=== PATIENT | female | born 1930 | race Caucasian/White ===

== ENCOUNTER 2016-06-19 18:17 | Emergency (ER) | payer OTHER ==
[~2016-06-19] VITALS: Ht 152.4 cm; Wt 57.7 kg
[~2016-06-19 18:17] MED LIST: ALBU1AER9 INH; CHOL100010 PO; CRG125 PO; DIPH-416 PO; FENT25DI2 TD; GABA-113 PO; HYDR-4079 PO; PRT40 PO; RSTOPS OPB
[2016-06-19 18:23] VITALS: TEMP 36.7; Ht 152.4 cm; Wt 57.7 kg
--- NOTE | 2016-06-19 18:29 | EMERGENCY ROOM VISIT NOTE ---
History Report prepared by Evelio: Jodi Herrera Under the Supervision of: Dr. Say Barger D.O. 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 The patient states that she has been experiencing a problem with losing her balance recently. She states she lost her balance and injured her left leg. She states that she did not hit her head and denies any head or neck pain. She states she is currently experiencing some back pain. She states that she does not have any knee pain, but that the laceration on her leg is painful. The patient states her tetanus shot is up to date and that she has history of Rheumatoid arthritis. 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 Patient denies any head pain. Review of Systems See HPI for pertinent positives & negatives. A total of 10 systems reviewed and were otherwise negative. Past Medical & Surgical Medical Problems: (1) Asthma, Unspecified (2) Chronic kidney disease (CKD) stage G3a/A1, moderately decreased glomerular filtration rate (GFR) between 45-59 mL/min/1.73 square meter and albuminuria creatinine ratio less than 30 mg/g (3) Diab Mickie Wo Comp Type Ii Or Nos/Not Uncontrolled (4) Diastolic congestive heart failure (5) Hyperlipemia (6) Hypertension (7) Kidney cyst, acquired (8) Left shoulder pain (9) Nephrolithiasis (10) New onset left bundle branch block (LBBB) (11) Osteoarthritis (12) Peripheral artery disease (13) Pneumonia (14) Temporal arteritis Family History Cancer Diabetes mellitus FH: heart disease Social History Smoking Status: Never Smoker Alcohol Use: none Drug Use: none Marital Status: Housing Status: lives alone Occupation Status: retired Current/Historical Medications Scheduled Amlodipine (Norvasc), 10 MG PO DAILY Aspirin (Aspirin Ec), 81 MG PO DAILY Atorvastatin (Lipitor), 20 MG PO DAILY Carvedilol (Carvedilol), 12.5 MG PO BID Cholecalciferol (Vitamin D), 5,000 INTER.UNIT PO DAILY Cyclosporine (Restasis Eye Drops), 1 DROP OPB BID Fentanyl (Duragesic), 25 MCG TD [id number] Gabapentin (Neurontin), 600 MG PO TID Lidocaine (Lidoderm Patch 5%), 1 PATCH TD UD Multivitamin (Multivitamin), 1 TAB PO DAILY Ocuvite Preservision (Ocuvite Preservision), 2 TAB PO BID Pantoprazole (Pantoprazole Sodium), 40 MG PO BID Penicillin V Potassium (Veetids), 1 TAB PO TID Prednisone (Prednisone), 3 MG PO DAILY Ranibizumab (Lucentis), Unknown Dose IO Q4WK Scheduled PRN Albuterol (Proair Hfa), 1-2 PUFFS INH Q4-6H PRN for Shortness of Breath Diphenoxylate/Atropine (Lomotil), 1 TAB PO QID PRN for Diarrhea Hydralazine HCl (Hydralazine HCl), 25 MG PO DAILY PRN for SYSTOLIC BP GREATER THAN 180 Hydrocodone/Acetaminophen 10MG/325MG (Eaton 10MG/325MG), 1 TAB PO Q4H PRN for Pain Allergies Coded Allergies: Cephalexin (Verified Allergy, Unknown, ., 06/19/16) Clindamycin (Verified Allergy, Unknown, COLITIS, 06/19/16) Hydrochlorothiazide (Unverified Allergy, Unknown, UNKNOWN, 06/19/16) Ibuprofen (Verified Allergy, Unknown, 06/19/16) Lisinopril (Verified Allergy, Unknown, GI SYMPTOMS, 06/19/16) causes renal dysfunction Omeprazole (Verified Allergy, Unknown, ., 06/19/16) Quinolones (Verified Allergy, Unknown, 06/19/16) Adhesives (Verified Adverse Reaction, Intermediate, RASH, 06/19/16) Oxaprozin (Verified Adverse Reaction, Intermediate, HEADACHE, 06/19/16) Physical Exam Vital Signs Date Time Temp Pulse Resp B/P Pulse Ox O2 Delivery O2 Flow Rate FiO2 06/19/16 23:10 78 20 174/78 94 06/19/16 21:48 76 22 161/81 95 Room Air 06/19/16 20:18 83 18 159/74 95 Room Air 06/19/16 18:23 36.7 75 18 156/72 98 Room Air Physical Exam GENERAL: Patient is awake, alert, and in no acute distress. Patient is resting comfortably and showing no signs of anxiety EYES: The conjunctivae are clear. The pupils are round and reactive. EARS, NOSE, MOUTH AND THROAT: The nose is without any evidence of any deformity. Mucous membranes are moist tongue is midline NECK: The neck is nontender and supple. RESPIRATORY: Normal respiratory effort is noted there is no evidence of wheezing rhonchi or rales CARDIOVASCULAR: Regular rate and rhythm noted there no murmurs rubs or gallops normal S1 normal S2 GASTROINTESTINAL: The abdomen is soft. Bowel sounds are present in all quadrants. Abdomen is nontender BACK: Tenderness of over the mid thoracic spine. ROM appeared to be intact. MUSCULOSKELETAL/EXTREMITIES: There is no evidence of gross deformity full range of motion is noted in the hips and shoulders. Tenderness over the left knee cap. ROM of hips and knee appears intact and non painful. SKIN: Chronic venostasis changes noted in both lower extremities. A skin tear just below the left knee with no active bleeding was noted. Large laceration over the proximal tibfib. This was full thickness, no active bleeding was noted. NEUROLOGIC: Patient is awake alert and oriented x3. Medical Decision & Procedures ER Provider Diagnostic Interpretation: X-ray results as stated below per interpretation by me and the radiologist. LUMBAR SPINE 5 VIEWS CLINICAL HISTORY: Fall. Chronic back pain. FINDINGS: 5 views of lumbar spine are compared to study dated 11/10/2014. The skeletal structures are osteopenic. There is no radiographic evidence of acute fracture or malalignment. Vertebral body height and alignment appear maintained. There is straightening of the lumbar lordosis with reversal in the lower lumbar region. Advanced lumbosacral spondylosis is identified. There is severe lumbar levoscoliosis centered at L2-L3. The transverse and spinous processes are grossly intact. There is near complete fusion of L3 and L4. Significant facet arthropathy is present in the lower lumbar spine. Anterior and lateral marginal osteophytes are present at most levels. There is advanced multilevel degenerative disc space narrowing in the mid to lower lumbar spine. The bony pelvis is grossly intact. A left hip arthroplasty is in place. There is advanced atherosclerotic calcification of the abdominal aorta. There is a nonobstructed abdominal bowel gas pattern. IMPRESSION: 1. Generalized osteopenia with no radiographic evidence of fracture or malalignment in the lumbosacral spine. 2. Advanced lumbosacral spondylosis and scoliosis as above. This is similar in appearance to prior studies. Electronically signed by: Davion Reid M.D. 06/19/2016 7:56 PM Dictated Date/Time: 06/19/2016 7:53 PM LEFT KNEE 2 VIEWS CLINICAL HISTORY: Fall with left knee pain. FINDINGS: AP and crosstable lateral views of the left knee are obtained. No prior studies are available for comparison at the time of dictation. The skeletal structures are osteopenic. A left knee arthroplasty is in near-anatomic alignment. No acute fracture is seen. No periprosthetic lucency is identified. There is been undersurface remodeling of the patella. Soft tissue edema is present around the knee. There is no large joint effusion. Advanced atherosclerotic calcification is noted in the popliteal artery. A vascular stent is present posterior to the femur. IMPRESSION: 1. Soft tissue edema with no fracture identified. 2. Osteopenia and left knee arthroplasty is above. Electronically signed by: Davion Reid M.D. 06/19/2016 7:58 PM Dictated Date/Time: 06/19/2016 7:57 PM THORACIC SPINE 3 VIEWS CLINICAL HISTORY: Fall with thoracic back pain. FINDINGS: AP, lateral, and swimmer's views of the thoracic spine are obtained. Correlation is made with lateral chest x-ray dated 08/12/[address] scan of the chest dated 02/02/2016. The Examination is significantly degraded by scoliosis. The skeletal structures are osteopenic. There is no radiographic evidence of acute fracture or malalignment. There is moderate S-shaped thoracic scoliosis centered in the upper thoracic spine around T4-T5. Vertebral body height is maintained as visualized. Alignment appears preserved. The transverse and spinous processes are grossly intact on the frontal view. Advanced multilevel degenerative disc space narrowing is noted. There are anterior osteophytes at several levels. The imaged lung parenchyma appears clear noting chronic elevation of left hemidiaphragm with associated atelectasis. There is advanced atherosclerotic calcification of the thoracic area. Cervical spondylosis is partially imaged. IMPRESSION: 1. There is no radiographic evidence of acute fracture or malalignment involving the thoracic spine. 2. Osteopenia with advanced spondylosis and scoliosis as above. Electronically signed by: Davion Reid M.D. 06/19/2016 7:52 PM Dictated Date/Time: 06/19/2016 7:49 PM LEFT TIBIA AND FIBULA 2 VIEWS CLINICAL HISTORY: Fall with left leg pain. FINDINGS: AP and lateral views of the left tibia and fibula are obtained. No prior studies are available for comparison at the time of dictation. The skeletal structures are osteopenic. No fracture is identified. A left knee arthroplasty is in place. The ankle joint is grossly maintained. Mild soft tissue edema is noted throughout the left lower extremity. Numerous phleboliths are observed. There is advanced atherosclerotic calcification of the regional arteries. IMPRESSION: Soft tissue swelling with no radiographic evidence of fracture in the left tibia or fibula. Electronically signed by: Davion Reid M.D. 06/19/2016 7:59 PM Dictated Date/Time: 06/19/2016 7:58 PM Medications Administered Medications (Trade) Dose Ordered Sig/Fly Route Start Time Stop Time Status Last Admin Dose Admin Ibuprofen (Motrin Tab) 600 mg NOW STAT PO 06/19/16 18:30 06/19/16 18:32 DC 06/19/16 20:14 600 MG Acetaminophen/ Hydrocodone Bitart (Eaton 5/325 Tab) 2 tab ONE STAT PO 06/19/16 19:23 06/19/16 19:25 DC 06/19/16 20:15 2 TAB Penicillin V Potassium (Veetids Tab) 500 mg ONE ONCE PO 06/19/16 22:15 06/19/16 22:16 DC 06/19/16 23:01 500 MG Penicillin V Potassium (Pen-Vk 250MG Home Pack) 1 homepack UD ONCE PO 06/19/16 22:15 06/19/16 22:16 DC 06/19/16 23:01 1 HOMEPACK ED Course 1825: The patient was evaluated in room C12B. A complete history and physical examination were performed. 0: Ordered Motrin Tab 600 mg PO. 1922: Ordered Eaton 5/325 Tab 2 tab PO. 2014: Ordered Lidocaine/ Epinephrine 20 ml INFIL 7: I revaluated the patient and she was resting comfortable. I discussed her surtures with Deon Adhikari PA-C. 2215: Penicillin V Potassium 1 homepack PO, Veetids Tab 500 mg PO, Keflex Cap 500 mg PO, Cephalexin Monohydrate 1 homepack PO. 2230: Upon reevaluation, the patient is resting comfortably. I discussed the results and treatment plan with her. She verbalized agreement of the treatment plan. The patient was discharged home. Medical Decision Prior records/ancillary studies reviewed. Triage Nursing notes reviewed. Additional history obtained from the patient's daughter. The patient's history was concerning for traumatic injury Differential diagnosis: Etiologies such as fracture, dislocation, intra-abdominal, pneumothorax, intrathoracic , intracranial, neurologic, as well as other traumatic pathologies were entertained. The patient is an 85-year-old female who presented to the emergency department for an evaluation of left leg injury. The patient had a fall where she suffered a significant complex injury to her left leg which included a skin tear as well as a full-thickness laceration. The patient was treated with pain medication and antibiotics in the emergency department. The patient had wound care and laceration repair done by ADELITA Long. Please see his note for complete repair details. There was a wound dressing applied. I discussed the case with the emergency Department case packer and sealer. They will attempt to get the patient a follow-up appointment at the wound care center and arrange wound care daily by home health. The patient was encouraged to continue all medications as prescribed and follow-up with wound care center as soon as possible. There were also encouraged to watch for signs of infection and return to the emergency department immediately if symptoms change worsen or if the need arises. Impression Primary Impression: Fall Additional Impressions: Hematoma of left lower extremity Laceration of lower extremity Scribe Attestation The scribe's documentation has been prepared under my direction and personally reviewed by me in its entirety. I confirm that the note above accurately reflects all work, treatment, procedures, and medical decision making performed by me. Departure Information Dispostion Home / Self-Care Prescriptions Penicillin V Potassium (VEETIDS) 500 Mg Tab 1 TAB PO TID for 10 Days, #30 TAB Prov: Say Barger, DO 06/19/16 Referrals Ian Covarrubias M.D. (PCP) Forms HOME CARE DOCUMENTATION FORM, IMPORTANT VISIT INFORMATION Patient Instructions My [facility] Additional Instructions Continue all medications as prescribed. Continue doing dressing changes as discussed. Follow-up wound care center as soon as possible for reevaluation. Problem Qualifiers
[2016-06-19] MEDS ORDERED: IBUPROFEN 600 MG TAB PO STA (18:30)
[2016-06-19] MEDS ORDERED: HYDROCODONE/ACETAMOPHEN 5/325MG TAB PO STA (19:23)
[2016-06-19] MEDS ORDERED: APR/25 PO (19:36)
[2016-06-19] MEDS ORDERED: NF656 TD (19:36)
--- NOTE | 2016-06-19 19:54 | DIAGNOSTIC IMAGING REPORT ---
THORACIC SPINE 3 VIEWS CLINICAL HISTORY: Fall with thoracic back pain. FINDINGS: AP, lateral, and swimmer's views of the thoracic spine are obtained. Correlation is made with lateral chest x-ray dated 08/12/[address] scan of the chest dated 02/02/2016. The Examination is significantly degraded by scoliosis. The skeletal structures are osteopenic. There is no radiographic evidence of acute fracture or malalignment. There is moderate S-shaped thoracic scoliosis centered in the upper thoracic spine around T4-T5. Vertebral body height is maintained as visualized. Alignment appears preserved. The transverse and spinous processes are grossly intact on the frontal view. Advanced multilevel degenerative disc space narrowing is noted. There are anterior osteophytes at several levels. The imaged lung parenchyma appears clear noting chronic elevation of left hemidiaphragm with associated atelectasis. There is advanced atherosclerotic calcification of the thoracic area. Cervical spondylosis is partially imaged. IMPRESSION: 1. There is no radiographic evidence of acute fracture or malalignment involving the thoracic spine. 2. Osteopenia with advanced spondylosis and scoliosis as above. Electronically signed by: Davion Reid M.D. 06/19/2016 7:52 PM Dictated Date/Time: 06/19/2016 7:49 PM
--- NOTE | 2016-06-19 19:58 | DIAGNOSTIC IMAGING REPORT ---
LUMBAR SPINE 5 VIEWS CLINICAL HISTORY: Fall. Chronic back pain. FINDINGS: 5 views of lumbar spine are compared to study dated 11/10/2014. The skeletal structures are osteopenic. There is no radiographic evidence of acute fracture or malalignment. Vertebral body height and alignment appear maintained. There is straightening of the lumbar lordosis with reversal in the lower lumbar region. Advanced lumbosacral spondylosis is identified. There is severe lumbar levoscoliosis centered at L2-L3. The transverse and spinous processes are grossly intact. There is near complete fusion of L3 and L4. Significant facet arthropathy is present in the lower lumbar spine. Anterior and lateral marginal osteophytes are present at most levels. There is advanced multilevel degenerative disc space narrowing in the mid to lower lumbar spine. The bony pelvis is grossly intact. A left hip arthroplasty is in place. There is advanced atherosclerotic calcification of the abdominal aorta. There is a nonobstructed abdominal bowel gas pattern. IMPRESSION: 1. Generalized osteopenia with no radiographic evidence of fracture or malalignment in the lumbosacral spine. 2. Advanced lumbosacral spondylosis and scoliosis as above. This is similar in appearance to prior studies. Electronically signed by: Davion Reid M.D. 06/19/2016 7:56 PM Dictated Date/Time: 06/19/2016 7:53 PM
--- NOTE | 2016-06-19 20:00 | DIAGNOSTIC IMAGING REPORT ---
LEFT KNEE 2 VIEWS CLINICAL HISTORY: Fall with left knee pain. FINDINGS: AP and crosstable lateral views of the left knee are obtained. No prior studies are available for comparison at the time of dictation. The skeletal structures are osteopenic. A left knee arthroplasty is in near-anatomic alignment. No acute fracture is seen. No periprosthetic lucency is identified. There is been undersurface remodeling of the patella. Soft tissue edema is present around the knee. There is no large joint effusion. Advanced atherosclerotic calcification is noted in the popliteal artery. A vascular stent is present posterior to the femur. IMPRESSION: 1. Soft tissue edema with no fracture identified. 2. Osteopenia and left knee arthroplasty is above. Electronically signed by: Davion Reid M.D. 06/19/2016 7:58 PM Dictated Date/Time: 06/19/2016 7:57 PM
--- NOTE | 2016-06-19 20:01 | DIAGNOSTIC IMAGING REPORT ---
LEFT TIBIA AND FIBULA 2 VIEWS CLINICAL HISTORY: Fall with left leg pain. FINDINGS: AP and lateral views of the left tibia and fibula are obtained. No prior studies are available for comparison at the time of dictation. The skeletal structures are osteopenic. No fracture is identified. A left knee arthroplasty is in place. The ankle joint is grossly maintained. Mild soft tissue edema is noted throughout the left lower extremity. Numerous phleboliths are observed. There is advanced atherosclerotic calcification of the regional arteries. IMPRESSION: Soft tissue swelling with no radiographic evidence of fracture in the left tibia or fibula. Electronically signed by: Davion Reid M.D. 06/19/2016 7:59 PM Dictated Date/Time: 06/19/2016 7:58 PM
[2016-06-19] MEDS ORDERED: LIDOCAINE/EPINEPHRINE 1% 20 ML VIAL INFIL ONE (20:15)
[2016-06-19] MEDS ORDERED: PENI500T2 PO (22:13)
[2016-06-19] MEDS ORDERED: CEPHALEXIN MONOHYDRATE 250 MG CAP PO ONE (22:15)
[2016-06-19] MEDS ORDERED: PENICILLIN HOME PACK 250MG (4)BTL PO ONE (22:15)
[2016-06-19] MEDS ORDERED: CEPHALEXIN 500MG HOME PACK 1 EA BTL PO ONE (22:15)
[2016-06-19] MEDS ORDERED: PENICILLIN V POTASSIUM 250 MG TAB PO ONE (22:15)
[2016-06-19 23:10] VITALS: BP 174/78; PULSE 78; O2SAT 94
--- NOTE | 2016-06-20 01:16 | EMERGENCY ROOM VISIT NOTE ---
ED Visit Note This patient was seen and evaluated at the request of my attending physician, Dr. Barger. Please see Dr. Barger dictation for full history of present illness and emergency Department course outside of this repair. In short, the patient has suffered a fall this evening and now has a quite complicated left lower leg laceration. The patient has a skin tear laceration measuring approximately 7 cm in diameter over the left lateral distal femur. There is not a distinct laceration in this area, and the bleeding here is well-controlled. This area was dressed with Xeroform and wrapped. The much more complicated laceration is just distal to that initial injury. She has an L-shaped laceration over the tibia measuring approximately 14 cm in total length. This laceration does cause a flap revealing the proximal tibia. The medial aspect of this laceration is quite edematous and medially displaced. The lateral aspect of the laceration is adjacent to the bone, and is very thin. The patient's skin is exceptionally thin as she has been on chronic prednisone for a history of rheumatoid arthritis. I discussed options of care with the patient and family. Laceration repair. Patient elects to have their laceration repaired. Verbal consent was obtained to perform the procedure. There is an abundance of materials available for the procedure. Patient is not allergic to latex. Using sterile technique the wound was cleaned with Betadine. The area was sterilely draped. 14 ml of 1% buffered lidocaine with epinephrine was used to anesthetize the left lower leg laceration. Once the patient was anesthetized, the wound was copiously irrigated under pressure with sterile saline. The wound was explored and the proximal tibia was exposed. There is no obvious injury to blood vessels. The laceration repair was quite complex. The proximal medial wound was repaired with 6 4-0 Ethilon stitches. The most distal aspect was repaired with a single 4-0 Ethilon stitch. The central aspect of the wound was reapproximated using a single 4-0 horizontal mattress suture. This suture was quite long as its primary function was to help reapproximate the tissue. A second similar stitch was attempted more distally, however this stitch was removed as the patient's skin is very thin and unable to withstand the tensile force. A total of 7 stitches were placed in final. The remaining laceration did approximate fairly well after initial stitching. I do have concern about this laceration, and I did place Steri-Strips essentially around the entire length of the laceration with benzoin adhesive. Overall the patient tolerated this well. There were no obvious complications. I instructed nursing to place a pressure dressing that would help provide some medial to lateral approximation. Hopefully this will take some of the stress off the patient's skin while keeping her wound/skin in an anatomically appropriate position. Blood loss was negligible. I discussed at length my concerns about the wound with the family. Dr. Barger shares these concerns, and he did engage case management. The patient really needs to follow with the wound care clinic for this, as the risk of complication is felt to be quite high. The patient voiced understanding. Please see Dr. Barger dictation for further patient course, plan, and disposition. Problem List Medical Problems: (1) Asthma, Unspecified Status: Chronic (2) Chronic kidney disease (CKD) stage G3a/A1, moderately decreased glomerular filtration rate (GFR) between 45-59 mL/min/1.73 square meter and albuminuria creatinine ratio less than 30 mg/g Status: Chronic (3) Diab Mickie Wo Comp Type Ii Or Nos/Not Uncontrolled Status: Chronic (4) Diastolic congestive heart failure Status: Chronic (5) Hyperlipemia Status: Chronic (6) Hypertension Status: Chronic (7) Kidney cyst, acquired Status: Chronic (8) Left shoulder pain Status: Resolved (9) Nephrolithiasis Status: Chronic (10) Osteoarthritis Status: Chronic (11) Peripheral artery disease Status: Chronic (12) Temporal arteritis Status: Chronic Current/Historical Medications Scheduled Amlodipine (Norvasc), 10 MG PO DAILY Aspirin (Aspirin Ec), 81 MG PO DAILY Atorvastatin (Lipitor), 20 MG PO DAILY Carvedilol (Carvedilol), 12.5 MG PO BID Cholecalciferol (Vitamin D), 5,000 INTER.UNIT PO DAILY Cyclosporine (Restasis Eye Drops), 1 DROP OPB BID Fentanyl (Duragesic), 25 MCG TD CQ72HR Gabapentin (Neurontin), 600 MG PO TID Lidocaine (Lidoderm Patch 5%), 1 PATCH TD UD Multivitamin (Multivitamin), 1 TAB PO DAILY Ocuvite Preservision (Ocuvite Preservision), 2 TAB PO BID Pantoprazole (Pantoprazole Sodium), 40 MG PO BID Penicillin V Potassium (Veetids), 1 TAB PO TID Prednisone (Prednisone), 3 MG PO DAILY Ranibizumab (Lucentis), Unknown Dose IO Q4WK Scheduled PRN Albuterol (Proair Hfa), 1-2 PUFFS INH Q4-6H PRN for Shortness of Breath Diphenoxylate/Atropine (Lomotil), 1 TAB PO QID PRN for Diarrhea Hydralazine HCl (Hydralazine HCl), 25 MG PO DAILY PRN for SYSTOLIC BP GREATER THAN 180 Hydrocodone/Acetaminophen 10MG/325MG ([place]reana 10MG/325MG), 1 TAB PO Q4H PRN for Pain Allergies Coded Allergies: Cephalexin (Verified Allergy, Unknown, ., 06/19/16) Clindamycin (Verified Allergy, Unknown, COLITIS, 06/19/16) Hydrochlorothiazide (Unverified Allergy, Unknown, UNKNOWN, 06/19/16) Ibuprofen (Verified Allergy, Unknown, 06/19/16) Lisinopril (Verified Allergy, Unknown, GI SYMPTOMS, 06/19/16) causes renal dysfunction Omeprazole (Verified Allergy, Unknown, ., 06/19/16) Quinolones (Verified Allergy, Unknown, 06/19/16) Adhesives (Verified Adverse Reaction, Intermediate, RASH, 06/19/16) Oxaprozin (Verified Adverse Reaction, Intermediate, HEADACHE, 06/19/16) Vital Signs Date Time Temp Pulse Resp B/P Pulse Ox O2 Delivery O2 Flow Rate FiO2 06/19/16 23:10 78 20 174/78 94 06/19/16 21:48 76 22 161/81 95 Room Air 06/19/16 20:18 83 18 159/74 95 Room Air 06/19/16 18:23 36.7 75 18 156/72 98 Room Air Medications Administered Medications (Trade) Dose Ordered Sig/Fly Route Start Time Stop Time Status Last Admin Dose Admin Ibuprofen (Motrin Tab) 600 mg NOW STAT PO 06/19/16 18:30 06/19/16 18:32 DC 06/19/16 20:14 600 MG Acetaminophen/ Hydrocodone Bitart ([place] 5/325 Tab) 2 tab ONE STAT PO 06/19/16 19:23 06/19/16 19:25 DC 06/19/16 20:15 2 TAB Penicillin V Potassium (Veetids Tab) 500 mg ONE ONCE PO 06/19/16 22:15 06/19/16 22:16 DC 06/19/16 23:01 500 MG Penicillin V Potassium (Pen-Vk 250MG Home Pack) 1 homepack UD ONCE PO 06/19/16 22:15 06/19/16 22:16 DC 06/19/16 23:01 1 HOMEPACK Departure Information Impression Primary Impression: Fall Additional Impressions: Laceration of lower extremity Hematoma of left lower extremity Dispostion Home / Self-Care Condition GOOD Prescriptions Penicillin V Potassium (VEETIDS) 500 Mg Tab 1 TAB PO TID for 10 Days, #30 TAB Prov: Say Barger, DO 06/19/16 Referrals Ian Covarrubias M.D. (PCP) Forms HOME CARE DOCUMENTATION FORM, IMPORTANT VISIT INFORMATION Patient Instructions My [facility], ED Laceration All Additional Instructions Continue all medications as prescribed. Continue doing dressing changes as discussed. Follow-up wound care center as soon as possible for reevaluation.
[2017-03-01] MEDS ORDERED: [UNRECOGNIZED DRUG - CODE] IO (08:37)
[2017-03-01] MEDS ORDERED: PRD/1 PO (10:44)
[2017-03-01] MEDS ORDERED: ATOR-22 PO (10:47)
[2017-03-01] MEDS ORDERED: MULT-506 PO (10:50)
[2017-03-01] MEDS ORDERED: MULT-190 PO (10:50)
[2017-03-01] MEDS ORDERED: AMLO-114 PO (16:40)
[2017-03-01] MEDS ORDERED: ASPI81TA28 PO (16:44)
== END 2016-06-19 23:10 | disposition home or self-care (01) ==
LOC: EDBD 18:17 → C.EDC 18:19
DX: S81.812A Laceration without foreign body, left lower leg, initial encounter (principal); S80.12XA Contusion of left lower leg, initial encounter; W19.XXXA Unspecified fall, initial encounter; M06.9 Rheumatoid arthritis, unspecified; J45.909 Unspecified asthma, uncomplicated; I12.9 Hypertensive chronic kidney disease with stage 1 through stage 4 chronic kidney disease, or unspecified chronic kidney disease; N18.9 Chronic kidney disease, unspecified; E11.22 Type 2 diabetes mellitus with diabetic chronic kidney disease; E78.5 Hyperlipidemia, unspecified; M19.90 Unspecified osteoarthritis, unspecified site; I73.9 Peripheral vascular disease, unspecified; Z87.01 Personal history of pneumonia (recurrent); Z83.3 Family history of diabetes mellitus; Z79.52 Long term (current) use of systemic steroids; Z79.82 Long term (current) use of aspirin; Z79.899 Other long term (current) drug therapy

== ENCOUNTER → 2016-07-11 | Outpatient (CLI) | payer OTHER ==
[~2016-07-11] MED LIST changes: +AMLO-114 PO; +APR/25 PO; +ASPI81TA28 PO; +ATOR-22 PO; +CARB25TA12 PO; +CARV12.52 PO; +CHOL1TAB42 PO; +CYCL0.052 OP; +FNTTP25 TOP; +HYDR-4383 PO; +MOME100A INH; +MULT-190 PO; +MULT-506 PO; +NF656 TD; +NRN600 PO; +PRD/1 PO; +PROAIR INH; +TRMCR515 TOP; +[UNRECOGNIZED DRUG - CODE] IO
[2016-07-11 13:10] LABS: BASO % 0.5 %; BASO ABS # 0.04 K/uL (0-0.2); COMPLETE YES; EOS % 6.3 %; HEMATOCRIT 36.9 % (37-47); IG% 0.4 %; LYMPH % 16.4 %; LYMPH ABS # 1.25 K/uL (1.2-3.4); MEAN CELL VOLUME 97.6 fL (80-100); MEAN CORPUSCULAR HEMOGLOBIN 31.7 pg (25-34); MEAN CORPUSCULAR HGB CONC 32.5 g/dl (32-36); MEAN PLATELET VOLUME 9.4 fL (7.4-10.4); NEUT % 65.4 %; PLATELET COUNT 246 K/uL (130-400); RED BLOOD COUNT 3.78 M/uL (4.2-5.4); WHITE BLOOD COUNT 7.62 K/uL (4.8-10.8)
[2016-07-11 13:29] LABS: BLOOD UREA NITROGEN 20 mg/dl (7-18); GLUCOSE 94 mg/dl (70-99)
[2016-07-11 13:30] LABS: BUN/CREATININE RATIO 26.4 (10-20); CALCIUM 8.4 mg/dl (8.5-10.1); CARBON DIOXIDE 29 mmol/L (21-32); CHLORIDE 105 mmol/L (98-107); CREATININE 0.75 mg/dl (0.60-1.20); SODIUM 142 mmol/L (136-145)
== END | disposition home or self-care (01) ==
LOC: C.LABBC 10:14
PROVIDERS: ATTEND Internal Medicine Geriatric Medicine
DX: M31.6 Other giant cell arteritis (principal); I10 Essential (primary) hypertension; R73.9 Hyperglycemia, unspecified; I73.9 Peripheral vascular disease, unspecified

== ENCOUNTER → 2016-07-14 | Outpatient (CLI) | payer OTHER ==
--- NOTE | 2016-07-14 12:49 | DIAGNOSTIC IMAGING REPORT ---
LEFT LOWER EXTREMITY ULTRASOUND CLINICAL HISTORY: Left leg nonhealing wound. Palpable abnormality. COMPARISON STUDY: No previous studies for comparison. FINDINGS: Note is made of a complex subcutaneous fluid collection of the medial left calf that measures approximately 5.7 x 5.2 x 1.6 cm. No color flow is shown within this finding. There is no hyperemia within the adjacent soft tissues by sonography. This represents the palpable abnormality. IMPRESSION: 5.7 x 5.2 x 1.6 cm complex subcutaneous fluid collection of the medial left calf at the site of palpable abnormality. The sonographic appearance is nonspecific and this could reflect a hematoma or abscess. Electronically signed by: Benigno Elias M.D. 07/14/2016 12:48 PM Dictated Date/Time: 07/14/2016 12:45 PM
== END | disposition home or self-care (01) ==
LOC: C.ULTR 11:59
PROVIDERS: ATTEND Physician Assistant
DX: S81.802A Unspecified open wound, left lower leg, initial encounter (principal); X58.XXXA Exposure to other specified factors, initial encounter

== ENCOUNTER → 2016-08-13 | Outpatient (CLI) | payer OTHER ==
[~2016-08-13] MED LIST changes: -PRT40 PO
--- NOTE | 2016-08-13 11:30 | DIAGNOSTIC IMAGING REPORT ---
CHEST 2 VIEWS ROUTINE CLINICAL HISTORY: COUGH dyspnea COMPARISON STUDY: 02/02/2016 FINDINGS: Hiatal hernia best seen left base. Lungs are considered clear. Minimal left basilar atelectasis. Mild stable cardiomegaly. IMPRESSION: Mild stable cardiomegaly. Fixed lateral hernia best seen left base. Focal atelectatic change left base Electronically signed by: Frank Colin M.D. 08/13/2016 11:29 AM Dictated Date/Time: 08/13/2016 11:28 AM
== END | disposition home or self-care (01) ==
LOC: C.RADBC 10:58
PROVIDERS: ATTEND Internal Medicine Geriatric Medicine
DX: R05 Cough (principal); I51.7 Cardiomegaly

== ENCOUNTER → 2016-09-02 | Outpatient (CLI) | payer OTHER ==
--- NOTE | 2016-09-02 14:13 | DIAGNOSTIC IMAGING REPORT ---
CT OF THE CHEST WITHOUT IV CONTRAST CLINICAL HISTORY: R05 Cough persistent cough COMPARISON STUDY: 02/02/2016 CT DOSE: 318.01 mGy.cm TECHNIQUE: CT of the thorax was performed from the thoracic inlet to the lung bases. Images are reviewed in the axial, sagittal, and coronal planes. IV contrast was not administered for this examination. FINDINGS: Thyroid: Imaged portions of the thyroid gland are normal in appearance. Thoracic aorta: The thoracic aorta is normal in course and caliber, noting standard 3 vessel arch anatomy. Heart: There is borderline cardiac enlargement. There is no pericardial effusion. Lungs and pleural spaces: There are clustered tangential right lower lobe pulmonary nodules measuring 21 mm in aggregate. These were not present on the prior January 2016 study. This therefore favors an inflammatory etiology. A 2 month follow-up study subsequent antibiotic therapy is recommended. There is a left diaphragmatic hernia. This contains portions of the stomach and transverse colon. There are compressive left lower lobe atelectatic changes. There are minor left pleural calcifications. Mediastinum: There is no mediastinal lymphadenopathy. Antonella: There is no evidence of pathologic hilar adenopathy given the limitations of a noncontrast study Axilla: Clear. Upper abdomen: There is a stable hepatic cyst. There is a stable hepatic calcification likely postinflammatory. Skeletal structures: There are no lytic or blastic osseous lesions. IMPRESSION: 1. Interval development of clustered tangential right lower lobe pulmonary nodules measuring 21 mm in aggregate. An inflammatory etiology is favored. A 2 month follow-up study subsequent to antibiotic therapy is recommended 2. Left diaphragmatic hernia containing portions of the stomach and transverse colon Electronically signed by: Mulugeta Morales M.D. 09/02/2016 2:11 PM Dictated Date/Time: 09/02/2016 2:04 PM
== END | disposition home or self-care (01) ==
LOC: C.CTS 13:50
PROVIDERS: ATTEND Internal Medicine Geriatric Medicine
DX: R05 Cough (principal); R91.8 Other nonspecific abnormal finding of lung field; K44.9 Diaphragmatic hernia without obstruction or gangrene

== ENCOUNTER → 2016-11-11 | Outpatient (CLI) | payer OTHER ==
[~2016-11-11] MED LIST changes: +ALBU18002 INH; -APR/25 PO; +CIPR-255 PO; +HYDR-4716 PO
[2016-11-11 17:19] LABS: BASO % 0.1 %; BASO ABS # 0.01 K/uL (0-0.2); COMPLETE YES; IG% 0.4 %; LYMPH % 9.8 %; LYMPH ABS # 1.01 K/uL (1.2-3.4); MEAN CELL VOLUME 97.9 fL (80-100); MEAN CORPUSCULAR HEMOGLOBIN 31.7 pg (25-34); MEAN CORPUSCULAR HGB CONC 32.4 g/dl (32-36); MEAN PLATELET VOLUME 9.2 fL (7.4-10.4); MONO % 8.7 %; PLATELET COUNT 233 K/uL (130-400); RED BLOOD COUNT 4.19 M/uL (4.2-5.4); WHITE BLOOD COUNT 10.34 K/uL (4.8-10.8)
[2016-11-11 18:06] LABS: BLOOD UREA NITROGEN 34 mg/dl (7-18); BUN/CREATININE RATIO 49.4 (10-20); CARBON DIOXIDE 28 mmol/L (21-32); CHLORIDE 103 mmol/L (98-107); CREATININE 0.69 mg/dl (0.60-1.20); GLUCOSE 134 mg/dl (70-99); POTASSIUM 4.4 mmol/L (3.5-5.1); SODIUM 142 mmol/L (136-145)
[2016-11-12 06:03] LABS: ESTIMATED AVERAGE GLUCOSE 134 mg/dl; HA1C FLAG Normal (Normal)
== END | disposition home or self-care (01) ==
LOC: C.LABBC 14:34
PROVIDERS: ATTEND Internal Medicine Geriatric Medicine
DX: M31.6 Other giant cell arteritis (principal); I10 Essential (primary) hypertension; R73.9 Hyperglycemia, unspecified

== ENCOUNTER → 2017-02-06 | Outpatient (CLI) | payer OTHER ==
[~2017-02-06] MED LIST changes: -ALBU18002 INH; +APR/25 PO; -CIPR-255 PO; -HYDR-4716 PO
[2017-02-06 13:01] LABS: BASO % 0.7 %; BASO ABS # 0.05 K/uL (0-0.2); COMPLETE YES; EOS % 4.9 %; HEMATOCRIT 41.5 % (37-47); IG% 0.3 %; LYMPH % 17.8 %; LYMPH ABS # 1.32 K/uL (1.2-3.4); MEAN CELL VOLUME 97.6 fL (80-100); MEAN CORPUSCULAR HEMOGLOBIN 31.5 pg (25-34); MEAN CORPUSCULAR HGB CONC 32.3 g/dl (32-36); MEAN PLATELET VOLUME 9.4 fL (7.4-10.4); MONO % 10.9 %; NEUT % 65.4 %; PLATELET COUNT 215 K/uL (130-400); RED BLOOD COUNT 4.25 M/uL (4.2-5.4); WHITE BLOOD COUNT 7.41 K/uL (4.8-10.8)
[2017-02-06 13:58] LABS: ALT/SGPT 8 U/L (12-78); AST/SGOT 14 U/L (15-37); BLOOD UREA NITROGEN 20 mg/dl (7-18); BUN/CREATININE RATIO 27.7 (10-20); CALCIUM 9.3 mg/dl (8.5-10.1); CARBON DIOXIDE 31 mmol/L (21-32); CHLORIDE 107 mmol/L (98-107); CREATININE 0.72 mg/dl (0.60-1.20); GLUCOSE 91 mg/dl (70-99); POTASSIUM 3.6 mmol/L (3.5-5.1); SODIUM 141 mmol/L (136-145)
[2017-02-06 14:01] LABS: ALKALINE PHOSPHATASE 117 U/L (45-117); CHOLESTEROL 104 mg/dl (0-200); HDL CHOLESTEROL 51 mg/dl; LDL CHOLESTEROL CALCULATED 25 mg/dl; TRIGLYCERIDES 140 mg/dl (0-150); VERY LOW DENSITY LIPOPROT CALC 28 mg/dl
== END | disposition home or self-care (01) ==
LOC: C.LABBC 11:16
PROVIDERS: ATTEND Internal Medicine Geriatric Medicine
DX: E55.9 Vitamin D deficiency, unspecified (principal); I10 Essential (primary) hypertension; R73.9 Hyperglycemia, unspecified; I73.9 Peripheral vascular disease, unspecified; M19.90 Unspecified osteoarthritis, unspecified site; M31.6 Other giant cell arteritis

== ENCOUNTER 2017-03-01 19:59 | Emergency (ER) | payer OTHER ==
[~2017-03-01] VITALS: Ht 154.9 cm; Wt 56.4 kg
[~2017-03-01 19:59] MED LIST changes: -CARB25TA12 PO; -CARV12.52 PO; -CHOL1TAB42 PO; -CYCL0.052 OP; -FNTTP25 TOP; -HYDR-4383 PO; -MOME100A INH; -NRN600 PO; -PROAIR INH; -TRMCR515 TOP
[2017-03-01] MEDS ORDERED: XYLOCAINE 1%/SOD BICARB 20 ML VIAL INFIL STA (20:16)
[2017-03-01] MEDS ORDERED: HYDROCODONE/ACETAMOPHEN 5/325MG TAB PO STA (20:16)
--- NOTE | 2017-03-01 20:16 | EMERGENCY ROOM VISIT NOTE ---
History Report prepared by Evelio: Kamryn Russell Under the Supervision of: Dr. Ton Hensley M.D. First contact with patient: 20:11 Stated Complaint: fall History of Present Illness The patient is an 86 year old female who presents to the Emergency Room with complaints of a fall that occurred prior to arrival. She was brought to the ED via EMS and is accompanied by her daughter. She reports she slipped in the bathroom this evening on a wet surface and fell, hitting the back of her head. She rates her discomfort as a 7/10 in severity. She did not lose consciousness. She takes a daily baby Aspirin but no other blood thinners. The patient denies any abdominal pain or pain with inspiration. She also denies any neck pain or back pain. Source of History: patient Onset: PROCESSING MGR Position: other (global) Quality: other (fall) Timing: resolved Associated Symptoms: No LOC, No neck pain, No abdominal pain, No back pain Review of Systems See HPI for pertinent positives & negatives. A total of 10 systems reviewed and were otherwise negative. Past Medical & Surgical Medical Problems: (1) Asthma, Unspecified (2) Chronic kidney disease (CKD) stage G3a/A1, moderately decreased glomerular filtration rate (GFR) between 45-59 mL/min/1.73 square meter and albuminuria creatinine ratio less than 30 mg/g (3) Diab Mickie Wo Comp Type Ii Or Nos/Not Uncontrolled (4) Diastolic congestive heart failure (5) Hematoma (6) Hyperlipemia (7) Hypertension (8) Kidney cyst, acquired (9) Left shoulder pain (10) MRSA (methicillin resistant Staphylococcus aureus) infection (11) Nephrolithiasis (12) New onset left bundle branch block (LBBB) (13) Osteoarthritis (14) Peripheral artery disease (15) Pneumonia (16) Temporal arteritis (17) Wound of left leg Family History Cancer Diabetes mellitus FH: heart disease Social History Smoking Status: Never Smoker Alcohol Use: none Drug Use: none Marital Status: Housing Status: lives alone Occupation Status: retired Current/Historical Medications Scheduled Amlodipine (Norvasc), 10 MG PO DAILY Aspirin (Aspirin Ec), 81 MG PO DAILY Atorvastatin (Lipitor), 20 MG PO DAILY Carbidopa/Levodopa (Sinemet 25MG/100MG), 1 TAB PO TID Carvedilol (Coreg), 12.5 MG PO BID Cholecalciferol (Vitamin D), 5,000 UNITS PO DAILY Cyclosporine (Ophth) (Restasis), 1 DROP OP BID Fentanyl (Fentanyl), 1 PATCH TOP CQ72HR Gabapentin (Gabapentin), 600 MG PO TID Mometasone Furoate-Formoterol (Dulera 100/5 Mcg), 1 AER INH QAM Multivitamin (Multivitamin), 1 TAB PO DAILY Ocuvite Preservision (Ocuvite Preservision), 1 TAB PO BID Prednisone (Prednisone), 1 MG PO TID Ranibizumab (Lucentis), Unknown Dose IO Q6WK Triamcinolone Acet (Triamcinolone Acetonide), 1 APPLN TOP BID Scheduled PRN Hydrocodone/Acetaminophen ([place] 10/325 Tab), 1 TAB PO Q6 PRN for Pain [Proair], 1-2 PUFF INH Q4-6HRS PRN for SOB/Wheezing Allergies Coded Allergies: Cephalexin (Verified Allergy, Unknown, ., 08/05/16) Clindamycin (Verified Allergy, Unknown, COLITIS, 08/05/16) Hydrochlorothiazide (Verified Allergy, Unknown, UNKNOWN, 08/05/16) Ibuprofen (Verified Allergy, Unknown, 08/05/16) Omeprazole (Verified Allergy, Unknown, ., 08/05/16) Quinolones (Verified Allergy, Unknown, 08/05/16) Adhesives (Verified Adverse Reaction, Intermediate, RASH, 08/05/16) Oxaprozin (Verified Adverse Reaction, Intermediate, HEADACHE, 08/05/16) Lisinopril (Verified Adverse Reaction, Unknown, GI SYMPTOMS,RENAL DYSFUNCTION, 08/05/16) causes renal dysfunction Physical Exam Vital Signs Date Time Temp Pulse Resp B/P (MAP) Pulse Ox O2 Delivery O2 Flow Rate FiO2 03/01/17 22:08 36.7 92 18 162/64 96 03/01/17 21:51 36.7 92 18 162/64 96 Room Air 03/01/17 20:35 36.8 88 19 163/75 94 Room Air 03/01/17 20:19 85 Physical Exam GENERAL: Patient is a healthy-appearing well-nourished 86 year old female HEAD: 2.6 cm laceration to the back of head, normocephalic EYES: Ocular movements intact pupils equal and react to light OROPHARYNX mucous membranes are moist no exudates present no erythema or edema present NECK: Supple no nuchal rigidity. No midline tenderness to the neck or spine. CHEST: Good equal expansion LUNGS: Clear and equal to auscultation CARDIAC: Normal S1 and S2 ABDOMEN: Soft nontender no guarding BACK: No CVA tenderness EXTREMITIES: No pain upon palpation normal muscle strength in all groups no clubbing cyanosis or edema NEURO: Patient is following commands is answering questions appropriately. Alert and oriented x3 Cranial Nerves 2-12 grossly intact Medical Decision & Procedures ER Provider Diagnostic Interpretation: Radiology results as stated below per my review and radiologist interpretation: CT HEAD WITHOUT CONTRAST (CT) CLINICAL HISTORY: Head pain status post trauma COMPARISON STUDY: 11/20/2014 TECHNIQUE: Axial CT of the brain is performed from the vertex to the skull base. IV contrast was not administered for this examination. A dose lowering technique was utilized adhering to the principles of ALARA. CT DOSE: 601.98 mGy.cm FINDINGS: No intra or extra-axial mass lesions are visualized. There is no CT evidence of acute cortical infarction. There is no evidence of midline shift. There is no acute hemorrhage. No calvarial fractures are visualized. There are patchy white matter hypodensities likely on a small vessel basis. There is mild particular dilatation, only minimally more pronounced than on the preceding study. This is likely secondary to volume loss. There are vertebral and carotid artery calcifications. There is no evidence of acute sinusitis IMPRESSION: No acute intracranial findings Electronically signed by: Mulugeta Morales M.D. 03/01/2017 8:55 PM Dictated Date/Time: 03/01/2017 8:51 PM Medications Administered Medications (Trade) Dose Ordered Sig/Fly Route Start Time Stop Time Status Last Admin Dose Admin Acetaminophen/ Hydrocodone Bitart ([place] 5/325 Tab) 1 tab NOW STAT PO 03/01/17 20:16 03/01/17 20:18 DC 03/01/17 20:26 1 TAB Procedure Location: Scalp Total length: 2.6 cm Complexity: Simple Verbal consent was obtained after the risks and benefits were explained, including but not limited to bleeding, scarring, infection, pain, and bone/ nerve damage. At this time, the risks of the procedure are less than the risks of NOT performing the procedure. A time out was taken and the correct patient and site identified. The scalp was prepped with betadine. Copious irrigation was performed using saline. The skin was re-prepped with betadine, the hair cleared from the wound, and a sterile field set. The wound was explored for foreign bodies and none found. Debridement was not performed. The wound edges were approximated using 4 surgical ivan in the standard fashion. Hemostasis and excellent approximation was achieved. Antibacterial ointment and a sterile dressing applied. Detailed wound care instructions and signs and symptoms of infection reviewed with the patient. No complications and the patient tolerated the procedure well. ECG Indication: weakness Rate (beats per minute): 80 Rhythm: normal sinus Findings: LBBB, no acute ischemic change, no ectopy ED Course 2012: Past medical records reviewed. The patient was evaluated in room B8. A complete history and physical examination was performed. 2016: Osage 5/325 mg 1 tab PO, Lidocaine HCl 20 ml INFIL. Medical Decision Prior records/ancillary studies reviewed. Triage Nursing notes reviewed. The patient's history was concerning for traumatic injury Differential diagnosis: Etiologies such as fracture, dislocation, intra-abdominal, pneumothorax, intrathoracic , intracranial, neurologic, as well as other traumatic pathologies were entertained. This is an 86-year-old female that presents emergency department after a slip and fall at home. The patient has a laceration to the back of her head and this was repaired as above. The patient was sent for CAT scan of the head was found to be normal. I do believe that the patient is well enough to be discharged home for follow-up with her primary care physician. Patient was in agreement with the treatment plan. Medication Reconcilliation Current Medication List: was personally reviewed by me Blood Pressure Screening Patient's blood pressure: Elevated blood pressure Blood pressure disposition: Referred to PCP Impression Primary Impression: Fall Scribe Attestation The scribe's documentation has been prepared under my direction and personally reviewed by me in its entirety. I confirm that the note above accurately reflects all work, treatment, procedures, and medical decision making performed by me. Departure Information Dispostion Home / Self-Care Referrals Ian Covarrubias M.D. (PCP) Patient Instructions ED Head Injury Closed, ED Laceration Scalp Stitch Or Stap, ED Prevention Fall, Hypertension Dc, My [facility] Additional Instructions [place] out in 7-10 days You were found to have an elevated blood pressure today (>120 sytolic or >90 diastolic). Per medicare guidelines, you need to follow up with this blood pressure screening with your Primary Care Physician (PCP). For a new PCP call [phone]. You have been examined and treated today on an emergency basis only. This is not a substitute for, or an effort to provide, complete comprehensive medical care. It is impossible to recognize and treat all injuries or illnesses in a single emergency department visit. It is therefore important that you follow up closely with Dr Covarrubias. Call as soon as possible for an appointment. Thank you for your time and consideration. I look forward to speaking with you again soon. Please don't hesitate to call us if you have any questions. Problem Qualifiers Primary Impression: Fall Encounter type: initial encounter Qualified Codes: W19.XXXA - Unspecified fall, initial encounter
[2017-03-01 20:35] VITALS: Ht 154.9 cm; Wt 56.4 kg
--- NOTE | 2017-03-01 20:56 | DIAGNOSTIC IMAGING REPORT ---
CT HEAD WITHOUT CONTRAST (CT) CLINICAL HISTORY: Head pain status post trauma COMPARISON STUDY: 11/20/2014 TECHNIQUE: Axial CT of the brain is performed from the vertex to the skull base. IV contrast was not administered for this examination. A dose lowering technique was utilized adhering to the principles of ALARA. CT DOSE: 601.98 mGy.cm FINDINGS: No intra or extra-axial mass lesions are visualized. There is no CT evidence of acute cortical infarction. There is no evidence of midline shift. There is no acute hemorrhage. No calvarial fractures are visualized. There are patchy white matter hypodensities likely on a small vessel basis. There is mild particular dilatation, only minimally more pronounced than on the preceding study. This is likely secondary to volume loss. There are vertebral and carotid artery calcifications. There is no evidence of acute sinusitis IMPRESSION: No acute intracranial findings Electronically signed by: Mulugeta Morales M.D. 03/01/2017 8:55 PM Dictated Date/Time: 03/01/2017 8:51 PM
[2017-03-01] MEDS ORDERED: CARB25TA12 PO (21:23)
[2017-03-01] MEDS ORDERED: MOME100A INH (21:23)
[2017-03-01] MEDS ORDERED: NRN600 PO (21:23)
[2017-03-01] MEDS ORDERED: CARV12.52 PO (21:23)
[2017-03-01] MEDS ORDERED: FNTTP25 TOP (21:23)
[2017-03-01] MEDS ORDERED: CHOL1TAB42 PO (21:23)
[2017-03-01] MEDS ORDERED: HYDR-4383 PO (21:23)
[2017-03-01] MEDS ORDERED: PROAIR INH (21:23)
[2017-03-01] MEDS ORDERED: CYCL0.052 OP (21:24)
[2017-03-01] MEDS ORDERED: TRMCR515 TOP (21:24)
[2017-03-01 22:08] VITALS: BP 162/64; PULSE 92; TEMP 36.7; O2SAT 96
== END 2017-03-01 22:10 | disposition home or self-care (01) ==
LOC: EDBD 19:59 → C.EDB 20:01
DX: S01.01XA Laceration without foreign body of scalp, initial encounter (principal); W01.0XXA Fall on same level from slipping, tripping and stumbling without subsequent striking against object, initial encounter; Y92.012 Bathroom of single-family (private) house as the place of occurrence of the external cause; J45.909 Unspecified asthma, uncomplicated; N18.3 Chronic kidney disease, stage 3 (moderate); E11.9 Type 2 diabetes mellitus without complications; E78.5 Hyperlipidemia, unspecified; I12.9 Hypertensive chronic kidney disease with stage 1 through stage 4 chronic kidney disease, or unspecified chronic kidney disease; N28.9 Disorder of kidney and ureter, unspecified; M19.90 Unspecified osteoarthritis, unspecified site; I73.9 Peripheral vascular disease, unspecified; Z83.3 Family history of diabetes mellitus; Z82.49 Family history of ischemic heart disease and other diseases of the circulatory system; Z80.9 Family history of malignant neoplasm, unspecified; Z79.82 Long term (current) use of aspirin; Z79.899 Other long term (current) drug therapy

== ENCOUNTER 2017-03-09 14:17 | Emergency (ER) | payer OTHER ==
[~2017-03-09] VITALS: Ht 154.9 cm; Wt 54.0 kg
[~2017-03-09 14:17] MED LIST changes: -ALBU1AER9 INH; -APR/25 PO; +CARB25TA12 PO; +CARV12.52 PO; -CHOL100010 PO; +CHOL1TAB42 PO; -CRG125 PO; +CYCL0.052 OP; -DIPH-416 PO; -FENT25DI2 TD; +FNTTP25 TOP; -GABA-113 PO; -HYDR-4079 PO; +HYDR-4383 PO; +MOME100A INH; -NF656 TD; +NRN600 PO; +PROAIR INH; -RSTOPS OPB; +TRMCR515 TOP
[2017-03-09 14:21] VITALS: TEMP 36.6; Ht 154.9 cm; Wt 54.0 kg
[2017-03-09] MEDS ORDERED: LIDOCAINE/EPINEPHRINE 1% 20 ML VIAL ONE (14:39)
[2017-03-09] MEDS ORDERED: LIDOCAINE/EPINEPHRINE 1% 20 ML VIAL INFIL ONE (14:45)
--- NOTE | 2017-03-09 15:49 | DIAGNOSTIC IMAGING REPORT ---
LEFT FIFTH FINGER 3 VIEWS CLINICAL HISTORY: Fifth finger injury. Bruising. FINDINGS: 3 views of the left fifth finger are obtained. No prior studies are available for comparison at the time of dictation. The skeletal structures are osteopenic. No fracture is seen. Erosive osteoarthritic change is present involving the proximal and distal interphalangeal joints. Soft tissue swelling is noted in the fifth finger. No radiodense foreign body is seen. IMPRESSION: 1. Soft tissue edema without radiographic evidence of left fifth digit fracture. 2. Osteopenia and erosive osteoarthritis as above. Electronically signed by: Davion Reid M.D. 03/09/2017 3:48 PM Dictated Date/Time: 03/09/2017 3:46 PM
--- NOTE | 2017-03-09 16:01 | EMERGENCY ROOM VISIT NOTE ---
ED Visit Note First contact with patient: 14:24 CHIEF COMPLAINT: Scalp laceration--encounter for staple removal HISTORY OF PRESENT ILLNESS: This 86-year-old female patient presents emergency department by personal vehicle with her daughter requesting to have ivan from her scalp removed. She states that the ivan were placed on 03/01 for a scalp laceration sustained from a head injury. She states that the area has been healing well. She denies any headaches, blurry vision, nausea, vomiting, or unusual behavior, and denies any signs of infection of the staple site. Patient also states that she has been having swelling, bruising, and pain of her left fifth finger since her fall, and would like to have x-rays of this finger done to rule out a fracture. She denies any numbness or tingling in the hand. REVIEW OF SYSTEMS: A 6 system review of systems was completed with positives and pertinent negatives listed in the HPI. ALLERGIES: Reviewed in chart MEDICATIONS: Reviewed in chart PMH: Reviewed in chart SOCIAL HISTORY: Lives at home. Denies tobacco use, alcohol use, recreational drug use. PHYSICAL EXAM: Vital Signs: Reviewed Nurse's notes, vital signs stable. GENERAL : Pleasant cooperative, in no acute distress, well-developed, well-nourished. NEURO: Patient was alert and oriented to person place and time. Sensory and motor functions grossly intact. No focal neurologic deficits. Normal sensation to light and sharp touch. SKIN: There are 4 ivan noted to the posterior aspect of the scalp whose edges are well approximated and the area is healing well. MUSCULOSKELETAL: The left fifth finger is moderately swollen, ecchymotic, and tender on the distal tip. No breaks in the skin. The hand is otherwise nontender and no swelling noted. EMERGENCY DEPARTMENT COURSE: I examined the patient. Three of the scalp ivan were removed with staple remover without difficulty, however the fourth staple was difficult to remove and causing the patient significant discomfort. Patient is requesting the site be numbed. Verbal consent was obtained to perform the procedure. Using sterile technique the wound was cleaned with chlorhexidine. 2 ml of 1% buffered lidocaine with epinephrine was used to anesthetize the patient's scalp. Once the patient was numb, the final staple was easily removed with forceps. There was a small amount of bleeding that was easily controlled with pressure. The wound edges remained intact. The patient tolerated the procedure well. The area was cleaned with sterile saline and dressed with bacitracin ointment. An x-ray of the left fifth finger was reviewed by myself and radiology, it shows soft tissue swelling without evidence of fracture. The patient was discussed with Dr. Liu, who also saw the patient and agrees with assessment and plan. The patient was discharged home in good condition. Problem List Medical Problems: (1) Asthma, Unspecified Status: Chronic (2) Chronic kidney disease (CKD) stage G3a/A1, moderately decreased glomerular filtration rate (GFR) between 45-59 mL/min/1.73 square meter and albuminuria creatinine ratio less than 30 mg/g Status: Chronic (3) Diab Mickie Wo Comp Type Ii Or Nos/Not Uncontrolled Status: Chronic (4) Diastolic congestive heart failure Status: Chronic (5) Hyperlipemia Status: Chronic (6) Hypertension Status: Chronic (7) Kidney cyst, acquired Status: Chronic (8) Left shoulder pain Status: Resolved (9) Nephrolithiasis Status: Chronic (10) Osteoarthritis Status: Chronic (11) Peripheral artery disease Status: Chronic (12) Temporal arteritis Status: Chronic Current/Historical Medications Scheduled Amlodipine (Norvasc), 10 MG PO DAILY Aspirin (Aspirin Ec), 81 MG PO DAILY Atorvastatin (Lipitor), 20 MG PO DAILY Carbidopa/Levodopa (Sinemet 25MG/100MG), 1 TAB PO TID Carvedilol (Coreg), 12.5 MG PO BID Cholecalciferol (Vitamin D), 5,000 UNITS PO DAILY Cyclosporine (Ophth) (Restasis), 1 DROP OP BID Fentanyl (Fentanyl), 1 PATCH TOP CQ72HR Gabapentin (Gabapentin), 600 MG PO TID Mometasone Furoate-Formoterol (Dulera 100/5 Mcg), 1 AER INH QAM Multivitamin (Multivitamin), 1 TAB PO DAILY Ocuvite Preservision (Ocuvite Preservision), 1 TAB PO BID Prednisone (Prednisone), 1 MG PO TID Ranibizumab (Lucentis), Unknown Dose IO Q6WK Triamcinolone Acet (Triamcinolone Acetonide), 1 APPLN TOP BID Scheduled PRN Hydrocodone/Acetaminophen (Premium 10/325 Tab), 1 TAB PO Q6 PRN for Pain [Proair], 1-2 PUFF INH Q4-6HRS PRN for SOB/Wheezing Allergies Coded Allergies: Cephalexin (Verified Allergy, Unknown, ., 08/05/16) Clindamycin (Verified Allergy, Unknown, COLITIS, 08/05/16) Hydrochlorothiazide (Verified Allergy, Unknown, UNKNOWN, 08/05/16) Ibuprofen (Verified Allergy, Unknown, 08/05/16) Omeprazole (Verified Allergy, Unknown, ., 08/05/16) Quinolones (Verified Allergy, Unknown, 08/05/16) Adhesives (Verified Adverse Reaction, Intermediate, RASH, 08/05/16) Oxaprozin (Verified Adverse Reaction, Intermediate, HEADACHE, 08/05/16) Lisinopril (Verified Adverse Reaction, Unknown, GI SYMPTOMS,RENAL DYSFUNCTION, 08/05/16) causes renal dysfunction Vital Signs Date Time Temp Pulse Resp B/P (MAP) Pulse Ox O2 Delivery O2 Flow Rate FiO2 03/09/17 16:20 62 95 03/09/17 14:43 132/75 03/09/17 14:21 36.6 74 18 92 Room Air Departure Information Impression Primary Impression: Encounter for removal of ivan Additional Impression: Contusion of left little finger Dispostion Home / Self-Care Condition GOOD Referrals No Doctor, Assigned (PCP) Patient Instructions ED Contusion Finger, ED Stap Removal No Complication, [facility] Additional Instructions Follow up with your PCP as needed. Keep the wound on your scalp clean. You may apply thin film of antibiotic ointment to the area for the next 3-4 days, after that, leave the wound dry. Follow up with orthopedics if your finger pain does not improve in the next week. Return for any worsening symptoms. Problem Qualifiers Additional Impression: Contusion of left little finger Encounter type: initial encounter Damage to nail status: without damage Qualified Codes: S60.052A - Contusion of left little finger without damage to nail, initial encounter
--- NOTE | 2017-03-09 16:18 | EMERGENCY ROOM VISIT NOTE ---
ED Visit Note First contact with patient: 14:24 The patient was seen and examined with OSBALDO Schultz. I agree with the history, physical and findings. Please see the note for disposition and details.
[2017-03-09 16:20] VITALS: BP 118/52; PULSE 62; O2SAT 95
== END 2017-03-09 16:20 | disposition home or self-care (01) ==
LOC: C.EDB 14:19 → C.EDD 16:20
DX: Z48.02 Encounter for removal of sutures (principal); S60.052A Contusion of left little finger without damage to nail, initial encounter; W19.XXXA Unspecified fall, initial encounter; E11.9 Type 2 diabetes mellitus without complications; I12.9 Hypertensive chronic kidney disease with stage 1 through stage 4 chronic kidney disease, or unspecified chronic kidney disease; N18.9 Chronic kidney disease, unspecified; E78.5 Hyperlipidemia, unspecified; I73.9 Peripheral vascular disease, unspecified; I50.32 Chronic diastolic (congestive) heart failure; J45.909 Unspecified asthma, uncomplicated; M19.90 Unspecified osteoarthritis, unspecified site; Z79.82 Long term (current) use of aspirin; Z79.899 Other long term (current) drug therapy; Z88.8 Allergy status to other drugs, medicaments and biological substances; Z91.09 Other allergy status, other than to drugs and biological substances

== ENCOUNTER 2017-04-22 23:21 | Emergency (ER) | payer OTHER ==
[~2017-04-22] VITALS: Ht 152.4 cm; Wt 47.2 kg
[2017-04-22 23:26] VITALS: Ht 152.4 cm; Wt 47.2 kg
[2017-04-22] MEDS ORDERED: HYDROCODONE/ACETAMI 10/325 TAB PO STA (23:37)
--- NOTE | 2017-04-22 23:44 | EMERGENCY ROOM VISIT NOTE ---
History Report prepared by Evelio: Georgia Castaneda Under the Supervision of: Dr. Rachel Navarro D.O. First contact with patient: 23:23 Chief Complaint: FOOT PAIN Stated Complaint: RT. FOOT PAIN/EDEMA History of Present Illness The patient is a 86 year old female who presents to the Emergency Room with complaints of intermittent right foot pain that started 2 hours ago. The patient rates her pain a 12/10 in severity. She notes the pain extends from her toe down to her heel on the lateral side of the right foot. She states "the pain is so bad it takes her breath away". She describes her pain as a "shooting pain that lasts a few seconds". The patient states she has never had any injury or trauma to her foot before. The patient denies having gout before. She has not taken any medications for her pain since 5pm. The patient denies any leg pain, groin pain, or abdominal pain. She has not started any new medications recently. She notes she is on blood pressure medications. The patient lives with her daughter. Source of History: patient Onset: 2 hours ago Position: foot (right) Symptom Intensity: 12/10 Quality: other (shooting) Timing: intermittent Associated Symptoms: No abdominal pain Note: The patient denies any leg or groin pain. Review of Systems See HPI for pertinent positives & negatives. A total of 10 systems reviewed and were otherwise negative. Past Medical & Surgical Medical Problems: (1) Asthma, Unspecified (2) Chronic kidney disease (CKD) stage G3a/A1, moderately decreased glomerular filtration rate (GFR) between 45-59 mL/min/1.73 square meter and albuminuria creatinine ratio less than 30 mg/g (3) Diab Mickie Wo Comp Type Ii Or Nos/Not Uncontrolled (4) Diastolic congestive heart failure (5) Hematoma (6) Hyperlipemia (7) Hypertension (8) Kidney cyst, acquired (9) Left shoulder pain (10) MRSA (methicillin resistant Staphylococcus aureus) infection (11) Nephrolithiasis (12) New onset left bundle branch block (LBBB) (13) Osteoarthritis (14) Peripheral artery disease (15) Pneumonia (16) Temporal arteritis (17) Wound of left leg Family History Cancer Diabetes mellitus FH: heart disease Social History Smoking Status: Never Smoker Alcohol Use: none Drug Use: none Marital Status: Housing Status: lives alone Occupation Status: retired Current/Historical Medications Scheduled Amlodipine (Norvasc), 10 MG PO DAILY Aspirin (Aspirin Ec), 81 MG PO DAILY Atorvastatin (Lipitor), 20 MG PO DAILY Carbidopa/Levodopa (Sinemet 25MG/100MG), 1 TAB PO TID Carvedilol (Coreg), 12.5 MG PO BID Cholecalciferol (Vitamin D), 5,000 UNITS PO DAILY Cyclosporine (Ophth) (Restasis), 1 DROP OP BID Fentanyl (Fentanyl), 1 PATCH TOP CQ72HR Gabapentin (Gabapentin), 600 MG PO TID Mometasone Furoate-Formoterol (Dulera 100/5 Mcg), 1 PUFF INH QAM Multivitamin (Multivitamin), 1 TAB PO DAILY Ocuvite Preservision (Ocuvite Preservision), 1 TAB PO BID Prednisone (Prednisone), 1 MG PO TID Ranibizumab (Lucentis), Unknown Dose IO Q6WK Triamcinolone Acet (Triamcinolone Acetonide), 1 APPLN TOP BID Scheduled PRN Albuterol Sulfate (Proair Respiclick), 2 PUFFS INH Q6H PRN for SOB/Wheezing Hydrocodone/Acetaminophen (Bellflower 10/325 Tab), 1 TAB PO Q6 PRN for Pain Allergies Coded Allergies: Cephalexin (Verified Allergy, Unknown, ., 08/05/16) Clindamycin (Verified Allergy, Unknown, COLITIS, 08/05/16) Hydrochlorothiazide (Verified Allergy, Unknown, UNKNOWN, 08/05/16) Ibuprofen (Verified Allergy, Unknown, 08/05/16) Omeprazole (Verified Allergy, Unknown, ., 08/05/16) Quinolones (Verified Allergy, Unknown, 08/05/16) Adhesives (Verified Adverse Reaction, Intermediate, RASH, 08/05/16) Oxaprozin (Verified Adverse Reaction, Intermediate, HEADACHE, 08/05/16) Lisinopril (Verified Adverse Reaction, Unknown, GI SYMPTOMS,RENAL DYSFUNCTION, 08/05/16) causes renal dysfunction Physical Exam Vital Signs Date Time Temp Pulse Resp B/P (MAP) Pulse Ox O2 Delivery O2 Flow Rate FiO2 04/23/17 01:48 36.8 75 20 135/65 97 Room Air 04/22/17 23:26 36.6 76 20 176/77 96 Room Air Physical Exam HEENT: Head - normocephalic and atraumatic Pupils are equal, round, and reactive to light. Extraocular eye muscles are intact, and sclera are anicteric. Nose - moist nasal mucosa without discharge. Mouth - moist buccal mucosa. Oropharynx is nonerythematous and there is no tonsillar exudate or edema noted. Neck: Supple; no JVD, nuchal rigidity, cervical lymphadenopathy. Heart: Regular rate and rhythm. There is a normal S1 and S2 with no murmurs, clicks, or gallops appreciated. Lungs: Clear to auscultation bilaterally with no wheezes, rales, or rhonchi. Abdomen: Soft, completely nontender, nondistended, with good bowel sounds. There are no palpable pulsatile masses or hepatosplenomegaly. There is no guarding, rigidity, or rebound noted. Extremities: Right foot pain over the entire 5th metatarsal. No erythema or warmth in that area. There are easily palpable peripheral pulses. Skin: Multiple areas of excoriation in bilateral lower extremities, no obvious signs of infection. Medical Decision & Procedures ER Provider Diagnostic Interpretation: Radiology results as stated below per my review and the radiologist's interpretation: RIGHT FOOT XRAY: Severe arthritic degeneration of metatarsals. No obvious fracture. Laboratory Results 04/22/17 23:45 Red Blood Count 4.33, Mean Corpuscular Volume 97.2, Mean Corpuscular Hemoglobin 33.3, Mean Corpuscular Hemoglobin Concent 34.2, Mean Platelet Volume 8.8, Neutrophils (%) (Auto) 69.2, Lymphocytes (%) (Auto) 15.9, Monocytes (%) (Auto) 11.2, Eosinophils (%) (Auto) 3.2, Basophils (%) (Auto) 0.4, Neutrophils # (Auto ) 5.37, Lymphocytes # (Auto) 1.23, Monocytes # (Auto) 0.87, Eosinophils # (Auto ) 0.25, Basophils # (Auto) 0.03 Test 04/22/17 23:45 White Blood Count 7.76 K/uL (4.8-10.8) Red Blood Count 4.33 M/uL (4.2-5.4) Hemoglobin 14.4 g/dL (12.0-16.0) Hematocrit 42.1 % (37-47) Mean Corpuscular Volume 97.2 fL (80-100) Mean Corpuscular Hemoglobin 33.3 pg (25-34) Mean Corpuscular Hemoglobin Concent 34.2 g/dl (32-36) Platelet Count 190 K/uL (130-400) Mean Platelet Volume 8.8 fL (7.4-10.4) Neutrophils (%) (Auto) 69.2 % Lymphocytes (%) (Auto) 15.9 % Monocytes (%) (Auto) 11.2 % Eosinophils (%) (Auto) 3.2 % Basophils (%) (Auto) 0.4 % Neutrophils # (Auto) 5.37 K/uL (1.4-6.5) Lymphocytes # (Auto) 1.23 K/uL (1.2-3.4) Monocytes # (Auto) 0.87 K/uL (0.11-0.59) Eosinophils # (Auto) 0.25 K/uL (0-0.5) Basophils # (Auto) 0.03 K/uL (0-0.2) RDW Standard Deviation 52.3 fL (36.4-46.3) RDW Coefficient of Variation 14.6 % (11.5-14.5) Immature Granulocyte % (Auto) 0.1 % Immature Granulocyte # (Auto) 0.01 K/uL (0.00-0.02) Erythrocyte Sedimentation Rate 11 mm/hr (0-21) Uric Acid 5.1 mg/dl (2.6-7.2) C-Reactive Protein < 0.29 mg/dl (0-0.29) Laboratory results per my review. Medications Administered Medications (Trade) Dose Ordered Sig/Fly Route Start Time Stop Time Status Last Admin Dose Admin Acetaminophen/ Hydrocodone Bitart (Bellflower 10/325 Tab) 1 tab NOW STAT PO 04/22/17 23:37 04/22/17 23:39 DC 04/22/17 23:45 1 TAB Ketorolac Tromethamine (Toradol Inj) 30 mg NOW STAT IM 04/23/17 01:38 04/23/17 01:39 DC 04/23/17 01:44 30 MG Procedure Medications administered: 2337: Bellflower 10/325 Tab 1 tab PO. 0138: Toradol Inj 30 mg IM. ED Course 2323: Past medical records reviewed. The patient was evaluated in room C6. A complete history and physical exam was performed. Laboratory studies were drawn as above. Last took Vicodin for pain at 5pm. 2337: Bellflower 10/325 Tab 1 tab PO. She went for plain films of the right foot. 0130: Upon reevaluation, I discussed findings and results with her. She states the frequency of the episodes has decreased. I will administer a shot of Toradol IM. She verbalized agreement of the treatment plan. 0138: Toradol Inj 30 mg IM. 0150: Upon reevaluation, the patient is resting comfortably. I discussed findings and results with her. She verbalized agreement of the treatment plan. She will be discharged home. Medical Decision The patient is a 86 year old female who presents to the ED with right foot pain. Differential diagnosis includes gout, osteoarthritis, acute fracture, septic joint. Lab results show: Sed rate of 11, C reactive protein less than 0.29, uric acid of 5.1, normal WBC. This is an 86 year old female patient with a sudden onset of intermittent episodes of right foot pain. She denies any trauma. X-ray reveals significant degenerative changes consistent with arthritis of the foot. There are no obvious signs of gout or septic joint. The pain is slightly reproducible over the DIP of the fifth metatarsal. Labs reveal no leukocytosis , elevated inflammatory markers, or elevated uric acid. The patient was instructed to use NSAIDs at home with food along with her prescribed pain medications. She is follow-up with her PCP on Wednesday if the pain persists. Medication Reconcilliation Current Medication List: was personally reviewed by me Blood Pressure Screening Patient's blood pressure: Elevated blood pressure (will monitor while she is here) Impression Primary Impression: Pain in metatarsus of right foot Scribe Attestation The scribe's documentation has been prepared under my direction and personally reviewed by me in its entirety. I confirm that the note above accurately reflects all work, treatment, procedures, and medical decision making performed by me. Departure Information Dispostion Home / Self-Care Referrals No Doctor, Assigned (PCP) Patient Instructions My [facility] Additional Instructions Rest with the right foot elevated. You may take your hydrocodone every 6 hours. Advil - 2 tabs. every 6 hours with food for pain Follow up with PCP by Wednesday if foot pain persists
[2017-04-22 23:59] LABS: BASO % 0.4 %; BASO ABS # 0.03 K/uL (0-0.2); COMPLETE YES; EOS % 3.2 %; HEMATOCRIT 42.1 % (37-47); IG% 0.1 %; LYMPH % 15.9 %; LYMPH ABS # 1.23 K/uL (1.2-3.4); MEAN CELL VOLUME 97.2 fL (80-100); MEAN CORPUSCULAR HEMOGLOBIN 33.3 pg (25-34); MEAN CORPUSCULAR HGB CONC 34.2 g/dl (32-36); MEAN PLATELET VOLUME 8.8 fL (7.4-10.4); MONO % 11.2 %; NEUT % 69.2 %; PLATELET COUNT 190 K/uL (130-400); RED BLOOD COUNT 4.33 M/uL (4.2-5.4); WHITE BLOOD COUNT 7.76 K/uL (4.8-10.8)
[2017-04-23 00:15] LABS: C-REACTIVE PROTEIN < 0.29 mg/dl (0-0.29); URIC ACID 5.1 mg/dl (2.6-7.2)
[2017-04-23] MEDS ORDERED: ALBU18002 INH (00:31)
[2017-04-23] MEDS ORDERED: KETOROLAC TROMETHAMINE 60 MG/2 ML VIAL IM STA (01:38)
[2017-04-23 01:48] VITALS: BP 135/65; PULSE 75; TEMP 36.8; O2SAT 97
--- NOTE | 2017-04-23 06:55 | DIAGNOSTIC IMAGING REPORT ---
R FOOT MIN 3 VIEWS ROUTINE CLINICAL HISTORY: eval for fx. Pain COMPARISON: None. DISCUSSION: Severe degenerative change throughout. Moderate osteopenia. Findings consistent with an old healed fracture of the third fourth and fifth metatarsal complex. Bunion deformity distal first metatarsal with associated hallux valgus configuration. 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 Severe degenerative change of the intertarsal as well as tarsometatarsal joints. Soft tissue vascular calcification. IMPRESSION: Severe degenerative change. Old posttraumatic change. No acute bony abnormality. The above report was generated using voice recognition software. It may contain grammatical, syntax or spelling errors. Electronically signed by: Frank Colin M.D. 04/23/2017 6:53 AM Dictated Date/Time: 04/23/2017 6:52 AM
== END 2017-04-23 01:58 | disposition home or self-care (01) ==
LOC: C.EDC 23:21 → EDBD 23:21 → C.EDC 04-23 01:58
DX: M79.671 Pain in right foot (principal); J45.909 Unspecified asthma, uncomplicated; N18.3 Chronic kidney disease, stage 3 (moderate); I12.9 Hypertensive chronic kidney disease with stage 1 through stage 4 chronic kidney disease, or unspecified chronic kidney disease; E78.5 Hyperlipidemia, unspecified; I50.32 Chronic diastolic (congestive) heart failure; I73.9 Peripheral vascular disease, unspecified; M19.90 Unspecified osteoarthritis, unspecified site; I44.7 Left bundle-branch block, unspecified; Z87.01 Personal history of pneumonia (recurrent); Z87.442 Personal history of urinary calculi; Z80.9 Family history of malignant neoplasm, unspecified; Z83.3 Family history of diabetes mellitus; Z79.82 Long term (current) use of aspirin; Z79.899 Other long term (current) drug therapy

== ENCOUNTER → 2017-05-10 | Outpatient (CLI) | payer OTHER ==
[~2017-05-10] MED LIST changes: +ALBU18002 INH; -PROAIR INH
[2017-05-10 13:55] LABS: BASO % 0.5 %; BASO ABS # 0.04 K/uL (0-0.2); COMPLETE YES; EOS % 3.2 %; HEMATOCRIT 39.8 % (37-47); IG% 0.3 %; LYMPH % 16.6 %; LYMPH ABS # 1.23 K/uL (1.2-3.4); MEAN CORPUSCULAR HEMOGLOBIN 32.5 pg (25-34); MEAN CORPUSCULAR HGB CONC 33.2 g/dl (32-36); MEAN PLATELET VOLUME 9.1 fL (7.4-10.4); NEUT % 69.4 %; PLATELET COUNT 188 K/uL (130-400); RED BLOOD COUNT 4.06 M/uL (4.2-5.4); WHITE BLOOD COUNT 7.42 K/uL (4.8-10.8)
[2017-05-10 14:37] LABS: BLOOD UREA NITROGEN 20 mg/dl (7-18); BUN/CREATININE RATIO 31.3 (10-20); CALCIUM 8.8 mg/dl (8.5-10.1); CARBON DIOXIDE 30 mmol/L (21-32); CHLORIDE 103 mmol/L (98-107); CREATININE 0.63 mg/dl (0.60-1.20); GLUCOSE 102 mg/dl (70-99); POTASSIUM 3.5 mmol/L (3.5-5.1); SODIUM 140 mmol/L (136-145)
[2017-05-11 07:10] LABS: ESTIMATED AVERAGE GLUCOSE 126 mg/dl; HA1C FLAG Normal (Normal)
== END | disposition home or self-care (01) ==
LOC: C.LABBC 11:08
PROVIDERS: ATTEND Internal Medicine Geriatric Medicine
DX: M31.6 Other giant cell arteritis (principal); I10 Essential (primary) hypertension; R73.9 Hyperglycemia, unspecified

== ENCOUNTER 2017-05-12 07:05 | Inpatient (IN) | payer OTHER ==
[~2017-05-12] VITALS: Ht 157.5 cm; Wt 55.5 kg
[2017-05-12] MEDS ORDERED: SODIUM CHLORIDE 0.9% 250ML 250 ML IV STA (07:24)
--- NOTE | 2017-05-12 07:46 | EMERGENCY ROOM VISIT NOTE ---
History First contact with patient: 07:11 Chief Complaint: CONFUSION Stated Complaint: CONFUSION Nursing Triage Summary: pt arrived bls from home reported increased confusion over in the last 24 hours. reported hx of uti's History of Present Illness The patient is a 86 year old female who presents to the Emergency Room via EMS from home with complaints of confusion since last night. History limited due to patient's confusion. Patient states she has been forgetting things. She denies any chest pain, shortness of breath, headache, falls, vomiting or diarrhea. She reportedly has a history of UTIs. I did speak with the patient's daughter after she arrived, she reports the patient was having a lot of urinary frequency this morning, and complaining of dysuria. 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 She denies any known fevers at home. She denies any falls or known injuries. The patient lives with her daughter. Review of Systems Limited review of systems due to patient's confusion. Past Medical/Surgical History Medical Problems: (1) Altered mental status (2) Asthma, Unspecified (3) Chronic kidney disease (CKD) stage G3a/A1, moderately decreased glomerular filtration rate (GFR) between 45-59 mL/min/1.73 square meter and albuminuria creatinine ratio less than 30 mg/g (4) Diab Mickie Wo Comp Type Ii Or Nos/Not Uncontrolled (5) Diastolic congestive heart failure (6) Hematoma (7) Hyperlipemia (8) Hypertension (9) Kidney cyst, acquired (10) Left shoulder pain (11) Metabolic encephalopathy (12) MRSA (methicillin resistant Staphylococcus aureus) infection (13) Nephrolithiasis (14) New onset left bundle branch block (LBBB) (15) Osteoarthritis (16) Peripheral artery disease (17) Pneumonia (18) Temporal arteritis (19) UTI (urinary tract infection) (20) Wound of left leg Family History Cancer Diabetes mellitus FH: heart disease Social History Smoking Status: Never Smoker Alcohol Use: none Drug Use: none Marital Status: Housing Status: lives alone Occupation Status: retired Current/Historical Medications Scheduled Amlodipine (Norvasc), 10 MG PO DAILY Aspirin (Aspirin Ec), 81 MG PO DAILY Atorvastatin (Lipitor), 20 MG PO DAILY Carbidopa/Levodopa (Sinemet 25MG/100MG), 1 TAB PO TID Carvedilol (Coreg), 12.5 MG PO BID Cholecalciferol (Vitamin D), 5,000 UNITS PO DAILY Cyclosporine (Ophth) (Restasis), 1 DROP OP BID Fentanyl (Fentanyl), 1 PATCH TOP CQ72HR Gabapentin (Gabapentin), 600 MG PO TID Mometasone Furoate-Formoterol (Dulera 100/5 Mcg), 1 PUFF INH QAM Multivitamin (Multivitamin), 1 TAB PO DAILY Ocuvite Preservision (Ocuvite Preservision), 1 TAB PO BID Prednisone (Prednisone), 3 MG PO TID Ranibizumab (Lucentis), Unknown Dose IO Q6WK Triamcinolone Acet (Triamcinolone Acetonide), 1 APPLN TOP BID Scheduled PRN Albuterol Sulfate (Proair Respiclick), 2 PUFFS INH q4-6h PRN for SOB/Wheezing Hydrocodone/Acetaminophen ([place] 10/325 Tab), 1 TAB PO Q6 PRN for Pain Allergies Reviewed in chart Physical Exam Vital Signs Date Time Temp Pulse Resp B/P (MAP) Pulse Ox O2 Delivery O2 Flow Rate FiO2 05/12/17 09:51 96 Ambu-Bag 2.0 05/12/17 09:40 96 Nasal Cannula 2.0 05/12/17 09:15 88 18 157/64 88 Room Air 05/12/17 08:08 38.4 05/12/17 07:45 101 05/12/17 07:18 37.3 105 18 165/82 94 Room Air Physical Exam CONSTITUTIONAL: No acute distress, nontoxic-appearing. Dehydrated. Alert, oriented to person. HEENT: Normocephalic, atraumatic. Pupils equal, round and reactive to light, EOMI. TMs normal. Pharynx normal. Dry mucous membranes. NECK: Supple, full active range of motion without discomfort. RESPIRATORY: Crackles and rhonchi bilaterally from bases to long term up the lungs. No wheezing or stridor. No accessory muscle use. Equal expansion bilaterally. CARDIOVASCULAR: Tachycardic. Regular rhythm, 3/6 systolic murmur. No rubs or gallops. Normal peripheral perfusion. Peripheral vascular disease bilateral lower extremities with 1+ pitting edema. GASTROINTESTINAL: Mild suprapubic tenderness to palpation. Abdomen is otherwise soft, nontender, nondistended. No rebound or guarding Bowel sounds present in all quadrants. MUSCULOSKELETAL: Full range of motion of all joints without discomfort. INTEGUMENTARY: No rash or other significant dermatologic conditions noted. NEUROLOGIC: Cranial nerves II-XII grossly intact. No focal neurologic deficits noted. Medical Decision & Procedures ER Provider Diagnostic Interpretation: CHEST ONE VIEW PORTABLE CLINICAL HISTORY: Fever. Sepsis. COMPARISON STUDY: Chest CT September 02, 2016. FINDINGS: Cardiomediastinal silhouette is stable. Left lower hemithorax opacity is unchanged and likely related to a node large hiatal hernia. There is no evidence of pulmonary edema. IMPRESSION: 1. No acute cardiopulmonary findings. 2. Left lower hemithorax opacity which is similar to prior exams and likely related to a known large hiatal hernia. ----- HEAD WITHOUT CONTRAST (CT) CLINICAL HISTORY: 86 years-old Female with Altered mental status. Acute altered mental status with confusion TECHNIQUE: Multiple axial CT images of the head were obtained without contrast. A dose lowering technique was utilized adhering to the principles of ALARA. CT DOSE: 537.48 mGy.cm COMPARISON: CT head 03/01/2017. FINDINGS: No acute intracranial hemorrhage, midline shift, intracranial mass, hydrocephalus, territorial ischemia or abnormal extra-axial collection. Moderate atrophy with ex vacuo ventriculomegaly redemonstrated. Ill-defined areas of low-attenuation within the subcortical and periventricular white matter suggests chronic microvascular ischemic changes. Senescent calcifications of the left lentiform nucleus noted. There are vascular calcifications at the level of the skull base. The calvarium is intact. The paranasal sinuses, mastoid air cells, and middle ear cavities are clear. Prior bilateral cataract repair. IMPRESSION: No acute intracranial abnormality. Laboratory Results Test 05/12/17 07:30 05/12/17 07:50 05/12/17 07:53 Urine Color YELLOW Urine Appearance CLEAR (CLEAR) Urine pH 6.5 (4.5-7.5) Urine Specific [place] 1.016 (1.000-1.030) Urine Protein 1+ (NEG) Urine Glucose (UA) NEG (NEG) Urine Ketones NEG (NEG) Urine Occult Blood NEG (NEG) Urine Nitrite NEG (NEG) Urine Bilirubin NEG (NEG) Urine Urobilinogen NEG (NEG) Urine Leukocyte Esterase MODERATE (NEG) Urine WBC (Auto) >30 /hpf (0-5) Urine RBC (Auto) 0-4 /hpf (0-4) Urine Hyaline Casts (Auto) 1-5 /lpf (0-5) Urine Epithelial Cells (Auto) 0-5 /lpf (0-5) Urine Bacteria (Auto) NEG (NEG) Lactic Acid Level 1.8 mmol/L (0.4-2.0) Total Bilirubin 0.6 mg/dl (0.2-1) Direct Bilirubin 0.2 mg/dl (0-0.2) Aspartate Amino Transf (AST/SGOT) 19 U/L (15-37) Alanine Aminotransferase (ALT/SGPT) 7 U/L (12-78) Alkaline Phosphatase 107 U/L (45-117) Troponin I 0.028 ng/ml (0-0.045) Total Protein 6.2 gm/dl (6.4-8.2) Albumin 3.2 gm/dl (3.4-5.0) Influenza Type A Antigen Neg for Influ A (NEG) Influenza Type B Antigen Neg for Influ B (NEG) Date/Time Source Procedure Growth Status 05/12/17 07:30 Urine,Catheterized Urine Culture - Final Gram Negative Bacilli Complete Medications Administered Medications (Trade) Dose Ordered Sig/Fly Route Start Time Stop Time Status Last Admin Dose Admin Sodium Chloride 250 ml @ 999 mls/hr Q16M STAT IV 05/12/17 07:24 05/12/17 07:39 DC 05/12/17 07:24 999 MLS/HR Acetaminophen (Tylenol Tab) 650 mg NOW STAT PO 05/12/17 08:25 05/12/17 08:29 DC 05/12/17 08:36 650 MG Imipenem/ Cilastatin Sodium 500 mg/Dextrose 110 ml @ 100 mls/hr NOW STAT IV 05/12/17 08:35 05/12/17 09:40 DC 05/12/17 09:42 100 MLS/HR Sodium Chloride 1,000 ml @ 999 mls/hr Q1H1M STAT IV 05/12/17 08:38 05/12/17 09:38 DC 05/12/17 08:38 999 MLS/HR Daptomycin 330 mg/ Syringe 6.6 ml @ 3.3 mls/min ONE ONCE IV 05/12/17 09:15 05/12/17 09:17 DC 05/12/17 09:42 3.3 MLS/MIN Acetaminophen/ Hydrocodone Bitart ([place] 10/325 Tab) 1 tab Q6 PRN PO 05/12/17 10:30 05/26/17 10:29 05/13/17 16:02 1 TAB Albuterol (Proair Hfa) 2 puffs Q4H PRN INH 05/12/17 10:30 06/11/17 10:29 05/13/17 19:05 2 PUFFS Medical Decision CC: Patient presenting with complaint of confusion Interpretation of Labs: No leukocytosis, no anemia, no significant loculated abnormalities, normal renal function, normal liver enzymes and lipase. Normal lactic acid. Negative influenza. UA with moderate leukocyte esterase and large WBCs, consistent with a probable UTI given a cath specimen. Differential Diagnosis: Includes, but not limited to altered mental status, UTI , bacteremia/sepsis, dehydration, likely related abnormality, anemia, CVA, pneumonia, among others. Medication Reconciliation: I attest that I have personally reviewed the patient' s current medication list. Vital signs review: I reviewed the patient's vital signs and interpret them as follows: T: Afebrile; BP: Hypertensive; HR: Tachycardic; RR: Within normal limits; Pulse Ox: Within normal limits on room air. Blood pressure screening: The patient was found to have an elevated blood pressure and was referred to the hospitalist for further evaluation and treatment during admission. Summary: Patient was evaluated at bedside, history and physical exam performed. Limited due to patient's confusion. She is alert, oriented to self, in no acute distress and nontoxic appearing, resting in the stretcher. Patient does appear moderately dehydrated with dry skin and dry mucous membranes. She is noted to be mildly tachycardic. Rectal temp shows fever of 38.4. Patient's daughter does give a history for urinary frequency and urgency, as well as a history of UTIs. Orders were placed at bedside for labs, cath UA and culture, blood cultures 2, lactic acid, IV fluids for hydration, chest x-ray to evaluate for cardiopulmonary disease. Nursing staff reports that the patient had dried fecal material in her vaginal area when she was evaluated for cath. Patient discussed with Dr. Hensley, who agrees with my assessment and plan. Labs reviewed as above, no significant abnormalities. Probable UTI, culture pending. Patient has allergies to cephalosporins and quinolones, will cover with daptomycin and imipenem for broad coverage given concern for possible sepsis. Chest x-ray is negative for pneumonia or pulmonary edema. Will continue to hydrate with IV fluids due to concern for sepsis. CT of the head is negative for any acute abnormality. Patient reassessed multiple times throughout ED stay, she remains well appearing , states she is feeling somewhat better, and seems to be clearing up a little per patient's daughter. I did discuss with the patient and her daughter all results and the plans for admission for further management of possible UTI and sepsis, they verbalized understanding and agreement. I spoke with Dr. Aiken, hospitalist, who agrees to admit the patient for further management. Patient stable at time of admission. Head Trauma GCS Score: 14 Medication Reconcilliation Current Medication List: was personally reviewed by me Blood Pressure Screening Patient's blood pressure: Elevated blood pressure Impression Primary Impression: Confusion Additional Impressions: UTI (urinary tract infection) Sepsis Departure Information Dispostion Admitted as an inpatient Condition FAIR Referrals Renato Covarrubias M.D. (PCP) Patient Instructions My [facility] Problem Qualifiers
[2017-05-12 07:49] LABS: URINE APPEARANCE CLEAR (CLEAR); URINE BILIRUBIN NEG (NEG); URINE COLOR YELLOW; URINE EPITHELIAL CELL AUTO 0-5 /lpf (0-5); URINE NITRITE NEG (NEG); URINE PH 6.5 (4.5-7.5); URINE SPECIFIC GRAVITY 1.016 (1.000-1.030); UROBILINOGEN NEG (NEG)
[2017-05-12 07:50] LABS: MANUAL MICROSCOPIC REQUIRED? NO; REVIEW REQ? NO
--- NOTE | 2017-05-12 07:51 | DIAGNOSTIC IMAGING REPORT ---
CHEST ONE VIEW PORTABLE CLINICAL HISTORY: Fever. Sepsis. COMPARISON STUDY: Chest CT September 02, 2016. FINDINGS: Cardiomediastinal silhouette is stable. Left lower hemithorax opacity is unchanged and likely related to a node large hiatal hernia. There is no evidence of pulmonary edema. IMPRESSION: 1. No acute cardiopulmonary findings. 2. Left lower hemithorax opacity which is similar to prior exams and likely related to a known large hiatal hernia. Electronically signed by: Benigno Elias M.D. 05/12/2017 7:50 AM Dictated Date/Time: 05/12/2017 7:43 AM
--- NOTE | 2017-05-12 07:57 | EMERGENCY ROOM VISIT NOTE ---
ED Visit Note First contact with patient: 07:11 I have seen and examined this patient with Peggy Harley and generally agree with the treatment plan as discussed. Problem List Medical Problems: (1) Asthma, Unspecified Status: Chronic (2) Chronic kidney disease (CKD) stage G3a/A1, moderately decreased glomerular filtration rate (GFR) between 45-59 mL/min/1.73 square meter and albuminuria creatinine ratio less than 30 mg/g Status: Chronic (3) Diab Mickie Wo Comp Type Ii Or Nos/Not Uncontrolled Status: Chronic (4) Diastolic congestive heart failure Status: Chronic (5) Hyperlipemia Status: Chronic (6) Hypertension Status: Chronic (7) Kidney cyst, acquired Status: Chronic (8) Left shoulder pain Status: Resolved (9) Nephrolithiasis Status: Chronic (10) Osteoarthritis Status: Chronic (11) Peripheral artery disease Status: Chronic (12) Temporal arteritis Status: Chronic Current/Historical Medications Scheduled Amlodipine (Norvasc), 10 MG PO DAILY Aspirin (Aspirin Ec), 81 MG PO DAILY Atorvastatin (Lipitor), 20 MG PO DAILY Carbidopa/Levodopa (Sinemet 25MG/100MG), 1 TAB PO TID Carvedilol (Coreg), 12.5 MG PO BID Cholecalciferol (Vitamin D), 5,000 UNITS PO DAILY Cyclosporine (Ophth) (Restasis), 1 DROP OP BID Fentanyl (Fentanyl), 1 PATCH TOP CQ72HR Gabapentin (Gabapentin), 600 MG PO TID Mometasone Furoate-Formoterol (Dulera 100/5 Mcg), 1 PUFF INH QAM Multivitamin (Multivitamin), 1 TAB PO DAILY Ocuvite Preservision (Ocuvite Preservision), 1 TAB PO BID Prednisone (Prednisone), 3 MG PO TID Ranibizumab (Lucentis), Unknown Dose IO Q6WK Triamcinolone Acet (Triamcinolone Acetonide), 1 APPLN TOP BID Scheduled PRN Albuterol Sulfate (Proair Respiclick), 2 PUFFS INH q4-6h PRN for SOB/Wheezing Hydrocodone/Acetaminophen ([place] 10/325 Tab), 1 TAB PO Q6 PRN for Pain Allergies Coded Allergies: Cephalexin (Verified Allergy, Unknown, ., 05/12/17) Clindamycin (Verified Allergy, Unknown, COLITIS, 05/12/17) Hydrochlorothiazide (Verified Allergy, Unknown, UNKNOWN, 05/12/17) Ibuprofen (Verified Allergy, Unknown, 05/12/17) Omeprazole (Verified Allergy, Unknown, ., 05/12/17) Quinolones (Verified Allergy, Unknown, 05/12/17) Adhesives (Verified Adverse Reaction, Intermediate, RASH, 05/12/17) Oxaprozin (Verified Adverse Reaction, Intermediate, HEADACHE, 05/12/17) Lisinopril (Verified Adverse Reaction, Unknown, GI SYMPTOMS,RENAL DYSFUNCTION, 05/12/17) causes renal dysfunction Vital Signs Date Time Temp Pulse Resp B/P (MAP) Pulse Ox O2 Delivery O2 Flow Rate FiO2 05/12/17 07:45 101 05/12/17 07:18 37.3 105 18 165/82 94 Room Air Laboratory Results Test 05/12/17 07:24 05/12/17 07:30 Urine Color YELLOW Urine Appearance CLEAR (CLEAR) Urine pH 6.5 (4.5-7.5) Urine Specific [place] 1.016 (1.000-1.030) Urine Protein 1+ (NEG) Urine Glucose (UA) NEG (NEG) Urine Ketones NEG (NEG) Urine Occult Blood NEG (NEG) Urine Nitrite NEG (NEG) Urine Bilirubin NEG (NEG) Urine Urobilinogen NEG (NEG) Urine Leukocyte Esterase MODERATE (NEG) Urine WBC (Auto) >30 /hpf (0-5) Urine RBC (Auto) 0-4 /hpf (0-4) Urine Hyaline Casts (Auto) 1-5 /lpf (0-5) Urine Epithelial Cells (Auto) 0-5 /lpf (0-5) Urine Bacteria (Auto) NEG (NEG) Departure Information Referrals Ian Covarrubias M.D. (PCP) Patient Instructions My [facility]
[2017-05-12 08:13] LABS: BASO % 0.2 %; BASO ABS # 0.02 K/uL (0-0.2); COMPLETE YES; EOS % 0.8 %; HEMATOCRIT 41.5 % (37-47); IG% 0.3 %; LYMPH % 6.4 %; LYMPH ABS # 0.57 K/uL (1.2-3.4); MEAN CELL VOLUME 96.3 fL (80-100); MEAN CORPUSCULAR HGB CONC 33.3 g/dl (32-36); MEAN PLATELET VOLUME 9.2 fL (7.4-10.4); MONO % 7.4 %; NEUT % 84.9 %; PLATELET COUNT 174 K/uL (130-400); RED BLOOD COUNT 4.31 M/uL (4.2-5.4); WHITE BLOOD COUNT 8.89 K/uL (4.8-10.8)
--- NOTE | 2017-05-12 08:21 | DIAGNOSTIC IMAGING REPORT ---
HEAD WITHOUT CONTRAST (CT) CLINICAL HISTORY: 86 years-old Female with Altered mental status. Acute altered mental status with confusion TECHNIQUE: Multiple axial CT images of the head were obtained without contrast. A dose lowering technique was utilized adhering to the principles of ALARA. CT DOSE: 537.48 mGy.cm COMPARISON: CT head 03/01/2017. FINDINGS: No acute intracranial hemorrhage, midline shift, intracranial mass, hydrocephalus, territorial ischemia or abnormal extra-axial collection. Moderate atrophy with ex vacuo ventriculomegaly redemonstrated. Ill-defined areas of low-attenuation within the subcortical and periventricular white matter suggests chronic microvascular ischemic changes. Senescent calcifications of the left lentiform nucleus noted. There are vascular calcifications at the level of the skull base. The calvarium is intact. The paranasal sinuses, mastoid air cells, and middle ear cavities are clear. Prior bilateral cataract repair. IMPRESSION: No acute intracranial abnormality. The above report was generated using voice recognition software. It may contain grammatical, syntax or spelling errors. Electronically signed by: Lazaro Jewell M.D. 05/12/2017 8:19 AM Dictated Date/Time: 05/12/2017 8:17 AM
[2017-05-12] MEDS ORDERED: ACETAMINOPHEN 325 MG TAB PO STA ×2 (08:25→17:49)
[2017-05-12] MEDS ORDERED: IMIPENEM/CILASTATIN IV 500 MG in DEXTROSE 5% 100ML 100 ML IV STA (08:35)
[2017-05-12] MEDS ORDERED: DAPTOmycin IV 330 MG in SODIUM CHLORIDE 0.9% 50ML 50 ML IV STA (08:35)
[2017-05-12 08:37] LABS: BUN/CREATININE RATIO 28.8 (10-20); CALCIUM 8.6 mg/dl (8.5-10.1); CREATININE 0.73 mg/dl (0.60-1.20); POTASSIUM 3.5 mmol/L (3.5-5.1)
[2017-05-12] MEDS ORDERED: SODIUM CHLORIDE 0.9% 1000ML 1,000 ML IV STA (08:38)
[2017-05-12] MEDS ORDERED: DAPTOMYCIN IV ONE (09:15)
[2017-05-12 09:40] VITALS: O2SAT 96; Ht 157.5 cm; Wt 55.5 kg
[2017-05-12] MEDS ORDERED: ALBUTEROL HFA INHALER 8.5 GM INH PRN (10:30)
[2017-05-12] MEDS ORDERED: POLYETHYLENE (MIRALAX) 17 GM PACK PO PRN (10:30)
[2017-05-12] MEDS ORDERED: MAGNESIUM HYDROXIDE SUSP 30 ML UDC PO PRN (10:30)
[2017-05-12] MEDS ORDERED: ONDANSETRON INJ 2 MG/ML 2 ML VIAL IV PRN (10:30)
--- NOTE | 2017-05-12 10:48 | History and Physical ---
History & Physical Date & Time of Service: May 12, 2017 at 10:34 Chief Complaint: Confusion Primary Care Physician: Ian Covarrubias M.D. History of Present Illness Source: patient, family This is an 86 yo F with PMH of HTN, HLD, diastolic CHF with associated dyspnea on exertion, CKD stage III, mild restrictive lung disease, temporal arteritis, osteoarthritis, chronic pain on narcotic regimen and low-dose prednisone, artherosclerotic peripheral vascular disease, dyslipidemia, hyperglycemia, osteoporosis, and urinary incontinence. Pt presents this morning after her daughter noticed she had worsening ability to walk with ambulation assistance at baseline, and seemed to be more confused last night. Upon waking this morning she was more confused. The patient admits to increased urinary frequency in the past day, but denies pain or burning with urination. She denies fever, chills or sweats. Pt typically only bathes once per week. She wears a feminine pad due to urinary incontinence but reports changing it frequently. ER nursing noted fecal matter in the vagina upon hewitt catheterization for urine sample. WBC is 8.89, lactic acid negative. BP is slightly elevated, although she has not received her morning medications today HR is elevated in the 90s- low 100s. EKG reviewed showing old LBBB CT head reviewed and is negative Past Medical/Surgical History Medical Problems: (1) Asthma, Unspecified Status: Chronic (2) Chronic kidney disease (CKD) stage G3a/A1, moderately decreased glomerular filtration rate (GFR) between 45-59 mL/min/1.73 square meter and albuminuria creatinine ratio less than 30 mg/g Status: Chronic (3) Diab Mickie Wo Comp Type Ii Or Nos/Not Uncontrolled Status: Chronic (4) Diastolic congestive heart failure Status: Chronic (5) Hyperlipemia Status: Chronic (6) Hypertension Status: Chronic (7) Kidney cyst, acquired Status: Chronic (8) Left shoulder pain Status: Resolved (9) Nephrolithiasis Status: Chronic (10) Osteoarthritis Status: Chronic (11) Peripheral artery disease Status: Chronic (12) Temporal arteritis Status: Chronic Diastolic CHF Mild restrictive lung disease chronic pain on narcotic regimen and low-dose prednisone Rheumatoid arthritis artherosclerotic peripheral vascular disease hyperglycemia osteoporosis urinary incontinence. Surgical Hx: Back surgery Bypass graft Left Knee preplacement Cervical Laminectomy Family History Cancer Diabetes mellitus FH: heart disease Breast Cancer, Leukemia Social History Smoking Status: Never Smoker Smokeless Tobacco Use: No Alcohol Use: socially (occasional at this point) Drug Use: none Marital Status: Housing status: lives with family Occupational Status: retired Immunizations History of Influenza Vaccine: Yes Influenza Vaccine Date: Jan 28, 2013 History of Tetanus Vaccine?: Yes Tetanus Immunization Date: November 03, 2003 History of Pneumococcal: Yes Pneumococcal Date: November 02, 2006 History of Hepatitis B Vaccine: Unknown Multi-Drug Resistant Organisms History of MDRO: Yes Type of MDRO: MRSA Allergies Coded Allergies: Cephalexin (Verified Allergy, Unknown, ., 05/12/17) Clindamycin (Verified Allergy, Unknown, COLITIS, 05/12/17) Hydrochlorothiazide (Verified Allergy, Unknown, UNKNOWN, 05/12/17) Ibuprofen (Verified Allergy, Unknown, 05/12/17) Omeprazole (Verified Allergy, Unknown, ., 05/12/17) Adhesives (Verified Adverse Reaction, Intermediate, RASH, 05/12/17) Oxaprozin (Verified Adverse Reaction, Intermediate, HEADACHE, 05/12/17) Quinolones (Verified Adverse Reaction, Mild, diarrhea, 05/12/17) 05/12/17: spoke with rn who clarified patient gets diarrhea from quinolones Lisinopril (Verified Adverse Reaction, Unknown, GI SYMPTOMS,RENAL DYSFUNCTION, 05/12/17) causes renal dysfunction Home Medications Scheduled Amlodipine (Norvasc), 10 MG PO DAILY Aspirin (Aspirin Ec), 81 MG PO DAILY Atorvastatin (Lipitor), 20 MG PO DAILY Carbidopa/Levodopa (Sinemet 25MG/100MG), 1 TAB PO TID Carvedilol (Coreg), 12.5 MG PO BID Cholecalciferol (Vitamin D), 5,000 UNITS PO DAILY Cyclosporine (Ophth) (Restasis), 1 DROP OP BID Fentanyl (Fentanyl), 1 PATCH TOP [id number] Gabapentin (Gabapentin), 600 MG PO TID Mometasone Furoate-Formoterol (Dulera 100/5 Mcg), 1 PUFF INH QAM Multivitamin (Multivitamin), 1 TAB PO DAILY Ocuvite Preservision (Ocuvite Preservision), 1 TAB PO BID Prednisone (Prednisone), 3 MG PO TID Ranibizumab (Lucentis), Unknown Dose IO Q6WK Triamcinolone Acet (Triamcinolone Acetonide), 1 APPLN TOP BID Scheduled PRN Albuterol Sulfate (Proair Respiclick), 2 PUFFS INH q4-6h PRN for SOB/Wheezing Hydrocodone/Acetaminophen ([place] 10/325 Tab), 1 TAB PO Q6 PRN for Pain Review of Systems Constitutional: No fever, No chills, No sweats Eyes: No worsening of vision, No redness ENT: No hearing loss, No sore throat Respiratory: No cough, No shortness of breath Cardiovascular: No chest pain, No edema, No claudication Abdomen: No pain, No nausea, No vomiting, No diarrhea, No constipation Genitourinary - Female: + urinary frequency, + urinary incontinence, No dysuria , No hematuria, No vaginal bleeding, No vaginal discharge, No vaginal itching Neurologic: + balance problems (uses a walker at baseline), No memory loss, No weakness, No numbness/tingling Psychiatric: No depression symptoms, No anxiety Endocrine: No fatigue Integumentary: No rash, No itch Physical Exam Vital Signs Date Time Temp Pulse Resp B/P (MAP) Pulse Ox O2 Delivery O2 Flow Rate FiO2 05/12/17 09:51 96 Ambu-Bag 2.0 05/12/17 09:40 96 Nasal Cannula 2.0 05/12/17 09:15 88 18 157/64 88 Room Air 05/12/17 08:08 38.4 05/12/17 07:45 101 05/12/17 07:18 37.3 105 18 165/82 94 Room Air General Appearance: WD/WN, no apparent distress, + thin, + pertinent finding ( multiple areas of ecchymosis over extremities/ R upper extensor surface. + ecchymosis on R cheek appears to be resolving) Head: normocephalic, atraumatic Eyes: PERRL, EOMI ENT: hearing grossly normal, pharynx normal, + pertinent finding (MM dry) Neck: supple, no JVD Respiratory/Chest: chest non-tender, lungs clear, no respiratory distress, no accessory muscle use, + pertinent finding (on 1 L via NC) Cardiovascular: normal peripheral pulses, + tachycardia (HR in 90s-low 100s), + systolic murmur (mild II/) Abdomen/GI: normal bowel sounds, non tender, soft Back: normal inspection, no CVA tenderness Extremities/Musculoskelatal: no calf tenderness, no pedal edema, + pertinent finding (multiple areas of scarring, open lesions on the legs, LLE s/p vein grafting) Neurologic/Psych: alert, normal mood/affect, oriented x 3 Skin: normal color, warm/dry Diagnostics Laboratory Results Results Past 24 Hours Test 05/12/17 07:30 05/12/17 07:50 05/12/17 07:53 Range/Units Urine Color YELLOW Urine Appearance CLEAR CLEAR Urine pH 6.5 4.5-7.5 Urine Specific [place] 1.016 1.000-1.030 Urine Protein 1+ NEG Urine Glucose (UA) NEG NEG Urine Ketones NEG NEG Urine Occult Blood NEG NEG Urine Nitrite NEG NEG Urine Bilirubin NEG NEG Urine Urobilinogen NEG NEG Urine Leukocyte Esterase MODERATE NEG Urine WBC (Auto) >30 0-5 /hpf Urine RBC (Auto) 0-4 0-4 /hpf Urine Hyaline Casts (Auto) 1-5 0-5 /lpf Urine Epithelial Cells (Auto) 0-5 0-5 /lpf Urine Bacteria (Auto) NEG NEG White Blood Count 8.89 4.8-10.8 K/uL Red Blood Count 4.31 4.2-5.4 M/uL Hemoglobin 13.8 12.0-16.0 g/dL Hematocrit 41.5 37-47 % Mean Corpuscular Volume 96.3 80-100 fL Mean Corpuscular Hemoglobin 32.0 25-34 pg Mean Corpuscular Hemoglobin Concent 33.3 32-36 g/dl Platelet Count 174 130-400 K/uL Mean Platelet Volume 9.2 7.4-10.4 fL Neutrophils (%) (Auto) 84.9 % Lymphocytes (%) (Auto) 6.4 % Monocytes (%) (Auto) 7.4 % Eosinophils (%) (Auto) 0.8 % Basophils (%) (Auto) 0.2 % Neutrophils # (Auto) 7.54 1.4-6.5 K/uL Lymphocytes # (Auto) 0.57 1.2-3.4 K/uL Monocytes # (Auto) 0.66 0.11-0.59 K/uL Eosinophils # (Auto) 0.07 0-0.5 K/uL Basophils # (Auto) 0.02 0-0.2 K/uL RDW Standard Deviation 51.1 36.4-46.3 fL RDW Coefficient of Variation 14.5 11.5-14.5 % Immature Granulocyte % (Auto) 0.3 % Immature Granulocyte # (Auto) 0.03 0.00-0.02 K/uL Sodium Level 139 136-145 mmol/L Potassium Level 3.5 3.5-5.1 mmol/L Chloride Level 103 98-107 mmol/L Carbon Dioxide Level 26 21-32 mmol/L Anion Gap 9.0 3-11 mmol/L Blood Urea Nitrogen 21 7-18 mg/dl Creatinine 0.73 0.60-1.20 mg/dl Est Creatinine Clear Calc Drug Dose 43.8 ml/min Estimated GFR () 86.4 Estimated GFR (Non- 74.6 BUN/Creatinine Ratio 28.8 10-20 Random Glucose 118 70-99 mg/dl Lactic Acid Level 1.8 0.4-2.0 mmol/L Calcium Level 8.6 8.5-10.1 mg/dl Total Bilirubin 0.6 0.2-1 mg/dl Direct Bilirubin 0.2 0-0.2 mg/dl Aspartate Amino Transf (AST/SGOT) 19 15-37 U/L Alanine Aminotransferase (ALT/SGPT) 7 12-78 U/L Alkaline Phosphatase 107 45-117 U/L Troponin I 0.028 0-0.045 ng/ml Total Protein 6.2 6.4-8.2 gm/dl Albumin 3.2 3.4-5.0 gm/dl Influenza Type A Antigen Neg for Influ A NEG Influenza Type B Antigen Neg for Influ B NEG Microbiology Results 05/12/17 Blood Culture, Received Pending 05/12/17 Blood Culture, Received Pending 05/12/17 Urine Culture, Received Pending Diagnostic Radiology HEAD WITHOUT CONTRAST (CT) CLINICAL HISTORY: 86 years-old Female with Altered mental status. Acute altered mental status with confusion TECHNIQUE: Multiple axial CT images of the head were obtained without contrast. A dose lowering technique was utilized adhering to the principles of ALARA. CT DOSE: 537.48 mGy.cm COMPARISON: CT head 03/01/2017. FINDINGS: No acute intracranial hemorrhage, midline shift, intracranial mass, hydrocephalus, territorial ischemia or abnormal extra-axial collection. Moderate atrophy with ex vacuo ventriculomegaly redemonstrated. Ill-defined areas of low-attenuation within the subcortical and periventricular white matter suggests chronic microvascular ischemic changes. Senescent calcifications of the left lentiform nucleus noted. There are vascular calcifications at the level of the skull base. The calvarium is intact. The paranasal sinuses, mastoid air cells, and middle ear cavities are clear. Prior bilateral cataract repair. IMPRESSION: No acute intracranial abnormality. The above report was generated using voice recognition software. It may contain grammatical, syntax or spelling errors. Electronically signed by: Lazaro Jewell M.D. 05/12/2017 8:19 AM Dictated Date/Time: 05/12/2017 8:17 AM The status of this report is Signed. CHEST ONE VIEW PORTABLE CLINICAL HISTORY: Fever. Sepsis. COMPARISON STUDY: Chest CT September 02, 2016. FINDINGS: Cardiomediastinal silhouette is stable. Left lower hemithorax opacity is unchanged and likely related to a node large hiatal hernia. There is no evidence of pulmonary edema. IMPRESSION: 1. No acute cardiopulmonary findings. 2. Left lower hemithorax opacity which is similar to prior exams and likely related to a known large hiatal hernia. Electronically signed by: Benigno Elias M.D. 05/12/2017 7:50 AM Dictated Date/Time: 05/12/2017 7:43 AM The status of this report is Signed. EKG Sinus tachycardia Left axis deviation Left ventricular hypertrophy with QRS widening and repolarization abnormality Inferior infarct , age undetermined Possible Anterolateral infarct , age undetermined Abnormal ECG Vent. rate 105 BPM IL interval 208 ms QRS duration 128 ms QT/QTc 356/470 ms P-R-T axes * -50 111 Impression Assessment and Plan This is an 86 yo F with PMH of HTN, HLD, diastolic CHF with associated dyspnea on exertion, CKD stage III, mild restrictive lung disease, temporal arteritis, osteoarthritis, chronic pain on narcotic regimen and low-dose prednisone, artherosclerotic peripheral vascular disease, dyslipidemia, hyperglycemia, osteoporosis, and urinary incontinence. UTI meeting Sepsis criteria AMS secondary to Metabolic encephalopathy - Admit to tele - UA appears dirty, await UCx - BCx in process - Received daptomycin and imipenum in the ER - will continue on Levaquin at this time, pt had allergy listed but was noted to be adverse reaction with diarrhea. Will also start probiotic. - Rectal Tmax was 38.4 upon admission, tylenol prn - Last Urine culture reviewed and shows that pt grew out proteus mirabilis which was sensitive to all except cipro, bactrim and ampicillin. - Continue on gentle maintenance fluids at this time x 12 hours. - Hygiene will need to be addressed prior to dc : ie wipe from front to back, more frequent showering/bathing, changing feminine pads frequently. Hydration also likely a major component as the pt does not drink water at all - see HPI. PVD - Continue asa 81 mg Diastolic CHF HTN - Pt took amlodipine 10 and norvasc prior to coming to the ER, missed morning dose of coreg - Continue coreg 12.5 BID - Pt appears clinically dry on exam, will continue on NSS at 100 mL/hr for now - encouraged PO intake. PT reports drinking no water at baseline and only has decaf coffee and tea throughout a normal day HLD - Continue statin therapy Mild restrictive lung disease - Continue prior HFA, Dulera, prednisone likely helps slightly with this as well - Lungs are clear on exam today Chronic Pain - Continue fentanyl patch, hydrocodone, and prednisone 3 mg PO daily Parkinsonism - Continue Sinemet 25-100 mg TID DVT ppx: Lovenox 30 mg Subq CODE STATUS: FULL CODE Disposition: From home, daughter lives with her, to assist with dc planning, PT/OT consulted Level of Care Telemetry Advanced Directives Existing Living Will: Yes Existing Power of Road Production General Manager: Yes Resuscitation Status FULL RESUSCITATION VTE Prophylaxis VTE Risk Assessment Done? Y/N: Yes Risk Level: Low Given or contraindicated: Enoxaparin (Lovenox)SQ Reviewed: Pt Seen/Exam by Me History Physician Credit Support Specialist Supervision Note: I interviewed and examined the patient. Discussed with ZAYDA Hernandez and agree with findings and plan as documented in the note. Any exceptions or clarifications are listed here: Patient presents with increased confusion at home as per the daughter who lives with her. She's also had increased urinary frequency and history of urinary tract infections. She was found to have a fever to 38.4 in the ER and was mildly tachycardic. She did not have an elevated white blood cell count, but her urinalysis was obviously positive for infection. She was given IV fluids as well as daptomycin and imipenem. Her chest x-ray was within normal limits, as was her lactate, her troponin, and her chemistry panel. Flu swab was negative. Blood and urine cultures were drawn. Her ECG shows a left bundle branch block which is chronic with mild tachycardia. The first time I saw her today, she was alert and oriented 3 after she had received resuscitative treatment in the ER. I was called back later in the day by the RN for increased confusion and tachycardia. On telemetry and EKG, was difficult to see her P waves as she was tachycardic in the 120s to 130s. When the rate did slow down to the low 100s on its own, I could then see P waves with her left bundle branch block. Her temperature was 37.1, but I suspect she was spiking another fever. The daughter reports that the patient did not take her morning dose of carvedilol and this was given, along with some Tylenol. Vitals reviewed, she is hypertensive, tachycardic No acute distress, initially alert awake oriented 3, later alert awake and oriented 1 Regular rhythm, mild tachycardia, no murmurs gallops rubs Lungs with mild crackles at the bases, otherwise clear to auscultation bilaterally Abdomen positive bowel sounds soft nontender nondistended Extremities with multiple areas of scabbed over wounds and extremely thin skin with chronic venous stasis changes of the lower extremities, no erythema, trace pitting edema bilaterally in the legs. a Hewitt was in place and was draining clear yellow urine 86-year-old female with a past medical history of hypertension, hyperlipidemia, chronic diastolic CHF, CKD stage III, restrictive lung disease, history of temporal arteritis, rheumatoid arthritis and chronic pain syndrome, opioid and steroid dependence, PAD, here with UTI, sepsis, and acute metabolic encephalopathy. Sepsis due to tachycardia and fever. No white blood cell count elevated, no elevation of lactate, blood pressure is high-there is no severe sepsis here. -Treating with Levaquin -Follow blood and urine cultures -Acetaminophen for fevers-this will help with her delirium -Left bundle branch block is chronic, will give her dose of Coreg for the evening early and she did not get her morning dose at home -Continue normal saline at 70 ML's per hour and watch for volume overload given history of chronic diastolic CHF Documented By: Catia Aiken
[2017-05-12] MEDS ORDERED: IV FLUIDS COMPLETED PRN (11:00)
[2017-05-12 12:00] VITALS: BP 173/76; PULSE 92; TEMP 36.8; O2SAT 96; O2SAT 97
[2017-05-12] MEDS ORDERED: SODIUM CHLORIDE 0.9% 1000ML 1,000 ML IV SCH (14:00)
[2017-05-12] MEDS ORDERED: LEVOFLOXACIN CONSULT ACTIVE PRN (14:00)
[2017-05-12] MEDS ORDERED: LEVOFLOXACIN / D5W 750 MG in PREMIXED IN D5W 150 ML IV SCH ×2 (14:00→16:00)
[2017-05-12 14:15] LABS: INR 1.2 (0.9-1.1); PROTHROMBIN TIME (PATIENT) 12.2 SECONDS (9.0-12.0)
[2017-05-12] MEDS: GABAPENTIN 600 MG TAB PO SCH ×2 (15:00→20:45)
[2017-05-12] MEDS: CARBIDOPA/LEVODOPA 25/100MG TAB PO SCH ×2 (15:00→20:45)
[2017-05-12] MEDS: CHECK FENTANYL PATCH PLACEMENT SCH (15:48)
[2017-05-12] MEDS: DULERA: ORDER AWAITING ACTION SCH (15:48)
[2017-05-12] MEDS: RESTASIS: ORDER AWAITING ACTION SCH (15:48)
[2017-05-12] MEDS: LACTOBACILLUS ACIDOPHILUS (FLORANEX) TAB PO SCH (15:49)
[2017-05-12 15:54] VITALS: BP 182/105; PULSE 100; TEMP 37.2; O2SAT 96
[2017-05-12 16:00] VITALS: O2SAT 96
[2017-05-12] MEDS: HYDROCODONE/ACETAMI 10/325 TAB PO PRN ×2 (16:56→23:32)
[2017-05-12 17:53] VITALS: BP 134/85; PULSE 134; TEMP 37.1; O2SAT 97
[2017-05-12] MEDS: CARVEDILOL 12.5 MG TAB PO SCH (17:59)
[2017-05-12] MEDS ORDERED: ACETAMINOPHEN 325 MG TAB PO PRN (18:00)
[2017-05-12] MEDS: TRIAMCINOLONE ACET 0.5% CR 15 GM TUBE EXT SCH (20:45)
[2017-05-12] MEDS: ENOXAPARIN 30 MG/0.3 ML SYR SC SCH (20:46)
[2017-05-12] MEDS ORDERED: CEROVITE ADV FORMULA TAB PO SCH (21:00)
[2017-05-12 23:32] VITALS: BP 137/69; PULSE 75; TEMP 36.2; O2SAT 94
[2017-05-13] VITALS (11 sets, daily range): BP systolic 135–178; BP diastolic 70–82; PULSE 62–77; TEMP 36.4–36.6; O2SAT 92–99
[2017-05-13] MEDS: CHOLECALCIFEROL 1000 INTER.UNIT TAB PO SCH (07:44)
[2017-05-13] MEDS: ATORVASTATIN 20 MG TAB PO SCH (07:44)
[2017-05-13] MEDS: CARBIDOPA/LEVODOPA 25/100MG TAB PO SCH ×3 (07:44→20:40)
[2017-05-13] MEDS: MULTIVITAMIN TAB PO SCH (07:45)
[2017-05-13] MEDS: GABAPENTIN 600 MG TAB PO SCH ×3 (07:45→20:41)
[2017-05-13] MEDS: ASPIRIN 81 MG ECTAB PO SCH (07:45)
[2017-05-13] MEDS: CARVEDILOL 12.5 MG TAB PO SCH ×2 (07:45→20:41)
[2017-05-13] MEDS: AMLODIPINE BESYLATE 5 MG TAB PO SCH (07:45)
[2017-05-13] MEDS: CHECK FENTANYL PATCH PLACEMENT SCH ×4 (07:46→22:59)
[2017-05-13] MEDS: RESTASIS: ORDER AWAITING ACTION SCH ×4 (07:46→23:00)
[2017-05-13] MEDS: DULERA: ORDER AWAITING ACTION SCH ×4 (07:46→23:00)
[2017-05-13] MEDS: TRIAMCINOLONE ACET 0.5% CR 15 GM TUBE EXT SCH ×2 (07:49→20:39)
[2017-05-13] MEDS: LACTOBACILLUS ACIDOPHILUS (FLORANEX) TAB PO SCH ×3 (07:55→17:48)
[2017-05-13] MEDS: HYDROCODONE/ACETAMI 10/325 TAB PO PRN ×2 (07:55→16:02)
[2017-05-13] MEDS ORDERED: FENTANYL PATCH REMOVE & WASTE SCH (08:59)
[2017-05-13] MEDS ORDERED: FENTANYL 25 MCG/HR TDSY TD SCH (09:00)
[2017-05-13 09:52] LABS: BASO % 0.2 %; BASO ABS # 0.01 K/uL (0-0.2); COMPLETE YES; HEMATOCRIT 41.2 % (37-47); IG% 0.3 %; LYMPH % 7.3 %; LYMPH ABS # 0.48 K/uL (1.2-3.4); MEAN CORPUSCULAR HEMOGLOBIN 31.7 pg (25-34); MEAN PLATELET VOLUME 9.3 fL (7.4-10.4); MONO % 7.2 %; PLATELET COUNT 149 K/uL (130-400); RED BLOOD COUNT 4.29 M/uL (4.2-5.4); WHITE BLOOD COUNT 6.55 K/uL (4.8-10.8)
[2017-05-13 09:59] LABS: BUN/CREATININE RATIO 27.1 (10-20); CALCIUM 8.3 mg/dl (8.5-10.1); CREATININE 0.53 mg/dl (0.60-1.20); POTASSIUM 3.4 mmol/L (3.5-5.1)
--- NOTE | 2017-05-13 12:23 | Progress Note ---
Subjective Date of Service: May 13, 2017. Subjective Pt evaluation today including: conversation w/ patient, physical exam, chart review, lab review, review of studies, review of inpatient medication list Pt resting comfortably in bed Still having dysuria No fevers or chills Alert and oriented x 3 Problem List Medical Problems: (1) Chest pain Status: Acute (2) Contusion of left little finger Status: Acute (3) Encounter for removal of ivan Status: Acute (4) Fall Status: Acute (5) Fall Status: Acute (6) Hematoma of left lower extremity Status: Acute (7) Laceration of lower extremity Status: Acute (8) Pain in metatarsus of right foot Status: Acute (9) Tear of skin of multiple sites of left lower extremity Status: Acute Review of Systems Constitutional: No fever, No chills, No sweats, No weakness Eyes: No worsening of vision, No eye pain, No redness, No discharge ENT: No hearing loss, No unusual epistaxis, No nasal symptoms Respiratory: No cough, No sputum, No wheezing, No shortness of breath, No dyspnea on exertion Cardiac: No chest pain, No orthopnea, No PND, No edema, No claudication Abdomen: No pain, No nausea, No vomiting, No diarrhea, No constipation Musculoskeletal: No joint pain, No muscle pain, No swelling, No calf pain Female : + dysuria, No urinary frequency, No hematuria, No incontinence, No abnormal vaginal bleeding Neurologic: No memory loss, No paralysis, No weakness, No numbness/tingling Psychiatric: No depression symptoms, No anhedonism, No anxiety, No insomnia Heme: No abnormal bleeding/bruising, No clotting problems, No swollen lymph nodes, No night sweats Skin: No rash, No itch, No new/changing skin lesions Objective Vital Signs Date Time Temp Pulse Resp B/P (MAP) Pulse Ox O2 Delivery O2 Flow Rate FiO2 05/13/17 12:00 96 Nasal Cannula 2.0 05/13/17 11:53 36.6 66 18 135/70 (91) 98 Nasal Cannula 2.0 05/13/17 08:00 96 Nasal Cannula 2.0 05/13/17 07:26 36.5 77 18 178/82 (114) 98 Room Air 05/13/17 04:00 Nasal Cannula 2.0 05/13/17 03:35 36.4 73 20 96 Nasal Cannula 2.0 05/13/17 00:00 Nasal Cannula 2.0 05/12/17 23:32 36.2 75 18 137/69 (91) 94 Nasal Cannula 2.0 05/12/17 20:00 Nasal Cannula 2.0 05/12/17 17:53 37.1 134 18 134/85 (101) 97 Nasal Cannula 2.0 05/12/17 16:00 96 Nasal Cannula 2.0 05/12/17 15:54 37.2 100 16 182/105 (130) 96 Nasal Cannula 2.0 Physical Exam General Appearance: WD/WN, no apparent distress ENT: normal ENT inspection, hearing grossly normal, TMs normal, pharynx normal Neck: supple, no adenopathy, thyroid normal, no JVD Respiratory/Chest: chest non-tender, lungs clear, normal breath sounds, no respiratory distress Cardiovascular: regular rate, rhythm, no edema, no gallop, no JVD Abdomen: normal bowel sounds, non tender, soft, no organomegaly Extremities: normal range of motion, non-tender, normal inspection, no pedal edema Neurologic/Psychiatric: no motor/sensory deficits, alert, normal mood/affect, oriented x 3 Skin: normal color, warm/dry, no rash Lymphatic: no adenopathy Laboratory Results Last 24 Hours Test 05/12/17 13:59 05/13/17 06:46 05/13/17 11:10 Prothrombin Time 12.2 SECONDS Prothromb Time International Ratio 1.2 White Blood Count 6.55 K/uL Red Blood Count 4.29 M/uL Hemoglobin 13.6 g/dL Hematocrit 41.2 % Mean Corpuscular Volume 96.0 fL Mean Corpuscular Hemoglobin 31.7 pg Mean Corpuscular Hemoglobin Concent 33.0 g/dl Platelet Count 149 K/uL Mean Platelet Volume 9.3 fL Neutrophils (%) (Auto) 85.0 % Lymphocytes (%) (Auto) 7.3 % Monocytes (%) (Auto) 7.2 % Eosinophils (%) (Auto) 0.0 % Basophils (%) (Auto) 0.2 % Neutrophils # (Auto) 5.57 K/uL Lymphocytes # (Auto) 0.48 K/uL Monocytes # (Auto) 0.47 K/uL Eosinophils # (Auto) 0.00 K/uL Basophils # (Auto) 0.01 K/uL RDW Standard Deviation 51.8 fL RDW Coefficient of Variation 14.8 % Immature Granulocyte % (Auto) 0.3 % Immature Granulocyte # (Auto) 0.02 K/uL Sodium Level 139 mmol/L Potassium Level 3.4 mmol/L Chloride Level 106 mmol/L Carbon Dioxide Level 24 mmol/L Anion Gap 10.0 mmol/L Blood Urea Nitrogen 14 mg/dl Creatinine 0.53 mg/dl Est Creatinine Clear Calc Drug Dose 60.3 ml/min Estimated GFR () 99.6 Estimated GFR (Non- 86.0 BUN/Creatinine Ratio 27.1 Random Glucose 99 mg/dl Calcium Level 8.3 mg/dl Bedside Glucose 155 mg/dl Assessment and Plan This is an 86 yo F with PMH of HTN, HLD, diastolic CHF with associated dyspnea on exertion, CKD stage III, mild restrictive lung disease, temporal arteritis, osteoarthritis, chronic pain on narcotic regimen and low-dose prednisone, artherosclerotic peripheral vascular disease, dyslipidemia, hyperglycemia, osteoporosis, and urinary incontinence. Sepsis with UTI as likely source with underlying metabolic encephalopathy Metabolic encephalopathy resolved - Admit to tele, will transfer to [facility] - UA appears dirty, await UCx, prev cx pos for proteus - BCx in process - Received daptomycin and imipenum in the ER - will continue on Levaquin at this time - Rectal Tmax was 38.4 upon admission, tylenol prn, fevers resolved - Hygiene will need to be addressed prior to dc : ie wipe from front to back, more frequent showering/bathing, changing feminine pads frequently. Hydration also likely a major component as the pt does not drink water at all - see HPI. PVD - Continue asa 81 mg Diastolic CHF HTN - Pt took amlodipine 10 and norvasc prior to coming to the ER, missed morning dose of coreg - Continue coreg 12.5 BID - Pt appears clinically dry on exam, will continue on NSS at 100 mL/hr for now - encouraged PO intake. PT reports drinking no water at baseline and only has decaf coffee and tea throughout a normal day HLD - Continue statin therapy Mild restrictive lung disease - Continue prior HFA, Dulera, prednisone likely helps slightly with this as well - Lungs are clear on exam today Chronic Pain - Continue fentanyl patch, hydrocodone, and prednisone 3 mg PO daily Parkinsonism - Continue Sinemet 25-100 mg TID DVT ppx: Lovenox 30 mg Subq CODE STATUS: FULL CODE
--- NOTE | 2017-05-13 13:03 | Pharmacy Progress Note ---
Pharmacy Abx Dose Short Note Date of Service May 13, 2017. Assessment & Plan Assessment 86 year old female receiving Levaquin for treatment of urosepsis Day # 2 of antimicrobial therapy. Plan Given the patients age and prolonged Qtc of 518, will continue renally adjusted dose of 750 q48 fo now. Pharmacy will continue to follow and will adjust dose/frequency as necessary. Thank you.
[2017-05-13] MEDS ORDERED: POTASSIUM CHLORIDE 10 MEQ TABCR PO STA (17:17)
[2017-05-13] MEDS: LIDODERM (LIDOCAINE) PATCH 5% TD SCH (17:51)
[2017-05-13] MEDS: ENOXAPARIN 30 MG/0.3 ML SYR SC SCH (20:40)
[2017-05-14 06:53] LABS: BASO % 0.5 %; BASO ABS # 0.03 K/uL (0-0.2); COMPLETE YES; EOS % 1.4 %; HEMATOCRIT 36.3 % (37-47); IG% 0.2 %; LYMPH % 13.2 %; LYMPH ABS # 0.83 K/uL (1.2-3.4); MEAN CELL VOLUME 96.5 fL (80-100); MEAN CORPUSCULAR HEMOGLOBIN 31.6 pg (25-34); MEAN CORPUSCULAR HGB CONC 32.8 g/dl (32-36); MONO % 11.8 %; NEUT % 72.9 %; PLATELET COUNT 129 K/uL (130-400); RED BLOOD COUNT 3.76 M/uL (4.2-5.4); WHITE BLOOD COUNT 6.29 K/uL (4.8-10.8)
[2017-05-14 07:20] VITALS: BP 149/81; PULSE 68; TEMP 36.9; O2SAT 97
[2017-05-14 07:21] LABS: BUN/CREATININE RATIO 31.2 (10-20); CALCIUM 8.1 mg/dl (8.5-10.1); CREATININE 0.5 mg/dl (0.60-1.20); POTASSIUM 3.9 mmol/L (3.5-5.1)
[2017-05-14] MEDS: DULERA: ORDER AWAITING ACTION SCH (07:32)
[2017-05-14] MEDS: RESTASIS: ORDER AWAITING ACTION SCH (07:33)
[2017-05-14] MEDS: ASPIRIN 81 MG ECTAB PO SCH (07:34)
[2017-05-14] MEDS: AMLODIPINE BESYLATE 5 MG TAB PO SCH (07:34)
[2017-05-14] MEDS: GABAPENTIN 600 MG TAB PO SCH ×2 (07:34→14:45)
[2017-05-14] MEDS: MULTIVITAMIN TAB PO SCH (07:34)
[2017-05-14] MEDS: ATORVASTATIN 20 MG TAB PO SCH (07:34)
[2017-05-14] MEDS: CHOLECALCIFEROL 1000 INTER.UNIT TAB PO SCH (07:35)
[2017-05-14] MEDS: LACTOBACILLUS ACIDOPHILUS (FLORANEX) TAB PO SCH ×2 (07:35→11:09)
[2017-05-14] MEDS: CARBIDOPA/LEVODOPA 25/100MG TAB PO SCH ×2 (07:35→14:45)
[2017-05-14] MEDS: TRIAMCINOLONE ACET 0.5% CR 15 GM TUBE EXT SCH (07:35)
[2017-05-14] MEDS: CARVEDILOL 12.5 MG TAB PO SCH (07:35)
[2017-05-14] MEDS: LIDODERM (LIDOCAINE) PATCH 5% TD SCH (07:36)
[2017-05-14] MEDS: CHECK FENTANYL PATCH PLACEMENT SCH (07:37)
[2017-05-14] MEDS ORDERED: LEVOFLOXACIN 750 MG TAB PO SCH (11:00)
[2017-05-14] MEDS ORDERED: CIPR-255 PO (15:21)
--- NOTE | 2017-05-14 15:23 | Discharge Instructions ---
Discharge Instructions Date of Service May 14, 2017. Admission Reason for Admission: Altered Mental Status, Uti Discharge Discharge Diagnosis / Problem: Sepsis, UTI Discharge Goals Goal(s): Decrease discomfort, Improve function, Increase independence, Improve disease control, Learn about illness, Diagnostic testing, Prevent Disease Progression Activity Recommendations Activity Limitations: resume your previous activity Exercise/Sports Limitations: as tolerated . Instructions / Follow-Up Instructions / Follow-Up Patient to be discharged home with home health services Please note to take antibiotic cipro 500 mg tablet twice a day for 5 more days, prescription sent to pharmacy Please continue all other home medications If worsening fevers, abdominal pain, pain on urination, please report to ER Current Hospital Diet Patient's current hospital diet: Regular Diet, AHA Diet (Heart Healthy), Low Sodium Diet (2gm Na) Discharge Diet Recommended Diet: Regular Diet, Low Sodium Diet (2gm Na) Pending Studies Studies pending at discharge: no Laboratory Results Hemoglobin A1c Test 05/10/17 11:12 Range/Units Estimated Average Glucose 126 mg/dl Hemoglobin A1c 6.0 H 4.5-5.6 % Medical Emergencies . Who to Call and When: Medical Emergencies: If at any time you feel your situation is an emergency, please call 911 immediately. . Non-Emergent Contact Non-Emergency issues call your: Primary Care Provider Call Non-Emergent contact if: you have a fever, your pain is worsening . . "Provider Documentation" section prepared by Ba Hernandez. . VTE Core Measure Inpt VTE Proph given/why not?: Enoxaparin (Lovenox)SQ
[2017-05-14 15:54] VITALS: BP 149/81; PULSE 68; TEMP 36.9; O2SAT 97
--- NOTE | 2017-05-14 17:10 | Discharge Summary ---
Discharge Summary Date of Service May 14, 2017. Discharge Summary Admission Date: May 12, 2017 at 17:43 Discharge Date: May 14, 2017 Discharge Disposition: Home with services Principal Diagnosis: sepsism, UTI Immunizations: Have You Had Influenza Vaccine: Yes Influenza Vaccine Date: Jan 28, 2013 History of Tetanus Vaccine?: Yes Tetanus Immunization Date: November 03, 2003 History of Pneumococcal: Yes Pneumococcal Date: November 02, 2006 History of Hepatitis B Vaccine: Unknown Medication Reconciliation New Medications: Ciprofloxacin Hcl (Cipro) 500 Mg Tab 500 MG PO BID for 5 Days, #10 TAB Continued Medications: Albuterol Sulfate (Proair Respiclick) 108 Mcg/Act Aer 2 PUFFS INH q4-6h PRN for SOB/Wheezing Amlodipine (Norvasc) 10 Mg Tab 10 MG PO DAILY, TAB Aspirin (Aspirin Ec) 81 Mg Tab 81 MG PO DAILY Atorvastatin (Lipitor) 20 Mg Tab 20 MG PO DAILY, TAB Carbidopa/Levodopa (Sinemet 25MG/100MG) Tab 1 TAB PO TID, TAB Carvedilol (Coreg) 12.5 Mg Tab 12.5 MG PO BID, TAB Cholecalciferol (Vitamin D) 5,000 Unit Tab 5000 UNITS PO DAILY Cyclosporine (Ophth) (Restasis) 0.05 % Emu 1 DROP OP BID, BTL Fentanyl (Fentanyl) 25 Mcg Tdsy 1 PATCH TOP CQ72HR Gabapentin (Gabapentin) 600 Mg Tab 600 MG PO TID Hydrocodone/Acetaminophen ([place] 10/325 Tab) 1 Tab Tab 1 TAB PO Q6 PRN for Pain Mometasone Furoate-Formoterol (Dulera 100/5 Mcg) 1 Aer Aer 1 PUFF INH QAM, INHALER Multivitamin (Multivitamin) Tab 1 TAB PO DAILY, TAB Ocuvite Preservision (Ocuvite Preservision) 1 Tab Tab 1 TAB PO BID, TAB Prednisone (Prednisone) 1 Mg Tab 3 MG PO TID, TAB Ranibizumab (Lucentis) 0.3 Mg/0.05 Ml Nancie Unknown Dose IO Q6WK LEFT EYE Triamcinolone Acet (Triamcinolone Acetonide) 45 Appln/15 Gm Cr 1 APPLN TOP BID Discharge Exam Review of Systems: Constitutional: No fever, No chills, No sweats, No weakness ENT: No hearing loss, No unusual epistaxis, No nasal symptoms, No sore throat Respiratory: No cough, No sputum, No wheezing, No shortness of breath Cardiovascular: No chest pain, No orthopnea, No PND, No edema Abdomen: No pain, No nausea, No vomiting, No diarrhea Musculoskeletal: No joint pain, No muscle pain, No swelling, No calf pain Genitourinary - Female: No dysuria, No urinary frequency, No urinary urgency , No urinary incontinence Neurologic: No memory loss, No paralysis, No weakness, No numbness/tingling Psychiatric: No depression symptoms, No anhedonism, No anxiety, No insomnia Endocrine: No fatigue, No excessive thirst Integumentary: No rash, No itch Physical Exam: General Appearance: WD/WN, no apparent distress Eyes: normal inspection, PERRL, EOMI, sclerae normal Neck: supple, no adenopathy, thyroid normal, no JVD Respiratory/Chest: chest non-tender, lungs clear, normal breath sounds, no respiratory distress Cardiovascular: regular rate, rhythm, no edema, no gallop, no JVD Abdomen / GI: normal bowel sounds, non tender, soft, no organomegaly Extremities: normal inspection, no calf tenderness, normal capillary refill , no pedal edema 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 Sepsis with UTI as likely source with underlying metabolic encephalopathy Metabolic encephalopathy resolved - Admit to tele - UA appears dirty, await UCx, prev cx pos for proteus, urine cx prelim for gram neg bacilli, however colony count low so no sens pending - Rectal Tmax was 38.4 upon admission, tylenol prn, fevers resolved - Hygiene addressed prior to dc : ie wipe from front to back, more frequent showering/bathing, changing feminine pads frequently. Hydration also likely a major component as the pt does not drink water at all - see HPI. - Received daptomycin and imipenum in the ER - will continue on cipro on DC for 5 more days PVD - Continue asa 81 mg Diastolic CHF HTN - Pt took amlodipine 10 and norvasc prior to coming to the ER, missed morning dose of coreg - Continue coreg 12.5 BID - Pt appears clinically dry on exam, will continue on NSS at 100 mL/hr for now - encouraged PO intake. PT reports drinking no water at baseline and only has decaf coffee and tea throughout a normal day HLD - Continue statin therapy Mild restrictive lung disease - Continue prior HFA, Dulera, prednisone likely helps slightly with this as well - Lungs are clear on exam today Chronic Pain - Continue fentanyl patch, hydrocodone, and prednisone 3 mg PO daily Parkinsonism - Continue Sinemet 25-100 mg TID DVT ppx: Lovenox 30 mg Subq CODE STATUS: FULL CODE Total Time Spent: Greater than 30 minutes This includes examination of the patient, discharge planning, medication reconciliation, and communication with other providers. Discharge Instructions Please refer to the electronic Patient Visit Report (Discharge Instructions) for additional information. Additional Copies To Ian Covarrubias M.D.
== END 2017-05-14 17:00 | disposition home health service (06) | DRG 871 ==
LOC: EDBD 07:05 → C.EDB 07:06 → C.2T 10:34 → ENRESERV 11:30 → OBSVTOIN 17:43 → C.MS2W 05-13 11:40 → ENRESERV 05-13 11:58
PROVIDERS: ADMIT Family Medicine; ATTEND Hospitalist
DX: A41.9 Sepsis, unspecified organism (principal); N39.0 Urinary tract infection, site not specified; G93.41 Metabolic encephalopathy; I50.32 Chronic diastolic (congestive) heart failure; I13.0 Hypertensive heart and chronic kidney disease with heart failure and stage 1 through stage 4 chronic kidney disease, or unspecified chronic kidney disease; F11.20 Opioid dependence, uncomplicated; B96.89 Other specified bacterial agents as the cause of diseases classified elsewhere; R46.0 Very low level of personal hygiene; N18.3 Chronic kidney disease, stage 3 (moderate); G89.4 Chronic pain syndrome; I73.9 Peripheral vascular disease, unspecified; E78.5 Hyperlipidemia, unspecified; J45.909 Unspecified asthma, uncomplicated; G20 Parkinson's disease; E11.22 Type 2 diabetes mellitus with diabetic chronic kidney disease; M81.0 Age-related osteoporosis without current pathological fracture; Z51.81 Encounter for therapeutic drug level monitoring; Z79.899 Other long term (current) drug therapy; Z79.82 Long term (current) use of aspirin; Z79.52 Long term (current) use of systemic steroids; Z87.440 Personal history of urinary (tract) infections; Z86.14 Personal history of Methicillin resistant Staphylococcus aureus infection; Z83.3 Family history of diabetes mellitus

== ENCOUNTER 2017-07-22 19:38 | Emergency (ER) | payer OTHER ==
[~2017-07-22] VITALS: Ht 152.4 cm; Wt 53.5 kg
[~2017-07-22 19:38] MED LIST changes: +CIPR-255 PO
[2017-07-22 19:49] VITALS: TEMP 36.5; Ht 152.4 cm; Wt 53.5 kg
[2017-07-22] MEDS ORDERED: SULF800T23 PO (21:56)
--- NOTE | 2017-07-22 21:57 | EMERGENCY ROOM VISIT NOTE ---
History Report prepared by Evelio: Ted Whiting Under the Supervision of: Dr. Ton Bo D.O. First contact with patient: 21:23 Chief Complaint: URINARY SYMPTOMS Stated Complaint: POSSIBLE UTI, DEHYDRATION Nursing Triage Summary: Patient presents to triage via wheelchair, states "I think I might have a urinary infection. I am having some trouble walking and I just don't feel well. " Patient denies any nausea, vomiting, abodminal pain. Patient admits to urinary frequency. History of Present Illness The patient is an 86 year old female who presents to the Emergency Room with complaints of constant weakness beginning a few days ago. The patient states that she thinks that she has another UTI. Per daughter, the patient also seems to be confused. She notes that the patient's current symptoms are similar to when she previously had a UTI. Source of History: patient, family (daughter) Onset: a few days ago Position: other (global) Quality: other (weakness) Timing: constant Note: The patient also seems to be confused. Review of Systems See HPI for pertinent positives & negatives. A total of 10 systems reviewed and were otherwise negative. Past Medical & Surgical Medical Problems: (1) Altered mental status (2) Asthma, Unspecified (3) Chronic kidney disease (CKD) stage G3a/A1, moderately decreased glomerular filtration rate (GFR) between 45-59 mL/min/1.73 square meter and albuminuria creatinine ratio less than 30 mg/g (4) Diab Mickie Wo Comp Type Ii Or Nos/Not Uncontrolled (5) Diastolic congestive heart failure (6) Hematoma (7) Hyperlipemia (8) Hypertension (9) Kidney cyst, acquired (10) Left shoulder pain (11) Metabolic encephalopathy (12) MRSA (methicillin resistant Staphylococcus aureus) infection (13) Nephrolithiasis (14) New onset left bundle branch block (LBBB) (15) Osteoarthritis (16) Peripheral artery disease (17) Pneumonia (18) Temporal arteritis (19) UTI (urinary tract infection) (20) Wound of left leg Family History Cancer Diabetes mellitus FH: heart disease Social History Smoking Status: Never Smoker Alcohol Use: none Drug Use: none Marital Status: Housing Status: lives alone Occupation Status: retired Current/Historical Medications Scheduled Amlodipine (Norvasc), 10 MG PO DAILY Aspirin (Aspirin Ec), 81 MG PO DAILY Atorvastatin (Lipitor), 20 MG PO DAILY Carbidopa/Levodopa (Sinemet 25MG/100MG), 1 TAB PO TID Carvedilol (Coreg), 12.5 MG PO BID Cholecalciferol (Vitamin D), 5,000 UNITS PO DAILY Ciprofloxacin Hcl (Cipro), 500 MG PO BID Cyclosporine (Ophth) (Restasis), 1 DROP OP BID Fentanyl (Fentanyl), 1 PATCH TOP CQ72HR Gabapentin (Gabapentin), 600 MG PO TID Mometasone Furoate-Formoterol (Dulera 100/5 Mcg), 1 PUFF INH QAM Multivitamin (Multivitamin), 1 TAB PO DAILY Ocuvite Preservision (Ocuvite Preservision), 1 TAB PO BID Prednisone (Prednisone), 3 MG PO TID Ranibizumab (Lucentis), Unknown Dose IO Q6WK Sulfamethoxazole-Trimethoprim (Bactrim Ds 800MG/160MG), 1 TAB PO BID Triamcinolone Acet (Triamcinolone Acetonide), 1 APPLN TOP BID Scheduled PRN Albuterol Sulfate (Proair Respiclick), 2 PUFFS INH q4-6h PRN for SOB/Wheezing Hydrocodone/Acetaminophen ([place] 10/325 Tab), 1 TAB PO Q6 PRN for Pain Allergies Coded Allergies: Cephalexin (Verified Allergy, Unknown, ., 07/22/17) Clindamycin (Verified Allergy, Unknown, COLITIS, 07/22/17) Hydrochlorothiazide (Verified Allergy, Unknown, UNKNOWN, 07/22/17) Ibuprofen (Verified Allergy, Unknown, 07/22/17) Omeprazole (Verified Allergy, Unknown, ., 07/22/17) Adhesives (Verified Adverse Reaction, Intermediate, RASH, 07/22/17) Oxaprozin (Verified Adverse Reaction, Intermediate, HEADACHE, 07/22/17) Quinolones (Verified Adverse Reaction, Mild, diarrhea, 07/22/17) 05/12/17: spoke with rn who clarified patient gets diarrhea from quinolones Lisinopril (Verified Adverse Reaction, Unknown, GI SYMPTOMS,RENAL DYSFUNCTION, 07/22/17) causes renal dysfunction Physical Exam Vital Signs Date Time Temp Pulse Resp B/P (MAP) Pulse Ox O2 Delivery O2 Flow Rate FiO2 07/22/17 19:49 36.5 89 20 146/80 97 Room Air Physical Exam CONSTITUTIONAL/VITAL SIGNS: Reviewed / noted above. GENERAL: Non-toxic in appearance. INTEGUMENTARY: Warm, dry, and [place]. HEAD: Normocephalic. EYES: without scleral icterus or trauma. ENT/OROPHARYNX: clear and moist. LYMPHADENOPATHY/NECK: Is supple without lymphadenopathy or meningismus. RESPIRATORY: Lungs clear and equal. CARDIOVASCULAR: Regular rate and rhythm. GI/ABDOMEN: Soft and nontender. No organomegaly or pulsatile mass. No rebound or guarding. Normal bowel sounds. EXTREMITIES: Warm and well perfused. BACK: No CVA tenderness. NEUROLOGICAL: Intact without focal deficits. PSYCHIATRIC: normal affect. MUSCULOSKELETAL: Normally developed with good muscle tone. Medical Decision & Procedures ED Course 2124: Previous medical records were reviewed. The patient was evaluated in room A4. A complete history and physical examination was performed. 2158: On reevaluation, the patient is stable. I discussed the results and findings with the patient. She verbalized agreement of the treatment plan. The patient was discharged home. Medical Decision Differential includes acute coronary syndrome, myocardial infarction, CVA, TIA, anemia, infection, pneumonia, UTI, pyelonephritis, poor nutrition, dehydration, electrolyte disturbance,hypoglycemia. This is a 86-year-old female who presents to the ED with a chief complaint of concerns for UTI. The patient states that she has been feeling weak and not feeling well for the past couple of days. The patient's symptoms are consistent with previous UTIs. The patient has a unremarkable physical exam. Her vital signs are normal. She is afebrile. She has not had vomiting. A urine dip is suggestive of UTI. The patient's urine was sent for culture. She was started on Bactrim. She is felt to be stable for discharge. Homepack Bactrim was also sent with the patient. Blood Pressure Screening Patient's blood pressure: Elevated blood pressure Blood pressure disposition: Elevated BP felt to be situational Impression Primary Impression: Urinary tract infection Scribe Attestation The scribe's documentation has been prepared under my direction and personally reviewed by me in its entirety. I confirm that the note above accurately reflects all work, treatment, procedures, and medical decision making performed by me. Departure Information Dispostion Home / Self-Care Prescriptions Sulfamethoxazole-Trimethoprim (Bactrim Ds 800MG/160MG) 1 Tab Tab 1 TAB PO BID for 7 Days, #14 TAB Prov: Ton Bo D.O. 07/22/17 Referrals Ian Covarrubias M.D. (PCP) Forms HOME CARE DOCUMENTATION FORM, IMPORTANT VISIT INFORMATION Patient Instructions My [facility] Additional Instructions Bactrim as prescribed. Follow-up with your doctor for further care and evaluation in 1-2 days. Return to the emergency department for worsening or new symptoms or any concerns. You have been examined and treated today on an emergency basis only. This is not a substitute for, or an effort to provide, complete comprehensive medical care. It is impossible to recognize and treat all injuries or illnesses in a single emergency department visit. It is therefore important that you follow up closely with your doctor. Call as soon as possible for an appointment.
[2017-07-22] MEDS ORDERED: SULFAMETHOXAZOLE/TRIMETHOPRIM DS 800/160MG TAB PO ONE (22:00)
[2017-07-22 22:14] VITALS: BP 136/80; PULSE 84; O2SAT 95
[2017-07-22] MEDS ORDERED: SEPTRA DS HOME PACK 1 EA VIAL PO ONE (22:15)
== END 2017-07-22 22:17 | disposition home or self-care (01) ==
LOC: C.EDB 19:40 → C.EDA 22:17
DX: N39.0 Urinary tract infection, site not specified (principal); J45.909 Unspecified asthma, uncomplicated; N18.9 Chronic kidney disease, unspecified; E11.9 Type 2 diabetes mellitus without complications; I50.9 Heart failure, unspecified; E78.5 Hyperlipidemia, unspecified; I12.9 Hypertensive chronic kidney disease with stage 1 through stage 4 chronic kidney disease, or unspecified chronic kidney disease; Z87.442 Personal history of urinary calculi; M19.90 Unspecified osteoarthritis, unspecified site; I73.9 Peripheral vascular disease, unspecified; Z87.01 Personal history of pneumonia (recurrent); M31.6 Other giant cell arteritis; Z87.440 Personal history of urinary (tract) infections; Z86.14 Personal history of Methicillin resistant Staphylococcus aureus infection; Z80.9 Family history of malignant neoplasm, unspecified; Z83.3 Family history of diabetes mellitus; Z82.49 Family history of ischemic heart disease and other diseases of the circulatory system; Z79.82 Long term (current) use of aspirin; Z79.52 Long term (current) use of systemic steroids; Z79.899 Other long term (current) drug therapy; Z88.1 Allergy status to other antibiotic agents; Z88.8 Allergy status to other drugs, medicaments and biological substances

== ENCOUNTER 2017-08-07 09:40 | Emergency (ER) | payer OTHER ==
[~2017-08-07] VITALS: Ht 152.4 cm; Wt 53.0 kg
[~2017-08-07 09:40] MED LIST changes: -CIPR-255 PO
[2017-08-07 09:43] VITALS: PULSE 65; TEMP 36.5; O2SAT 95; Ht 152.4 cm; Wt 53.0 kg
[2017-08-07 09:53] VITALS: BP 160/72
--- NOTE | 2017-08-07 10:22 | EMERGENCY ROOM VISIT NOTE ---
History Report prepared by Evelio: Lynne Eng Under the Supervision of: Dr. Say Barger D.O. First contact with patient: 09:53 Chief Complaint: URINARY SYMPTOMS Stated Complaint: POSSIBLE UTI Nursing Triage Summary: pt reports she thinks she has uti . has urinary frequency. denies any burning History of Present Illness The patient is a 86 year old female who presents to the Emergency Room with complaints of increased urinary frequency beginning last night. The patient reports she felt "bloated" last night. Presently, she denies any abdominal bloating. Per daughter, the patient started to act confused and not "like herself" last night. The patient denies any urinary burning, fever, back pain, shortness of breath, chest pain, nausea or vomiting. The patient had a UTI two weeks ago which she was treated with Bactrim. The patient believe she has another UTI. The patient has a history of UTIs. She states she has had "several " UTIs in the past year. Source of History: patient Onset: last night Position: other (generalized) Quality: other (urinary burning) Timing: other (increased) Associated Symptoms: + urinary symptoms, No fevers, No chest pain, No SOB, No back pain Review of Systems See HPI for pertinent positives & negatives. A total of 10 systems reviewed and were otherwise negative. Past Medical & Surgical Medical Problems: (1) Altered mental status (2) Asthma, Unspecified (3) Chronic kidney disease (CKD) stage G3a/A1, moderately decreased glomerular filtration rate (GFR) between 45-59 mL/min/1.73 square meter and albuminuria creatinine ratio less than 30 mg/g (4) Diab Mickie Wo Comp Type Ii Or Nos/Not Uncontrolled (5) Diastolic congestive heart failure (6) Hematoma (7) Hyperlipemia (8) Hypertension (9) Kidney cyst, acquired (10) Left shoulder pain (11) Metabolic encephalopathy (12) MRSA (methicillin resistant Staphylococcus aureus) infection (13) Nephrolithiasis (14) New onset left bundle branch block (LBBB) (15) Osteoarthritis (16) Peripheral artery disease (17) Pneumonia (18) Temporal arteritis (19) UTI (urinary tract infection) (20) Wound of left leg Family History Cancer Diabetes mellitus FH: heart disease Social History Smoking Status: Never Smoker Alcohol Use: none Drug Use: none Marital Status: Housing Status: lives alone Occupation Status: retired Current/Historical Medications Scheduled Amlodipine (Norvasc), 10 MG PO DAILY Aspirin (Aspirin Ec), 81 MG PO DAILY Atorvastatin (Lipitor), 20 MG PO DAILY Carbidopa/Levodopa (Sinemet 25MG/100MG), 1 TAB PO TID Carvedilol (Coreg), 12.5 MG PO BID Cefdinir (Omnicef), 300 MG PO Q12H Cholecalciferol (Vitamin D), 5,000 UNITS PO DAILY Cyclosporine (Ophth) (Restasis), 1 DROP OP BID Fentanyl (Fentanyl), 1 PATCH TOP CQ72HR Gabapentin (Gabapentin), 600 MG PO TID Mometasone Furoate-Formoterol (Dulera 100/5 Mcg), 1 PUFF INH QAM Multivitamin (Multivitamin), 1 TAB PO DAILY Ocuvite Preservision (Ocuvite Preservision), 1 TAB PO BID Prednisone (Prednisone), 3 MG PO TID Ranibizumab (Lucentis), Unknown Dose IO Q6WK Triamcinolone Acet (Triamcinolone Acetonide), 1 APPLN TOP BID Scheduled PRN Albuterol Sulfate (Proair Respiclick), 2 PUFFS INH q4-6h PRN for SOB/Wheezing Hydrocodone/Acetaminophen ([place] 10/325 Tab), 1 TAB PO Q6 PRN for Pain Allergies Coded Allergies: Cephalexin (Verified Allergy, Unknown, ., 08/07/17) Clindamycin (Verified Allergy, Unknown, COLITIS, 08/07/17) Hydrochlorothiazide (Verified Allergy, Unknown, UNKNOWN, 08/07/17) Ibuprofen (Verified Allergy, Unknown, 08/07/17) Omeprazole (Verified Allergy, Unknown, ., 08/07/17) Adhesives (Verified Adverse Reaction, Intermediate, RASH, 08/07/17) Oxaprozin (Verified Adverse Reaction, Intermediate, HEADACHE, 08/07/17) Quinolones (Verified Adverse Reaction, Mild, diarrhea, 08/07/17) 05/12/17: spoke with rn who clarified patient gets diarrhea from quinolones Lisinopril (Verified Adverse Reaction, Unknown, GI SYMPTOMS,RENAL DYSFUNCTION, 08/07/17) causes renal dysfunction Physical Exam Vital Signs Date Time Temp Pulse Resp B/P (MAP) Pulse Ox O2 Delivery O2 Flow Rate FiO2 3/3/18 09:53 160/72 08/07/17 09:43 36.5 65 18 95 Room Air Physical Exam GENERAL: Patient is awake, alert, and in no acute distress. Patient is resting comfortably and showing no signs of anxiety EYES: The conjunctivae are clear. The pupils are round and reactive. EARS, NOSE, MOUTH AND THROAT: The nose is without any evidence of any deformity. Mucous membranes are moist tongue is midline NECK: The neck is nontender and supple. RESPIRATORY: Normal respiratory effort is noted there is no evidence of wheezing rhonchi or rales CARDIOVASCULAR: Regular rate and rhythm noted there no murmurs rubs or gallops normal S1 normal S2 GASTROINTESTINAL: The abdomen is soft. Bowel sounds are present in all quadrants. Abdomen is nontender BACK: No CVA tenderness to percussion No midline tenderness or or step-off noted range of motion in flexion extension as well as rotation no signs of muscle spasm noted MUSCULOSKELETAL/EXTREMITIES: There is no evidence of gross deformity full range of motion is noted in the hips and shoulders SKIN: There is no obvious evidence of any rash. There are no petechiae, pallor or cyanosis noted. NEUROLOGIC: Patient is awake alert and oriented x3 strength is diminished but symmetric Medical Decision & Procedures Laboratory Results Test 08/07/17 10:32 Urine Color YELLOW Urine Appearance CLOUDY (CLEAR) Urine pH 5.5 (4.5-7.5) Urine Specific [place] 1.020 (1.000-1.030) Urine Protein 1+ (NEG) Urine Glucose (UA) NEG (NEG) Urine Ketones TRACE (NEG) Urine Occult Blood NEG (NEG) Urine Nitrite NEG (NEG) Urine Bilirubin NEG (NEG) Urine Urobilinogen NEG (NEG) Urine Leukocyte Esterase LARGE (NEG) Urine WBC (Auto) >30 /hpf (0-5) Urine RBC (Auto) 0-4 /hpf (0-4) Urine Hyaline Casts (Auto) 1-5 /lpf (0-5) Urine Epithelial Cells (Auto) 5-10 /lpf (0-5) Urine Bacteria (Auto) NEG (NEG) Laboratory results per my review. Medications Administered Medications (Trade) Dose Ordered Sig/Fly Route Start Time Stop Time Status Last Admin Dose Admin Cefdinir (Omnicef Cap) 300 mg ONE STAT PO 08/07/17 11:17 08/07/17 11:18 DC 08/07/17 11:42 300 MG ED Course 0955: The patient was evaluated in room B3B. A complete history and physical examination were performed. 1048: The patient was able to give a urine sample. 1113: I updated the patient and her daughter on her test results. 1117: Ordered Cefdinir 300 mg PO. 1142: Upon reevaluation, the patient is resting comfortably. I discussed the results and treatment plan with her. She verbalized agreement of the treatment plan. The patient was discharged home. Medical Decision Differential diagnosis: Etiologies such as renal colic, appendicitis, diverticulitis, mesenteric ischemia, aortic pathology, infections, inflammatory bowel disease, PUD, biliary pathology, UTI, as well as others were entertained. Nursing notes reviewed. Additional history is obtained from the patient's daughter. The patient is an 86-year-old female who presented to the emergency department for an evaluation of dysuria and frequency. The patient has had similar symptoms in the past and was recently treated for urinary tract infection. She was treated with Bactrim at that time. The patient had a urine culture that was pansensitive to the usual antibiotics I would use in her age group. I reviewed the patient's urine culture from before with her and her daughter. She was started on antibiotic. She was encouraged to drink plenty clear liquids and follow-up with her primary care physician this week. Otherwise she was encouraged to return the emergency department immediately if symptoms change worsen or the need arises. Medication Reconcilliation Current Medication List: was personally reviewed by me Blood Pressure Screening Patient's blood pressure: Elevated blood pressure Blood pressure disposition: Elevated BP felt to be situational Impression Primary Impression: Urinary tract infection Scribe Attestation The scribe's documentation has been prepared under my direction and personally reviewed by me in its entirety. I confirm that the note above accurately reflects all work, treatment, procedures, and medical decision making performed by me. Departure Information Dispostion Home / Self-Care Prescriptions Cefdinir (OMNICEF) 300 Mg Cap 300 MG PO Q12H, #14 CAP Prov: Say Barger, DO 08/07/17 Referrals Ian Covarrubias M.D. (PCP) Forms HOME CARE DOCUMENTATION FORM, IMPORTANT VISIT INFORMATION Patient Instructions ED UTI Cystitis Female, My [facility] Additional Instructions Continue all medications as prescribed. Drink plenty clear liquids. Call your family doctor to schedule a follow-up appointment for this week. Return to the emergency department immediately if symptoms change worsen or the need arises. Problem Qualifiers Primary Impression: Urinary tract infection Urinary tract infection type: acute cystitis Hematuria presence: without hematuria Qualified Codes: N30.00 - Acute cystitis without hematuria
[2017-08-07] MEDS ORDERED: CEFDINIR 300 MG CAP PO STA (11:17)
[2017-08-07] MEDS ORDERED: CEFD300C2 PO (11:28)
--- NOTE | 2017-08-09 11:16 | Pharmacy Progress Note ---
ED Pharmacist Culture FollowUp Date of Service: Aug 09, 2017. Patient was sent home with a prescription for cefdinir 300mg BID X 7 days, which should cover the Proteus mirabilis growing from the patient's urine culture.
== END 2017-08-07 12:06 | disposition home or self-care (01) ==
LOC: C.EDB 09:43
DX: N30.00 Acute cystitis without hematuria (principal); J45.909 Unspecified asthma, uncomplicated; E11.22 Type 2 diabetes mellitus with diabetic chronic kidney disease; I13.0 Hypertensive heart and chronic kidney disease with heart failure and stage 1 through stage 4 chronic kidney disease, or unspecified chronic kidney disease; N18.9 Chronic kidney disease, unspecified; I50.30 Unspecified diastolic (congestive) heart failure; E78.5 Hyperlipidemia, unspecified; M19.90 Unspecified osteoarthritis, unspecified site; E11.51 Type 2 diabetes mellitus with diabetic peripheral angiopathy without gangrene; Z79.82 Long term (current) use of aspirin; Z79.891 Long term (current) use of opiate analgesic; Z79.52 Long term (current) use of systemic steroids; Z88.1 Allergy status to other antibiotic agents; Z88.8 Allergy status to other drugs, medicaments and biological substances; Z88.6 Allergy status to analgesic agent; Z91.048 Other nonmedicinal substance allergy status; Z80.9 Family history of malignant neoplasm, unspecified; Z83.3 Family history of diabetes mellitus; Z82.49 Family history of ischemic heart disease and other diseases of the circulatory system

== ENCOUNTER 2017-08-15 14:03 | Emergency (ER) | payer OTHER ==
[~2017-08-15] VITALS: Ht 152.4 cm; Wt 53.0 kg
[~2017-08-15 14:03] MED LIST changes: -ASPI81TA28 PO; -CARB25TA12 PO; +CEFD300C2 PO; -CHOL1TAB42 PO; -CYCL0.052 OP; -FNTTP25 TOP; -HYDR-4383 PO; -MOME100A INH; -NRN600 PO; -TRMCR515 TOP
[2017-08-15 14:07] VITALS: TEMP 36.4; Ht 152.4 cm; Wt 53.0 kg
[2017-08-15] MEDS ORDERED: SODIUM CHLORIDE 0.9% 500ML 500 ML IV STA (14:21)
[2017-08-15 15:04] LABS: BASO % 0.4 %; BASO ABS # 0.03 K/uL (0-0.2); EOS % 1.4 %; HEMATOCRIT 39.2 % (37-47); HEMOGLOBIN 12.9 g/dL (12.0-16.0); IG# 0.01 K/uL (0.00-0.02); LYMPH % 14.3 %; LYMPH ABS # 1.06 K/uL (1.2-3.4); MEAN CELL VOLUME 94.7 fL (80-100); MEAN CORPUSCULAR HEMOGLOBIN 31.2 pg (25-34); MEAN CORPUSCULAR HGB CONC 32.9 g/dl (32-36); MEAN PLATELET VOLUME 8.9 fL (7.4-10.4); MONO % 8.5 %; MONO ABS # 0.63 K/uL (0.11-0.59); NEUT % 75.3 %; NEUT ABS # 5.56 K/uL (1.4-6.5); PLATELET COUNT 192 K/uL (130-400); RED CELL DISTRIBUTION WIDTH CV 15.2 % (11.5-14.5); RED CELL DISTRIBUTION WIDTH SD 52.6 fL (36.4-46.3); WHITE BLOOD COUNT 7.39 K/uL (4.8-10.8)
[2017-08-15 15:30] LABS: ALBUMIN 3.1 gm/dl (3.4-5.0); ALT/SGPT 15 U/L (12-78); AST/SGOT 20 U/L (15-37); BLOOD UREA NITROGEN 18 mg/dl (7-18); CALCIUM 8.3 mg/dl (8.5-10.1); CARBON DIOXIDE 27 mmol/L (21-32); CREATININE 0.67 mg/dl (0.60-1.20); GLUCOSE 146 mg/dl (70-99); POTASSIUM 3.1 mmol/L (3.5-5.1); SODIUM 141 mmol/L (136-145)
[2017-08-15] MEDS ORDERED: CRG125 PO (15:30)
[2017-08-15] MEDS ORDERED: NRV/10 PO (15:30)
[2017-08-15] MEDS ORDERED: CFT250 PO (15:30)
[2017-08-15] MEDS ORDERED: MULT60CA PO (15:30)
--- NOTE | 2017-08-15 15:31 | DIAGNOSTIC IMAGING REPORT ---
CHEST ONE VIEW PORTABLE CLINICAL HISTORY: Weakness COMPARISON STUDY: July 2017 FINDINGS: The heart is enlarged. There is a left basilar opacity. Given the prior findings, this is likely secondary to the patient's known diaphragmatic hernia. The right lung is clear. The left upper lung zone is clear. Atheromatous calcifications are present within the aorta.[ IMPRESSION: 1. Persistent cardiomegaly 2. Left basilar opacity, likely secondary to the patient's known diaphragmatic hernia.. Electronically signed by: Mulugeta Morales M.D. 08/15/2017 3:30 PM Dictated Date/Time: 08/15/2017 3:28 PM
[2017-08-15 15:34] LABS: ALKALINE PHOSPHATASE 103 U/L (45-117); LIPASE 192 U/L (73-393); TOTAL PROTEIN 6.2 gm/dl (6.4-8.2)
[2017-08-15] MEDS ORDERED: VNTHFA/IN INH (15:34)
[2017-08-15] MEDS ORDERED: POTASSIUM CHLORIDE 20 MEQ TABCR PO STA (16:37)
[2017-08-15] MEDS ORDERED: ASPI81TA28 PO (16:44)
[2017-08-15] MEDS ORDERED: POTASSIUM CHLORIDE 10 MEQ TABCR ONE (16:54)
[2017-08-15 17:05] VITALS: BP 143/71; PULSE 68; O2SAT 96
--- NOTE | 2017-08-15 18:29 | EMERGENCY ROOM VISIT NOTE ---
History Report prepared by Evelio: Jo Clark Under the Supervision of: Dr. Ganga Cason D.O. First contact with patient: 14:12 Chief Complaint: DEHYDRATION Stated Complaint: DIFFICULT TIME WALKING, POSSIBLE DEHYDRATED Nursing Triage Summary: pt to the ED with c/o weakness in leg making if difficult to walk, was here a wk ago with uti and then got diarrhea and daughter is concerned for dehydration pmd changed med after cx results History of Present Illness The patient is an 86 year old female who presents to the Emergency Room with complaints of persistent leg weakness since August 13, 2017. She notes that she is having a difficult time standing and walking. She reports having diarrhea while on antibiotics, though it resolved with a change of antibiotics on August. She has been on antibiotics for a total of nine days. She notes that she had a normal bowel movement one hour ago. Per family, the patient slipped on the floor yesterday, though the patient was laid down gently to the floor, so she did not actually fall. She had waffles for breakfast and Mac n' Cheese for lunch. She denies any headache, changes in vision, chest pain, abdominal pain, back pain, shortness of breath, loss of appetite, or pain with urination. Source of History: patient Onset: August 13, 2017 Position: leg (bilateral) Quality: other (weakness) Timing: other (persistent) Associated Symptoms: No headache, No chest pain, No SOB, No abdominal pain, No back pain, No urinary symptoms (no pain with urination) Note: She denies any changes in vision or loss of appetite. Review of Systems See HPI for pertinent positives & negatives. A total of 10 systems reviewed and were otherwise negative. Past Medical & Surgical Medical Problems: (1) Altered mental status (2) Asthma, Unspecified (3) Chronic kidney disease (CKD) stage G3a/A1, moderately decreased glomerular filtration rate (GFR) between 45-59 mL/min/1.73 square meter and albuminuria creatinine ratio less than 30 mg/g (4) Diab Mickie Wo Comp Type Ii Or Nos/Not Uncontrolled (5) Diastolic congestive heart failure (6) Hematoma (7) Hyperlipemia (8) Hypertension (9) Kidney cyst, acquired (10) Left shoulder pain (11) Metabolic encephalopathy (12) MRSA (methicillin resistant Staphylococcus aureus) infection (13) Nephrolithiasis (14) New onset left bundle branch block (LBBB) (15) Osteoarthritis (16) Peripheral artery disease (17) Pneumonia (18) Temporal arteritis (19) UTI (urinary tract infection) (20) Wound of left leg Family History Cancer Diabetes mellitus FH: heart disease Social History Smoking Status: Never Smoker Alcohol Use: none Drug Use: none Marital Status: Housing Status: lives alone Occupation Status: retired Current/Historical Medications Scheduled Amlodipine Besylate (Amlodipine Besylate), 10 MG PO DAILY Aspirin (Aspirin Ec), 81 MG PO DAILY Atorvastatin (Lipitor), 20 MG PO DAILY Carbidopa/Levodopa (Sinemet 25MG/100MG), 1 TAB PO TID Carvedilol (Carvedilol), 12.5 MG PO BID Cefuroxime Axetil (Cefuroxime Axetil), 250 MG PO Q12 Cholecalciferol (Vitamin D), 5,000 INTER.UNIT PO DAILY Cyclosporine (Ophth) (Restasis), 1 DROP OPB BID Fentanyl (Fentanyl), 25 MCG TOP CQ72HR Gabapentin (Gabapentin), 600 MG PO TID Mometasone Furoate-Formoterol (Dulera 100/5 Mcg), 1 PUFF INH QAM Multiple Vitamins W/ Minerals (Preservision Areds 2), 1 CAP PO BID Multivitamin (Multivitamin), 1 TAB PO DAILY Prednisone (Prednisone), 3 MG PO TID Ranibizumab (Lucentis), 1 DOSE IO Q6WK Triamcinolone Acet (Triamcinolone Acetonide), 1 APPLN TOP BID Scheduled PRN Albuterol Hfa (Ventolin Hfa), 2 PUFFS INH Q4-6HRS PRN for SOB/Wheezing Hydrocodone/Acetaminophen ([place]acon 10/325 Tab), 1 TAB PO Q6H PRN for Pain Allergies Coded Allergies: Cephalexin (Verified Allergy, Unknown, ., 08/07/17) Clindamycin (Verified Allergy, Unknown, COLITIS, 08/07/17) Hydrochlorothiazide (Verified Allergy, Unknown, UNKNOWN, 08/07/17) Ibuprofen (Verified Allergy, Unknown, 08/07/17) Omeprazole (Verified Allergy, Unknown, ., 08/07/17) Adhesives (Verified Adverse Reaction, Intermediate, RASH, 08/07/17) Oxaprozin (Verified Adverse Reaction, Intermediate, HEADACHE, 08/07/17) Quinolones (Verified Adverse Reaction, Mild, diarrhea, 08/07/17) 05/12/17: spoke with rn who clarified patient gets diarrhea from quinolones Lisinopril (Verified Adverse Reaction, Unknown, GI SYMPTOMS,RENAL DYSFUNCTION, 08/07/17) causes renal dysfunction Physical Exam Vital Signs Date Time Temp Pulse Resp B/P (MAP) Pulse Ox O2 Delivery O2 Flow Rate FiO2 08/15/17 17:05 68 20 143/71 96 08/15/17 15:56 66 20 148/66 94 Room Air 08/15/17 14:07 36.4 66 18 118/71 94 Room Air Physical Exam GENERAL: Sitting up in bed, alert, well appearing, well nourished, no distress, non-toxic EYE EXAM: normal conjunctiva. PERRLA. Extraocular muscles intact. OROPHARYNX: no exudate, no erythema, lips, buccal mucosa, and tongue normal and mucous membranes are dry NECK: supple, no nuchal rigidity, no adenopathy, non-tender LUNGS: Clear to auscultation. Normal chest wall mechanics HEART: no murmurs, S1 normal and S2 normal ABDOMEN: abdomen soft, non-tender, normo-active bowel sounds, no masses, no rebound or guarding. BACK: Back is symmetrical on inspection and there is no deformity, no midline tenderness, no CVA tenderness. SKIN: no rashes and no bruising UPPER EXTREMITIES: upper extremities are grossly normal. LOWER EXTREMITIES: No pitting edema. NEURO EXAM: Normal sensorium, cranial nerves II-XII intact, normal speech, no weakness of arms, no weakness of legs. No drift. Finger to nose intact. Medical Decision & Procedures ER Provider Diagnostic Interpretation: Radiology results as stated below per my review and the radiologist's interpretation: CHEST ONE VIEW PORTABLE CLINICAL HISTORY: Weakness COMPARISON STUDY: July 2017 FINDINGS: The heart is enlarged. There is a left basilar opacity. Given the prior findings, this is likely secondary to the patient's known diaphragmatic hernia. The right lung is clear. The left upper lung zone is clear. Atheromatous calcifications are present within the aorta.[ IMPRESSION: 1. Persistent cardiomegaly 2. Left basilar opacity, likely secondary to the patient's known diaphragmatic hernia.. Electronically signed by: Mulugeta Morales M.D. 08/15/2017 3:30 PM Dictated Date/Time: 08/15/2017 3:28 PM Laboratory Results 08/15/17 14:45 Red Blood Count 4.14, Mean Corpuscular Volume 94.7, Mean Corpuscular Hemoglobin 31.2, Mean Corpuscular Hemoglobin Concent 32.9, Mean Platelet Volume 8.9, Neutrophils (%) (Auto) 75.3, Lymphocytes (%) (Auto) 14.3, Monocytes (%) (Auto) 8.5, Eosinophils (%) (Auto) 1.4, Basophils (%) (Auto) 0.4, Neutrophils # (Auto) 5.56, Lymphocytes # (Auto) 1.06, Monocytes # (Auto) 0.63, Eosinophils # (Auto) 0.10, Basophils # (Auto) 0.03 08/15/17 14:45 Test 08/15/17 14:45 08/15/17 14:55 White Blood Count 7.39 K/uL (4.8-10.8) Red Blood Count 4.14 M/uL (4.2-5.4) Hemoglobin 12.9 g/dL (12.0-16.0) Hematocrit 39.2 % (37-47) Mean Corpuscular Volume 94.7 fL (80-100) Mean Corpuscular Hemoglobin 31.2 pg (25-34) Mean Corpuscular Hemoglobin Concent 32.9 g/dl (32-36) Platelet Count 192 K/uL (130-400) Mean Platelet Volume 8.9 fL (7.4-10.4) Neutrophils (%) (Auto) 75.3 % Lymphocytes (%) (Auto) 14.3 % Monocytes (%) (Auto) 8.5 % Eosinophils (%) (Auto) 1.4 % Basophils (%) (Auto) 0.4 % Neutrophils # (Auto) 5.56 K/uL (1.4-6.5) Lymphocytes # (Auto) 1.06 K/uL (1.2-3.4) Monocytes # (Auto) 0.63 K/uL (0.11-0.59) Eosinophils # (Auto) 0.10 K/uL (0-0.5) Basophils # (Auto) 0.03 K/uL (0-0.2) RDW Standard Deviation 52.6 fL (36.4-46.3) RDW Coefficient of Variation 15.2 % (11.5-14.5) Immature Granulocyte % (Auto) 0.1 % Immature Granulocyte # (Auto) 0.01 K/uL (0.00-0.02) Anion Gap 10.0 mmol/L (3-11) Est Creatinine Clear Calc Drug Dose 43.3 ml/min Estimated GFR () 92.2 Estimated GFR (Non- 79.6 BUN/Creatinine Ratio 26.4 (10-20) Calcium Level 8.3 mg/dl (8.5-10.1) Total Bilirubin 0.4 mg/dl (0.2-1) Direct Bilirubin 0.1 mg/dl (0-0.2) Aspartate Amino Transf (AST/SGOT) 20 U/L (15-37) Alanine Aminotransferase (ALT/SGPT) 15 U/L (12-78) Alkaline Phosphatase 103 U/L (45-117) Troponin I < 0.015 ng/ml (0-0.045) Total Protein 6.2 gm/dl (6.4-8.2) Albumin 3.1 gm/dl (3.4-5.0) Lipase 192 U/L (73-393) Urine Color DK YELLOW Urine Appearance CLEAR (CLEAR) Urine pH 5.0 (4.5-7.5) Urine Specific [place] 1.023 (1.000-1.030) Urine Protein 1+ (NEG) Urine Glucose (UA) NEG (NEG) Urine Ketones TRACE (NEG) Urine Occult Blood NEG (NEG) Urine Nitrite NEG (NEG) Urine Bilirubin NEG (NEG) Urine Urobilinogen NEG (NEG) Urine Leukocyte Esterase TRACE (NEG) Urine WBC (Auto) 1-5 /hpf (0-5) Urine RBC (Auto) 0-4 /hpf (0-4) Urine Hyaline Casts (Auto) 5-10 /lpf (0-5) Urine Epithelial Cells (Auto) >30 /lpf (0-5) Urine Bacteria (Auto) NEG (NEG) Urine Renal Epithelial Cells /lpf (0-5) Laboratory results per my review. Medications Administered Medications (Trade) Dose Ordered Sig/Fly Route Start Time Stop Time Status Last Admin Dose Admin Sodium Chloride 500 ml @ 999 mls/hr Q31M STAT IV 08/15/17 14:21 08/15/17 14:51 DC 08/15/17 14:46 999 MLS/HR Potassium Chloride (Klor-Con M10) 60 meq STK-MED ONCE .ROUTE 08/15/17 16:54 08/15/17 16:55 DC 08/15/17 17:04 60 MEQ ECG Per My Interpretation Indication: weakness (leg) Rate (beats per minute): 65 Rhythm: sinus rhythm Findings: LBBB, ST depression (Inferior), other (RAD) Comparison ECG Date: [place] has changed when compared to 05/12/2017 Change: Repeat ECG: Sinus rhythm 69 bpm Findings: RAD, LBBB, ST depression in high lateral, Q waves inferiorly Unchanged from initial ED Course ED COURSE: Vital signs were reviewed and showed normal. The patients medical record was reviewed The above diagnostic studies were performed and reviewed. ED treatments and interventions as stated above. 1415: The patient was evaluated in room B5. A complete history and physical examination was performed. 1421: Ordered Sodium Chloride 500 ml @ 999 mls/hr IV 1635: Upon reevaluation, the patient is feeling better and wants to go home. I discussed my findings with the patient and she understands and agrees with the treatment plan. Based on the patients age, coexisting illnesses, exam and lab findings the decision to treat as an outpatient was made. The patient remained stable while under my care. The patient appeared well at the time of discharge. Medical Decision Differential Diagnosis includes but is not limited to dehydration, stroke, anemia, hypoglycemia, hyponatremia, hypernatremia, urinary tract infection, pneumonia, bronchitis, sepsis, gastroenteritis, additional abdominal pathology, metabolic abnormalities and infections. Patient is an 86-year-old female who presents to ER for weakness. She notes that her legs feel very weak bilaterally. She denies any back pain. Able to move her bowels and void without difficulty. CBC along with BMP shows mild hypokalemia at 3.1. LFTs, bilirubin and troponin were negative. Lipase is normal. UA was clean. Previous urine culture positive for Proteus. Currently on cephalosporins which will cover this based on culture. Patient was given IV fluids. She was given oral potassium. 30 mEq here and was discharged with additional 30. Chest x-ray was unremarkable. She has no upper respiratory symptoms. No abdominal complaints at this time. Her diarrhea has completely resolved. Patient family were updated at bedside. They did not want to stay in the hospital and consequently she requested to be discharged. I did feel this is reasonable at this time. Discussed with Pt concerning signs and symptoms to watch out for. Pt was instructed to follow up with their PCP and discussed with the patient their option to return to the ED at anytime for persistent or worsening symptoms. The appropriate anticipatory guidance and out- patient management, including indications for return to the emergency department , were explained at length to the patient and understood. Medication Reconcilliation Current Medication List: was personally reviewed by me Blood Pressure Screening Patient's blood pressure: Normal blood pressure Impression Primary Impression: Weakness Additional Impression: Hypokalemia Scribe Attestation The scribe's documentation has been prepared under my direction and personally reviewed by me in its entirety. I confirm that the note above accurately reflects all work, treatment, procedures, and medical decision making performed by me. Departure Information Dispostion Home / Self-Care Referrals No Doctor, Assigned (PCP) Forms HOME CARE DOCUMENTATION FORM, IMPORTANT VISIT INFORMATION, WORK / SCHOOL INSTRUCTIONS Patient Instructions ED Weakness [facility] Additional Instructions Please follow up with your primary care doctor with in the next 24 hours. Any worsening of your symptoms, please return to the ED immediately. This includes any fevers greater than 100.4, worsening pain, chest pain, shortness breath, persistent nausea, vomiting, unable to eat or drink, or any other concerning signs or symptoms from your standpoint. Please take potassium at 8:00 tonight. Please continue with your current antibiotics. Please try to remain as hydrated as possible. Problem Qualifiers
[2017-08-15] MEDS ORDERED: CARB25TA12 PO (21:23)
[2017-08-15] MEDS ORDERED: MOME100A INH (21:23)
[2017-08-15] MEDS ORDERED: NRN600 PO (21:23)
[2017-08-15] MEDS ORDERED: CHOL1TAB42 PO (21:23)
[2017-08-15] MEDS ORDERED: HYDR-4383 PO (21:23)
[2017-08-15] MEDS ORDERED: FNTTP25 TOP (21:23)
[2017-08-15] MEDS ORDERED: TRMCR515 TOP (21:24)
[2017-08-15] MEDS ORDERED: CYCL0.052 OPB (21:24)
== END 2017-08-15 17:06 | disposition home or self-care (01) ==
LOC: C.EDB 14:04
DX: R53.1 Weakness (principal); E87.6 Hypokalemia; J45.909 Unspecified asthma, uncomplicated; I13.0 Hypertensive heart and chronic kidney disease with heart failure and stage 1 through stage 4 chronic kidney disease, or unspecified chronic kidney disease; E11.22 Type 2 diabetes mellitus with diabetic chronic kidney disease; N18.9 Chronic kidney disease, unspecified; I50.30 Unspecified diastolic (congestive) heart failure; E78.5 Hyperlipidemia, unspecified; E11.51 Type 2 diabetes mellitus with diabetic peripheral angiopathy without gangrene; Z79.82 Long term (current) use of aspirin; Z79.891 Long term (current) use of opiate analgesic; Z79.52 Long term (current) use of systemic steroids; Z86.14 Personal history of Methicillin resistant Staphylococcus aureus infection; Z88.1 Allergy status to other antibiotic agents; Z88.8 Allergy status to other drugs, medicaments and biological substances; Z88.6 Allergy status to analgesic agent; Z91.048 Other nonmedicinal substance allergy status; Z80.9 Family history of malignant neoplasm, unspecified; Z83.3 Family history of diabetes mellitus; Z82.49 Family history of ischemic heart disease and other diseases of the circulatory system

== ENCOUNTER → 2018-01-10 | Outpatient (CLI) | payer OTHER ==
[~2018-01-10] MED LIST changes: +ALBINS/ NEB; -ALBU18002 INH; -AMLO-114 PO; +ASPI81TA28 PO; +CARB25TA12 PO; -CARV12.52 PO; -CEFD300C2 PO; +CFT250 PO; +CHOL1TAB42 PO; +CRG125 PO; +CYCL0.052 OPB; +FNTTP25 TOP; +HYDR-4383 PO; +LSX20 PO; -MULT-190 PO; +MULT60CA PO; +NALO1SPR; +NRN600 PO; +NRV/10 PO; +POTA-639 PO; +VNTHFA/IN INH
== END | disposition home or self-care (01) ==
LOC: C.LABBC 13:05
PROVIDERS: ATTEND Nurse Practitioner Adult Health
DX: R39.15 Urgency of urination (principal)

== ENCOUNTER 2018-09-20 16:21 | Observation (INO) ==
[2018-09-20] MEDS ORDERED: SODIUM CHLORIDE 0.9% 1000ML 1,000 ML IV SCH (17:00)
--- NOTE | 2018-09-20 17:05 | Emergency Department Note ---
Entered by Elan Combs acting as a scribe for History of Present Illness General Chief complaint: Weakness Stated complaint: WEAKNESS, NOT ABLE TO WALK, DEHYDRATED, UTI Time Seen by Provider: 09/20/18 16:40 Source: patient and family Limitations: no limitations History of Present Illness Provider complaint: Weakness/Ambulatory dysfunction Onset (ago): week(s) (1) Location: lower extremity, left and right Pain Consistency: + other (worsening) Maximum Pain Intensity: 0 Quality: + other (weakness) Associated symptoms: + shortness of breath; no chest pain, no headaches and no nausea/vomiting Treatments prior to arrival: none The patient is an 87 year old female who presents to the Emergency Room with complaints of progressively worsening weakness for the past week. The patient's daughter at bedside states that she was here in the emergency department on September 03, over 2 weeks ago, following a falling episode. She had a negative evaluation at this time. The daughter adds that over the past week she has "gone downhill bad" in terms of her general strength and ambulation. She has been having worsening difficulty ambulating. The daughter adds that the patient is blaming her difficulty walking on the bandages and wraps over her knees, but the daughter does not believe this to be the reason. The patient does note that her arms are weak bilaterally, in addition to the bilateral lower extremity weakness. She denies any headache, vomiting, diarrhea, chest pain, or urinary symptoms. She does have a history of UTIs. The patient admits that she is probably not drinking enough fluids. The daughter adds that the patient had a dentist appointment this morning and did receive Amoxicillin. Home Medications Home Medications Medication Instructions Recorded Confirmed Type Dulera 1 puff INHALATION BID PRN 06/01/18 09/20/18 History Lucentis 1 dose INTRAVITREAL DIRECTED 06/01/18 09/20/18 History Multi-Day Plus Minerals 1 tab PO BID 06/01/18 09/20/18 History PreserVision Lutein 1 cap PO BID 06/01/18 09/20/18 History Restasis 1 drp OPB Q12H 06/01/18 09/20/18 History albuterol sulfate 2.5 mg INHALATION Q6H PRN 06/01/18 09/20/18 History albuterol sulfate [ProAir HFA] 1 - 2 puff INHALATION Q6H PRN 06/01/18 09/20/18 History aspirin 81 mg PO DAILY 06/01/18 09/20/18 History carbidopa-levodopa 1 tab PO QID 06/01/18 09/20/18 History cholecalciferol (vitamin D3) 5,000 units PO QAM 06/01/18 09/20/18 History [Vitamin D3] fentanyl 1 patch TRANSDERMAL [id number] 06/01/18 09/20/18 History gabapentin 600 mg PO TID 06/01/18 09/20/18 History hydrocodone-acetaminophen [[place]] 1 tab PO BID PRN 06/01/18 09/20/18 History prednisone 1 mg PO TID 06/01/18 09/20/18 History atorvastatin 10 mg PO QPM 08/12/18 09/20/18 History carvedilol 18.75 mg PO BID 09/03/18 09/20/18 History amoxicillin 2,000 mg PO UD 09/20/18 09/20/18 History losartan [Cozaar] 100 mg PO DAILY 09/20/18 09/20/18 History Allergies Allergy/AdvReac Type Severity Reaction Status Date / Time clindamycin Allergy Severe COLITIS Verified 09/20/18 17:58 cephalexin Allergy Intermediate Diarrhea Verified 09/20/18 17:58 omeprazole Allergy Unknown Unknown Verified 09/20/18 17:58 adhesive AdvReac Intermediate RASH Verified 09/20/18 17:58 oxaprozin AdvReac Intermediate HEADACHE Verified 09/20/18 17:58 Quinolones AdvReac Mild diarrhea Verified 09/20/18 17:58 hydrochlorothiazide AdvReac Unknown PT HX Verified 09/20/18 17:58 KIDNEY DYSFUNCTION ibuprofen AdvReac Unknown PT HX Verified 09/20/18 17:58 KIDNEY DYSFUNCTION lisinopril AdvReac Unknown GI Verified 09/20/18 17:58 SYMPTOMS,RENAL DYSFUNCTION Past Med/Surg History Medical History Peripheral artery disease (Chronic 06/30/13) Chronic kidney disease (CKD) stage G3a/A1, moderately decreased glomerular filtration rate (GFR) between 45-59 mL/min/1.73 square meter and albuminuria creatinine ratio less than 30 mg/g (Chronic) Diastolic congestive heart failure (Chronic) Hyperlipemia (Chronic) Hypertension (Chronic) Temporal arteritis (Chronic) Osteoarthritis (Chronic) Nephrolithiasis (Chronic) Altered mental status Kidney cyst, acquired (Chronic) MRSA (methicillin resistant Staphylococcus aureus) infection Metabolic encephalopathy New onset left bundle branch block (LBBB) Sepsis (Acute) UTI (urinary tract infection) (Acute) Family History Other No pertinent family history Social History Preferred Language: [place] Beliefs That Will Affect Care: None marital status: / Current Living Situation: Family Current Living Situation Comment: lives with daughter current occupational status: retired Feels Safe at Home: Yes Smoking Status: Never smoker Hx Alcohol Use: Yes Hx Substance Use: No Review of Systems See HPI for pertinent positives & negatives. and A total of 10 systems reviewed and were otherwise negative Physical Exam Vital Signs Vital Signs - 24 hr 09/20/18 16:31 09/20/18 18:22 09/20/18 19:07 Temperature 36.7 C Temperature Source Oral Sepsis Recent Fever Within 48 Hours No Sepsis New/Unexplained Change in Mental Status No Sepsis Action Taken by Nursing No Action Required Pulse Rate 76 75 Pulse Rate [Radial] 71 Pulse Rhythm Regular Pulse Rhythm [Radial] Regular Pulse Strength [Radial] Normal Respiratory Rate 18 20 20 Respiratory Effort / Characteristics Non-Labored Spontaneous Non-Labored Spontaneous Respiratory Depth Normal Normal Respiratory Pattern Regular Regular Blood Pressure 171/67 H Blood Pressure [Left Arm] Blood Pressure Mean 101 Blood Pressure Mean [Left Arm] Blood Pressure Position Sitting Blood Pressure Position [Left Arm] Pulse Oximetry 97 95 97 Oxygen Delivery Method Room Air Room Air Room Air 09/20/18 19:08 Temperature Temperature Source Sepsis Recent Fever Within 48 Hours Sepsis New/Unexplained Change in Mental Status Sepsis Action Taken by Nursing Pulse Rate Pulse Rate [Radial] 75 Pulse Rhythm Pulse Rhythm [Radial] Regular Pulse Strength [Radial] Normal Respiratory Rate 20 Respiratory Effort / Characteristics Non-Labored Respiratory Depth Normal Respiratory Pattern Blood Pressure Blood Pressure [Left Arm] 150/88 H Blood Pressure Mean Blood Pressure Mean [Left Arm] 108 Blood Pressure Position Blood Pressure Position [Left Arm] Sitting Pulse Oximetry 97 Oxygen Delivery Method Room Air GENERAL: Patient is in no acute distress. HEENT: There is an older contusion to the left face, tracking down to the left neck and left shoulder. There is no erythema, no warmth. No nasal congestion. Mucous membranes are dry, no nasal congestion, no scleral icterus. NECK: No stridor, no adenopathy, no meningismus, trachea is midline. LUNGS: Clear to auscultation bilaterally, no wheeze, no rhonchi, breath sounds equal. HEART: There is a 2/6 systolic ejection murmur. Normal rate, somewhat irregular rhythm. ABDOMEN: Soft, nontender, bowel sounds positive, no hernias, no peritonitis. EXTREMITIES: There is mild bilateral pedal edema. Chronic discoloration present to both extremities. There are healing abrasions to both anterior knees. Full ra nge of motion of all the joints without pain or difficulty. NEUROLOGIC: Oriented x 3, no acute motor or sensory deficits, no focal weakness. SKIN: No rash, no jaundice, no diaphoresis. Course 1641: The patient was evaluated in room B3B, and a complete history and physical examination were performed. 1810: I updated the patient on her results to this point. Her and her daughter agrees to an inpatient stay. 1817: I reviewed the patient's case with Dr. Catia Aiken - [facility]. She will evaluate the patient for further management. Administered Medications Discontinued Medications Sodium Chloride (Nss 1000ml) 1,000 mls @ 999 mls/hr IV .Q1H1M JCARLOS Stop: 09/20/18 18:00 Last Infusion: 09/20/18 18:13 Dose: 0 mls/hr Documented by: [id number] Admin: 09/20/18 17:06 Dose: 999 mls/hr Documented by: [id number] Medical Decision Making Differential Diagnosis Differential Diagnosis includes: Dehydration, UTI, electrolyte or metabolic abnormality, renal failure, i ntracranial bleeding, subdural hematoma, cardiac ischemia, pneumonia, cellulitis. Medical Records Attestation: I reviewed the patient's medical records. Home Medications Current Medication List: was personally reviewed by me Laboratory Data Attestation: I reviewed the patient's lab results. Result diagrams: 09/20/18 17:01 09/20/18 17:01 Lab Results 09/20/18 09/20/18 09/20/18 Range/Units 17:01 17:01 17:06 WBC 8.29 (4.8-10.8) K/uL RBC 4.10 L (4.2-5.4) M/uL Hgb 12.2 (12.0-16.0) g/dL Hct 38.6 (37-47) % MCV 94.1 (80-100) fL MCH 29.8 (25-34) pg MCHC 31.6 L (32-36) g/dL RDW Std Deviation 57.7 H (36.4-46.3) fL RDW Coeff of Olga 16.6 H (11.5-14.5) % Plt Count 199 (130-400) K/uL MPV 9.9 (7.4-10.4) fL Immature Gran % (Auto) 0.2 % Neut % (Auto) 75.1 % Lymph % (Auto) 13.0 % Bureau % (Auto) 8.7 % Eos % (Auto) 2.9 % Baso % (Auto) 0.1 % Immature Gran # (Auto) 0.02 (0.00-0.02) K/uL Neut # (Auto) 6.22 (1.4-6.5) K/uL Lymph # (Auto) 1.08 L (1.2-3.4) K/uL Bureau # (Auto) 0.72 H (0.11-0.59) K/uL Eos # (Auto) 0.24 (0-0.5) K/uL Baso # (Auto) 0.01 (0-0.2) K/uL Sodium 141 (136-145) mmol/L Potassium 4.3 (3.5-5.1) mmol/L Chloride 109 H (98-107) mmol/L Carbon Dioxide 26 (21-32) mmol/L Anion Gap 6.0 (3-11) BUN 29 H (7-18) mg/dl Creatinine 0.64 (0.6-1.2) mg/dl Est Cr Clr Drug Dosing 44.5 ml/min Est GFR ( Amer) 93.0 Est GFR (Non-Af Amer) 80.2 BUN/Creatinine Ratio 45.3 H (10-20) Glucose 124 H (70-99) mg/dl Calcium 9.0 (8.5-10.1) mg/dl Magnesium 2.2 (1.8-2.4) mg/dl Total Bilirubin 0.3 (0.2-1) mg/dl AST 18 (15-37) U/L ALT 32 (12-78) U/L Alkaline Phosphatase 106 (45-117) U/L Troponin I 0.078 H* (0-0.045) ng/ml Total Protein 6.2 L (6.4-8.2) gm/dl Albumin 3.1 L (3.4-5.0) gm/dl Globulin 3.1 (2.5-4.0) gm/dl Albumin/Globulin Ratio 1.0 (0.9-2) TSH 1.080 (0.300-4.500) uIu/ml Urine Color Yellow Urine Appearance Clear (Clear) Urine pH 5.0 (4.5-7.5) Ur Specific [place] 1.020 (1.000-1.030) Urine Protein Negative (Negative) Urine Glucose (UA) Negative (Negative) Urine Ketones Negative (Negative) Urine Blood Negative (Negative) Urine Nitrite Negative (Negative) Urine Bilirubin Negative (Negative) Urine Urobilinogen Negative (Negative) Ur Leukocyte Esterase Trace H (Negative) Urine WBC (Auto) 1-5 (0-5) /hpf Urine RBC (Auto) 0-4 (0-4) /hpf U Hyaline Cast (Auto) 1-5 (0-5) /lpf U Epithel Cells (Auto) 10-20 H (0-5) /lpf Urine Bacteria (Auto) Negative (Negative) Imaging Data Radiologist's Impression: XR chest 1V portable CLINICAL HISTORY: weakness COMPARISON STUDY: Chest radiograph September 14, 2018. FINDINGS: Lung volumes are diminished. There is no pneumothorax. No definite pleural effusion is noted. Left diaphragmatic hernia is again noted. There is no evidence for pulmonary edema. Right infrahilar opacity likely reflects atelectasis. Left basilar opacity favors atelectasis. IMPRESSION: 1. Bibasilar opacities which statistically reflect atelectasis on this hypoventilatory study. 2. No change in appearance of the left hemidiaphragmatic hernia. CT SCAN OF THE BRAIN WITHOUT IV CONTRAST CLINICAL HISTORY: Fall. Weakness. COMPARISON STUDY: CT of the brain dated 09/03/2018. TECHNIQUE: Unenhanced axial CT scan of the brain is performed from the vertex to the skull base. A dose lowering technique was utilized adhering to the principles of ALARA. CT DOSE: 537.48 mGy.cm FINDINGS: Brain parenchyma: There are age-related involutional changes noting moderate subcortical and periventricular microangiopathic change. There is no hemorrhage, mass effect, or evidence of acute territorial ischemia by CT criteria. Burroughs- white matter differentiation is preserved. No extra-axial fluid collection is seen. Ventricles, sulci, cisterns: Prominent secondary to involutional change. Intracranial vasculature: There is atherosclerotic calcification of the cavernous carotid and vertebral arteries. Calvarium: The skeletal structures are osteopenic. No depressed calvarial fracture is identified. Sinuses and mastoids: The visualized paranasal sinuses are clear. The mastoid air cells are well pneumatized. Orbits: The bony orbits are grossly intact. There are bilateral ocular lens implants. IMPRESSION: There is no hemorrhage, mass effect, or evidence of acute territorial ischemia by CT criteria. Electronically signed by: Davion Reid M.D. 09/20/2018 5:56 PM Electronically signed by: Benigno Elias M.D. 09/20/2018 5:17 PM ECG Data Attestation: I personally reviewed and interpreted this ECG as follows: Indication: weakness Rate (beats per minute): 72 Rhythm: sinus rhythm Findings: + 1st degree AV block and + LBBB; no PVC Comparison ECG Date: from (08/12/2018) Change: no significant change Blood Pressure Blood Pressure Findings: Elevated blood pressure Blood Pressure Disposition: further management by hospitalist ODILON Narrative There is no leukocytosis or concerning anemia. No significant electrolyte abnormality or kidney failure. EKG shows a sinus rhythm with a left bundle branch block. EKG appears unchanged. Cardiac troponin is slightly elevated, this is consistent with possible cardiac injury or strain. There was no hepatitis. The patient appeared to be in a euthyroid state. Urinalysis did not show infection. Chest film showed some chronic findings, no pneumonia or CHF. Brain CT showed no acute bleed or mass-effect. On exam, the patient was not toxic, she appeared dehydrated. There were no focal neurologic findings. Patient received IV saline, 1 L. The patient presents with weakness. She can no longer stand or walk. She does have an elevated troponin today and looking at old records, she did have a non- ST elevation [place] just a few months ago. I do think hospitalization is warranted. Her troponin needs to be trended. Care in the hospital is required. I did speak to the patient and rehabilitation case coordinator. The on-call hospitalist was consulted Impression & Plan Weakness, Dehydration, Elevated troponin Discharge Plan Visit Data Chief Complaint: Weakness Stated Complaint: WEAKNESS, NOT ABLE TO WALK, DEHYDRATED, UTI ED Provider: Davion Lewis Discharge Problem: Weakness, Dehydration, Elevated troponin Patient Disposition: Being Evaluated by Hospitalist Forms Stand Alone Forms: My [facility], Important Visit Information Prescriptions Prescriptions: No Action gabapentin 600 mg Tablet 600 mg PO TID RF: 0 albuterol sulfate 2.5 mg /3 mL (0.083 %) Solution For Nebulization 2.5 mg INHALATION Q6H PRN (Reason: Shortness Of Breath Or Wheezing) RF: 0 hydrocodone-acetaminophen [[place]] 10-325 mg Tablet 1 tab PO BID PRN (Reason: Pain) RF: 0 aspirin 81 mg Tablet,Delayed Release (Dr/Ec) 81 mg PO DAILY RF: 0 prednisone 1 mg Tablet 1 mg PO TID RF: 0 fentanyl 25 mcg/hr Patch 72 Hour 1 patch TRANSDERMAL [id number] RF: 0 albuterol sulfate [ProAir HFA] 90 mcg/actuation Hfa Aerosol Inhaler 1 - 2 puff INHALATION Q6H PRN (Reason: Shortness Of Breath) RF: 0 carbidopa-levodopa 25-100 mg Tablet 1 tab PO QID RF: 0 Restasis 0.05 % [place] 1 drp OPB Q12H RF: 0 PreserVision Lutein 226 mg-200 unit -5 mg-0.8 mg Capsule 1 cap PO BID RF: 0 cholecalciferol (vitamin D3) [Vitamin D3] 5,000 unit Tablet 5,000 units PO QAM RF: 0 Dulera 200-5 mcg/actuation Hfa Aerosol Inhaler 1 puff INHALATION BID PRN (Reason: Shortness Of Breath) RF: 0 Lucentis 0.3 mg/0.05 mL Solution 1 dose Intravitreal DIRECTED RF: 0 Multi-Day Plus Minerals 18 mg iron-400 mcg-25 mcg Tablet 1 tab PO BID RF: 0 atorvastatin 20 mg tablet 10 mg PO QPM RF: 0 carvedilol 12.5 mg tablet 18.75 mg PO BID RF: 0 losartan [Cozaar] 100 mg tablet 100 mg PO DAILY RF: 0 amoxicillin 500 mg Tablet 2,000 mg PO UD RF: 0 Referrals Referrals: Zackary Avila MD [Primary Care Provider] - The scribe's documentation has been prepared under my direction and personally reviewed by me in its entirety. I confirm that the note above accurately reflects all work, treatment, procedures, and medical decision making performed by me.
--- NOTE | 2018-09-20 17:18 | XRay Report ---
XR chest 1V portable CLINICAL HISTORY: weakness COMPARISON STUDY: Chest radiograph September 14, 2018. FINDINGS: Lung volumes are diminished. There is no pneumothorax. No definite pleural effusion is note d. Left diaphragmatic hernia is again noted. There is no evidence for pulmonary edema. Right infrahil ar opacity likely reflects atelectasis. Left basilar opacity favors atelectasis. IMPRESSION: 1. Bibasilar opacities which statistically reflect atelectasis on this hypoventilatory study. 2. No change in appearance of the left hemidiaphragmatic hernia. Electronically signed by: Benigno Elias M.D. 09/20/2018 5:17 PM
[2018-09-20 17:19] LABS: Basophils # (auto) 0.01 K/uL (0-0.2); Basophils % (auto) 0.1 %; Eosinophils # (auto) 0.24 K/uL (0-0.5); Eosinophils % (auto) 2.9 %; Hematocrit (blood only) 38.6 % (37-47); Hemoglobin 12.2 g/dL (12.0-16.0); Immature Granulocytes # (auto) 0.02 K/uL (0.00-0.02); Immature Granulocytes % (auto) 0.2 %; Lymphocytes # (auto) 1.08 K/uL (1.2-3.4); Mean Corpuscular Hgb Conc 31.6 g/dL (32-36); Mean Corpuscular Volume 94.1 fL (80-100); Mean Platelet Volume 9.9 fL (7.4-10.4); Monocytes # (auto) 0.72 K/uL (0.11-0.59); Monocytes % (auto) 8.7 %; Neutrophils # (auto) 6.22 K/uL (1.4-6.5); Neutrophils % (auto) 75.1 %; Platelet Count 199 K/uL (130-400); RDW Coefficient of Variation 16.6 % (11.5-14.5); RDW Standard Deviation 57.7 fL (36.4-46.3); White Blood Count 8.29 K/uL (4.8-10.8)
[2018-09-20 17:22] LABS: Appearance Urine Clear (Clear); Bacteria Urine Automated Negative (Negative); Bilirubin Urine Negative (Negative); Blood Urine Negative (Negative); Color Urine Yellow; Glucose Urine UA Negative (Negative); Ketones Urine Negative (Negative); Leukocyte Esterase Urine Trace (Negative); Nitrite Urine Negative (Negative); Protein Urine Negative (Negative); RBC Urine Automated 0-4 /hpf (0-4); Urobilinogen Urine Negative (Negative)
[2018-09-20 17:34] LABS: Albumin Level 3.1 gm/dl (3.4-5.0); BUN Creatinine Ratio 45.3 (10-20); Creatinine Clr Calc Pharmacy 44.5 ml/min; Est GFR (Non-African American) 80.2; Magnesium 2.2 mg/dl (1.8-2.4); Potassium 4.3 mmol/L (3.5-5.1)
[2018-09-20 17:56] LABS: Bilirubin,Total 0.3 mg/dl (0.2-1); Globulin 3.1 gm/dl (2.5-4.0); Total Protein 6.2 gm/dl (6.4-8.2); Troponin I 0.078 ng/ml (0-0.045)
--- NOTE | 2018-09-20 17:58 | CT Scan Report ---
CT SCAN OF THE BRAIN WITHOUT IV CONTRAST CLINICAL HISTORY: Fall. Weakness. COMPARISON STUDY: CT of the brain dated 09/03/2018. TECHNIQUE: Unenhanced axial CT scan of the brain is performed from the vertex to the skull base. A do se lowering technique was utilized adhering to the principles of ALARA. CT DOSE: 537.48 mGy.cm FINDINGS: Brain parenchyma: There are age-related involutional changes noting moderate subcortical and periven tricular microangiopathic change. There is no hemorrhage, mass effect, or evidence of acute territori al ischemia by CT criteria. Burroughs-white matter differentiation is preserved. No extra-axial fluid becka ection is seen. Ventricles, sulci, cisterns: Prominent secondary to involutional change. Intracranial vasculature: There is atherosclerotic calcification of the cavernous carotid and vertebr al arteries. Calvarium: The skeletal structures are osteopenic. No depressed calvarial fracture is identified. Sinuses and mastoids: The visualized paranasal sinuses are clear. The mastoid air cells are well pneu matized. Orbits: The bony orbits are grossly intact. There are bilateral ocular lens implants. IMPRESSION: There is no hemorrhage, mass effect, or evidence of acute territorial ischemia by CT suman poole. Electronically signed by: Davion Reid M.D. 09/20/2018 5:56 PM
--- NOTE | 2018-09-20 19:41 | History & Physical Report ---
Date of Service September 20, 2018 Assessment & Plan (1) Generalized weakness: -Likely secondary to UTI as below that has been untreated and not likely due to a recent end STEMI given elevated troponin -Admit to medical floor with telemetry -Serial troponins as below -Treat UTI as below -PT/OT consults but patient has 28/12 care and prefers to not go to a nursing facility for rehab -Received IV fluids in the ER but does not need any further (2) UTI (urinary tract infection): With pseudomonas aeruginosa pansensitive on urine culture from 09/14 that was not treated as an outpatient. This likely cause of her generalized weakness - will treat with Cipro 400 mg IV twice daily watch for diarrhea given this is on her list "allergies" -will treat for 7 days given systemic symptoms (3) Elevated troponin: Mildly elevated on admission at 0.7 -Likely myocardial demand ischemia in the setting of current infection and known presumed CAD. She had no chest pain at any time -Trend troponin, no need for echocardiogram ECG with chronic left bundle branch block -Monitor on telemetry (4) Peripheral artery disease: Left femoropopliteal bypass graft and right superficial femoral artery and popliteal artery occlusions with angiography -Continue aspirin and statin (5) Chronic kidney disease (CKD) stage G3a/A1, moderately decreased glomerular filtration rate (GFR) between 45-59 mL/min/1.73 square meter and albuminuria creatinine ratio less than 30 mg/g: At baseline her -Avoid lift oxygen-renally dose medications -Follow BMP periodically (6) Chronic combined systolic and diastolic heart failure: With a LVEF of 30% on echocardiogram 05/2018 which was a new decline in LV function for her -She declined cardiac catheterization at that time but can be presumed to be an ischemic cardiomyopathy in nature -Continue aspirin, statin, carvedilol (7) Osteoarthritis: Continue chronic fentanyl and hydrocodone as needed for pain (8) Temporal arteritis: Stable for many years -Continue prednisone 3 mg daily Does not need stress dose steroids at this time (9) Hypertension: Stable -Continue carvedilol, losartan (10) Hyperlipemia: Stable -Continue statin (11) LBBB (left bundle branch block): Chronic (12) DVT prophylaxis: SCDs Disposition-admit under observation overnight to treat for UTI, PT/OT evaluations -will most likely discharge to home tomorrow with p.o. Cipro if feeling better and if troponins trend downward History of Present Illness Chief Complaint: Weakness Primary Care Provider: Zackary Avila MD This patient is an 87-year-old female with a history of atrial tachycardia, frequent UTIs, CKD stage III, chronic diastolic CHF, HTN, temporal arteritis, osteoarthritis on chronic opioids, PAD, LBBB, who presents to the ER with generalized weakness and fatigue for 2-3 days. She is gotten to the point where she has not been able to walk for the last 2-3 days. She denies fevers, chills, sweats, no nausea, vomiting, or diarrhea. No cough but has her chronic dyspnea on occasion. Review of her outpatient chart shows that she had a urine culture on 09/12 that was negative but she was given empiric antibiotics with Macrobid, but then a urine culture on 09/14 was growing pseudomonas aeruginosa that was pansensitive. Patient reports that she was not contacted about this and did not have her antibiotics changed. She denies any dysuria or urinary frequency but reports that in the past when she is had mental status changes, she was found of UTI never has urinary symptoms. She denies abdominal pain. Her urinalysis in the ER actually looked quite good. She was afebrile. Also in the ER, her troponin was found to be mildly elevated at 0.078. Her EKG showed a left bundle branch block that was unchanged from previous. She denies any chest pain at all. Allergies Allergy/AdvReac Type Severity Reaction Status Date / Time clindamycin Allergy Severe COLITIS Verified 09/20/18 17:58 cephalexin Allergy Intermediate Diarrhea Verified 09/20/18 17:58 omeprazole Allergy Unknown Unknown Verified 09/20/18 17:58 adhesive AdvReac Intermediate RASH Verified 09/20/18 17:58 oxaprozin AdvReac Intermediate HEADACHE Verified 09/20/18 17:58 Quinolones AdvReac Mild diarrhea Verified 09/20/18 17:58 hydrochlorothiazide AdvReac Unknown PT HX Verified 09/20/18 17:58 KIDNEY DYSFUNCTION ibuprofen AdvReac Unknown PT HX Verified 09/20/18 17:58 KIDNEY DYSFUNCTION lisinopril AdvReac Unknown GI Verified 09/20/18 17:58 SYMPTOMS,RENAL DYSFUNCTION Home Medications Home Medications Medication Instructions Recorded Confirmed Type Dulera 1 puff INHALATION BID PRN 06/01/18 09/20/18 History Lucentis 1 dose INTRAVITREAL DIRECTED 06/01/18 09/20/18 History Multi-Day Plus Minerals 1 tab PO BID 06/01/18 09/20/18 History PreserVision Lutein 1 cap PO BID 06/01/18 09/20/18 History Restasis 1 drp OPB Q12H 06/01/18 09/20/18 History albuterol sulfate 2.5 mg INHALATION Q6H PRN 06/01/18 09/20/18 History albuterol sulfate [ProAir HFA] 1 - 2 puff INHALATION Q6H PRN 06/01/18 09/20/18 History aspirin 81 mg PO DAILY 06/01/18 09/20/18 History carbidopa-levodopa 1 tab PO QID 06/01/18 09/20/18 History cholecalciferol (vitamin D3) 5,000 units PO QAM 06/01/18 09/20/18 History [Vitamin D3] fentanyl 1 patch TRANSDERMAL [id number] 06/01/18 09/20/18 History gabapentin 600 mg PO TID 06/01/18 09/20/18 History hydrocodone-acetaminophen [[place]] 1 tab PO BID PRN 06/01/18 09/20/18 History prednisone 1 mg PO TID 06/01/18 09/20/18 History atorvastatin 10 mg PO QPM 08/12/18 09/20/18 History carvedilol 18.75 mg PO BID 09/03/18 09/20/18 History amoxicillin 2,000 mg PO UD 09/20/18 09/20/18 History losartan [Cozaar] 100 mg PO DAILY 09/20/18 09/20/18 History Past Med/Surg History Medical History Peripheral artery disease (Chronic 06/30/13) Chronic kidney disease (CKD) stage G3a/A1, moderately decreased glomerular filtration rate (GFR) between 45-59 mL/min/1.73 square meter and albuminuria creatinine ratio less than 30 mg/g (Chronic) Diastolic congestive heart failure (Chronic) Hyperlipemia (Chronic) Hypertension (Chronic) Temporal arteritis (Chronic) Osteoarthritis (Chronic) Nephrolithiasis (Chronic) Kidney cyst, acquired (Chronic) MRSA (methicillin resistant Staphylococcus aureus) infection New onset left bundle branch block (LBBB) (Chronic) UTI (urinary tract infection) (Acute) Chronic combined systolic and diastolic heart failure LBBB (left bundle branch block) Surgical History History of back surgery History of cervical spinal surgery History of femoropopliteal bypass On the left History of tonsillectomy History of total knee arthroplasty History of total left hip arthroplasty Family History Other No pertinent family history Social History Preferred Language: Slovak Beliefs That Will Affect Care: None marital status: / Current Living Situation: Family Current Living Situation Comment: lives with daughter current occupational status: retired Feels Safe at Home: Yes Smoking Status: Never smoker Hx Alcohol Use: Yes Hx Substance Use: No Review of Systems All systems reviewed & are unremarkable except as noted in HPI & below Physical Exam Vital Signs (Past 24 Hours): Last Vital Signs Temp 36.7 C 09/20/18 16:31 Pulse 75 09/20/18 19:08 Resp 20 09/20/18 19:08 BP 150/88 H 09/20/18 19:08 Pulse Ox 97 09/20/18 19:08 Constitutional: WD/WN, vitals as above Eyes: PERRL, conjunctivae normal, anicteric sclerae ENMT: external ear and nose normal, oropharynx normal Neck: trachea midline, no thyromegaly Respiratory: normal respiratory effort, lungs clear to auscultation Cardiovascular: RRR, no murmur, no edema Gastrointestinal (Abdomen): normal bowel sounds, soft, nontender, no hepatosplenomegaly Musculoskeletal: Extremities: extremities normal to inspection; no cyanosis and no clubbing Skin: + ecchymosis (Over left side of face and on the left side of neck to the shoulder from previous injury) Neurologic: moves all extremities and awake; no focal motor deficits Psychiatric: A+Ox3, euthymic affect Results & Data Laboratory Results 09/20/18 09/20/18 09/20/18 Range/Units 17:06 17:01 17:01 WBC 8.29 (4.8-10.8) K/uL RBC 4.10 L (4.2-5.4) M/uL Hgb 12.2 (12.0-16.0) g/dL Hct 38.6 (37-47) % MCV 94.1 (80-100) fL MCH 29.8 (25-34) pg MCHC 31.6 L (32-36) g/dL RDW Std Deviation 57.7 H (36.4-46.3) fL RDW Coeff of Olga 16.6 H (11.5-14.5) % Plt Count 199 (130-400) K/uL MPV 9.9 (7.4-10.4) fL Immature Gran % (Auto) 0.2 % Neut % (Auto) 75.1 % Lymph % (Auto) 13.0 % Simpson % (Auto) 8.7 % Eos % (Auto) 2.9 % Baso % (Auto) 0.1 % Immature Gran # (Auto) 0.02 (0.00-0.02) K/uL Neut # (Auto) 6.22 (1.4-6.5) K/uL Lymph # (Auto) 1.08 L (1.2-3.4) K/uL Simpson # (Auto) 0.72 H (0.11-0.59) K/uL Eos # (Auto) 0.24 (0-0.5) K/uL Baso # (Auto) 0.01 (0-0.2) K/uL Sodium 141 (136-145) mmol/L Potassium 4.3 (3.5-5.1) mmol/L Chloride 109 H (98-107) mmol/L Carbon Dioxide 26 (21-32) mmol/L Anion Gap 6.0 (3-11) BUN 29 H (7-18) mg/dl Creatinine 0.64 (0.6-1.2) mg/dl Est Cr Clr Drug Dosing 44.5 ml/min Est GFR ( Amer) 93.0 Est GFR (Non-Af Amer) 80.2 BUN/Creatinine Ratio 45.3 H (10-20) Glucose 124 H (70-99) mg/dl Calcium 9.0 (8.5-10.1) mg/dl Magnesium 2.2 (1.8-2.4) mg/dl Total Bilirubin 0.3 (0.2-1) mg/dl AST 18 (15-37) U/L ALT 32 (12-78) U/L Alkaline Phosphatase 106 (45-117) U/L Troponin I 0.078 H* (0-0.045) ng/ml Total Protein 6.2 L (6.4-8.2) gm/dl Albumin 3.1 L (3.4-5.0) gm/dl Globulin 3.1 (2.5-4.0) gm/dl Albumin/Globulin Ratio 1.0 (0.9-2) TSH 1.080 (0.300-4.500) uIu/ml Urine Color Yellow Urine Appearance Clear (Clear) Urine pH 5.0 (4.5-7.5) Ur Specific [place] 1.020 (1.000-1.030) Urine Protein Negative (Negative) Urine Glucose (UA) Negative (Negative) Urine Ketones Negative (Negative) Urine Blood Negative (Negative) Urine Nitrite Negative (Negative) Urine Bilirubin Negative (Negative) Urine Urobilinogen Negative (Negative) Ur Leukocyte Esterase Trace H (Negative) Urine WBC (Auto) 1-5 (0-5) /hpf Urine RBC (Auto) 0-4 (0-4) /hpf U Hyaline Cast (Auto) 1-5 (0-5) /lpf U Epithel Cells (Auto) 10-20 H (0-5) /lpf Urine Bacteria (Auto) Negative (Negative) Code Status & VTE Plan Code Status DNR VTE Prophylaxis Plan VTE Prophylaxis will be ordered: Yes
[2018-09-20] MEDS ORDERED: ATORVASTATIN 10 MG TAB PO SCH (21:01)
[2018-09-20] MEDS ORDERED: HYDROCODONE/ACETAMINOPHEN 10/325 TAB PO PRN (21:01)
[2018-09-20] MEDS ORDERED: ALBUTEROL 0.083% NEBU SOLN 3 ML VIAL INH PRN (21:01)
[2018-09-20] MEDS ORDERED: ONDANSETRON INJ 2 MG/ML 2 ML VIAL IV PRN (21:01)
[2018-09-20] MEDS ORDERED: ACETAMINOPHEN 325 MG TAB PO PRN (21:01)
[2018-09-20] MEDS: CHECK FENTANYL PATCH PLACEMENT SCH (23:26)
[2018-09-20] MEDS: CIPROFLOXACIN 400 MG/200 ML BAG IV SCH (23:26)
[2018-09-20] MEDS: DULERA~ORDER AWAITING ACTION SCH (23:27)
[2018-09-20] MEDS: GABAPENTIN 600 MG TAB PO SCH (23:28)
[2018-09-20] MEDS: CARBIDOPA/LEVODOPA 25/100MG TAB PO SCH (23:28)
[2018-09-20] MEDS: CEROVITE ADV FORMULA TAB PO SCH (23:28)
[2018-09-20] MEDS: CARVEDILOL 6.25 MG TAB PO SCH (23:29)
[2018-09-21] MEDS: DULERA~ORDER AWAITING ACTION SCH (00:03)
[2018-09-21] MEDS: CHECK FENTANYL PATCH PLACEMENT SCH (08:43)
[2018-09-21] MEDS: CEROVITE ADV FORMULA TAB PO SCH (08:50)
[2018-09-21] MEDS: CARBIDOPA/LEVODOPA 25/100MG TAB PO SCH (08:50)
[2018-09-21] MEDS: GABAPENTIN 600 MG TAB PO SCH (08:50)
[2018-09-21] MEDS: CARVEDILOL 6.25 MG TAB PO SCH (08:50)
[2018-09-21] MEDS ORDERED: fentaNYL 25 MCG/HR TDSY TD SCH (09:00)
[2018-09-21] MEDS ORDERED: predniSONE 1 MG TAB PO SCH (09:00)
[2018-09-21] MEDS ORDERED: ASPIRIN 81 MG ECTAB PO SCH (09:00)
[2018-09-21] MEDS ORDERED: CHOLECALCIFEROL 1,000 UNITS TAB PO SCH (09:00)
[2018-09-21] MEDS ORDERED: LOSARTAN POTASSIUM 50 MG TAB PO SCH (09:00)
[2018-09-21] MEDS: CIPROFLOXACIN 400 MG/200 ML BAG IV SCH (09:46)
[2018-09-21] MEDS ORDERED: ALBUTEROL 0.083% NEBU SOLN 3 ML VIAL NEB STA (09:59)
--- NOTE | 2018-09-21 10:18 | Discharge Summary ---
Date of Service September 21, 2018 Admission HPI Per Admitting Provider This patient is an 87-year-old female with a history of atrial tachycardia, frequent UTIs, CKD stage III, chronic diastolic CHF, HTN, temporal arteritis, osteoarthritis on chronic opioids, PAD, LBBB, who presents to the ER with generalized weakness and fatigue for 2-3 days. She is gotten to the point where she has not been able to walk for the last 2-3 days. She denies fevers, chills, sweats, no nausea, vomiting, or diarrhea. No cough but has her chronic dyspnea on occasion. Review of her outpatient chart shows that she had a urine culture on 09/12 that was negative but she was given empiric antibiotics with Macrobid, but then a urine culture on 09/14 was growing pseudomonas aeruginosa that was pansensitive. Patient reports that she was not contacted about this and did not have her antibiotics changed. She denies any dysuria or urinary frequency but reports that in the past when she is had mental status changes, she was found of UTI never has urinary symptoms. She denies abdominal pain. Her urinalysis in the ER actually looked quite good. She was afebrile. Also in the ER, her troponin was found to be mildly elevated at 0.078. Her EKG showed a left bundle branch block that was unchanged from previous. She denies any chest pain at all. Principal Diagnosis UTI Discharge Exam Constitutional WD/WN, vitals as above Eyes PERRL, conjunctivae normal, anicteric sclerae ENMT external ear and nose normal, oropharynx normal Neck trachea midline, no thyromegaly Respiratory normal respiratory effort, lungs clear to auscultation Cardiovascular RRR, no murmur, no edema Gastrointestinal (Abdomen) normal bowel sounds, soft, nontender, no hepatosplenomegaly Musculoskeletal Extremities: extremities normal to inspection; no cyanosis and no clubbing Skin + ecchymosis (Over left side of face and on the left side of neck to the shoulder from previous injury) Neurologic moves all extremities and awake; no focal motor deficits Psychiatric A+Ox3, euthymic affect Discharge Data Allergies Allergy/AdvReac Type Severity Reaction Status Date / Time clindamycin Allergy Severe COLITIS Verified 09/20/18 17:58 cephalexin Allergy Intermediate Diarrhea Verified 09/20/18 17:58 omeprazole Allergy Unknown Unknown Verified 04/16/19 17:58 adhesive AdvReac Intermediate RASH Verified 09/20/18 17:58 oxaprozin AdvReac Intermediate HEADACHE Verified 09/20/18 17:58 Quinolones AdvReac Mild diarrhea Verified 09/20/18 17:58 hydrochlorothiazide AdvReac Unknown PT HX Verified 09/20/18 17:58 KIDNEY DYSFUNCTION ibuprofen AdvReac Unknown PT HX Verified 09/20/18 17:58 KIDNEY DYSFUNCTION lisinopril AdvReac Unknown GI Verified 09/20/18 17:58 SYMPTOMS,RENAL DYSFUNCTION Consultations None Ordered Studies 09/20/18 16:48 CT head/brain wo con Stat Chest xray Hospital Course (1) Generalized weakness: -Likely secondary to UTI as below that has been untreated and not likely due to a recent NSTEMI given elevated troponin -Admitted to medical floor with telemetry and had no significant events -Serial troponins as below -Treat UTI as below -PT/OT consults but patient has / care and prefers to not go to a nursing facility for rehab -Received IV fluids in the ER but does not need any further (2) UTI (urinary tract infection): With pseudomonas aeruginosa pansensitive on urine culture from 09/14 that was not treated as an outpatient. This likely cause of her generalized weakness -treated with Cipro 400 mg IV twice daily- watch for diarrhea given this is on her list "allergies" -finish out course of po Cipro at home -will treat for 7 days given systemic symptoms (3) Elevated troponin: Mildly elevated on admission at 0.078/0.081/0.077 -Likely myocardial demand ischemia in the setting of current infection and known presumed CAD. 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 -Avoid nephrotoxins-renally dose medications -Follow BMP periodically as outpt (6) Chronic combined systolic and diastolic heart failure: With a LVEF of 30% on echocardiogram 05/2018 which was a new decline in LV function for her -She declined cardiac catheterization at that time but can be presumed to be an ischemic cardiomyopathy in nature -Continue aspirin, statin, carvedilol (7) Osteoarthritis: Continue chronic fentanyl and hydrocodone as needed for pain (8) Temporal arteritis: Stable for many years -Continue prednisone 3 mg daily Does not need stress dose steroids at this time (9) Hypertension: Stable -Continue carvedilol, losartan (10) Hyperlipemia: Stable -Continue statin (11) LBBB (left bundle branch block): Chronic (12) DVT prophylaxis: SCDs Disposition-stable for dc to home with previous 28/12 care Total Time Total Time Spent Total Time Spent (In Minutes): >30 min Total Time Includes: Examination of the Patient, Discharge Planning and Medication Reconciliation Discharge Plan Discharge Items Patient Disposition: Home - Home Health Services Reason For Visit: WEAKNESS,POSITIVE TROPONIN Discharge Diagnosis: UTI, Generalized weakness Condition: Good Discharge Goals: Diagnostic testing, Learn about illness and Therapeutic intervention Activity: Resume your previous activity Bathing: No limitations Exercise/Sports: Gradually increase as tolerated Non-emergency contact: Primary Care Provider and [employer] Manager Call non-emergency contact if: you have any medication questions, your symptoms worsen and your temperature is above 100.5 Follow-up/Referrals: Viktoriya Sigala PA-C [Physician Microarray Specialist] - 09/26/18 4:00 pm (Please, follow up at [facility] Office with Viktoriya Sigala PA-C on WednesdaySeptember 26 at 4:00 pm. *If you need to change this appointment, call the office at [phone].) Zackary Avila MD [Primary Care Provider] - 09/22/18 10:45 am (Please, follow up at Dr. Avila's office with his academic support assistant, Ivette Santana PA-C, on September 22 at 10:45 am. *If you need to change this appointment, call the office at [phone].) Diet: Heart Healthy and Low Sodium (2gm) Addtl Provider Instructions: You were admitted with generalized weakness which is likely due to a UTI. The bacteria in your urine is called Pseudomonas aeruginosa and will be treated with a course of an antibiotic called Cipro. Please finish out the course of antibiotics as prescribed. If you develop fevers, abdominal pain, or diarrhea, please call your doctor. Your heart blood test was mildly elevated but you DID NOT HAVE a heart attack. This was likely secondary to some mild strain on the heart due to your current infection. Please follow up with your PCP and Cardiology as scheduled previously. Prescriptions: Continued gabapentin 600 mg Tablet 600 mg PO TID RF: 0 albuterol sulfate 2.5 mg /3 mL (0.083 %) Solution For Nebulization 2.5 mg INHALATION Q6H PRN (Reason: Shortness Of Breath Or Wheezing) RF: 0 hydrocodone-acetaminophen [[place]] 10-325 mg Tablet 1 tab PO BID PRN (Reason: Pain) RF: 0 aspirin 81 mg Tablet,Delayed Release (Dr/Ec) 81 mg PO DAILY RF: 0 prednisone 1 mg Tablet 1 mg PO TID RF: 0 fentanyl 25 mcg/hr Patch 72 Hour 1 patch TRANSDERMAL [id number] RF: 0 albuterol sulfate [ProAir HFA] 90 mcg/actuation Hfa Aerosol Inhaler 1 - 2 puff INHALATION Q6H PRN (Reason: Shortness Of Breath) RF: 0 carbidopa-levodopa 25-100 mg Tablet 1 tab PO QID RF: 0 Restasis 0.05 % [place] 1 drp OPB Q12H RF: 0 PreserVision Lutein 226 mg-200 unit -5 mg-0.8 mg Capsule 1 cap PO BID RF: 0 cholecalciferol (vitamin D3) [Vitamin D3] 5,000 unit Tablet 5,000 units PO QAM RF: 0 Dulera 200-5 mcg/actuation Hfa Aerosol Inhaler 1 puff INHALATION BID PRN (Reason: Shortness Of Breath) RF: 0 Lucentis 0.3 mg/0.05 mL Solution 1 dose Intravitreal DIRECTED RF: 0 Multi-Day Plus Minerals 18 mg iron-400 mcg-25 mcg Tablet 1 tab PO BID RF: 0 atorvastatin 20 mg tablet 10 mg PO QPM RF: 0 carvedilol 12.5 mg tablet 18.75 mg PO BID RF: 0 losartan [Cozaar] 100 mg tablet 100 mg PO DAILY RF: 0 No Action enoxaparin 60 mg/0.6 mL Syringe 50 mg subcut Q24H 30 Days Qty: 15 RF: 0 Stand-Alone Forms: [facility] Discharge Orders: Discharge Order (Routine); Ordered 09/21/18 Ordered By: Catia Aiken Admission Data Admit Date/Time: 09/20/18 19:40 Attending Provider: Catia Aiken Admit Provider: Catia Aiken Primary Care Provider: Zackary Avila Other Providers: Catia Aiken ; [place],Nursing Agency Service: Telemetry Medical Other Interventions: Discharge Summary Assessment (RN) Last Done: 09/21/18 10:43 Pending Studies at Discharge: Yes Studies:: Repeat urine culture DC Date/Time DO NOT enter until pt leaves facility: 09/21/18 13:25
[2018-09-21] MEDS ORDERED: ALBUTEROL 0.083% NEBU SOLN 3 ML VIAL INH SCH (14:00)
== END 2018-09-21 13:25 | disposition home health service (06) ==
LOC: 2W 16:21 → ED 16:21 → 2W 21:06
DX: N39.0 Urinary tract infection, site not specified; Z86.14 Personal history of Methicillin resistant Staphylococcus aureus infection; Z79.82 Long term (current) use of aspirin; I73.9 Peripheral vascular disease, unspecified; Z88.5 Allergy status to narcotic agent; M19.90 Unspecified osteoarthritis, unspecified site; I12.9 Hypertensive chronic kidney disease with stage 1 through stage 4 chronic kidney disease, or unspecified chronic kidney disease; Z88.6 Allergy status to analgesic agent; E78.5 Hyperlipidemia, unspecified; R53.1 Weakness; Z79.899 Other long term (current) drug therapy; E86.0 Dehydration; Z88.1 Allergy status to other antibiotic agents; N18.3 Chronic kidney disease, stage 3 (moderate)

== ENCOUNTER 2018-10-11 11:12 | Inpatient (IN) ==
[2018-10-11] MEDS ORDERED: SODIUM CHLORIDE 0.9% 500 ML IV SCH (11:45)
--- NOTE | 2018-10-11 11:56 | XRay Report ---
XR chest 1V portable CLINICAL HISTORY: Dyspnea dyspnea COMPARISON STUDY: 09/23/2018 FINDINGS: Unchanged consolidative infiltrate left base. Stable cardiomegaly. Moderate chronic promine nce of pulmonary vasculature. IMPRESSION: Unchanged consolidative infiltrate left base. Moderate stable cardiomegaly. Chronic pulm onary vascular congestion. The above report was generated using voice recognition software. It may contain grammatical, syntax or spelling errors. Electronically signed by: Frank Colin M.D. 10/11/2018 11:55 AM
[2018-10-11 12:27] LABS: Basophils # (auto) 0.01 K/uL (0-0.2); Basophils % (auto) 0.1 %; Eosinophils # (auto) 0.12 K/uL (0-0.5); Hematocrit (blood only) 35.3 % (37-47); Hemoglobin 11.5 g/dL (12.0-16.0); Immature Granulocytes # (auto) 0.02 K/uL (0.00-0.02); Immature Granulocytes % (auto) 0.2 %; Lymphocytes # (auto) 0.58 K/uL (1.2-3.4); Lymphocytes % (auto) 4.7 %; Mean Corpuscular Hgb Conc 32.6 g/dL (32-36); Mean Corpuscular Volume 92.2 fL (80-100); Mean Platelet Volume 9.5 fL (7.4-10.4); Monocytes # (auto) 0.64 K/uL (0.11-0.59); Monocytes % (auto) 5.2 %; Neutrophils # (auto) 10.89 K/uL (1.4-6.5); Neutrophils % (auto) 88.8 %; Platelet Count 297 K/uL (130-400); RDW Coefficient of Variation 18.1 % (11.5-14.5); RDW Standard Deviation 60.9 fL (36.4-46.3); Red Blood Count 3.83 M/uL (4.2-5.4); White Blood Count 12.26 K/uL (4.8-10.8)
[2018-10-11 12:32] LABS: Base Excess VBG -1.3 mEq/L; HCO3 VBG 24 mmol/L; PCO2 VBG 40 mmHg (38-50); PO2 VBG 27 mmHg; pH VBG 7.39 (7.36-7.41)
[2018-10-11 12:33] LABS: Oxygen Saturation VBG < 60.0 %
[2018-10-11 12:41] LABS: Albumin Level 2.7 gm/dl (3.4-5.0); Calcium 8.3 mg/dl (8.5-10.1); Est GFR (African American) 68.5; Est GFR (Non-African American) 59.1; Potassium 4.6 mmol/L (3.5-5.1)
[2018-10-11 12:43] LABS: INR 1.3 (0.9-1.1); Partial Thromboplastin Time 26.5 Seconds (21.0-31.0); Prothrombin Time 13.3 Seconds (9.0-12.0)
[2018-10-11 12:49] LABS: Albumin Globulin Ratio 0.9 (0.9-2); Bilirubin,Total 0.5 mg/dl (0.2-1); Globulin 3.1 gm/dl (2.5-4.0); Total Protein 5.8 gm/dl (6.4-8.2); Troponin I 0.053 ng/ml (0-0.045)
[2018-10-11 13:11] LABS: Influenza A virus by PCR Neg for Influ A (Neg); Influenza B virus by PCR Neg for Influ B (Neg)
[2018-10-11] MEDS ORDERED: AMPICILLIN/SULBACTAM SOD 1,500 MG in 0.9 % SODIUM CHLORIDE 100 ML IV STA (14:05)
[2018-10-11] MEDS ORDERED: OPTIRAY 320 125ml IV PRN (14:24)
[2018-10-11 14:39] LABS: Appearance Urine Cloudy (Clear); Bacteria Urine Automated 4+ (Negative); Bilirubin Urine Negative (Negative); Blood Urine 1+ (Negative); Cast Urine Automated 0 /lpf (0-5); Color Urine Yellow; Epithelial Cell Urine Auto 0-5 /lpf (0-5); Glucose Urine UA Negative (Negative); Ketones Urine Trace (Negative); Leukocyte Esterase Urine 2+ (Negative); Nitrite Urine Positive (Negative); Protein Urine 2+ (Negative); Specific Gravity Urine 1.024 (1.000-1.030); Urobilinogen Urine Negative (Negative); WBC Urine Automated >30 /hpf (0-5)
--- NOTE | 2018-10-11 14:41 | CT Scan Report ---
CT angio chest PE protocol CT DOSE: 452.79 mGycm HISTORY: 87 years-old Female with sob, recent PEs. Acute shortness of breath with recent diagnosis of pulmonary embolus TECHNIQUE: Multiple CTA images of the chest were obtained after the intravenous administration of 120 ml Optiray 320. Coronal and sagittal MIPS were obtained from the axial data set and were submitted for review. All measurements were obtained according to NASCET criteria. A dose lowering technique w as utilized adhering to the principles of ALARA. COMPARISON: Chest radiograph of same day, CTA chest 09/23/2018. FINDINGS: CTA: Moderate multichamber cardiac enlargement. No pericardial effusion. The left heart structures are not well opacified secondary to contrast bolus timing. Coronary arterial calcifications are noted. Calci fications of the aortic annulus are also noted with advanced calcified plaque of the thoracic aortic arch and proximal great vessels. Tortuosity of the descending thoracic aorta. Reflux of contrast into the IVC and hepatic veins. The pulmonary arterial tree is opacified to the level of the proximal sub segmental branches. No central pulmonary emboli identified. Fibrin stranding/nonocclusive filling def ects noted about a segmental branch of the right middle lobe, image 127 series 4 which has decreased in size from comparison. The previously noted occlusive thrombi about the left lung are not definitiv jia seen. CT CHEST: No large thyroid nodule. No adenopathy by CT size criteria. Small bilateral pleural effusions with mild bibasilar consolidation. Bilateral reticular opacities wi th areas of intralobular septal thickening. Lungs are hypoinflated. Chronic left diaphragmatic defect /hernia. Rightward deviation of the proximal thoracic trachea. Suggested cysts of the liver noted wit h hepatic calcifications. Trace ascites of the left upper quadrant abdomen. Mild generalized body wal l edema. Demineralized appearance of the bones with degenerative changes of the shoulders and spine. No acute fracture identified. IMPRESSION: 1. Fibrin stranding with nonocclusive chronic segmental thrombus is noted about the right middle lobe . The previously noted bilateral occlusive thrombi seen on study from 09/23/2018 are no longer identi fied. No acute pulmonary embolus is seen on today's study. 2. Small bilateral pleural effusions with bibasilar consolidation. 3. Bilateral reticular opacities with areas of intralobular septal thickening may reflect pulmonary e jeffrey with atelectasis. 4. Cardiomegaly. 5. Unchanged left diaphragmatic hernia/defect which contains stomach and nonobstructed loops of bowel . The above report was generated using voice recognition software. It may contain grammatical, syntax o r spelling errors. Electronically signed by: Lazaro Jewell M.D. 10/11/2018 2:40 PM
[2018-10-11] MEDS ORDERED: FUROSEMIDE 40 MG/4 ML VIAL IV STA (14:45)
[2018-10-11] MEDS ORDERED: VANCOMYCIN CONSULT ACTIVE PRN (17:50)
--- NOTE | 2018-10-11 17:51 | History & Physical Report ---
Date of Service October 11, 2018 Assessment & Plan (1) Pneumonia: Bibasilar consolidation on CT chest, with hypoxia, recent PEs Afebrile but with metabolic encephalopathy, recent cough and OSB, will treat for PNA No new PEs on CTA chest here -Admit to tele -start Ertapenem and Vanco given recent hospitalizations and h/o MRSA--> cover for Gram negative PNA and MRSA PNA -check Blood cultures -supplemental O2 -nebs (2) Acute respiratory failure with hypoxia: secondary to PNA, Acute on chronic combined systolic and diastolic CHF with pleural effusions on CT, some pulm edema on CT chest Was 74% on RA with EMS -was given IV lasix x 1 dose in ER, none further for now -continue supplemental O2 to keep POx>94% (3) Cellulitis: Also with possible source of encephalopathy is the bialteral R>L upper inner thigh cellulitis With edema, erythema, pain of inner thighs -start Vanco and ertapenem -follow clinically (4) Chronic combined systolic and diastolic heart failure: With acute exacerbation of chronic combined systolic and diastolic heart failure with evidence of pulmonary edema, hypoxia Was given IV Lasix x1 in the ER -Follow I's and O's, daily weights, low-sodium diet With a LVEF of 30% on echocardiogram 05/2018 which was a new decline in LV function for her -She declined cardiac catheterization at that time but can be presumed to be an ischemic cardiomyopathy in nature -Continue aspirin, statin, carvedilol, and diuretics as needed (5) LBBB (left bundle branch block): Chronic (6) Peripheral artery disease: History of left femoropopliteal bypass graft and right superficial femoral artery and popliteal artery occlusions with angioplasty -Continue aspirin and statin (7) Chronic kidney disease (CKD) stage G3a/A1, moderately decreased glomerular filtration rate (GFR) between 45-59 mL/min/1.73 square meter and albuminuria creatinine ratio less than 30 mg/g: Creatinine at baseline -Avoid nephrotoxins -renally dose medications -Follow BMP (8) Hyperlipemia: Continue statin (9) Hypertension: Blood pressure is normal at this time -Continue carvedilol 18.75 mg p.o. twice daily, furosemide IV was given in the ER, losartan 100 mg daily (10) Temporal arteritis: Stable for many years -Normally is on prednisone 1 mg p.o. 3 times daily at home Hold home prednisone and give IV hydrocortisone 50 mill grams IV every 8 given infections and lethargy (11) UTI (urinary tract infection): COuld be asymptomatic bacteriuria but with lethargy, will treat with ertapenem in case of true infection -follow urine culture (12) Pulmonary embolism: With recent bilateral PEs on admission several weeks ago. -Continue therapeutic Lovenox dose of 50 mg once daily Largely resolved on today's CTA Chest -Consider switching to Coumadin for improved comfort as she is having to do a daily injection for many months (13) Atrial fibrillation: Paroxysmal ECG here with LBBB and possible junctional rhythm, no P waves seen but is regular -follow on tele, check ECG in AM (14) Elevated troponin: Mildly elevated on admission at 0.053 -Likely myocardial demand ischemia in the setting of current infection and known presumed CAD. She had no chest pain at any time -Trend troponin, no need for echocardiogram ECG with chronic left bundle branch block -Monitor on telemetry (15) Osteoarthritis: -Continue chronic fentanyl and hydrocodone as needed for pain-of note, her fentanyl patch was removed in the ER as she was lethargic, but she was more alert when I saw her and it can be replaced so she can avoid narcotic withdrawal (16) DVT prophylaxis: Lovenox full dose therapeutic Disposition-admit to telemetry DNR/DNI as per discussion with patient History of Present Illness Chief Complaint: Shortness of breath, cough, low oxygen levels Primary Care Provider: Zackary Avila MD This patient is an 87-year-old female with a history of CHF, CAD, ischemic cardiomyopathy, chronic opioid dependence, LBBB, recurrent UTIs, CKD stage III, osteoarthritis, and recent pulmonary embolism, who presents to the ER after having a dry cough for 2 to 3 days and development of shortness of breath x1 da y. She had no fever sweats or chills at home but is severely fatigued and generally weak all over. Today her military pay clerk noted her pulse ox to be low and after EMS was called, she was noted to have a pulse ox in the 70s on room air and was brought into the hospital. In the ER, she was noted to be lethargic but wakes up to questioning and answers questions appropriately. She was requiring 4 L to maintain her oxygen in the mid 90s when I saw her. She denied chest pain or abdominal pain. Denied diarrhea or constipation. Denied urinary symptoms but her UA was grossly positive for infection. Her chest CT angiogram showed bibasilar consolidation but resolving PEs. She was also noted to have pain in her groin and cellulitis of the upper thighs bilaterally right greater than left with edema. She will be admitted for acute hypoxic respiratory failure, healthcare associated pneumonia, lower extremity cellulitis, and possible UTI. She was not septic at the time of admission Allergies Allergy/AdvReac Type Severity Reaction Status Date / Time clindamycin Allergy Severe COLITIS Verified 10/11/18 11:37 cephalexin Allergy Intermediate Diarrhea Verified 10/11/18 11:37 omeprazole Allergy Unknown Unknown Verified 10/11/18 11:37 adhesive AdvReac Intermediate RASH Verified 10/11/18 11:37 oxaprozin AdvReac Intermediate HEADACHE Verified 10/11/18 11:37 Quinolones AdvReac Mild diarrhea Verified 10/11/18 11:37 hydrochlorothiazide AdvReac Unknown PT HX Verified 10/11/18 11:37 KIDNEY DYSFUNCTION ibuprofen AdvReac Unknown PT HX Verified 10/11/18 11:37 KIDNEY DYSFUNCTION lisinopril AdvReac Unknown GI Verified 10/11/18 11:37 SYMPTOMS,RENAL DYSFUNCTION Home Medications Home Medications Medication Instructions Recorded Confirmed Type Lucentis 1 dose INTRAVITREAL DIRECTED 06/01/18 10/11/18 History Multi-Day Plus Minerals 1 tab PO BID 06/01/18 10/11/18 History PreserVision Lutein 1 cap PO BID 06/01/18 10/11/18 History Restasis 1 drp OPB Q12H 06/01/18 10/11/18 History albuterol sulfate 2.5 mg INHALATION Q6H PRN 06/01/18 10/11/18 History aspirin 81 mg PO DAILY 06/01/18 10/11/18 History carbidopa-levodopa 1 tab PO QID 06/01/18 10/11/18 History cholecalciferol (vitamin D3) 5,000 units PO QAM 06/01/18 10/11/18 History [Vitamin D3] fentanyl 1 patch TRANSDERMAL [id number] 06/01/18 10/11/18 History gabapentin 600 mg PO TID 06/01/18 10/11/18 History hydrocodone-acetaminophen [[place]] 1 tab PO BID PRN 06/01/18 10/11/18 History prednisone 1 mg PO TID 06/01/18 10/11/18 History atorvastatin 10 mg PO QPM 08/12/18 10/11/18 History carvedilol 18.75 mg PO BID 09/03/18 10/11/18 History losartan [Cozaar] 100 mg PO DAILY 09/20/18 10/11/18 History enoxaparin 50 mg SUBCUT Q24H 30 Days #15 ml 09/28/18 10/11/18 Rx Past Med/Surg History Medical History Peripheral artery disease (Chronic 06/30/13) Chronic kidney disease (CKD) stage G3a/A1, moderately decreased glomerular filtration rate (GFR) between 45-59 mL/min/1.73 square meter and albuminuria creatinine ratio less than 30 mg/g (Chronic) Diastolic congestive heart failure (Chronic) Hyperlipemia (Chronic) Hypertension (Chronic) Temporal arteritis (Chronic) Osteoarthritis (Chronic) Nephrolithiasis (Chronic) Kidney cyst, acquired (Chronic) MRSA (methicillin resistant Staphylococcus aureus) infection New onset left bundle branch block (LBBB) (Chronic) UTI (urinary tract infection) (Acute) Chronic combined systolic and diastolic heart failure LBBB (left bundle branch block) Surgical History History of back surgery History of cervical spinal surgery History of femoropopliteal bypass On the left History of tonsillectomy History of total knee arthroplasty History of total left hip arthroplasty Family History Other No pertinent family history Social History Preferred Language: German Communication Ability: Impaired Beliefs That Will Affect Care: None marital status: / Current Living Situation: Family Current Living Situation Comment: lives with daughter current occupational status: retired Other Information That Helps Us Care for You: No Feels Safe at Home: Yes Safety Concerns: Feels Safe At This Time Smoking Status: Never smoker Second Hand Exposure: No Hx Alcohol Use: No Hx Substance Use: No Review of Systems Review of Systems: All systems reviewed & are unremarkable except as noted in HPI & below Physical Exam Constitutional: + frail appearing and + lethargic (But did wake up and respond to questions); no acute distress Eyes: PERRL, conjunctivae normal, anicteric sclerae ENMT: external ear and nose normal, oropharynx normal Ears: no hearing impairment, no external ear abnormality, no EAC abnormality and no TM abnormality Nose: no external nose abnormality, no turbinate abnormality, no nasal mucous membrane abnormality, no nasal discharge and no sinus tenderness Mouth: no lip abnormality and no oropharynx abnormality Neck: trachea midline, no thyromegaly Respiratory: normal respiratory effort and + cough Auscultation: + diminished lung sounds (With crackles at the bases bilaterally) and + crackles; no wheezes Cardiovascular: Rate/Rhythm: regular rate and regular rhythm Heart Sounds: + murmur (2/6 systolic at the RUSB) Extremities: + edema (1+ pitting edema with very thin skin throughout lower extremities, more significant edema in the medial thighs with erythema and tenderness) Gastrointestinal (Abdomen): normal bowel sounds, soft, nontender, no hepatosplenomegaly Musculoskeletal: Extremities: no cyanosis and no clubbing Skin: + erythema (Of the medial upper thighs right greater than left with tenderness as above, hot to the touch with weeping serous fluid) Neurologic: moves all extremities and awake; no focal motor deficits Psychiatric: Orientation: oriented to person, oriented to place, oriented to time and cooperative; + not alert (But does awake to verbal stimulus and answer questions appropriately) Eye Contact: + fair eye contact Results & Data Vital Signs (Past 12 Hours) Vital Signs Pulse Pulse Resp BP BP Pulse Ox 10/11/18 17:36 99 H 25 H 133/87 99 10/11/18 15:34 96 H 26 H 132/88 100 10/11/18 14:50 96 H 19 117/76 98 10/11/18 14:09 95 H 24 136/108 H 98 10/11/18 12:32 91 H 19 142/92 H 98 10/11/18 12:23 100 10/11/18 11:33 100 10/11/18 11:15 93 H 25 H 122/89 100 Laboratory Results 10/12/18 10/11/18 10/11/18 Range/Units 00:46 23:20 14:09 WBC (4.8-10.8) K/uL RBC (4.2-5.4) M/uL Hgb (12.0-16.0) g/dL Hct (37-47) % MCV (80-100) fL MCH (25-34) pg MCHC (32-36) g/dL RDW Std Deviation (36.4-46.3) fL RDW Coeff of Olga (11.5-14.5) % Plt Count (130-400) K/uL MPV (7.4-10.4) fL Immature Gran % (Auto) % Neut % (Auto) % Lymph % (Auto) % [place] % (Auto) % Eos % (Auto) % Baso % (Auto) % Immature Gran # (Auto) (0.00-0.02) K/uL Neut # (Auto) (1.4-6.5) K/uL Lymph # (Auto) (1.2-3.4) K/uL [place] # (Auto) (0.11-0.59) K/uL Eos # (Auto) (0-0.5) K/uL Baso # (Auto) (0-0.2) K/uL PT (9.0-12.0) Seconds INR (0.9-1.1) APTT (21.0-31.0) Seconds PTT Ratio VBG pH (7.36-7.41) VBG pCO2 (38-50) mmHg VBG pO2 mmHg VBG HCO3 mmol/L VBG O2 Saturation % VBG Base Excess mEq/L Barometric Pressure mm/Hg Sodium (136-145) mmol/L Potassium (3.5-5.1) mmol/L Chloride (98-107) mmol/L Carbon Dioxide (21-32) mmol/L Anion Gap (3-11) BUN (7-18) mg/dl Creatinine (0.6-1.2) mg/dl Est Cr Clr Drug Dosing ml/min Est GFR ( Amer) Est GFR (Non-Af Amer) BUN/Creatinine Ratio (10-20) Glucose (70-99) mg/dl Calcium (8.5-10.1) mg/dl Total Bilirubin (0.2-1) mg/dl AST (15-37) U/L ALT (12-78) U/L Alkaline Phosphatase (45-117) U/L Troponin I Pending (0-0.045) ng/ml Total Protein (6.4-8.2) gm/dl Albumin (3.4-5.0) gm/dl Globulin (2.5-4.0) gm/dl Albumin/Globulin Ratio (0.9-2) Urine Color Yellow Urine Appearance Cloudy A (Clear) Urine pH 5.0 (4.5-7.5) Ur Specific [place] 1.024 (1.000-1.030) Urine Protein 2+ H (Negative) Urine Glucose (UA) Negative (Negative) Urine Ketones Trace H (Negative) Urine Blood 1+ H (Negative) Urine Nitrite Positive A (Negative) Urine Bilirubin Negative (Negative) Urine Urobilinogen Negative (Negative) Ur Leukocyte Esterase 2+ H (Negative) Urine WBC (Auto) >30 H (0-5) /hpf Urine RBC (Auto) 10-30 H (0-4) /hpf U Hyaline Cast (Auto) 0 (0-5) /lpf U Epithel Cells (Auto) 0-5 (0-5) /lpf Urine Bacteria (Auto) 4+ H (Negative) Nasal Screen MRSA (PCR) Negative (Negative) Influenza Type A (PCR) (Neg) Influenza Type B (PCR) (Neg) 10/11/18 10/11/18 10/11/18 Range/Units 12:19 12:14 12:14 WBC (4.8-10.8) K/uL RBC (4.2-5.4) M/uL Hgb (12.0-16.0) g/dL Hct (37-47) % MCV (80-100) fL MCH (25-34) pg MCHC (32-36) g/dL RDW Std Deviation (36.4-46.3) fL RDW Coeff of Olga (11.5-14.5) % Plt Count (130-400) K/uL MPV (7.4-10.4) fL Immature Gran % (Auto) % Neut % (Auto) % Lymph % (Auto) % [place] % (Auto) % Eos % (Auto) % Baso % (Auto) % Immature Gran # (Auto) (0.00-0.02) K/uL Neut # (Auto) (1.4-6.5) K/uL Lymph # (Auto) (1.2-3.4) K/uL [place] # (Auto) (0.11-0.59) K/uL Eos # (Auto) (0-0.5) K/uL Baso # (Auto) (0-0.2) K/uL PT (9.0-12.0) Seconds INR (0.9-1.1) APTT (21.0-31.0) Seconds PTT Ratio VBG pH 7.39 (7.36-7.41) VBG pCO2 40 (38-50) mmHg VBG pO2 27 mmHg VBG HCO3 24 mmol/L VBG O2 Saturation < 60.0 % VBG Base Excess -1.3 mEq/L Barometric Pressure 734.8 mm/Hg Sodium 138 (136-145) mmol/L Potassium 4.6 (3.5-5.1) mmol/L Chloride 107 (98-107) mmol/L Carbon Dioxide 23 (21-32) mmol/L Anion Gap 8.0 (3-11) BUN 29 H (7-18) mg/dl Creatinine 0.88 (0.6-1.2) mg/dl Est Cr Clr Drug Dosing 35.0 ml/min Est GFR ( Amer) 68.5 Est GFR (Non-Af Amer) 59.1 BUN/Creatinine Ratio 33.0 H (10-20) Glucose 147 H (70-99) mg/dl Calcium 8.3 L (8.5-10.1) mg/dl Total Bilirubin 0.5 (0.2-1) mg/dl AST 9 L (15-37) U/L ALT 8 L (12-78) U/L Alkaline Phosphatase 103 (45-117) U/L Troponin I 0.053 H* (0-0.045) ng/ml Total Protein 5.8 L (6.4-8.2) gm/dl Albumin 2.7 L (3.4-5.0) gm/dl Globulin 3.1 (2.5-4.0) gm/dl Albumin/Globulin Ratio 0.9 (0.9-2) Urine Color Urine Appearance (Clear) Urine pH (4.5-7.5) Ur Specific [place] (1.000-1.030) Urine Protein (Negative) Urine Glucose (UA) (Negative) Urine Ketones (Negative) Urine Blood (Negative) Urine Nitrite (Negative) Urine Bilirubin (Negative) Urine Urobilinogen (Negative) Ur Leukocyte Esterase (Negative) Urine WBC (Auto) (0-5) /hpf Urine RBC (Auto) (0-4) /hpf U Hyaline Cast (Auto) (0-5) /lpf U Epithel Cells (Auto) (0-5) /lpf Urine Bacteria (Auto) (Negative) Nasal Screen MRSA (PCR) (Negative) Influenza Type A (PCR) Neg for Influ A (Neg) Influenza Type B (PCR) Neg for Influ B (Neg) 10/11/18 10/11/18 Range/Units 12:14 12:14 WBC 12.26 H (4.8-10.8) K/uL RBC 3.83 L (4.2-5.4) M/uL Hgb 11.5 L (12.0-16.0) g/dL Hct 35.3 L (37-47) % MCV 92.2 (80-100) fL MCH 30.0 (25-34) pg MCHC 32.6 (32-36) g/dL RDW Std Deviation 60.9 H (36.4-46.3) fL RDW Coeff of Olga 18.1 H (11.5-14.5) % Plt Count 297 (130-400) K/uL MPV 9.5 (7.4-10.4) fL Immature Gran % (Auto) 0.2 % Neut % (Auto) 88.8 % Lymph % (Auto) 4.7 % [place] % (Auto) 5.2 % Eos % (Auto) 1.0 % Baso % (Auto) 0.1 % Immature Gran # (Auto) 0.02 (0.00-0.02) K/uL Neut # (Auto) 10.89 H (1.4-6.5) K/uL Lymph # (Auto) 0.58 L (1.2-3.4) K/uL [place] # (Auto) 0.64 H (0.11-0.59) K/uL Eos # (Auto) 0.12 (0-0.5) K/uL Baso # (Auto) 0.01 (0-0.2) K/uL PT 13.3 H (9.0-12.0) Seconds INR 1.3 H (0.9-1.1) APTT 26.5 (21.0-31.0) Seconds PTT Ratio 1.0 VBG pH (7.36-7.41) VBG pCO2 (38-50) mmHg VBG pO2 mmHg VBG HCO3 mmol/L VBG O2 Saturation % VBG Base Excess mEq/L Barometric Pressure mm/Hg Sodium (136-145) mmol/L Potassium (3.5-5.1) mmol/L Chloride (98-107) mmol/L Carbon Dioxide (21-32) mmol/L Anion Gap (3-11) BUN (7-18) mg/dl Creatinine (0.6-1.2) mg/dl Est Cr Clr Drug Dosing ml/min Est GFR ( Amer) Est GFR (Non-Af Amer) BUN/Creatinine Ratio (10-20) Glucose (70-99) mg/dl Calcium (8.5-10.1) mg/dl Total Bilirubin (0.2-1) mg/dl AST (15-37) U/L ALT (12-78) U/L Alkaline Phosphatase (45-117) U/L Troponin I (0-0.045) ng/ml Total Protein (6.4-8.2) gm/dl Albumin (3.4-5.0) gm/dl Globulin (2.5-4.0) gm/dl Albumin/Globulin Ratio (0.9-2) Urine Color Urine Appearance (Clear) Urine pH (4.5-7.5) Ur Specific [place] (1.000-1.030) Urine Protein (Negative) Urine Glucose (UA) (Negative) Urine Ketones (Negative) Urine Blood (Negative) Urine Nitrite (Negative) Urine Bilirubin (Negative) Urine Urobilinogen (Negative) Ur Leukocyte Esterase (Negative) Urine WBC (Auto) (0-5) /hpf Urine RBC (Auto) (0-4) /hpf U Hyaline Cast (Auto) (0-5) /lpf U Epithel Cells (Auto) (0-5) /lpf Urine Bacteria (Auto) (Negative) Nasal Screen MRSA (PCR) (Negative) Influenza Type A (PCR) (Neg) Influenza Type B (PCR) (Neg) Diagnostic Findings CT angiogram chest: IMPRESSION: 1. Fibrin stranding with nonocclusive chronic segmental thrombus is noted about the right middle lobe. The previously noted bilateral occlusive thrombi seen on study from 09/23/2018 are no longer identified. No acute pulmonary embolus is seen on today's study. 2. Small bilateral pleural effusions with bibasilar consolidation. 3. Bilateral reticular opacities with areas of intralobular septal thickening may reflect pulmonary edema with atelectasis. 4. Cardiomegaly. 5. Unchanged left diaphragmatic hernia/defect which contains stomach and nonobstructed loops of bowel. Chest x-ray image personally reviewed by me and agree with the following report: XR chest 1V portable CLINICAL HISTORY: Dyspnea dyspnea COMPARISON STUDY: 09/23/2018 FINDINGS: Unchanged consolidative infiltrate left base. Stable cardiomegaly. Moderate chronic prominence of pulmonary vasculature. IMPRESSION: Unchanged consolidative infiltrate left base. Moderate stable cardiomegaly. Chronic pulmonary vascular congestion. ECG Rhythm: junctional Findings: + LBBB Code Status & VTE Plan Code Status DNR/DNI VTE Prophylaxis Plan VTE Prophylaxis will be ordered: Yes (1) UTI (urinary tract infection) Hematuria presence: without hematuria Urinary tract infection type: acute cystitis Qualified Code(s): N30.00 - Acute cystitis without hematuria (2) Atrial fibrillation Atrial fibrillation type: unspecified Qualified Code(s): I48.91 - Unspecified atrial fibrillation (3) Pulmonary embolism Acute cor pulmonale presence: without acute cor pulmonale Chronicity: unspecified Pulmonary embolism type: unspecified Qualified Code(s): I26.99 - Other pulmonary embolism without acute cor pulmonale
--- NOTE | 2018-10-11 17:59 | Emergency Department Note ---
Entered by Nany Chaparro acting as a scribe for History of Present Illness General Chief complaint: Lethargic Stated complaint: lethargic Time Seen by Provider: 10/11/18 11:27 Source: patient and family (daugther) History of Present Illness Onset (ago): hour(s) (this morning) Location: chest Pain Consistency: + other (persistent) Maximum Pain Intensity: 0 Quality: + other (shortness of breath) Associated symptoms: + denies other symptoms (headache, shortness of breath, chest pain, abdominal pain, nausea, vomiting, diarrhea, or new pain in her bilateral legs), + confusion, + nausea/vomiting (nausea) and + other (lethargy, dry cough) The patient is a 87 year old female that is presenting to the Emergency Room with complaints of persistent lethargy and difficulties breathing that started this morning. The patients daughter reports that the patient was having trouble breathing this morning even after trying deep breathing exercises as suggested by her physical therapist. Her daughter notes that the patient stated that she felt like she was going to vomit shortly after completing the exercises. The patients daughter reports that the patient has an associated dry cough. Her daughter reports that the patient was well last night before going to bed around 1999. Upon arrival of EMS she was found to have a pulse ox in the 70s and was nearly obtunded. The patient has a history of blood clots in her bilateral lungs. She denies any headache, shortness of breath, chest pain, abdominal pain, nausea, vomiting, diarrhea, or new pain in her bilateral legs. She notes that she does not wear oxygen at baseline. The patient is unsure what the year or month is. She denies any history of asthma or COPD. She notes that she has poor circulation in her legs at baseline. She reports that she wears a Fentanyl patch at baseline. She notes that she takes Lovenox and aspirin. Home Medications Home Medications Medication Instructions Recorded Confirmed Type Lucentis 1 dose INTRAVITREAL DIRECTED 06/01/18 10/11/18 History Multi-Day Plus Minerals 1 tab PO BID 06/01/18 10/11/18 History PreserVision Lutein 1 cap PO BID 06/01/18 10/11/18 History Restasis 1 drp OPB Q12H 06/01/18 10/11/18 History albuterol sulfate 2.5 mg INHALATION Q6H PRN 06/01/18 10/11/18 History aspirin 81 mg PO DAILY 06/01/18 10/11/18 History carbidopa-levodopa 1 tab PO QID 06/01/18 10/11/18 History cholecalciferol (vitamin D3) 5,000 units PO QAM 06/01/18 10/11/18 History [Vitamin D3] fentanyl 1 patch TRANSDERMAL [id number] 06/01/18 10/11/18 History gabapentin 600 mg PO TID 06/01/18 10/11/18 History hydrocodone-acetaminophen [Plains] 1 tab PO BID PRN 06/01/18 10/11/18 History prednisone 1 mg PO TID 06/01/18 10/11/18 History atorvastatin 10 mg PO QPM 08/12/18 10/11/18 History carvedilol 18.75 mg PO BID 09/03/18 10/11/18 History losartan [Cozaar] 100 mg PO DAILY 09/20/18 10/11/18 History enoxaparin 50 mg SUBCUT Q24H 30 Days #15 ml 09/28/18 10/11/18 Rx Allergies Allergy/AdvReac Type Severity Reaction Status Date / Time clindamycin Allergy Severe COLITIS Verified 10/11/18 11:37 cephalexin Allergy Intermediate Diarrhea Verified 10/11/18 11:37 omeprazole Allergy Unknown Unknown Verified 10/11/18 11:37 adhesive AdvReac Intermediate RASH Verified 10/11/18 11:37 oxaprozin AdvReac Intermediate HEADACHE Verified 10/11/18 11:37 Quinolones AdvReac Mild diarrhea Verified 10/11/18 11:37 hydrochlorothiazide AdvReac Unknown PT HX Verified 10/11/18 11:37 KIDNEY DYSFUNCTION ibuprofen AdvReac Unknown PT HX Verified 10/11/18 11:37 KIDNEY DYSFUNCTION lisinopril AdvReac Unknown GI Verified 10/11/18 11:37 SYMPTOMS,RENAL DYSFUNCTION Past Med/Surg History Medical History Peripheral artery disease (Chronic 06/30/13) Chronic kidney disease (CKD) stage G3a/A1, moderately decreased glomerular filtration rate (GFR) between 45-59 mL/min/1.73 square meter and albuminuria creatinine ratio less than 30 mg/g (Chronic) Diastolic congestive heart failure (Chronic) Hyperlipemia (Chronic) Hypertension (Chronic) Temporal arteritis (Chronic) Osteoarthritis (Chronic) Nephrolithiasis (Chronic) Kidney cyst, acquired (Chronic) MRSA (methicillin resistant Staphylococcus aureus) infection New onset left bundle branch block (LBBB) (Chronic) UTI (urinary tract infection) (Acute) Chronic combined systolic and diastolic heart failure LBBB (left bundle branch block) Surgical History History of back surgery History of cervical spinal surgery History of femoropopliteal bypass On the left History of tonsillectomy History of total knee arthroplasty History of total left hip arthroplasty Family History Other No pertinent family history Social History Preferred Language: Kazakh Communication Ability: Impaired Beliefs That Will Affect Care: None marital status: / Current Living Situation: Family Current Living Situation Comment: lives with daughter current occupational status: retired Feels Safe at Home: Yes Smoking Status: Never smoker Second Hand Exposure: No Hx Alcohol Use: No Hx Substance Use: No Review of Systems See HPI for pertinent positives & negatives. and A total of 10 systems reviewed and were otherwise negative Physical Exam Vital Signs Vital Signs - 24 hr 10/11/18 11:15 10/11/18 11:33 10/11/18 12:23 Sepsis Recent Fever Within 48 Hours No Sepsis New/Unexplained Change in Mental Status No Sepsis Action Taken by Nursing No Action Required Pulse Rate 93 H Pulse Rate [Left Finger] Respiratory Rate 25 H Respiratory Effort / Characteristics Non-Labored Respiratory Depth Normal Respiratory Pattern Regular Blood Pressure 122/89 Blood Pressure [Left Arm] Blood Pressure Mean 100 Blood Pressure Mean [Left Arm] Pulse Oximetry 100 100 100 Oxygen Delivery Method Nasal Cannula Nasal Cannula Nasal Cannula Oxygen Flow Rate 4 4 4 10/11/18 12:32 10/11/18 14:09 10/11/18 14:50 Sepsis Recent Fever Within 48 Hours Sepsis New/Unexplained Change in Mental Status Sepsis Action Taken by Nursing Pulse Rate Pulse Rate [Left Finger] 91 H 95 H 96 H Respiratory Rate 19 24 19 Respiratory Effort / Characteristics Non-Labored Non-Labored Non-Labored Respiratory Depth Normal Normal Normal Respiratory Pattern Regular Regular Regular Blood Pressure Blood Pressure [Left Arm] 142/92 H 136/108 H 117/76 Blood Pressure Mean Blood Pressure Mean [Left Arm] 108 117 89 Pulse Oximetry 98 98 98 Oxygen Delivery Method Nasal Cannula Nasal Cannula Nasal Cannula Oxygen Flow Rate 4 4 4 10/11/18 15:34 10/11/18 17:36 Sepsis Recent Fever Within 48 Hours Sepsis New/Unexplained Change in Mental Status Sepsis Action Taken by Nursing Pulse Rate Pulse Rate [Left Finger] 96 H 99 H Respiratory Rate 26 H 25 H Respiratory Effort / Characteristics Non-Labored Non-Labored Respiratory Depth Normal Normal Respiratory Pattern Regular Regular Blood Pressure Blood Pressure [Left Arm] 132/88 133/87 Blood Pressure Mean Blood Pressure Mean [Left Arm] 102 102 Pulse Oximetry 100 99 Oxygen Delivery Method Nasal Cannula Nasal Cannula Oxygen Flow Rate 4 4 GENERAL: Sitting up in bed, slightly ill-appearing, disheveled with diffuse bruising, well nourished, no distress, non-toxic, nasal cannula present. EYE EXAM: normal conjunctiva, PERRL and EOM's grossly intact OROPHARYNX: no exudate, no erythema, lips, buccal mucosa, and tongue normal and mucous membranes are moist NECK: supple, no nuchal rigidity, no adenopathy, non-tender LUNGS: Diminished at bilateral bases. Normal chest wall mechanics HEART: no murmurs, S1 normal and S2 normal ABDOMEN: abdomen soft, non-tender, normo-active bowel sounds, no masses, no rebound or guarding. BACK: Back is symmetrical on inspection and there is no deformity, no midline tenderness, no CVA tenderness. SKIN: no rashes and no bruising UPPER EXTREMITIES: upper extremities are grossly normal. LOWER EXTREMITIES: No pitting edema. Bruising in bilateral lower extremities with lees/blue coloration. Erythema in bilateral upper thighs that is worse on the right side. NEURO EXAM: Awake, alert, following commands, not oriented to month or year. Course ED COURSE: Vital signs were reviewed and showed hypertension and tachycardia. The patients medical record was reviewed The above diagnostic studies were performed and reviewed. ED treatments and interventions as stated above. 1129: The patient was evaluated in room C12. A complete history and physical examination was performed. 1440: I discussed the patient's case with Dr. Moreira [facility], who will evaluate the patient for further management and care. 1445: Upon reevaluation, the patient is resting comfortably. I discussed my findings with the patient and she understands and agrees with the treatment plan. Based on the patients age, coexisting illnesses, exam and lab findings the decision to treat as an inpatient was made. The patient remained stable while under my care. The patient will be evaluated for further management. Consultations Consultation #1: I discussed the patient's case with Dr. Moreira [facility], who will evaluate the patient for further management and care. Time: 14:40 Administered Medications Ioversol (Optiray 320 125ml) 120 ml IV ONCE PRN PRN Reason: Interaction Checking Stop: 10/15/18 14:23 Last Admin: 10/11/18 14:24 Dose: 120 ml Documented by: [id number] Discontinued Medications Furosemide (Lasix) 40 mg IV NOW STA Stop: 10/11/18 14:46 Last Admin: 10/11/18 15:58 Dose: 40 mg Documented by: [id number] Sodium Chloride (Nss) 500 mls @ 999 mls/hr IV .Q31M JCARLOS Stop: 10/11/18 12:15 Last Infusion: 10/11/18 13:01 Dose: 0 mls/hr Documented by: [id number] Admin: 10/11/18 12:26 Dose: 999 mls/hr Documented by: [id number] Ampicillin Sodium/Sulbactam Sodium 1,500 mg/ Sodium Chloride 104 mls @ 200 mls/hr IV NOW STA; Protocol Stop: 10/11/18 14:36 Last Infusion: 10/11/18 15:35 Dose: 0 mls/hr Documented by: [id number] Admin: 10/11/18 14:50 Dose: 200 mls/hr Documented by: [id number] Medical Decision Making Differential Diagnosis Differential diagnosis includes etiologies such as sepsis, UTI, pneumonia, metabolic, electrolyte abnormalities, cardiac sources, intracerebral event, toxicologic, neurologic, as well as others were entertained. Medical Records Attestation: I reviewed the patient's medical records. Home Medications Current Medication List: was personally reviewed by me Laboratory Data Attestation: I reviewed the patient's lab results. Result diagrams: 10/11/18 12:14 10/11/18 12:14 Lab Results 10/11/18 10/11/18 10/11/18 Range/Units 12:14 12:14 12:14 WBC 12.26 H (4.8-10.8) K/uL RBC 3.83 L (4.2-5.4) M/uL Hgb 11.5 L (12.0-16.0) g/dL Hct 35.3 L (37-47) % MCV 92.2 (80-100) fL MCH 30.0 (25-34) pg MCHC 32.6 (32-36) g/dL RDW Std Deviation 60.9 H (36.4-46.3) fL RDW Coeff of Olga 18.1 H (11.5-14.5) % Plt Count 297 (130-400) K/uL MPV 9.5 (7.4-10.4) fL Immature Gran % (Auto) 0.2 % Neut % (Auto) 88.8 % Lymph % (Auto) 4.7 % [place] % (Auto) 5.2 % Eos % (Auto) 1.0 % Baso % (Auto) 0.1 % Immature Gran # (Auto) 0.02 (0.00-0.02) K/uL Neut # (Auto) 10.89 H (1.4-6.5) K/uL Lymph # (Auto) 0.58 L (1.2-3.4) K/uL [place] # (Auto) 0.64 H (0.11-0.59) K/uL Eos # (Auto) 0.12 (0-0.5) K/uL Baso # (Auto) 0.01 (0-0.2) K/uL PT 13.3 H (9.0-12.0) Seconds INR 1.3 H (0.9-1.1) APTT 26.5 (21.0-31.0) Seconds PTT Ratio 1.0 VBG pH (7.36-7.41) VBG pCO2 (38-50) mmHg VBG pO2 mmHg VBG HCO3 mmol/L VBG O2 Saturation % VBG Base Excess mEq/L Barometric Pressure mm/Hg Sodium 138 (136-145) mmol/L Potassium 4.6 (3.5-5.1) mmol/L Chloride 107 (98-107) mmol/L Carbon Dioxide 23 (21-32) mmol/L Anion Gap 8.0 (3-11) BUN 29 H (7-18) mg/dl Creatinine 0.88 (0.6-1.2) mg/dl Est Cr Clr Drug Dosing 35.0 ml/min Est GFR ( Amer) 68.5 Est GFR (Non-Af Amer) 59.1 BUN/Creatinine Ratio 33.0 H (10-20) Glucose 147 H (70-99) mg/dl Calcium 8.3 L (8.5-10.1) mg/dl Total Bilirubin 0.5 (0.2-1) mg/dl AST 9 L (15-37) U/L ALT 8 L (12-78) U/L Alkaline Phosphatase 103 (45-117) U/L Troponin I 0.053 H* (0-0.045) ng/ml Total Protein 5.8 L (6.4-8.2) gm/dl Albumin 2.7 L (3.4-5.0) gm/dl Globulin 3.1 (2.5-4.0) gm/dl Albumin/Globulin Ratio 0.9 (0.9-2) Urine Color Urine Appearance (Clear) Urine pH (4.5-7.5) Ur Specific Cantril (1.000-1.030) Urine Protein (Negative) Urine Glucose (UA) (Negative) Urine Ketones (Negative) Urine Blood (Negative) Urine Nitrite (Negative) Urine Bilirubin (Negative) Urine Urobilinogen (Negative) Ur Leukocyte Esterase (Negative) Urine WBC (Auto) (0-5) /hpf Urine RBC (Auto) (0-4) /hpf U Hyaline Cast (Auto) (0-5) /lpf U Epithel Cells (Auto) (0-5) /lpf Urine Bacteria (Auto) (Negative) Influenza Type A (PCR) (Neg) Influenza Type B (PCR) (Neg) 10/11/18 10/11/18 10/11/18 Range/Units 12:14 12:19 14:09 WBC (4.8-10.8) K/uL RBC (4.2-5.4) M/uL Hgb (12.0-16.0) g/dL Hct (37-47) % MCV (80-100) fL MCH (25-34) pg MCHC (32-36) g/dL RDW Std Deviation (36.4-46.3) fL RDW Coeff of Olga (11.5-14.5) % Plt Count (130-400) K/uL MPV (7.4-10.4) fL Immature Gran % (Auto) % Neut % (Auto) % Lymph % (Auto) % [place] % (Auto) % Eos % (Auto) % Baso % (Auto) % Immature Gran # (Auto) (0.00-0.02) K/uL Neut # (Auto) (1.4-6.5) K/uL Lymph # (Auto) (1.2-3.4) K/uL [place] # (Auto) (0.11-0.59) K/uL Eos # (Auto) (0-0.5) K/uL Baso # (Auto) (0-0.2) K/uL PT (9.0-12.0) Seconds INR (0.9-1.1) APTT (21.0-31.0) Seconds PTT Ratio VBG pH 7.39 (7.36-7.41) VBG pCO2 40 (38-50) mmHg VBG pO2 27 mmHg VBG HCO3 24 mmol/L VBG O2 Saturation < 60.0 % VBG Base Excess -1.3 mEq/L Barometric Pressure 734.8 mm/Hg Sodium (136-145) mmol/L Potassium (3.5-5.1) mmol/L Chloride (98-107) mmol/L Carbon Dioxide (21-32) mmol/L Anion Gap (3-11) BUN (7-18) mg/dl Creatinine (0.6-1.2) mg/dl Est Cr Clr Drug Dosing ml/min Est GFR ( Amer) Est GFR (Non-Af Amer) BUN/Creatinine Ratio (10-20) Glucose (70-99) mg/dl Calcium (8.5-10.1) mg/dl Total Bilirubin (0.2-1) mg/dl AST (15-37) U/L ALT (12-78) U/L Alkaline Phosphatase (45-117) U/L Troponin I (0-0.045) ng/ml Total Protein (6.4-8.2) gm/dl Albumin (3.4-5.0) gm/dl Globulin (2.5-4.0) gm/dl Albumin/Globulin Ratio (0.9-2) Urine Color Yellow Urine Appearance Cloudy A (Clear) Urine pH 5.0 (4.5-7.5) Ur Specific [place] 1.024 (1.000-1.030) Urine Protein 2+ H (Negative) Urine Glucose (UA) Negative (Negative) Urine Ketones Trace H (Negative) Urine Blood 1+ H (Negative) Urine Nitrite Positive A (Negative) Urine Bilirubin Negative (Negative) Urine Urobilinogen Negative (Negative) Ur Leukocyte Esterase 2+ H (Negative) Urine WBC (Auto) >30 H (0-5) /hpf Urine RBC (Auto) 10-30 H (0-4) /hpf U Hyaline Cast (Auto) 0 (0-5) /lpf U Epithel Cells (Auto) 0-5 (0-5) /lpf Urine Bacteria (Auto) 4+ H (Negative) Influenza Type A (PCR) Neg for Influ A (Neg) Influenza Type B (PCR) Neg for Influ B (Neg) Imaging Data Radiologist's Impression: Radiology results as stated below per my review and the radiologist's interpretation: XR chest 1V portable CLINICAL HISTORY: Dyspnea dyspnea COMPARISON STUDY: 09/23/2018 FINDINGS: Unchanged consolidative infiltrate left base. Stable cardiomegaly. Moderate chronic prominence of pulmonary vasculature. IMPRESSION: Unchanged consolidative infiltrate left base. Moderate stable cardiomegaly. Chronic pulmonary vascular congestion. The above report was generated using voice recognition software. It may contain grammatical, syntax or spelling errors. Electronically signed by: Frank Colin M.D. 10/11/2018 11:[address] angio chest PE protocol CT DOSE: 452.79 mGycm HISTORY: 87 years-old Female with sob, recent PEs. Acute shortness of breath with recent diagnosis of pulmonary embolus TECHNIQUE: Multiple CTA images of the chest were obtained after the intravenous administration of 120 ml Optiray 320. Coronal and sagittal MIPS were obtained from the axial data set and were submitted for review. All measurements were obtained according to NASCET criteria. A dose lowering technique was utilized adhering to the principles of ALARA. COMPARISON: Chest radiograph of same day, CTA chest 09/23/2018. FINDINGS: CTA: Moderate multichamber cardiac enlargement. No pericardial effusion. The left heart structures are not well opacified secondary to contrast bolus timing. Coronary arterial calcifications are noted. Calcifications of the aortic annulus are also noted with advanced calcified plaque of the thoracic aortic arch and proximal great vessels. Tortuosity of the descending thoracic aorta. Reflux of contrast into the IVC and hepatic veins. The pulmonary arterial tree is opacified to the level of the proximal subsegmental branches. No central pulmonary emboli identified. Fibrin stranding/nonocclusive filling defects noted about a segmental branch of the right middle lobe, image 127 series 4 which has decreased in size from comparison. The previously noted occlusive thrombi about the left lung are not definitively seen. CT CHEST: No large thyroid nodule. No adenopathy by CT size criteria. Small bilateral pleural effusions with mild bibasilar consolidation. Bilateral reticular opacities with areas of intralobular septal thickening. Lungs are hypoinflated. Chronic left diaphragmatic defect/hernia. Rightward deviation of the proximal thoracic trachea. Suggested cysts of the liver noted with hepatic calcifications. Trace ascites of the left upper quadrant abdomen. Mild generalized body wall edema. Demineralized appearance of the bones with degenerative changes of the shoulders and spine. No acute fracture identified. IMPRESSION: 1. Fibrin stranding with nonocclusive chronic segmental thrombus is noted about the right middle lobe. The previously noted bilateral occlusive thrombi seen on study from 09/23/2018 are no longer identified. No acute pulmonary embolus is seen on today's study. 2. Small bilateral pleural effusions with bibasilar consolidation. 3. Bilateral reticular opacities with areas of intralobular septal thickening may reflect pulmonary edema with atelectasis. 4. Cardiomegaly. 5. Unchanged left diaphragmatic hernia/defect which contains stomach and nonobstructed loops of bowel. The above report was generated using voice recognition software. It may contain grammatical, syntax or spelling errors. Electronically signed by: Lazaro Jewell M.D. 10/11/2018 2:40 PM ECG Data Attestation: I personally reviewed and interpreted this ECG as follows: Indication: weakness Rate (beats per minute): 93 Rhythm: sinus rhythm Findings: + 1st degree AV block, + LBBB, + ST depression (Lateral), + T-wave inversion (Lateral) and + left axis deviation Comparison ECG Date: from (09/23/18) Change: no significant change Blood Pressure Blood Pressure Findings: Elevated blood pressure Blood Pressure Disposition: Referred to patients primary care provider ODILON Flores Patient is an 87-year-old female who presents the ER for lethargy. Upon presentation to EMS she was found to be nearly obtunded. Pulse ox was in the 70s. She is placed on 5 L nasal cannula and transported in. Labs were obtained and vitals were remarkable for hypoxia and she was titrated down to 4 L nasal cannula. Show a mild leukocytosis of 12.2 thousand. Mild anemia at 11.5 thousand. INR was unremarkable at 1.3. VBG was unremarkable as well. BMP shows a glucose of 147. No significant transaminitis. Troponin was detectable at 0.053 consistent with previous admission. UA eventually resulted and had nitrates whites and leukocytes. Upon review of her previous cultures she did have ESBL's. Was treated for 3 days worth of antibiotics as she was asymptomatic at that time. She has been taking her Lovenox. Due to the market hypoxia and her Lovenox dosing being at 1 make per cake when it should normally be at 1.[address] PE patient[address] PE showed resolution of the PEs. Did show some mild CHF. Patient was updated at bedside. Patient was given a dose of Lovenox. She was given a dose of Ancef as well for possible UTI and cellulitis in the lower extremities. Patient and family members were updated bedside and patient was admitted for further work-up of her hypoxia, lower extremities michelle lulitis, edema and UTI. Of note I did remove the fentanyl patch as patient was fairly lethargic and fell asleep quickly upon presentation. Impression & Plan Hypoxia, CHF (congestive heart failure), Lethargy, Altered mental status Critical Care Time I have personally spent 35 minutes of critical care time in the direct management of this patient. This includes bedside care, interpretation of diagnostic studies, and testing, discussion with consultants, patient, and family members, and other required patient management activities. This 35 minutes is in excess of all separately billable procedures. Critical Care Time: Yes Total Critical Care Time: 35 Discharge Plan Visit Data Chief Complaint: Lethargic Stated Complaint: lethargic ED Provider: Ganga Cason Discharge Problem: Hypoxia, CHF (congestive heart failure), Lethargy, Altered mental status Patient Disposition: Being Evaluated by Hospitalist Forms Stand Alone Forms: My [facility] Prescriptions Prescriptions: No Action gabapentin 600 mg Tablet 600 mg PO TID RF: 0 albuterol sulfate 2.5 mg /3 mL (0.083 %) Solution For Nebulization 2.5 mg INHALATION Q6H PRN (Reason: Shortness Of Breath Or Wheezing) RF: 0 hydrocodone-acetaminophen [Plains] 10-325 mg Tablet 1 tab PO BID PRN (Reason: Pain) RF: 0 aspirin 81 mg Tablet,Delayed Release (Dr/Ec) 81 mg PO DAILY RF: 0 prednisone 1 mg Tablet 1 mg PO TID RF: 0 fentanyl 25 mcg/hr Patch 72 Hour 1 patch TRANSDERMAL [id number] RF: 0 carbidopa-levodopa 25-100 mg Tablet 1 tab PO QID RF: 0 Restasis 0.05 % Dropperette 1 drp OPB Q12H RF: 0 PreserVision Lutein 226 mg-200 unit -5 mg-0.8 mg Capsule 1 cap PO BID RF: 0 cholecalciferol (vitamin D3) [Vitamin D3] 5,000 unit Tablet 5,000 units PO QAM RF: 0 Lucentis 0.3 mg/0.05 mL Solution 1 dose Intravitreal DIRECTED RF: 0 Multi-Day Plus Minerals 18 mg iron-400 mcg-25 mcg Tablet 1 tab PO BID RF: 0 atorvastatin 20 mg tablet 10 mg PO QPM RF: 0 carvedilol 12.5 mg tablet 18.75 mg PO BID RF: 0 losartan [Cozaar] 100 mg tablet 100 mg PO DAILY RF: 0 enoxaparin 60 mg/0.6 mL Syringe 50 mg subcut Q24H 30 Days Qty: 15 RF: 0 Referrals Referrals: Zackary Avila MD [Primary Care Provider] - Discharge Problem: CHF (congestive heart failure) Qualifiers: Heart failure type: unspecified Heart failure chronicity: unspecified Qualified Code(s): I50.9 - Heart failure, unspecified Altered mental status Qualifiers: Altered mental status type: unspecified Qualified Code(s): R41.82 - Altered mental status, unspecified The scribe's documentation has been prepared under my direction and personally reviewed by me in its entirety. I confirm that the note above accurately reflects all work, treatment, procedures, and medical decision making performed by me.
[2018-10-11] MEDS ORDERED: VANCOMYCIN HCL 1,000 MG in SODIUM CHLORIDE 0.9% 250 ML IV SCH (18:00)
[2018-10-11] MEDS ORDERED: ALBUTEROL 0.083% NEBU SOLN 3 ML VIAL INH PRN (19:49)
[2018-10-11] MEDS: ERTAPENEM SODIUM 1,000 MG in SODIUM CHLORIDE 0.9% 50 ML IV SCH (20:49)
[2018-10-11] MEDS ORDERED: VANCOMYCIN HCL 1,250 MG in SODIUM CHLORIDE 0.9% 250 ML IV ONE (21:00)
[2018-10-11] MEDS ORDERED: fentaNYL 25 MCG/HR TDSY TD SCH (21:00)
--- NOTE | 2018-10-11 21:26 | Pharmacy Report ---
Pharmacy Abx Dose Short Note - Date of Service October 11, 2018 - Assessment & Plan Assessment 87 year old F ordered empiric vancomycin and ertapenem for health care associated pneumonia, cellulitis, and ?UTI * recent admission 09/23-09/28 * h/o K. pneumoniae ESBL and jaffe sensitive Pseudomonas in urine, h/o MRSA skin infection Plan Vancomycin * 1250 mg (24 mg/kg) IV x 1, then 750 mg (14.4 mg/kg) IV q24 hours * Goal trough level for pnx/cellulitis : 15 to 20 mcg/mL * Trough level will be ordered with ongoing therapy Pharmacy will continue to follow and will adjust dose/frequency as necessary. Thank you.
[2018-10-11] MEDS: HYDROCORTISONE SOD 50 MG in SYRINGE 0 ML IV SCH (21:31)
[2018-10-11] MEDS: CARVEDILOL 12.5 MG TAB PO SCH ×2 (21:38→22:08)
[2018-10-11] MEDS: CARBIDOPA/LEVODOPA 25/100MG TAB PO SCH ×2 (21:42→22:10)
[2018-10-11] MEDS: ATORVASTATIN 10 MG TAB PO SCH (22:09)
[2018-10-11] MEDS: GABAPENTIN 600 MG TAB PO SCH (22:10)
[2018-10-12] MEDS: HYDROCORTISONE SOD 50 MG in SYRINGE 0 ML IV SCH ×2 (05:19→15:40)
[2018-10-12 06:45] LABS: Creatinine Clr Calc Pharmacy 38.5 ml/min; Est GFR (African American) 84.4; Est GFR (Non-African American) 72.8
[2018-10-12] MEDS: CHOLECALCIFEROL 1,000 UNITS TAB PO SCH (09:03)
[2018-10-12] MEDS: ASPIRIN 81 MG ECTAB PO SCH (09:04)
[2018-10-12] MEDS: CARBIDOPA/LEVODOPA 25/100MG TAB PO SCH ×4 (09:04→20:09)
[2018-10-12] MEDS: CARVEDILOL 12.5 MG TAB PO SCH ×2 (09:05→20:09)
[2018-10-12] MEDS: LOSARTAN POTASSIUM 50 MG TAB PO SCH (09:06)
[2018-10-12] MEDS: GABAPENTIN 600 MG TAB PO SCH ×3 (09:06→20:10)
[2018-10-12 10:12] LABS: Basophils # (auto) 0.01 K/uL (0-0.2); Basophils % (auto) 0.1 %; Eosinophils # (auto) 0.01 K/uL (0-0.5); Eosinophils % (auto) 0.1 %; Hematocrit (blood only) 33.8 % (37-47); Hemoglobin 10.9 g/dL (12.0-16.0); Immature Granulocytes # (auto) 0.03 K/uL (0.00-0.02); Immature Granulocytes % (auto) 0.3 %; Lymphocytes # (auto) 0.47 K/uL (1.2-3.4); Lymphocytes % (auto) 4.5 %; Mean Corpuscular Hgb Conc 32.2 g/dL (32-36); Mean Corpuscular Volume 91.8 fL (80-100); Mean Platelet Volume 9.2 fL (7.4-10.4); Monocytes # (auto) 0.25 K/uL (0.11-0.59); Monocytes % (auto) 2.4 %; Neutrophils # (auto) 9.57 K/uL (1.4-6.5); Neutrophils % (auto) 92.6 %; Platelet Count 263 K/uL (130-400); RDW Coefficient of Variation 17.9 % (11.5-14.5); RDW Standard Deviation 60.3 fL (36.4-46.3); Red Blood Count 3.68 M/uL (4.2-5.4); White Blood Count 10.34 K/uL (4.8-10.8)
--- NOTE | 2018-10-12 10:20 | Infectious Disease Consult ---
Date of Consultation October 12, 2018 Assessment & Plan (1) UTI (urinary tract infection): no clear evidence on cta. suspect changes are chronic related to previous PE. continue abx pending blood and urine cutlures. History of Present Illness Attending Physician: Catia Aiken MD pt admitted with suspected pna. 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 CTA showed old RML PE, no new PE, atelectasis, small effusions. Afebrile since admission. Placed on Ertapenem and Vanco in ER, remains on this and is tolerating well. wbc 12, creat 0.8, blood and urine cultures pending. no cough on my exam, breathing comfortable on NC. no cp, sob, wheeze. weak. UA >30 wbc with +4 bacteria, recent + urine cutlure with ESBL+ K. pneumo, treated with abx, hewitt in place, clear urine. Denies abd pain, no n/v/d. Allergies Allergy/AdvReac Type Severity Reaction Status Date / Time clindamycin Allergy Severe COLITIS Verified 10/11/18 11:37 cephalexin Allergy Intermediate Diarrhea Verified 10/11/18 11:37 omeprazole Allergy Unknown Unknown Verified 10/11/18 11:37 adhesive AdvReac Intermediate RASH Verified 10/11/18 11:37 oxaprozin AdvReac Intermediate HEADACHE Verified 10/11/18 11:37 Quinolones AdvReac Mild diarrhea Verified 10/11/18 11:37 hydrochlorothiazide AdvReac Unknown PT HX Verified 10/11/18 11:37 KIDNEY DYSFUNCTION ibuprofen AdvReac Unknown PT HX Verified 10/11/18 11:37 KIDNEY DYSFUNCTION lisinopril AdvReac Unknown GI Verified 10/11/18 11:37 SYMPTOMS,RENAL DYSFUNCTION Home Medications Home Medications Medication Instructions Recorded Confirmed Type Lucentis 1 dose INTRAVITREAL DIRECTED 06/01/18 10/11/18 History Multi-Day Plus Minerals 1 tab PO BID 06/01/18 10/11/18 History PreserVision Lutein 1 cap PO BID 06/01/18 10/11/18 History Restasis 1 drp OPB Q12H 06/01/18 10/11/18 History albuterol sulfate 2.5 mg INHALATION Q6H PRN 06/01/18 10/11/18 History aspirin 81 mg PO DAILY 06/01/18 10/11/18 History carbidopa-levodopa 1 tab PO QID 06/01/18 10/11/18 History cholecalciferol (vitamin D3) 5,000 units PO QAM 06/01/18 10/11/18 History [Vitamin D3] fentanyl 1 patch TRANSDERMAL [id number] 06/01/18 10/11/18 History gabapentin 600 mg PO TID 06/01/18 10/11/18 History hydrocodone-acetaminophen [[place]] 1 tab PO BID PRN 06/01/18 10/11/18 History prednisone 1 mg PO TID 06/01/18 10/11/18 History atorvastatin 10 mg PO QPM 08/12/18 10/11/18 History carvedilol 18.75 mg PO BID 09/03/18 10/11/18 History losartan [Cozaar] 100 mg PO DAILY 09/20/18 10/11/18 History enoxaparin 50 mg SUBCUT Q24H 30 Days #15 ml 09/28/18 10/11/18 Rx Patient History Medical History Peripheral artery disease (Chronic 06/30/13) Chronic kidney disease (CKD) stage G3a/A1, moderately decreased glomerular filtration rate (GFR) between 45-59 mL/min/1.73 square meter and albuminuria creatinine ratio less than 30 mg/g (Chronic) Diastolic congestive heart failure (Chronic) Hyperlipemia (Chronic) Hypertension (Chronic) Temporal arteritis (Chronic) Osteoarthritis (Chronic) Nephrolithiasis (Chronic) Kidney cyst, acquired (Chronic) MRSA (methicillin resistant Staphylococcus aureus) infection New onset left bundle branch block (LBBB) (Chronic) UTI (urinary tract infection) (Acute) Chronic combined systolic and diastolic heart failure LBBB (left bundle branch block) Surgical History History of back surgery History of cervical spinal surgery History of femoropopliteal bypass On the left History of tonsillectomy History of total knee arthroplasty History of total left hip arthroplasty Family History Other No pertinent family history Social History Preferred Language: Moroccan Communication Ability: Impaired Beliefs That Will Affect Care: None marital status: / Current Living Situation: Family Current Living Situation Comment: lives with daughter current occupational status: retired Other Information That Helps Us Care for You: No Feels Safe at Home: Yes Safety Concerns: Feels Safe At This Time Smoking Status: Never smoker Second Hand Exposure: No Hx Alcohol Use: No Hx Substance Use: No Review of Systems Review of Systems: All systems reviewed & are unremarkable except as noted in HPI & below Physical Exam Constitutional: WD/WN, vitals as above Eyes: PERRL, conjunctivae normal, anicteric sclerae ENMT: external ear and nose normal, oropharynx normal Neck: normal visual inspection Respiratory: normal respiratory effort, lungs clear to auscultation Auscultation: + diminished lung sounds Cardiovascular: RRR, no murmur, no edema Gastrointestinal (Abdomen): normal bowel sounds, soft, nontender, no hepatosplenomegaly Inspection/Auscultation: + abdomen distended Percussion/Palpation: abdomen soft; abdomen nontender and no guarding Musculoskeletal: no cyanosis or clubbing, extremities motor strength 5/5 Skin: Trauma: + evidence of skin trauma multiple bruises. Psychiatric: A+Ox3, euthymic affect Results & Data Vital Signs (Past 12 Hours) Vital Signs Temp Pulse Pulse Resp BP Pulse Ox 10/12/18 07:27 36.5 C 88 16 158/84 H 97 10/12/18 03:52 36.4 C L 93 H 17 112/67 98 10/12/18 00:21 91 H 10/11/18 23:51 37.0 C 91 H 16 125/67 96
[2018-10-12 10:22] LABS: BUN Creatinine Ratio 31.6 (10-20); Calcium 7.9 mg/dl (8.5-10.1); Est GFR (African American) 83.1; Est GFR (Non-African American) 71.7; Potassium 3.9 mmol/L (3.5-5.1)
[2018-10-12] MEDS: ERTAPENEM SODIUM 1,000 MG in SODIUM CHLORIDE 0.9% 50 ML IV SCH (18:11)
--- NOTE | 2018-10-12 19:40 | Hospitalist Progress Note ---
Date of Service October 12, 2018 Assessment & Plan (1) Pneumonia: Bibasilar consolidation on CT chest, with hypoxia, recent PEs Afebrile but with metabolic encephalopathy, cough and SOB, will treat for PNA No new PEs on CTA chest here Improved symptoms today Leukocytosis resolved -Continue ertapenem and Vanco given recent hospitalizations and h/o MRSA--> cover for Gram negative PNA and MRSA PNA MRSA swab is negative-we will likely discontinue vancomycin tomorrow -Follow blood cultures-no growth to date -Continue supplemental O2 and wean down as tolerated -Continue nebs -Will follow chest x-ray to resolution (2) Acute respiratory failure with hypoxia: secondary to PNA, Acute on chronic combined systolic and diastolic CHF with pleural effusions on CT, some pulm edema on CT chest Was 74% on RA with EMS upon admission -was given IV lasix x 1 dose in ER, none further for now -continue supplemental O2 to keep POx>94% -Treating pneumonia as above (3) Cellulitis: Also with possible source of encephalopathy is the bilateral R>L upper inner thigh cellulitis With edema, erythema, pain of inner thighs which is improving today -Continue Vanco and ertapenem -follow clinically (4) Chronic combined systolic and diastolic heart failure: With acute exacerbation of chronic combined systolic and diastolic heart failure with evidence of pulmonary edema, hypoxia Was given IV Lasix x1 in the ER and had diuresis, now improved, is euvolemic -Follow I's and O's, daily weights, low-sodium diet With a LVEF of 30% on echocardiogram 05/2018 which was a new decline in LV function for her -She declined cardiac catheterization at that time but can be presumed to be an ischemic cardiomyopathy in nature -Continue aspirin, statin, carvedilol, and diuretics as needed (5) LBBB (left bundle branch block): Chronic (6) Peripheral artery disease: History of left femoropopliteal bypass graft and right superficial femoral artery and popliteal artery occlusions with angioplasty -Continue aspirin and statin (7) Chronic kidney disease (CKD) stage G3a/A1, moderately decreased glomerular filtration rate (GFR) between 45-59 mL/min/1.73 square meter and albuminuria creatinine ratio less than 30 mg/g: Creatinine at baseline -Avoid nephrotoxins -renally dose medications -Follow BMP (8) Hyperlipemia: Continue statin (9) Hypertension: Blood pressure is normal at this time -Continue carvedilol 18.75 mg p.o. twice daily, losartan 100 mg daily, and as needed Lasix (10) Temporal arteritis: Stable for many years -Normally is on prednisone 1 mg p.o. 3 times daily at home -Continue to hold home prednisone and give IV hydrocortisone but will decrease to 25 mg IV every 8 hours for stress dose steroids given infections and lethargy upon admission (11) UTI (urinary tract infection): COuld be asymptomatic bacteriuria but with lethargy, will treat with ertapenem in case of true infection -follow urine culture-growing gram-negative rods so far Appreciate infectious disease consultation (12) Pulmonary embolism: With recent bilateral PEs on admission several weeks ago. -Continue therapeutic Lovenox dose of 50 mg once daily Largely resolved on CTA Chest performed on admission -Consider switching to Coumadin for improved comfort as she is having to do a daily injection for many months (13) Atrial fibrillation: Paroxysmal ECG here with LBBB and possible junctional rhythm initially, now appears to be sinus bradycardia with first-degree AV block on repeat ECG With some occasional dropped beats, question second-degree Mobitz type II? -follow on tele -Consider cardiology consultation (14) Elevated troponin: Mildly elevated on admission at 0.053 and then trended downward to 0.048 -Likely myocardial demand ischemia in the setting of current infection and known presumed CAD. She had no chest pain at any time - no need for echocardiogram ECG with chronic left bundle branch block -Monitor on telemetry (15) Osteoarthritis: -Continue chronic fentanyl and hydrocodone as needed for pain -of note, her fentanyl patch was removed in the ER as she was lethargic, but now is more alert and fentanyl patches restarted (16) DVT prophylaxis: Lovenox full dose therapeutic Disposition-continue telemetry monitoring DNR/DNI, patient is interested in the palliative care consultation to discuss goals of care-her daughter would like to participate in the discussion tomorrow Subjective Patient reports feeling "much better" today. Much less short of breath, is more alert and not confused. Still with mild cough. Had 2 loose bowel movements today. Apparently her fentanyl patch was never put back on and somehow was on hold in the AUG even though I ordered it. Make sure to get that replaced today. Patient denies chest pain or shortness of breath Case management advised me that the patient had been discussing palliative care with her home nursing agency. I confirmed this with the patient and she is interested in a palliative care consultation to discuss her goals of care. Her daughter was at the bedside and was shocked by this and did not know that her mom was considering palliative care at this time. Tele with normal sinus rhythm, rates in the 80s with occasional dropped beats Review of Systems Review of Systems: All systems reviewed & are unremarkable except as noted in HPI & below Physical Exam Constitutional: + frail appearing and cooperative; no acute distress and not lethargic Eyes: PERRL, conjunctivae normal, anicteric sclerae ENMT: external ear and nose normal, oropharynx normal Ears: no external ear abnormality Mouth: no lip abnormality Neck: trachea midline, no thyromegaly Respiratory: normal respiratory effort Auscultation: + diminished lung sounds (at the bases bilaterally); no crackles and no wheezes Cardiovascular: Rate/Rhythm: regular rate and regular rhythm Heart Sounds: + murmur (2/6 systolic at the RUSB) Extremities: + edema (1+ pitting edema throughout lower extremities,edema in the medial thighs with erythema and tenderness) Gastrointestinal (Abdomen): normal bowel sounds, soft, nontender, no hepatosplenomegaly Musculoskeletal: Extremities: no cyanosis and no clubbing Skin: + erythema (Of the medial upper thighs improved from previous) Neurologic: moves all extremities and awake; no focal motor deficits Psychiatric: Orientation: oriented to person, oriented to place, oriented to time and cooperative Results & Data Vital Signs (Past 12 Hours) Vital Signs Temp Pulse Pulse Resp BP Pulse Ox 10/12/18 19:34 36.5 C 94 H 18 130/82 94 10/12/18 15:28 94 H 10/12/18 15:07 36.6 C 90 16 134/78 100 10/12/18 11:29 36.6 C 92 H 16 147/79 H 100 10/12/18 08:00 93 H Laboratory Results 10/12/18 10/12/18 10/12/18 Range/Units 05:47 05:47 05:47 WBC 10.34 (4.8-10.8) K/uL RBC 3.68 L (4.2-5.4) M/uL Hgb 10.9 L (12.0-16.0) g/dL Hct 33.8 L (37-47) % MCV 91.8 (80-100) fL MCH 29.6 (25-34) pg MCHC 32.2 (32-36) g/dL RDW Std Deviation 60.3 H (36.4-46.3) fL RDW Coeff of Olga 17.9 H (11.5-14.5) % Plt Count 263 (130-400) K/uL MPV 9.2 (7.4-10.4) fL Immature Gran % (Auto) 0.3 % Neut % (Auto) 92.6 % Lymph % (Auto) 4.5 % [place] % (Auto) 2.4 % Eos % (Auto) 0.1 % Baso % (Auto) 0.1 % Immature Gran # (Auto) 0.03 H (0.00-0.02) K/uL Neut # (Auto) 9.57 H (1.4-6.5) K/uL Lymph # (Auto) 0.47 L (1.2-3.4) K/uL [place] # (Auto) 0.25 (0.11-0.59) K/uL Eos # (Auto) 0.01 (0-0.5) K/uL Baso # (Auto) 0.01 (0-0.2) K/uL Sodium 140 (136-145) mmol/L Potassium 3.9 D (3.5-5.1) mmol/L Chloride 111 H (98-107) mmol/L Carbon Dioxide 25 (21-32) mmol/L Anion Gap 4.0 (3-11) BUN 24 H (7-18) mg/dl Creatinine 0.75 0.74 (0.6-1.2) mg/dl Est Cr Clr Drug Dosing 38.0 38.5 ml/min Est GFR ( Amer) 83.1 84.4 Est GFR (Non-Af Amer) 71.7 72.8 BUN/Creatinine Ratio 31.6 H (10-20) Glucose 118 H (70-99) mg/dl Calcium 7.9 L (8.5-10.1) mg/dl Troponin I (0-0.045) ng/ml Nasal Screen MRSA (PCR) (Negative) 10/12/18 10/11/18 Range/Units 00:46 23:20 WBC (4.8-10.8) K/uL RBC (4.2-5.4) M/uL Hgb (12.0-16.0) g/dL Hct (37-47) % MCV (80-100) fL MCH (25-34) pg MCHC (32-36) g/dL RDW Std Deviation (36.4-46.3) fL RDW Coeff of Olga (11.5-14.5) % Plt Count (130-400) K/uL MPV (7.4-10.4) fL Immature Gran % (Auto) % Neut % (Auto) % Lymph % (Auto) % [place] % (Auto) % Eos % (Auto) % Baso % (Auto) % Immature Gran # (Auto) (0.00-0.02) K/uL Neut # (Auto) (1.4-6.5) K/uL Lymph # (Auto) (1.2-3.4) K/uL [place] # (Auto) (0.11-0.59) K/uL Eos # (Auto) (0-0.5) K/uL Baso # (Auto) (0-0.2) K/uL Sodium (136-145) mmol/L Potassium (3.5-5.1) mmol/L Chloride (98-107) mmol/L Carbon Dioxide (21-32) mmol/L Anion Gap (3-11) BUN (7-18) mg/dl Creatinine (0.6-1.2) mg/dl Est Cr Clr Drug Dosing ml/min Est GFR ( Amer) Est GFR (Non-Af Amer) BUN/Creatinine Ratio (10-20) Glucose (70-99) mg/dl Calcium (8.5-10.1) mg/dl Troponin I 0.048 H* (0-0.045) ng/ml Nasal Screen MRSA (PCR) Negative (Negative) (1) UTI (urinary tract infection) Hematuria presence: without hematuria Urinary tract infection type: acute cystitis Qualified Code(s): N30.00 - Acute cystitis without hematuria (2) Atrial fibrillation Atrial fibrillation type: unspecified Qualified Code(s): I48.91 - Unspecified atrial fibrillation (3) Pulmonary embolism Acute cor pulmonale presence: without acute cor pulmonale Chronicity: unspecified Pulmonary embolism type: unspecified Qualified Code(s): I26.99 - Other pulmonary embolism without acute cor pulmonale
[2018-10-12] MEDS ORDERED: VANCOMYCIN HCL 750 MG in SODIUM CHLORIDE 0.9% 250 ML IV SCH (20:00)
[2018-10-12] MEDS: ENOXAPARIN INJ 60 MG/0.6 ML SYR SQ SCH (20:07)
[2018-10-12] MEDS: ATORVASTATIN 10 MG TAB PO SCH (20:09)
[2018-10-12] MEDS: fentaNYL 25 MCG/HR TDSY TD SCH (20:19)
[2018-10-12] MEDS: MENTHOL-ZINC OXIDE 360 APPLN/120 GM TUBE EXT SCH (20:19)
[2018-10-12] MEDS: HYDROCORTISONE SOD 25 MG in SYRINGE 0 ML IV SCH (22:54)
[2018-10-12] MEDS: CHECK FENTANYL PATCH PLACEMENT SCH (22:54)
[2018-10-12] MEDS: ACETAMINOPHEN 325 MG TAB PO PRN (23:40)
[2018-10-13] MEDS: HYDROCORTISONE SOD 25 MG in SYRINGE 0 ML IV SCH (05:25)
[2018-10-13 07:04] LABS: BUN Creatinine Ratio 39.8 (10-20); Calcium 7.9 mg/dl (8.5-10.1); Creatinine Clr Calc Pharmacy 43.1 ml/min; Est GFR (African American) 92.1; Est GFR (Non-African American) 79.4; Potassium 3.6 mmol/L (3.5-5.1)
[2018-10-13] MEDS: GABAPENTIN 600 MG TAB PO SCH ×3 (08:31→19:53)
[2018-10-13] MEDS: CHOLECALCIFEROL 1,000 UNITS TAB PO SCH (08:32)
[2018-10-13] MEDS: CARVEDILOL 12.5 MG TAB PO SCH ×2 (08:33→19:54)
[2018-10-13] MEDS: CARBIDOPA/LEVODOPA 25/100MG TAB PO SCH ×4 (08:34→19:55)
[2018-10-13] MEDS: LOSARTAN POTASSIUM 50 MG TAB PO SCH (08:34)
[2018-10-13] MEDS: MENTHOL-ZINC OXIDE 360 APPLN/120 GM TUBE EXT SCH (08:35)
[2018-10-13] MEDS: ASPIRIN 81 MG ECTAB PO SCH (08:35)
[2018-10-13] MEDS: CHECK FENTANYL PATCH PLACEMENT SCH ×3 (08:36→23:15)
--- NOTE | 2018-10-13 11:20 | Infectious Disease Progress Nt ---
Date of Service October 13, 2018 Assessment & Plan (1) UTI (urinary tract infection): will stop vanco, would give 7 days ertapenem. blood cultures negative Subjective pt much more awake today, feeling much better, breathing improved. denies cough, sob, cp, no f/c. remains on vanco and ertapenem, tolerating well. urine culture again growing ESBL + K. pneumo, sensitive to Ertapenem. blood cultures negative to date. denies abd pain, no n/v/d. all remaining rso reviewed and are negative Physical Exam Constitutional: WD/WN, vitals as above Eyes: PERRL, conjunctivae normal, anicteric sclerae ENMT: external ear and nose normal, oropharynx normal Neck: normal visual inspection Respiratory: normal respiratory effort, lungs clear to auscultation Auscultation: + diminished lung sounds Cardiovascular: RRR, no murmur, no edema Gastrointestinal (Abdomen): normal bowel sounds, soft, nontender, no hepatosplenomegaly Inspection/Auscultation: + abdomen distended Percussion/Palpation: abdomen soft; abdomen nontender and no guarding Musculoskeletal: no cyanosis or clubbing, extremities motor strength 5/5 Skin: Trauma: + evidence of skin trauma Psychiatric: A+Ox3, euthymic affect Results & Data Vital Signs (Past 12 Hours) Vital Signs Temp Pulse Resp BP Pulse Ox 10/13/18 10:53 36.3 C L 102 H 20 127/84 100 10/13/18 06:57 36.6 C 64 22 147/68 H 100 10/13/18 03:55 36.8 C 60 15 144/79 H 100 10/12/18 23:26 36.5 C 91 H 15 151/80 H 100 Laboratory Results Microbiology 10/11/18 14:09 Urine,Clean Catch Urine Culture - Final Klebsiella pneumoniae ESBL 10/11/18 20:54 Blood Blood Culture - Preliminary No growth to date. 10/11/18 20:39 Blood Blood Culture - Preliminary No growth to date.
--- NOTE | 2018-10-13 11:21 | Hospitalist Progress Note ---
Date of Service October 13, 2018 Assessment & Plan (1) Pneumonia: Bibasilar consolidation on CT chest, with hypoxia, recent PEs Afebrile but with metabolic encephalopathy, cough and SOB, will continue to treat for PNA No new PEs on CTA chest here Improved symptoms today but remains on oxygen Leukocytosis resolved -Continue ertapenem for gram-negative coverage given multiple recent hospitalizations and will discontinue Vanco given negative MRSA swab -Follow blood cultures-no growth to date -Continue supplemental O2 and wean down as tolerated -Continue nebs -Will follow chest x-ray to resolution -Encouraged patient to get out of bed with therapy to mobilize secretions (2) Acute respiratory failure with hypoxia: secondary to PNA, Acute on chronic combined systolic and diastolic CHF with pleural effusions on CT, some pulm edema on CT chest but no new PE Was 74% on RA with EMS upon admission -was given IV lasix x 1 dose in ER and had some significant diuresis -Restarted home Lasix 20 mg once daily today -continue supplemental O2 to keep POx>92% -Treating pneumonia as above (3) Cellulitis: Also with possible source of encephalopathy is the bilateral R>L upper inner thigh cellulitis With edema, erythema, pain of inner thighs which is almost completely resolved today -Continue ertapenem, but can discontinue vancomycin -follow clinically (4) Chronic combined systolic and diastolic heart failure: With acute exacerbation of chronic combined systolic and diastolic heart failure with evidence of pulmonary edema, hypoxia Was given IV Lasix x1 in the ER and had diuresis, now improved, is nearly euvolemic but had slight weight gain today -Follow I's and O's, daily weights, low-sodium diet -Start Lasix 20 mg p.o. once daily-was as needed weight gain as an outpatient With a LVEF of 30-35 % on echocardiogram 05/2018 which was a new decline in LV function for her. She declined cardiac catheterization at that time and was presumed to be an ischemic cardiomyopathy in nature, however could also be nonischemic in nature and secondary to her bundle branch block as per cardiology consultation here today. Repeat echocardiogram on 10/14 again shows moderate to severely reduced LV function with LVEF 25-30% along with septal motion abnormality possibly from bundle branch block. She has not had any improvement in her LV function given fairly maximal medical management over the last 5 months. Appreciate cardiology consultation -Patient has decided to proceed with biventricular pacer implantation on 10/15 to see if this will over time improve her heart function if it is indeed secondary to the bundle branch block -she declines an ICD as she does not want to be defibrillated in the event of cardiac arrest -Continue aspirin but hold for surgery, continue statin, carvedilol, losartan -Hold Lovenox this evening and hopeful that it can be restarted tomorrow evening in the setting of recent PE (5) LBBB (left bundle branch block): Plan outlined as above (6) Peripheral artery disease: History of left femoropopliteal bypass graft and right superficial femoral artery and popliteal artery occlusions with angioplasty -Continue aspirin and statin (7) Chronic kidney disease (CKD) stage G3a/A1, moderately decreased glomerular filtration rate (GFR) between 45-59 mL/min/1.73 square meter and albuminuria creatinine ratio less than 30 mg/g: Creatinine at baseline -Avoid nephrotoxins -renally dose medications -Follow BMP (8) Hyperlipemia: Continue statin (9) Hypertension: Blood pressure is normal at this time -Continue carvedilol 18.75 mg p.o. twice daily, losartan 100 mg daily, and Lasix (10) Temporal arteritis: Stable for many years -Normally is on prednisone 1 mg p.o. 3 times daily at home -Continue to hold home prednisone and give IV hydrocortisone 25 mg IV every 8 hours for stress dose steroids given infections and lethargy upon admission -will likely revert to prednisone after pacemaker implantation tomorrow (11) UTI (urinary tract infection): COuld be asymptomatic bacteriuria but with lethargy, will treat with ertapenem in case of true infection Urine culture with Klebsiella pneumoniae ESBL Appreciate infectious disease consultation-recommends total of 7 days of IV ertapenem-today is day #3 Patient will likely end up staying in the hospital until her treatment is complete given she is getting a pacemaker and still recovering from pneumonia (12) Pulmonary embolism: With recent bilateral PEs on admission several weeks ago. Largely resolved on CTA Chest performed on admission -Has been on full dose therapeutic Lovenox that is renally dosed at 50 mg SQ once daily -Consider switching to Coumadin for improved comfort as she is having to do a daily injection for many months and her abdomen is quite painful, has very thin skin and bleeds very easily -Patient wants to switch to Coumadin after her pacemaker implantation with Lovenox bridging -She will need follow-up in the anticoagulation clinic -She would need 3 to 6 months of anticoagulation for pulmonary embolism, however she also has a history of paroxysmal atrial fibrillation as below and should remain on it indefinitely (13) Atrial fibrillation: Paroxysmal during her last admission ECG here with LBBB and sinus rhythm with first-degree block -Is anticoagulated with Lovenox currently and switching to Coumadin after discharge -Remains on carvedilol for rate control (14) Elevated troponin: Mildly elevated on admission at 0.053 and then trended downward to 0.048 -Likely myocardial demand ischemia in the setting of current infection and known presumed CAD. She had no chest pain at any time -Chronic wall motion abnormality seen on echocardiogram here ECG with chronic left bundle branch block -Monitor on telemetry (15) Osteoarthritis: -Continue chronic fentanyl and hydrocodone as needed for pain -of note, her fentanyl patch was removed in the ER as she was lethargic, but now is more alert and fentanyl patches restarted (16) Diarrhea: ongoing, on antibiotics, but also had Fentanyl patch off for 12 hours and may have some opioid withdrawal? Fentanyl patch back on and having several solid but loose stools daily-not loose enough to be considered for C. difficile -Start loperamide as needed -Use calmoseptine cream to buttocks that are erythematous and sore (17) DVT prophylaxis: Lovenox full dose therapeutic-placed on hold for tonight for pacemaker placement tomorrow and restart as soon as possible afterwards Disposition-continue telemetry monitoring DNR/DNI, appreciate palliative care consultation to discuss goals of care Subjective Patient reports feeling much improved today, less short of breath but remains on oxygen. Denies chest pain or lightheadedness. There is a question on telemetry today of whether she was having dropped beats or a second-degree block-discussed the case with cardiology detail and reviewed ECGs and telemetry with cardiology. They feel these are probably blocked PACs. However, ended up having a very lengthy discussion with the patient, her daughter at the bedside, palliative care nurse practitioner, and the finished goods planner about whether or not to proceed with a biventricular pacer and defibrillator. Patient reiterates that she would not want to be defibrillated if she had cardiac arrest, however cardiology feels that a biventricular pacemaker would possibly give her some benefit by improving the function of her heart. A repeat echocardiogram here today shows continued moderately to severely reduced LV function and septal motion abnormality consistent with left bundle branch block. After much discussion, the patient decided that she would want to proceed with pacemaker placement tomorrow Patient and her daughter also continue to complain of multiple soft stools, however the nurse reports they are not watery. Patient is requesting something for diarrhea Review of Systems Review of Systems: All systems reviewed & are unremarkable except as noted in HPI & below Physical Exam Constitutional: + frail appearing and cooperative; no acute distress and not lethargic Eyes: PERRL, conjunctivae normal, anicteric sclerae ENMT: Ears: no external ear abnormality Mouth: no lip abnormality Neck: trachea midline, no thyromegaly Respiratory: normal respiratory effort Auscultation: + diminished lung sounds (at the bases bilaterally) and + crackles (Mild at the bases); no wheezes Cardiovascular: Rate/Rhythm: regular rate and regular rhythm Heart Sounds: + murmur (2/6 systolic at the RUSB) Extremities: + edema (1+ pitting edema throughout lower extremities,edema in the medial thighs with erythema and tenderness) Gastrointestinal (Abdomen): normal bowel sounds, soft, nontender, no he patosplenomegaly Musculoskeletal: Extremities: no cyanosis and no clubbing Skin: + skin atrophy (Skin is extremely thin throughout) and + erythema (Mild of the medial upper thighs significantly improved from previous) Neurologic: moves all extremities and awake; no focal motor deficits Psychiatric: Orientation: oriented to person, oriented to place, oriented to time and cooperative Eye Contact: good eye contact Results & Data Vital Signs (Past 12 Hours) Vital Signs Temp Pulse Resp BP Pulse Ox 10/13/18 10:53 36.3 C L 102 H 20 127/84 100 10/13/18 06:57 36.6 C 64 22 147/68 H 100 10/13/18 03:55 36.8 C 60 15 144/79 H 100 10/12/18 23:26 36.5 C 91 H 15 151/80 H 100 Laboratory Results 10/13/18 10/13/18 Range/Units 23:05 06:10 Heparin Anti-Xa, LM Wt < 0.10 (< 0.10) IU/ML Sodium 139 (136-145) mmol/L Potassium 3.6 (3.5-5.1) mmol/L Chloride 109 H (98-107) mmol/L Carbon Dioxide 24 (21-32) mmol/L Anion Gap 6.0 (3-11) BUN 26 H (7-18) mg/dl Creatinine 0.66 (0.6-1.2) mg/dl Est Cr Clr Drug Dosing 43.1 ml/min Est GFR ( Amer) 92.1 Est GFR (Non-Af Amer) 79.4 BUN/Creatinine Ratio 39.8 H (10-20) Glucose 147 H (70-99) mg/dl Calcium 7.9 L (8.5-10.1) mg/dl (1) UTI (urinary tract infection) Hematuria presence: without hematuria Urinary tract infection type: acute cystitis Qualified Code(s): N30.00 - Acute cystitis without hematuria (2) Atrial fibrillation Atrial fibrillation type: unspecified Qualified Code(s): I48.91 - Unspecified atrial fibrillation (3) Pulmonary embolism Acute cor pulmonale presence: without acute cor pulmonale Chronicity: unspecified Pulmonary embolism type: unspecified Qualified Code(s): I26.99 - Other pulmonary embolism without acute cor pulmonale
[2018-10-13] MEDS: FUROSEMIDE 20 MG TAB PO SCH (12:12)
--- NOTE | 2018-10-13 13:36 | Cardiology Consultation ---
Date of Consultation October 13, 2018 Assessment & Plan (1) CHF (congestive heart failure): She presents now with congestive heart failure, she is improved with diuresis. Although she could have had a superimposed pneumonia her presentation seems more consistent with heart failure. She has combined systolic and diastolic heart failure and probably has a very narrow window between being dehydrated (with which she has presented on several occasions) and being fluid overloaded. I would be careful with diuresis but she probably still has some fluid present. (2) Cardiomyopathy: She has a cardiomyopathy of relatively recent onset, or at least diagno sis. Although she probably has coronary disease it is not clear that her cardiomyopathy is solely ischemic. She certainly has dyssynchrony on echocardiography although she also has wall motion abnormalities. She may have a component of a nonischemic cardiomyopathy from her left bundle branch block. She did have a pharmacologic Cardiolite study in 2012 which was felt to probably be normal. (3) LBBB (left bundle branch block): She has left bundle branch block which is near as I can tell was first identified in January 2016, November 2014 she had a narrow complex. An echocardiogram done in January 2016 showed normal left ventricular function. Developing a cardiomyopathy related to left bundle branch block can take some time, therefore it is very conceivable that her cardiomyopathy is in part due to her left bundle branch block. If that is the case she has the possibility of having significant correction of her cardiomyopathy with biventricular pacing. (4) Elevated troponin: She does have a very slight troponin elevation, similar to what she had in the recent past. It is not suggestive of an acute ischemic event and I would not pursue it. History of Present Illness Reason for Consultation: Left bundle branch block, congestive heart failure Attending Physician: Catia Aiken MD History of Present Illness This is a very pleasant 87-year-old woman who has known peripheral vascular disease and suspected coronary artery disease as well as left ventricular dysfunction. She also has a left bundle branch block and congestive heart failure and has been treated with medical therapy. She was last evaluated for her cardiomyopathy on June 01, 2018 when she presented with left arm pain, had slight troponin elevation to 1.5. Her left ventricular ejection fraction had fallen to 30 to 35% which was new compared to 2016. Catheterization was entertained but she did not want that and medical therapy was chosen. She has been on good doses of carvedilol (18.75 mg twice daily) as well as aspirin and statin therapy. She is also on an ARB, that has been titrated to 100 mg daily. She was hospitalized September 23, 2018 for shortness of breath which turned out to be a combination of heart failure and pulmonary emboli. She was also observed to have episodes of atrial fibrillation on the monitor. She presents now with acute respiratory failure and hypoxia, once again this appears to be a combination of congestive heart failure and possibly pneumonia. She had a minimally elevated troponin this admission. CT scanning showed bibasilar consolidation, she was treated with antibiotics with resolution of her leukocytosis, she was also diuresed on admission. At the time of my evaluation she felt considerably better than on presentation, she was not having a lot of shortness of breath. At home she tells me she is fairly active (she lives with her daughter who helps care for her), she evidently uses a walker but is able to do that quite well. She has not been having chest discomfort. She denies lightheadedness or dizziness. Allergies Allergy/AdvReac Type Severity Reaction Status Date / Time clindamycin Allergy Severe COLITIS Verified 10/11/18 11:37 cephalexin Allergy Intermediate Diarrhea Verified 10/11/18 11:37 omeprazole Allergy Unknown Unknown Verified 10/11/18 11:37 adhesive AdvReac Intermediate RASH Verified 10/11/18 11:37 oxaprozin AdvReac Intermediate HEADACHE Verified 10/11/18 11:37 Quinolones AdvReac Mild diarrhea Verified 10/11/18 11:37 hydrochlorothiazide AdvReac Unknown PT HX Verified 10/11/18 11:37 KIDNEY DYSFUNCTION ibuprofen AdvReac Unknown PT HX Verified 10/11/18 11:37 KIDNEY DYSFUNCTION lisinopril AdvReac Unknown GI Verified 10/11/18 11:37 SYMPTOMS,RENAL DYSFUNCTION Home Medications Home Medications Medication Instructions Recorded Confirmed Type Lucentis 1 dose INTRAVITREAL DIRECTED 06/01/18 10/11/18 History Multi-Day Plus Minerals 1 tab PO BID 06/01/18 10/11/18 History PreserVision Lutein 1 cap PO BID 06/01/18 10/11/18 History Restasis 1 drp OPB Q12H 06/01/18 10/11/18 History albuterol sulfate 2.5 mg INHALATION Q6H PRN 06/01/18 10/11/18 History aspirin 81 mg PO DAILY 06/01/18 10/11/18 History carbidopa-levodopa 1 tab PO QID 06/01/18 10/11/18 History cholecalciferol (vitamin D3) 5,000 units PO QAM 06/01/18 10/11/18 History [Vitamin D3] fentanyl 1 patch TRANSDERMAL [id number] 06/01/18 10/11/18 History gabapentin 600 mg PO TID 06/01/18 10/11/18 History hydrocodone-acetaminophen [Fajardo] 1 tab PO BID PRN 06/01/18 10/11/18 History prednisone 1 mg PO TID 06/01/18 10/11/18 History atorvastatin 10 mg PO QPM 08/12/18 10/11/18 History carvedilol 18.75 mg PO BID 09/03/18 10/11/18 History losartan [Cozaar] 100 mg PO DAILY 09/20/18 10/11/18 History enoxaparin 50 mg SUBCUT Q24H 30 Days #15 ml 09/28/18 10/11/18 Rx Patient History Medical History Peripheral artery disease (Chronic 06/30/13) Chronic kidney disease (CKD) stage G3a/A1, moderately decreased glomerular filtration rate (GFR) between 45-59 mL/min/1.73 square meter and albuminuria creatinine ratio less than 30 mg/g (Chronic) Diastolic congestive heart failure (Chronic) Hyperlipemia (Chronic) Hypertension (Chronic) Temporal arteritis (Chronic) Osteoarthritis (Chronic) Nephrolithiasis (Chronic) Kidney cyst, acquired (Chronic) MRSA (methicillin resistant Staphylococcus aureus) infection New onset left bundle branch block (LBBB) (Chronic) UTI (urinary tract infection) (Acute) Chronic combined systolic and diastolic heart failure LBBB (left bundle branch block) Surgical History History of back surgery History of cervical spinal surgery History of femoropopliteal bypass On the left History of tonsillectomy History of total knee arthroplasty History of total left hip arthroplasty Family History Other No pertinent family history Social History Preferred Language: Hebrew Communication Ability: Effective Beliefs That Will Affect Care: None marital status: / Current Living Situation: Family Current Living Situation Comment: lives with daughter current occupational status: retired Other Information That Helps Us Care for You: No Feels Safe at Home: Yes Safety Concerns: Feels Safe At This Time Smoking Status: Never smoker Second Hand Exposure: No Hx Alcohol Use: No Hx Substance Use: No Review of Systems Review of Systems: All systems reviewed & are unremarkable except as noted in HPI & below Physical Exam Physical Exam: Constitutional: Alert, cooperative and in no distress. HEENT: Unremarkable Neck: No jugular venous distention, carotid pulses are normal and equal bilaterally without bruits. Pulmonary: Bilateral crackles correction up. Cardiac: Regular rhythm with no murmur, gallop or rub. Abdomen: Soft, nontender with normal bowel sounds. Extremities: No edema. Distal pulses absent. Neurologic: No focal findings. Gait was not tested. Skin: No rash, she does have ecchymoses but no petechiae. Results & Data Vital Signs (Past 12 Hours) Vital Signs Temp Pulse Resp BP Pulse Ox 10/13/18 10:53 36.3 C L 102 H 20 127/84 100 10/13/18 06:57 36.6 C 64 22 147/68 H 100 10/13/18 03:55 36.8 C 60 15 144/79 H 100 Diagnostic Findings Electrocardiography: She has had several electrocardiograms, these show sinus rhythm and with left bundle branch block and a QRS duration of about 140 ms. Telemetry: Sinus rhythm and some sinus tachycardia, she has premature atrial beats, there is some pauses in her rhythm of brief duration which appeared to be due to either blocked premature atrial beats or sinus pauses. It does not appe ar to be evidence of AV block other than perhaps the blocked PACs. An echocardiogram done today to reassess left ventricular function at bedside, she has a similar degree of left ventricular dysfunction as she did before without comparing them [id number]. Certainly it is not significantly improved. (1) CHF (congestive heart failure) Heart failure chronicity: unspecified Heart failure type: unspecified Qualified Code(s): I50.9 - Heart failure, unspecified
--- NOTE | 2018-10-13 13:44 | Palliative Care Consultation ---
Date of Consultation October 13, 2018 Assessment & Plan (1) Goals of care, counseling/discussion: -87 year old female patient with PMH CHF, CAD, ischemic cardiomyopathy, chronic opioid dependence for back pain, LBBB, recurrent UTIs, CKD stage III, osteoarthritis, and recent pulmonary embolism, presented to the hospital yesterday with increased SOB, cough, weakness and fatigue. Patient was recently here in hospital from 09/23-09/27 with PEs and was sent out on Lovenox. She has 24/7 care at home and had home health visiting. In the ED her oxygen saturation was in the 70s on room air, CT chest showed bibasilar consolidation and resolving PEs. UA positive for UTI, lethargic in the ED but that has improved since being admitted and given IV abx. EKG shows left BBB which could be causing her cardiomyopathy. she follows with cardiology as an outpatient and is on maximal medical therapy for her heart failure but continues to have issues. Cardiology is consulted and there is discussion of possible pacemaker. Patient states that her home health agency began discussion about hospice care prior to coming in. Palliative care is consulted to discuss goals of care and help with medical decision making. -Met with patient first this morning. She stated that she knows she does not want heroic measures to sustain her life. Would not want CPR or intubation. However, she is not ready for hospice and would want to return to the hospital for now if she was feeling ill. -Returned to the room this afternoon at the request of the patient when her daughter, Joana, was at bedside. Dr. Aiken and Dr. Dowling also present. We discussed at length about the option of having a biventricular pacemaker in serted and whether or not it would increase functional status, quality of life, symptoms, lessen hospitalizations, etc. Difficulties include patient being on blood thinner, having thin fragile skin, and potential for poor wound healing. -Family is requesting more time to think about whether or not to proceed with pacer (I did then receive a call that patient decided to go for the pacemaker). -baldomero's goal is to get home as soon as possible. She would be amenable to rehab if absolutely needed, but she does have 24/7 care in her home and could have PT/OT there. She would prefer the home setting. -She will need four more days of abx and will remain in the hospital for those days. Not a good candidate to go home with a peripheral line due to thin fragile skin and on blood thinner. -Discussed POSLT form and can complete prior to discharge. -Daughter has my number and can call with any further decision making needs but we will certain continue to follow closely during hospitalization. (2) Pneumonia: (3) Acute respiratory failure with hypoxia: (4) Chronic combined systolic and diastolic heart failure: (5) Pulmonary embolism: Acute cor pulmonale presence: without acute cor pulmonale Chronicity: unspecified Pulmonary embolism type: unspecified Qualified Code(s): I26.99 - Other pulmonary embolism without acute cor pulmonale History of Present Illness Attending Physician: Catia Aiken MD History of Present Illness This 87 year old female patient with PMH CHF, CAD, ischemic cardiomyopathy, chronic opioid dependence for back pain, LBBB, recurrent UTIs, CKD stage III, osteoarthritis, and recent pulmonary embolism, presented to the hospital yesterday with increased SOB, cough, weakness and fatigue. Patient was recently here in hospital from 09/23-09/27 with PEs and was sent out on Lovenox. She has 28/12 care at home and had home health visiting. In the ED her oxygen saturation was in the 70s on room air, CT chest showed bibasilar consolidation and resolving PEs. UA positive for UTI, lethargic in the ED but that has improved since being admitted and given IV abx. EKG shows left BBB which could be causing her cardiomyopathy. she follows with cardiology as an outpatient and is on maximal medical therapy for her heart failure but continues to have issues. Cardiology is consulted and there is discussion of possible pacemaker. Patient states that her home health agency began discussion about hospice care prior to coming in. Palliative care is consulted to discuss goals of care and help with medical decision making. Thank you kindly for this consult. I will follow. Allergies Allergy/AdvReac Type Severity Reaction Status Date / Time clindamycin Allergy Severe COLITIS Verified 10/11/18 11:37 cephalexin Allergy Intermediate Diarrhea Verified 10/11/18 11:37 omeprazole Allergy Unknown Unknown Verified 10/11/18 11:37 adhesive AdvReac Intermediate RASH Verified 10/11/18 11:37 oxaprozin AdvReac Intermediate HEADACHE Verified 10/11/18 11:37 Quinolones AdvReac Mild diarrhea Verified 10/11/18 11:37 hydrochlorothiazide AdvReac Unknown PT HX Verified 10/11/18 11:37 KIDNEY DYSFUNCTION ibuprofen AdvReac Unknown PT HX Verified 10/11/18 11:37 KIDNEY DYSFUNCTION lisinopril AdvReac Unknown GI Verified 10/11/18 11:37 SYMPTOMS,RENAL DYSFUNCTION Home Medications Home Medications Medication Instructions Recorded Confirmed Type Lucentis 1 dose INTRAVITREAL DIRECTED 06/01/18 10/11/18 History Multi-Day Plus Minerals 1 tab PO BID 06/01/18 10/11/18 History PreserVision Lutein 1 cap PO BID 06/01/18 10/11/18 History Restasis 1 drp OPB Q12H 06/01/18 10/11/18 History albuterol sulfate 2.5 mg INHALATION Q6H PRN 06/01/18 10/11/18 History aspirin 81 mg PO DAILY 06/01/18 10/11/18 History carbidopa-levodopa 1 tab PO QID 06/01/18 10/11/18 History cholecalciferol (vitamin D3) 5,000 units PO QAM 06/01/18 10/11/18 History [Vitamin D3] fentanyl 1 patch TRANSDERMAL [id number] 06/01/18 10/11/18 History gabapentin 600 mg PO TID 06/01/18 10/11/18 History hydrocodone-acetaminophen [[place]] 1 tab PO BID PRN 06/01/18 10/11/18 History prednisone 1 mg PO TID 06/01/18 10/11/18 History atorvastatin 10 mg PO QPM 08/12/18 10/11/18 History carvedilol 18.75 mg PO BID 09/03/18 10/11/18 History losartan [Cozaar] 100 mg PO DAILY 09/20/18 10/11/18 History enoxaparin 50 mg SUBCUT Q24H 30 Days #15 ml 09/28/18 10/11/18 Rx Patient History Medical History Peripheral artery disease (Chronic 06/30/13) Chronic kidney disease (CKD) stage G3a/A1, moderately decreased glomerular filtration rate (GFR) between 45-59 mL/min/1.73 square meter and albuminuria creatinine ratio less than 30 mg/g (Chronic) Diastolic congestive heart failure (Chronic) Hyperlipemia (Chronic) Hypertension (Chronic) Temporal arteritis (Chronic) Osteoarthritis (Chronic) Nephrolithiasis (Chronic) Kidney cyst, acquired (Chronic) MRSA (methicillin resistant Staphylococcus aureus) infection New onset left bundle branch block (LBBB) (Chronic) UTI (urinary tract infection) (Acute) Chronic combined systolic and diastolic heart failure LBBB (left bundle branch block) Surgical History History of back surgery History of cervical spinal surgery History of femoropopliteal bypass On the left History of tonsillectomy History of total knee arthroplasty History of total left hip arthroplasty Family History Other No pertinent family history Social History Preferred Language: Swedish Communication Ability: Effective Beliefs That Will Affect Care: None marital status: / Current Living Situation: Family Current Living Situation Comment: lives with daughter current occupational status: retired Other Information That Helps Us Care for You: No Feels Safe at Home: Yes Safety Concerns: Feels Safe At This Time Smoking Status: Never smoker Second Hand Exposure: No Hx Alcohol Use: No Hx Substance Use: No Review of Systems Constitutional: + weakness Ear, Nose, Mouth, Throat: no dysphagia Respiratory: + dyspnea on exertion; no cough and no dyspnea Cardiovascular: no chest pain Gastrointestinal: no abdominal pain and no nausea Integumentary: scattered ecchymosis and skin tears Neurologic: no confusion Psychiatric: no anxiety Physical Exam Constitutional: + frail appearing; no acute distress Eyes: PERRL, conjunctivae normal, anicteric sclerae ENMT: external ear and nose normal, oropharynx normal Neck: normal visual inspection Respiratory: normal respiratory effort Auscultation: + diminished lung sounds (at the bases bilaterally) Cardiovascular: Rate/Rhythm: regular rate and regular rhythm Gastrointestinal (Abdomen): normal bowel sounds, soft, nontender, no hepatosplenomegaly Musculoskeletal: Extremities: no cyanosis Neurologic: moves all extremities and awake Psychiatric: A+Ox3, euthymic affect Results & Data Vital Signs (Past 12 Hours) Vital Signs Temp Pulse Resp BP Pulse Ox 10/13/18 10:53 36.3 C L 102 H 20 127/84 100 10/13/18 06:57 36.6 C 64 22 147/68 H 100 10/13/18 03:55 36.8 C 60 15 144/79 H 100 Time Spent Midlevel 145 minutes with >50% of time spent at bedside with patient during two visits today, also with family and physicians to discuss condition, GOC, and QOL issues.
[2018-10-13] MEDS ORDERED: LOPERAMIDE HCL 2 MG CAP PO PRN (14:54)
[2018-10-13] MEDS: HYDROCORTISONE SOD 12.5 MG in SYRINGE 0 ML IV SCH ×2 (15:38→21:09)
[2018-10-13] MEDS: ERTAPENEM SODIUM 1,000 MG in SODIUM CHLORIDE 0.9% 50 ML IV SCH (18:49)
[2018-10-13] MEDS: ACETAMINOPHEN 325 MG TAB PO PRN (18:55)
[2018-10-13] MEDS: HYDROCODONE/ACETAMINOPHEN 10/325 TAB PO PRN (19:52)
[2018-10-13] MEDS: ATORVASTATIN 10 MG TAB PO SCH (19:54)
[2018-10-14] MEDS: HYDROCORTISONE SOD 12.5 MG in SYRINGE 0 ML IV SCH ×3 (05:14→21:28)
[2018-10-14] MEDS ORDERED: VANCOMYCIN HCL 1 GM/270 ML BAG IV SCH (06:00)
[2018-10-14 08:20] LABS: Basophils # (auto) 0.01 K/uL (0-0.2); Basophils % (auto) 0.1 %; Eosinophils # (auto) 0.09 K/uL (0-0.5); Eosinophils % (auto) 1.3 %; Hematocrit (blood only) 34.6 % (37-47); Hemoglobin 11.2 g/dL (12.0-16.0); Immature Granulocytes # (auto) 0.02 K/uL (0.00-0.02); Immature Granulocytes % (auto) 0.3 %; Lymphocytes # (auto) 0.58 K/uL (1.2-3.4); Lymphocytes % (auto) 8.2 %; Mean Corpuscular Hgb Conc 32.4 g/dL (32-36); Mean Corpuscular Volume 91.8 fL (80-100); Mean Platelet Volume 9.1 fL (7.4-10.4); Monocytes # (auto) 0.63 K/uL (0.11-0.59); Monocytes % (auto) 8.9 %; Neutrophils # (auto) 5.74 K/uL (1.4-6.5); Neutrophils % (auto) 81.2 %; Platelet Count 281 K/uL (130-400); RDW Coefficient of Variation 17.2 % (11.5-14.5); RDW Standard Deviation 57.3 fL (36.4-46.3); Red Blood Count 3.77 M/uL (4.2-5.4); White Blood Count 7.07 K/uL (4.8-10.8)
[2018-10-14 08:34] LABS: BUN Creatinine Ratio 36.6 (10-20); Calcium 8.3 mg/dl (8.5-10.1); Est GFR (African American) 83.1; Est GFR (Non-African American) 71.7; Magnesium 1.8 mg/dl (1.8-2.4); Potassium 3.6 mmol/L (3.5-5.1)
[2018-10-14 08:35] LABS: Creatinine Clr Calc Pharmacy 39.5 ml/min; Est GFR (African American) 87.3; Est GFR (Non-African American) 75.3
[2018-10-14] MEDS: CHECK FENTANYL PATCH PLACEMENT SCH ×2 (08:45→17:04)
[2018-10-14] MEDS: CARVEDILOL 12.5 MG TAB PO SCH ×2 (08:46→21:26)
[2018-10-14] MEDS: CARBIDOPA/LEVODOPA 25/100MG TAB PO SCH ×4 (08:46→21:26)
[2018-10-14] MEDS: MENTHOL-ZINC OXIDE 360 APPLN/120 GM TUBE EXT SCH (08:46)
[2018-10-14] MEDS: FUROSEMIDE 20 MG TAB PO SCH (08:47)
[2018-10-14] MEDS: CHOLECALCIFEROL 1,000 UNITS TAB PO SCH (08:47)
[2018-10-14] MEDS: LOSARTAN POTASSIUM 50 MG TAB PO SCH (08:47)
[2018-10-14] MEDS: GABAPENTIN 600 MG TAB PO SCH ×3 (08:47→21:27)
--- NOTE | 2018-10-14 09:09 | Infectious Disease Progress Nt ---
Date of Service October 14, 2018 Assessment & Plan (1) UTI (urinary tract infection): would give 7 days ertapenem. blood cultures negative. no contraindication for pacemaker placement from ID standpoint Subjective pt seen in followup, for pacemaker later today. rea restarted this am. remains on ertapenem, tolerating well. no f/c. denies cp, sob, cough, no vaughan. no abd pain, no n/v/d. blood cultures remain negative. Echo without vegetation, d ecreased LV function. all remaining ros reviewed and are negatrive Review of Systems Review of Systems: All systems reviewed & are unremarkable except as noted in HPI & below Physical Exam Constitutional: WD/WN, vitals as above Eyes: PERRL, conjunctivae normal, anicteric sclerae ENMT: external ear and nose normal, oropharynx normal Neck: normal visual inspection Respiratory: normal respiratory effort, lungs clear to auscultation Auscultation: + diminished lung sounds Cardiovascular: RRR, no murmur, no edema Gastrointestinal (Abdomen): normal bowel sounds, soft, nontender, no hepatosplenomegaly Inspection/Auscultation: + abdomen distended Percussion/Palpation: abdomen soft; abdomen nontender and no guarding Musculoskeletal: no cyanosis or clubbing, extremities motor strength 5/5 Skin: Trauma: + evidence of skin trauma Psychiatric: A+Ox3, euthymic affect Results & Data Vital Signs (Past 12 Hours) Vital Signs Temp Pulse Resp BP Pulse Ox 10/14/18 08:11 36.4 C L 61 18 150/85 H 94 10/14/18 05:15 35.8 C L 87 20 124/73 100 10/13/18 23:37 144/77 H 10/13/18 23:28 36.3 C L 86 16 100 Laboratory Results Microbiology 10/11/18 14:09 Urine,Clean Catch Urine Culture - Final Klebsiella pneumoniae ESBL 10/11/18 20:54 Blood Blood Culture - Preliminary No growth to date. 10/11/18 20:39 Blood Blood Culture - Preliminary No growth to date.
[2018-10-14] MEDS: PRESERVISION - NON-FORMULARY PATIENT'S OWN MED PO SCH ×2 (10:05→21:28)
[2018-10-14] MEDS ORDERED: PRESERVISION - NON-FORMULARY PATIENT'S OWN MED PO SCH (10:15)
--- NOTE | 2018-10-14 10:46 | Cardiology Progress Note ---
Date of Service October 14, 2018 Assessment & Plan (1) CHF (congestive heart failure): She presents now with congestive heart failure, she is improved with diuresis. Although she could have had a superimposed pneumonia her presentation seems more consistent with heart failure. She has combined systolic and diastolic heart failure and probably has a very narrow window between being dehydrated (with which she has presented on several occasions) and being fluid overloaded. I would be careful with diuresis but she probably still has some fluid present. I believe her heart failure will be difficult to manage over the long run however biventricular pacing may help by improving her left ventricular function. (2) Cardiomyopathy: She has a cardiomyopathy of relatively recent onset, or at least diagnosis. Although she probably has coronary disease it is not clear that her cardiomyopathy is solely ischemic. She certainly has dyssynchrony on echocardiography although she also has wall motion abnormalities. She may have a component of a nonischemic cardiomyopathy from her left bundle branch block. She did have a pharmacologic Cardiolite study in 2012 which was felt to probably be normal. She is a candidate for a biventricular ICD, I discussed ICD therapy with her and her family at length and we decided that she should not have an ICD based on her wishes of not being resuscitated. She would however like to feel better and a biventricular pacer is probably our only option to improve her left ventricular function. I did point out to her that it may not work, but medications clearly are not working. I discussed the indications, procedure, risks and alternatives with her and she understands and agrees to proceed. Consent obtained. I also discussed conscious sedation and she agrees. Consent obtained. I had this discussion with her this morning, I had also discussed most of this with the daughter present yesterday as well. (3) LBBB (left bundle branch block): She has left bundle branch block which is near as I can tell was first identified in January 2016, November 2014 she had a narrow complex. An echocardiogram done in January 2016 showed normal left ventricular function. Developing a cardiomyopathy related to left bundle branch block can take some time, therefore it is very conceivable that her cardiomyopathy is in part due to her left bundle branch block. If that is the case she has the possibility of having significant correction of her cardiomyopathy with biventricular pacing. (4) Elevated troponin: She does have a very slight troponin elevation, similar to what she had in the recent past. It is not suggestive of an acute ischemic event and I would not pursue it. Subjective She is feeling fairly well today, she has no complaints of shortness of breath or chest discomfort. Results & Data Vital Signs (Past 12 Hours) Vital Signs Temp Pulse Pulse Resp BP Pulse Ox 10/14/18 08:11 36.4 C L 61 18 150/85 H 94 10/14/18 07:00 50 L 10/14/18 05:15 35.8 C L 87 20 124/73 100 10/13/18 23:37 144/77 H 10/13/18 23:28 36.3 C L 86 16 100 Diagnostic Findings Telemetry: Sinus rhythm with frequent atrial ectopy, this morning she may have some rate controlled atrial fibrillation, it is hard to tell from the record itself. (1) CHF (congestive heart failure) Heart failure chronicity: unspecified Heart failure type: unspecified Qualified Code(s): I50.9 - Heart failure, unspecified
--- NOTE | 2018-10-14 10:49 | Pre Anesthesia Assessment ---
Date of Service October 14, 2018 Pre Sedation Assessment Vital Signs Temp Pulse Pulse Resp BP Pulse Ox 10/14/18 08:11 36.4 C L 61 18 150/85 H 94 10/14/18 07:00 50 L 10/14/18 05:15 35.8 C L 87 20 124/73 100 10/13/18 23:37 144/77 H 10/13/18 23:28 36.3 C L 86 16 100 10/13/18 20:15 36.6 C 68 16 144/71 H 100 10/13/18 16:59 36.7 C 88 16 142/97 H 99 10/13/18 15:15 68 10/13/18 10:53 36.3 C L 102 H 20 127/84 100 Cardiovascular + regular rhythm Respiratory + respiratory effort normal + clear to auscultation bilaterally Pre-Sedation Airway Assessment Smoking Status: Never smoker Hx Sleep Apnea: No Hx Difficult Intubation: No Short, Thick Neck: Yes Thyromental Distance: < 3.5 Finger Breadths Mallampati Class: III ASA IV NPO Status Date of Last Intake of Fluids: 10/13/18 Date of Last Intake of Solid Food: 10/13/18 Procedure Planning Contraindications for Sedation: none Current Medications Reviewed: Yes Notes The planned sedation has been discussed with the patient. Informed Consent was obtained. I have identified the patient, determined the appropriateness of sedation and have assessed the patient immediately prior to the procedure. All medicine(s) and interventions are by my order.
[2018-10-14] MEDS ORDERED: LIDOCAINE HCL 1% 20 ML VIAL ONE (11:44)
[2018-10-14] MEDS ORDERED: BACITRACIN INJ 50,000 UNIT VIAL ONE (11:45)
[2018-10-14 13:10] LABS: Cdiff Antigen Positive; Cdiff Toxin A+B Negative Cdiff Toxin (Negative)
[2018-10-14] MEDS ORDERED: MIDAZOLAM HCL 5 MG/ML 1 ML VIAL ONE (13:45)
[2018-10-14] MEDS ORDERED: fentaNYL citrate 100 MCG/2 ML VIAL ONE (13:45)
[2018-10-14] MEDS ORDERED: FUROSEMIDE 20 MG TAB PO ONE (14:36)
--- NOTE | 2018-10-14 14:36 | Hospitalist Progress Note ---
Date of Service October 14, 2018 Assessment & Plan (1) Pneumonia: Bibasilar consolidation on CT chest, with hypoxia, recent PEs, stable improving Oxygen level from 4 L coming down to 2 L, will continue to treat for PNA No new PEs on CTA chest here Continue ertapenem for gram-negative coverage given multiple recent hospitalizations Follow blood cultures-no growth to date Continue supplemental O2 and wean down as tolerated Continue nebs Will follow chest x-ray to resolution Encouraged patient to get out of bed with therapy (2) Acute respiratory failure with hypoxia: See above, negative secondary to PNA, Acute on chronic combined systolic and diastolic CHF with pleural effusions on CT, some pulm edema on CT chest but no new PE Was 74% on RA with EMS upon admission was given IV lasix x 1 dose in ER and had some significant diuresis Restarted home Lasix 20 mg once daily, continue, will give additional dose today continue supplemental O2 to keep POx>92% Treating pneumonia as above (3) Cellulitis: Also with possible source of encephalopathy is the bilateral R>L upper inner thigh cellulitis With edema, erythema, pain of inner thighs which is almost completely resolved today Continue ertapenem, discontinue vancomycin follow clinically (4) Chronic combined systolic and diastolic heart failure: With acute exacerbation of chronic combined systolic and diastolic heart failure with evidence of pulmonary edema, hypoxia Was given IV Lasix x1 in the ER and had diuresis, now improved, is nearly euvolemic but had slight weight gain today follow I's and O's, daily weights, low-sodium diet Start Lasix 20 mg p.o. once daily-was as needed weight gain as an outpatient, will give additional dose of 20 mg Lasix p.o. today With a LVEF of 30-35 % on echocardiogram 05/2018 which was a new decline in LV function for her. She declined cardiac catheterization at that time and was presumed to be an ischemic cardiomyopathy in nature, however could also be nonischemic in nature and secondary to her bundle branch block as per cardiology consultation here today. Repeat echocardiogram on 10/14 again shows moderate to severely reduced LV function with LVEF 25-30% along with septal motion abnormality possibly from bundle branch block. has not had any improvement in her LV function given fairly maximal medical management over the last 5 months. Appreciate cardiology consultation PPM today she declines an ICD as she does not want to be defibrillated in the event of cardiac arrest Continue aspirin but hold for surgery, continue statin, carvedilol, losartan Hold Lovenox this evening and hopeful that it can be restarted tomorrow evening in the setting of recent PE (5) LBBB (left bundle branch block): Plan outlined as above (6) Peripheral artery disease: History of left femoropopliteal bypass graft and right superficial femoral artery and popliteal artery occlusions with angioplasty -Continue aspirin and statin (7) Chronic kidney disease (CKD) stage G3a/A1, moderately decreased glomerular filtration rate (GFR) between 45-59 mL/min/1.73 square meter and albuminuria creatinine ratio less than 30 mg/g: Creatinine at baseline, stable Avoid nephrotoxins renally dose medications Follow BMP (8) Hyperlipemia: Continue statin (9) Hypertension: Blood pressure is normal at this time -Continue carvedilol 18.75 mg p.o. twice daily, losartan 100 mg daily, and Lasix (10) Temporal arteritis: Stable for many years -Normally is on prednisone 1 mg p.o. 3 times daily at home -Continue to hold home prednisone and give IV hydrocortisone 25 mg IV every 8 hours for stress dose steroids given infections and lethargy upon admission -will likely revert to prednisone after pacemaker implantation tomorrow (11) UTI (urinary tract infection): COuld be asymptomatic bacteriuria but with lethargy, will treat with ertapenem in case of true infection Urine culture with Klebsiella pneumoniae ESBL Appreciate infectious disease consultation-recommends total of 7 days of IV ertapenem-today is day #3 Patient will likely end up staying in the hospital until her treatment is complete given she is getting a pacemaker and still recovering from pneumonia (12) Pulmonary embolism: With recent bilateral PEs on admission several weeks ago. Largely resolved on CTA Chest performed on admission -Has been on full dose therapeutic Lovenox that is renally dosed at 50 mg SQ once daily -Consider switching to Coumadin for improved comfort as she is having to do a daily injection for many months and her abdomen is quite painful, has very thin skin and bleeds very easily -Patient wants to switch to Coumadin after her pacemaker implantation with Lovenox bridging -She will need follow-up in the anticoagulation clinic -She would need 3 to 6 months of anticoagulation for pulmonary embolism, however she also has a history of paroxysmal atrial fibrillation as below and should remain on it indefinitely (13) Atrial fibrillation: Paroxysmal during her last admission ECG here with LBBB and sinus rhythm with first-degree block -Is anticoagulated with Lovenox currently and switching to Coumadin after discharge -Remains on carvedilol for rate control (14) Elevated troponin: Mildly elevated on admission at 0.053 and then trended downward to 0.048 -Likely myocardial demand ischemia in the setting of current infection and known presumed CAD. She had no chest pain at any time -Chronic wall motion abnormality seen on echocardiogram here ECG with chronic left bundle branch block -Monitor on telemetry (15) Osteoarthritis: -Continue chronic fentanyl and hydrocodone as needed for pain -of note, her fentanyl patch was removed in the ER as she was lethargic, but now is more alert and fentanyl patches restarted (16) Diarrhea: ongoing, on antibiotics, had Fentanyl patch off for 12 hours and may have some opioid withdrawal? Fentanyl patch back on and having several solid but loose stools daily Stool C. difficile which shows C. difficile a and B- chain positive, discussed with infectious disease, no treatment, and will have infectious disease formal input cont loperamide as needed Use calmoseptine cream to buttocks that are erythematous and sore (17) DVT prophylaxis: Lovenox full dose therapeutic cont on hold for pacemaker placement today will restart as soon as possible afterwards Disposition-continue telemetry monitoring DNR/DNI, appreciate palliative care consultation to discuss goals of care Subjective Has been out of bed to chair, oxygen improved from 4 L to 2 L/min, no obvious edema, daughter is in bedside, Some cough with yellow sputum, mild dyspnea on exertion, occasional wheezing, patient is ready for pacemaker, Review of Systems Review of Systems: Review of Systems Constitutional: positive weakness, and fatigue Respiratory: see above Cardiac: No chest pain, No orthopnea, No PND, Abdomen: No pain, No nausea, No vomiting, No diarrhea, No constipation, No GI bleeding Musculoskeletal: No joint pain, No muscle pain, No swelling, No calf pain, No problem reported : No dysuria, No urinary frequency, No incontinence, No hematuria Neurologic: No paralysis, No weakness, No numbness/tingling, Psychiatric: No depression symptoms, No anhedonism, No anxiety, No insomnia, No substance abuse Heme: No abnormal bleeding/bruising, No clotting problems, No swollen lymph nodes, No night sweats Skin: Mild skin rash bilateral lower extremity, right side more than left side, no obvious open wound, Physical Exam Physical Exam: Constitutional: Frail, chronically ill looking, no acute distress, Eyes: PERRL, conjunctivae normal, anicteric sclerae ENMT Ears: no external ear abnormality Mouth: no lip abnormality Neck trachea midline, no thyromegaly Respiratory normal respiratory effort Auscultation: chaya lungs diminished lung sounds , left lower lung mild + crackles, no wheezes Cardiovascular Rate/Rhythm: regular rate and regular rhythm Heart Sounds: + murmur (2/6 systolic at the RUSB) Extremities: + edema (1+ pitting edema throughout lower extremities,edema in the medial thighs with erythema and tenderness) Gastrointestinal (Abdomen) normal bowel sounds, soft, nontender, no hepatosplenomegaly Musculoskeletal Extremities: no cyanosis and no clubbing Skin + skin atrophy (Skin is extremely thin throughout) and + erythema (Mild of the medial upper thighs significantly improved from previous) Neurologic moves all extremities and awake; no focal motor deficits Psychiatric Orientation: oriented to person, oriented to place, oriented to time and cooperative Eye Contact: good eye contact Results & Data Vital Signs (Past 12 Hours) Vital Signs Temp Pulse Pulse Resp BP Pulse Ox 10/14/18 12:08 36.3 C L 55 L 18 135/73 100 10/14/18 08:11 36.4 C L 61 18 150/85 H 94 10/14/18 07:00 50 L 10/14/18 05:15 35.8 C L 87 20 124/73 100 (1) UTI (urinary tract infection) Hematuria presence: without hematuria Urinary tract infection type: acute cystitis Qualified Code(s): N30.00 - Acute cystitis without hematuria (2) Pulmonary embolism Acute cor pulmonale presence: without acute cor pulmonale Chronicity: unspecified Pulmonary embolism type: unspecified Qualified Code(s): I26.99 - Other pulmonary embolism without acute cor pulmonale (3) Atrial fibrillation Atrial fibrillation type: unspecified Qualified Code(s): I48.91 - Unspecified atrial fibrillation
[2018-10-14] MEDS ORDERED: BACITRACIN OINT 0.9 GM PKT ONE (15:34)
--- NOTE | 2018-10-14 16:00 | Operative Report ---
Post Operative Report Pre & Post Diagnosis Operation Date: 10/14/18 12:00 Preop diagnosis: Severe cardiomyopathy, left bundle branch block Postop diagnosis: Same Procedure Operation Date: 10/14/18 12:00 Actual Procedures p Pacer with A/V Leads (Dual) - Lalo Dowling MD s Pacer with Left Ventricular Lead - Lalo Dowling MD Left subclavian venogram Coronary sinus angiogram Surgeon Lalo Dowling MD Boiler Operator Helper None Estimated Blood Loss 50 Findings Consistent with Post-Op Diagnosis Excellent atrial and ventricular lead position and measurements Excellent left ventricular lead position (coronary sinus), somewhat high but acceptable pacing thresholds Specimens None Complications none Disposition Accompanied Patient To Recovery: No Disposition: PCU Description of Procedure After obtaining informed consent for the procedure, the patient was brought to the laboratory and prepped and draped in the standard sterile manner. Dye was injected the left arm IV site to opacify the left subclavian vein. The subclavian vein was identified and found to be free of obstruction. The left prepectoral region was anesthetized with 1% lidocaine local anesthetic and left axillary venipuncture was performed by percutaneous technique and a guidewire placed through the left subclavian vein into the superior vena cava. The area was further infiltrated with 1% lidocaine local anesthetic and a 5 cm incision was made parallel to the left clavicle and 2 cm below it and carried down to the anterior pectoralis fascia. A pacemaker pocket was formed by blunt dissection anterior to the pectoralis fascia and a bacitracin-soaked sponge (50,000 units in 50 cc normal saline solution) was placed in the pocket. An 8 [employer] lead introducer was placed over the guidewire into the left subclavian vein, the dilator and guidewire were removed and a bipolar a ctive fixation steroid tipped ventricular pacemaker lead was advanced through the introducer into the superior vena cava. A guidewire was placed through the introducer and the introducer was stripped from the lead and guidewire. An 8 [employer] lead introducer was placed over the guidewire into the left subclavian vein, the dilator and guidewire were removed and a bipolar active fixation steroid tipped atrial lead was advanced through the introducer into the superior vena cava. A guidewire was placed back through the introducer and the introducer was stripped from the lead and guidewire. Using a curved stylette the ventricular lead was advanced through the right ventricular outflow tract into the pulmonary artery and then using a straight stylette was positioned in the right ventricular apex. The screw was extended fixing the lead in position. Pacing and sensing thresholds were evaluated in bipolar configuration and are recorded on the implant data sheet. Diaphragmatic pacing was evaluated at a 10 V bipolar output as indicated on the data sheet. Using a curved stylette the atrial lead was positioned in the region of the atrial appendage and the screw extended fixing the lead in position. Pacing and sensing thresholds were evaluated in bipolar configuration and are recorded on the implant data sheet. Diaphragmatic pacing was evaluated at a 10 V bipolar output as indicated on the data sheet. Once the leads were in position they were attached to the anterior pectoralis fascia using 1 suture of 2-0 silk around each lead collar. The short guidewire was exchanged for a long guidewire and a Heriberto coronary sinus sheath was advanced to position in the right atrium. An inner cannula was placed through the sheath and using x-ray dye the os of the coronary sinus was identified. A guidewire was placed through the introducer into the coronary sinus and the Heriberto sheath was advanced into the coronary sinus. Dye was injected in various projections to obtain a coronary sinus angiogram. A good vessel was identified and a 0.014 inch guidewire was advanced into this vessel. A quadripolar coronary sinus catheter was advanced over the guidewire into good distal position. The left ventricular pacing threshold was evaluated in various configurations, as recorded on the implant data sheet. All configurations were high, several were acceptable and this was clearly the best location for the lead therefore was left in this vessel. Diaphragmatic pacing was evaluated at an 8 V output, as indicated on the data sheet. Once this lead was in position the introducer system was removed from the lead and the lead was attached to the anterior pectoral fascia using 2 sutures of 2-0 silk around the lead collar. An additional suture of 2-0 silk was placed around each of the atrial and ventricular lead collars as well. The bacitracin-soaked sponge was removed from the pocket, hemostasis was obtained, the pacemaker was attached to the leads and placed in the pocket with the leads coiled beneath it. The incision was closed with a running double subcutaneous closure of 3-0 Vicryl absorbable suture, followed by running subcuticular skin closure of 4-0 Vicryl absorbable suture. Bacitracin ointment was placed on the incision and a pressure dressing applied. I attest to the content of the Intraoperative Record and any orders documented therein. Any exceptions are noted below.
[2018-10-14] MEDS ORDERED: ACETAMINOPHEN W/CODEINE #3 1 TAB PO PRN (16:04)
[2018-10-14] MEDS ORDERED: ACETAMINOPHEN 325 MG TAB PO PRN (16:04)
--- NOTE | 2018-10-14 16:10 | Post Anesthesia Assessment ---
Date of Service October 14, 2018 Post Sedation Assessment Vital Signs Temp Pulse Pulse Resp BP Pulse Ox 10/14/18 12:08 36.3 C L 55 L 18 135/73 100 10/14/18 08:11 36.4 C L 61 18 150/85 H 94 10/14/18 07:00 50 L 10/14/18 05:15 35.8 C L 87 20 124/73 100 10/13/18 23:37 144/77 H 10/13/18 23:28 36.3 C L 86 16 100 10/13/18 20:15 36.6 C 68 16 144/71 H 100 10/13/18 16:59 36.7 C 88 16 142/97 H 99 Recovery Score Activity: Moves 4 extremities Respiration: Deep Breath/Cough Circulation: +/-20% PreAnes Value Consciousness: Fully Awake Oxygen Saturation: > 92% On Room Air Discharge Sedation Level of Care: Fast Track Phase II Post Sedation Plan On clinical assessment, the patient appears to have tolerated the sedation without complications. Patient is recovering as anticipated. Patient will continue to be monitored by nursing and may be discharged when sedation discharge criteria are met per below protocol. Upon Completions of procedure and additional 15 minutes continue every 5 minute vital signs and the P.A.R. score; then discharge to a Phase I or Fast Track to Phase II per the following guidelines: * Discharge Patient to appropriate Phase II area if PAR is 8 or greater or return to pre- procedure baseline. The post - procedure orders will be as directed. * If PAR score is less than 8 or not return to pre-procedure baseline then patient will follow Phase I monitoring till PAR is reached for Phase II. The Phase I may be done in procedure room or may call to secure a Phase I area. * If naloxone or flumazenil are used for reversal, hold in Phase I for continued monitoring from when last reversal dose was given for a minimum of 60 minutes or longer pending the nurse and/or physician discretion of patient condition before discharge to Phase II. Please call the Sedation Physician to re-evaluate and complete post-note for discharge to Phase II area. Do NOT discharge from procedure sedation or Phase 1 until post- sedation evaluation note is complete by procedure /sedation MD Sedation Discharge Instructions to be given to the patient at discharge to home.
[2018-10-14] MEDS: ERTAPENEM SODIUM 1,000 MG in SODIUM CHLORIDE 0.9% 50 ML IV SCH (17:08)
[2018-10-14] MEDS: HYDROCODONE/ACETAMINOPHEN 10/325 TAB PO PRN (17:15)
[2018-10-14] MEDS: ATORVASTATIN 10 MG TAB PO SCH (21:26)
[2018-10-15] MEDS: CHECK FENTANYL PATCH PLACEMENT SCH ×3 (00:27→15:17)
[2018-10-15] MEDS: HYDROCORTISONE SOD 12.5 MG in SYRINGE 0 ML IV SCH ×3 (05:41→21:11)
--- NOTE | 2018-10-15 06:09 | XRay Report ---
XR chest 2V routine CLINICAL HISTORY: EXACT TIME ORDERED Evaluate for pneumothorax and l COMPARISON STUDY: 10/11/2018 FINDINGS: Mild stable cardia megaly. Small left pleural effusion. Bipolar cardiac pacemaker in good p osition. Right lung is clear. IMPRESSION: Permanent pacemaker with leads in good position. No evidence of pneumothorax. Small unch anging left pleural effusion. The above report was generated using voice recognition software. It may contain grammatical, syntax or spelling errors. Electronically signed by: Frank Colin M.D. 10/15/2018 6:08 AM
[2018-10-15 07:09] LABS: Basophils # (auto) 0.01 K/uL (0-0.2); Basophils % (auto) 0.1 %; Eosinophils # (auto) 0.17 K/uL (0-0.5); Eosinophils % (auto) 2.2 %; Hemoglobin 12.1 g/dL (12.0-16.0); Immature Granulocytes # (auto) 0.02 K/uL (0.00-0.02); Immature Granulocytes % (auto) 0.3 %; Lymphocytes # (auto) 0.62 K/uL (1.2-3.4); Lymphocytes % (auto) 8.2 %; Mean Corpuscular Hgb Conc 33.6 g/dL (32-36); Mean Corpuscular Volume 90.5 fL (80-100); Monocytes # (auto) 0.95 K/uL (0.11-0.59); Monocytes % (auto) 12.5 %; Neutrophils % (auto) 76.7 %; Platelet Count 236 K/uL (130-400); RDW Coefficient of Variation 16.9 % (11.5-14.5); RDW Standard Deviation 56.1 fL (36.4-46.3); Red Blood Count 3.98 M/uL (4.2-5.4); White Blood Count 7.57 K/uL (4.8-10.8)
[2018-10-15 07:44] LABS: Alanine Aminotransferase < 6 U/L (12-78); Albumin Level 2.5 gm/dl (3.4-5.0); Aspartate Aminotransferase 16 U/L (15-37); BUN Creatinine Ratio 31.8 (10-20); Blood Urea Nitrogen 24 mg/dl (7-18); Calcium 8.1 mg/dl (8.5-10.1); Carbon Dioxide 25 mmol/L (21-32); Chloride 106 mmol/L (98-107); Creatinine Clr Calc Pharmacy 38.5 ml/min; Est GFR (African American) 84.4; Est GFR (Non-African American) 72.8; Glucose 93 mg/dl (70-99); Magnesium 1.5 mg/dl (1.8-2.4); Potassium 3.1 mmol/L (3.5-5.1); Sodium 140 mmol/L (136-145)
[2018-10-15 07:47] LABS: Albumin Globulin Ratio 0.8 (0.9-2); Alkaline Phosphatase 89 U/L (45-117); Bilirubin,Total 0.5 mg/dl (0.2-1); Globulin 3.1 gm/dl (2.5-4.0); Total Protein 5.6 gm/dl (6.4-8.2)
[2018-10-15] MEDS: CARVEDILOL 12.5 MG TAB PO SCH ×2 (08:01→21:12)
[2018-10-15] MEDS: LOSARTAN POTASSIUM 50 MG TAB PO SCH (08:01)
[2018-10-15] MEDS: FUROSEMIDE 20 MG TAB PO SCH (08:01)
[2018-10-15] MEDS: GABAPENTIN 600 MG TAB PO SCH ×3 (08:01→21:11)
[2018-10-15] MEDS: CHOLECALCIFEROL 1,000 UNITS TAB PO SCH (08:02)
[2018-10-15] MEDS: CARBIDOPA/LEVODOPA 25/100MG TAB PO SCH ×4 (08:02→21:11)
[2018-10-15] MEDS: PRESERVISION - NON-FORMULARY PATIENT'S OWN MED PO SCH ×2 (08:02→21:10)
[2018-10-15] MEDS: MENTHOL-ZINC OXIDE 360 APPLN/120 GM TUBE EXT SCH (08:04)
[2018-10-15] MEDS ORDERED: POTASSIUM CHLORIDE 20 MEQ TABCR PO STA (08:10)
[2018-10-15] MEDS ORDERED: MAGNESIUM SULFATE / D5W 1 GM/100 ML BAG IV ONE (08:30)
[2018-10-15] MEDS: MAGNESIUM OXIDE 400 MG TAB PO SCH ×2 (08:48→21:11)
[2018-10-15] MEDS: POTASSIUM CHLORIDE / WTR 10 MEQ/100 ML PLCT IV SCH ×2 (08:54→10:09)
--- NOTE | 2018-10-15 09:57 | Cardiology Progress Note ---
Date of Service October 15, 2018 Assessment & Plan (1) Postsurgical cardiac pacemaker in situ: She is doing well post-op, the site looks good, the pacer is working well and she feels well. We will need to watch for improvement in symptoms and hemodynamics. Subjective She feels well, no complaints of chest or incisional discomfort. Physical Exam Physical Exam: Pacer site is ecchymotic as expected but not swollen and no significant bleeding. Results & Data Vital Signs (Past 12 Hours) Vital Signs Temp Pulse Resp BP BP Pulse Ox 10/15/18 08:04 36.5 C 66 18 114/69 96 10/15/18 04:00 68 20 123/64 92 10/14/18 23:40 36.4 C L 92 H 24 108/74 100 Diagnostic Findings ECG post OP: Normal biventricular pacing Telemetry: Normal pacer function Pacer check: Stable measurements CXR: Good lead position, no pneumothorax
--- NOTE | 2018-10-15 14:47 | Hospitalist Progress Note ---
Date of Service October 15, 2018 Assessment & Plan (1) Pneumonia: Possible community-acquired pneumonia, with bibasilar consolidation on CT chest, with hypoxia upon admission, r recent PEs, stable improving Oxygen level from 4 L coming down to 2 L, will continue to treat for PNA, with antibiotic nebulizer treatment, No new PEs on CTA chest here Continue ertapenem for gram-negative coverage given multiple recent hospitalizations it also cover for UTI with Klebsiella pneumoniae ESBL Follow blood cultures from october, no growth to date has wean off O2, need 2 step, and nocternal osat eval 1 day prior to discharge, possible tomorrow Continue nebs Will need to follow chest x-ray to resolution Encouraged patient to get out of bed with therapy, for that she has been doing that (2) Acute respiratory failure with hypoxia: See above, likely secondary to PNA, Acute on chronic combined systolic and diastolic CHF with pleural effusions on CT, some pulm edema on CT chest but no new PE Was 74% on RA with EMS upon admission was given IV lasix x 1 dose in ER and had some significant diuresis Restarted home Lasix 20 mg once daily 2 days ago, got 40mg lasix po yesterday continue renal tolerated well, has help to taper off NC o2, and edema continue supplemental O2 to keep POx>92% (3) Cellulitis: Also with possible source of encephalopathy is the bilateral R>L upper inner thigh cellulitis With edema, erythema, pain of inner thighs which is almost completely resolved Continue ertapenem, discontinue vancomycin follow clinically (4) Chronic combined systolic and diastolic heart failure: With acute exacerbation of chronic combined systolic and diastolic heart failure with evidence of pulmonary edema, hypoxia Was given IV Lasix x1 in the ER and had diuresis, now improved, is nearly euvolemic but had slight weight gain today follow I's and O's, daily weights, low-sodium diet Start Lasix 20 mg p.o. once daily-was as needed weight gain as an outpatient, got lasix 40 mg Lasix p.o. today, will continue 40 mg p.o. daily, With a LVEF of 30-35 % on echocardiogram 05/2018 which was a new decline in LV function for her. She declined cardiac catheterization at that time and was presumed to be an ischemic cardiomyopathy in nature, Pacer was done b/c nonischemic cardiomyopathy, and secondary to her bundle branch block PPM today she declines an ICD as she does not want to be defibrillated in the event of cardiac arrest Continue aspirin but hold for surgery, continue statin, carvedilol, losartan resume Lovenox (5) LBBB (left bundle branch block): Plan outlined as above (6) Peripheral artery disease: History of left femoropopliteal bypass graft and right superficial femoral artery and popliteal artery occlusions with angioplasty -Continue aspirin and statin (7) Chronic kidney disease (CKD) stage G3a/A1, moderately decreased glomerular filtration rate (GFR) between 45-59 mL/min/1.73 square meter and albuminuria creatinine ratio less than 30 mg/g: Creatinine at baseline, stable Avoid nephrotoxins renally dose medications Follow BMP (8) Hyperlipemia: Continue statin (9) Hypertension: Blood pressure is normal at this time -Continue carvedilol 18.75 mg p.o. twice daily, losartan 100 mg daily, and Lasix (10) Temporal arteritis: Stable for many years -Normally is on prednisone 1 mg p.o. 3 times daily at home -Continue to home prednisone and Dc IV hydrocortisone 25 mg IV every 8 hours f (11) UTI (urinary tract infection): COuld be asymptomatic bacteriuria but with lethargy, will treat with ertapenem in case of true infection Urine culture with Klebsiella pneumoniae ESBL Appreciate infectious disease consultation-recommends total of 7 days of IV ertapenem-today is day #4 Patient will likely end up staying in the hospital until her treatment is complete given she is getting a pacemaker and still recovering from pneumonia (12) Pulmonary embolism: With recent bilateral PEs on admission several weeks ago. Largely resolved on CTA Chest performed on admission -Has been on full dose therapeutic Lovenox that is renally dosed at 50 mg SQ once daily -Consider switching to Coumadin for improved comfort as she is having to do a daily injection for many months and her abdomen is quite painful, has very thin skin and bleeds very easily -Patient wants to switch to Coumadin after her pacemaker implantation with Lovenox bridging -She will need follow-up in the anticoagulation clinic -She would need 3 to 6 months of anticoagulation for pulmonary embolism, however she also has a history of paroxysmal atrial fibrillation as below and should remain on it indefinitely (13) Atrial fibrillation: Paroxysmal during her last admission ECG here with LBBB and sinus rhythm with first-degree block -Is anticoagulated with Lovenox currently and switching to Coumadin after discharge -Remains on carvedilol for rate control (14) Elevated troponin: Mildly elevated on admission at 0.053 and then trended downward to 0.048 -Likely myocardial demand ischemia in the setting of current infection and known presumed CAD. She had no chest pain at any time -Chronic wall motion abnormality seen on echocardiogram here ECG with chronic left bundle branch block -Monitor on telemetry (15) Osteoarthritis: -Continue chronic fentanyl and hydrocodone as needed for pain -of note, her fentanyl patch was removed in the ER as she was lethargic, but now is more alert and fentanyl patches restarted (16) Diarrhea: ongoing, on antibiotics, had Fentanyl patch off for 12 hours and may have some opioid withdrawal? Fentanyl patch back on and having several solid but loose stools daily Stool C. difficile which shows C. difficile a and B- chain positive, discussed with infectious disease, no treatment, and will have infectious disease formal input cont loperamide as needed Use calmoseptine cream to buttocks that are erythematous and sore (17) DVT prophylaxis: Lovenox full dose therapeutic cont on hold for pacemaker placement today will restart as soon as possible afterwards Disposition-continue telemetry monitoring DNR/DNI, appreciate palliative care consultation to discuss goals of care Subjective had pacer placement yesterday, doing well, no pain, cardiology did dress change already, patient was out of bed to chair, was to the restroom with dietitian assistant, she reports he was able to walk with walker prior to this admission,, Review of Systems Review of Systems: All systems reviewed & are unremarkable except as noted in HPI & below Physical Exam Physical Exam: Constitutional: Frail, chronically ill looking, looks better than yesterday, no acute distress, Eyes: PERRL, conjunctivae normal, anicteric sclerae Ears: no external ear abnormality Mouth: no lip abnormality Neck: trachea midline, no thyromegaly Respiratory: normal respiratory effort Auscultation: chaya lungs diminished lung sounds , left lower lung mild + crackles, no wheezes Cardiovascular: Rate/Rhythm: regular rate and regular rhythm Heart Sounds: + murmur (2/6 systolic at the RUSB) Extremities: 1+ pitting edema throughout lower extremities, Gastrointestinal: normal bowel sounds, soft, nontender, no hepatosplenomegaly Extremities: no cyanosis and no clubbing Skin: Skin is extremely thin throughout, + erythema Neurologic: moves all extremities and awake; no focal motor deficits Psychiatric: Orientation: oriented to person, oriented to place, oriented to time and cooperative Results & Data Vital Signs (Past 12 Hours) Vital Signs Temp Pulse Resp BP BP Pulse Ox 10/15/18 11:41 36.6 C 74 18 121/63 97 10/15/18 08:04 36.5 C 66 18 114/69 96 10/15/18 04:00 68 20 123/64 92 Laboratory Results - last 24 hr 10/15/18 10/15/18 06:57 06:57 WBC 7.57 RBC 3.98 L Hgb 12.1 Hct 36.0 L MCV 90.5 MCH 30.4 MCHC 33.6 RDW Std Deviation 56.1 H RDW Coeff of Olga 16.9 H Plt Count 236 MPV 9.0 Immature Gran % (Auto) 0.3 Neut % (Auto) 76.7 Lymph % (Auto) 8.2 [place] % (Auto) 12.5 Eos % (Auto) 2.2 Baso % (Auto) 0.1 Immature Gran # (Auto) 0.02 Neut # (Auto) 5.80 Lymph # (Auto) 0.62 L [place] # (Auto) 0.95 H Eos # (Auto) 0.17 Baso # (Auto) 0.01 Sodium 140 Potassium 3.1 L Chloride 106 Carbon Dioxide 25 Anion Gap 8.0 BUN 24 H Creatinine 0.74 Est Cr Clr Drug Dosing 38.5 Est GFR ( Amer) 84.4 Est GFR (Non-Af Amer) 72.8 BUN/Creatinine Ratio 31.8 H Glucose 93 Calcium 8.1 L Magnesium 1.5 L Total Bilirubin 0.5 AST 16 ALT < 6 L Alkaline Phosphatase 89 Total Protein 5.6 L Albumin 2.5 L Globulin 3.1 Albumin/Globulin Ratio 0.8 L (1) UTI (urinary tract infection) Hematuria presence: without hematuria Urinary tract infection type: acute cystitis Qualified Code(s): N30.00 - Acute cystitis without hematuria (2) Pulmonary embolism Acute cor pulmonale presence: without acute cor pulmonale Chronicity: unspecified Pulmonary embolism type: unspecified Qualified Code(s): I26.99 - Other pulmonary embolism without acute cor pulmonale (3) Atrial fibrillation Atrial fibrillation type: unspecified Qualified Code(s): I48.91 - Unspecified atrial fibrillation
[2018-10-15] MEDS ORDERED: FUROSEMIDE 20 MG TAB PO ONE (15:15)
[2018-10-15] MEDS: ENOXAPARIN INJ 60 MG/0.6 ML SYR SQ SCH (15:43)
[2018-10-15] MEDS: ERTAPENEM SODIUM 1,000 MG in SODIUM CHLORIDE 0.9% 50 ML IV SCH (17:35)
[2018-10-15] MEDS ORDERED: ENOXAPARIN INJ 60 MG/0.6 ML SYR SQ SCH (19:00)
[2018-10-15] MEDS: fentaNYL 25 MCG/HR TDSY TD SCH (19:55)
[2018-10-15] MEDS: ATORVASTATIN 10 MG TAB PO SCH (21:11)
[2018-10-16] MEDS: HYDROCORTISONE SOD 12.5 MG in SYRINGE 0 ML IV SCH ×2 (05:59→13:19)
[2018-10-16] MEDS: PRESERVISION - NON-FORMULARY PATIENT'S OWN MED PO SCH ×2 (07:30→21:20)
[2018-10-16] MEDS: MAGNESIUM OXIDE 400 MG TAB PO SCH (07:31)
[2018-10-16] MEDS: LOSARTAN POTASSIUM 50 MG TAB PO SCH (07:31)
[2018-10-16] MEDS: FUROSEMIDE 40 MG TAB PO SCH (07:31)
[2018-10-16] MEDS: GABAPENTIN 600 MG TAB PO SCH ×3 (07:32→21:20)
[2018-10-16] MEDS: CARVEDILOL 12.5 MG TAB PO SCH ×2 (07:32→21:19)
[2018-10-16] MEDS: CARBIDOPA/LEVODOPA 25/100MG TAB PO SCH ×4 (07:32→21:21)
[2018-10-16] MEDS: CHOLECALCIFEROL 1,000 UNITS TAB PO SCH (07:32)
[2018-10-16] MEDS: CHECK FENTANYL PATCH PLACEMENT SCH ×4 (07:34→23:36)
[2018-10-16] MEDS: MENTHOL-ZINC OXIDE 360 APPLN/120 GM TUBE EXT SCH (07:34)
--- NOTE | 2018-10-16 15:29 | Hospitalist Progress Note ---
Date of Service October 16, 2018 Assessment & Plan (1) Pneumonia: Bibasilar consolidations on CTA chest on 10/11. MRSA swab negative. Blood cultures on 10/11 were negative. - Continue ertapenem x 7 days (End date: 10/17) - Wean O2 as able - Continue nebs (2) Acute respiratory failure with hypoxia: Secondary to PNA. Was 74% on RA with EMS upon admission. - Plan as above (3) UTI (urinary tract infection): Unclear whether this was infection vs. asymptomatic bacteriuria. Due to lethargy on admission, was treated. Urine culture from 10/11 with Klebsiella pneumoniae ESBL - Finish ertapenem on 10/17 (4) Cellulitis: Bilateral R>L upper inner thigh cellulitis on admission. - By 10/16, legs were largely resolved - Continue ertapenem as above for multiple infections (5) Chronic combined systolic and diastolic heart failure: With acute exacerbation of chronic combined systolic and diastolic heart failure with evidence of pulmonary edema, hypoxia. LVEF of 30-35% on echocardiogram 05/2018 which was a new decline in LV function for her. - Was given IV Lasix x1 in the ER and had diuresis - Bi-V pacemaker installed on 10/15/[address] Lalo Dowling - Continue Lasix 40mg PO daily - Follow I's and O's, daily weights, low-sodium diet - Continue aspirin but hold for surgery, continue statin, carvedilol, losartan (6) LBBB (left bundle branch block): Plan outlined as above (7) Peripheral artery disease: History of left femoropopliteal bypass graft and right superficial femoral artery and popliteal artery occlusions with angioplasty - Continue aspirin, anticoagulation, and statin (8) Chronic kidney disease (CKD) stage G3a/A1, moderately decreased glomerular filtration rate (GFR) between 45-59 mL/min/1.73 square meter and albuminuria creatinine ratio less than 30 mg/g: Creatinine at baseline of 0.7. - Avoid nephrotoxins - Follow BMP (9) Hypertension: Blood pressure is normal at this time. - Continue carvedilol 18.75 mg p.o. twice daily, losartan 100 mg daily, and Lasix (10) Temporal arteritis: Stable for many years. - Normally is on prednisone 1 mg p.o. 3 times daily at home - Continue to home prednisone (11) Pulmonary embolism: With recent bilateral PEs on admission in 09/2018. Largely resolved on CTA Chest performed on admission. - Has been on full dose therapeutic Lovenox that is renally dosed at 50 mg SQ once daily - Discussed with patient and daughters because she has had to do a daily injections for many months and her abdomen is quite painful - Patient wants to switch to Coumadin after her pacemaker implantation with Lovenox bridging -She will need follow-up in the anticoagulation clinic - She would need 3 to 6 months of anticoagulation for pulmonary embolism; however, she also has a history of paroxysmal atrial fibrillation as below and should remain on it indefinitely. (12) Atrial fibrillation: Paroxysmal during her last admission. ECG here with LBBB and sinus rhythm with first-degree block. - Is anticoagulated with Lovenox currently and switching to Coumadin after discharge - Remains on carvedilol for rate control (13) Elevated troponin: Mildly elevated on admission at 0.053 and then trended downward to 0.048. - Likely myocardial demand ischemia in the setting of current infection and known presumed CAD. She had no chest pain at any time. (14) Osteoarthritis: - Continue chronic fentanyl and hydrocodone as needed for pain - Of note, her fentanyl patch was removed in the ER as she was lethargic, but now is more alert and fentanyl patches restarted (15) Diarrhea: Stool C. difficile showed C. difficile colonization. - Cont loperamide as needed (16) DVT prophylaxis: Lovenox full dose Subjective Doing well today. In the AM, had no complaints. On return in the afternoon, she reported some left gaviria pain that seemed neurogenic in origin. Reports no fevers/chills, chest pain, shortness of breath, abdominal pain, nausea, or vomiting. Review of Systems Review of Systems: All systems reviewed & are unremarkable except as noted in HPI & below Physical Exam Constitutional: + frail appearing and cooperative; no acute distress and not lethargic Eyes: PERRL, conjunctivae normal, anicteric sclerae ENMT: external ear and nose normal, oropharynx normal Ears: no external ear abnormality Nose: no external nose abnormality and no nasal discharge Mouth: no lip abnormality Neck: trachea midline, no thyromegaly Respiratory: normal respiratory effort Auscultation: + diminished lung sounds (at the bases bilaterally) and + crackles (Mild at the bases); no wheezes Cardiovascular: Rate/Rhythm: regular rate and regular rhythm Heart Sounds: + murmur (2/6 systolic at the RUSB) Gastrointestinal (Abdomen): normal bowel sounds, soft, nontender, no hepatosplenomegaly Musculoskeletal: Extremities: no cyanosis and no clubbing Neurologic: moves all extremities and awake; no focal motor deficits Psychiatric: Orientation: oriented to person, oriented to place, oriented to time and cooperative Eye Contact: good eye contact Results & Data Vital Signs (Past 12 Hours) Vital Signs Temp Pulse Resp BP Pulse Ox 10/16/18 15:15 36.3 C L 75 18 157/76 H 96 10/16/18 12:00 36.8 C 68 18 123/63 95 10/16/18 08:00 36.8 C 68 18 129/73 96 10/16/18 04:27 36.6 C 93 H 20 125/78 95 (1) UTI (urinary tract infection) Hematuria presence: without hematuria Urinary tract infection type: acute cystitis Qualified Code(s): N30.00 - Acute cystitis without hematuria (2) Pulmonary embolism Acute cor pulmonale presence: without acute cor pulmonale Chronicity: unspecified Pulmonary embolism type: unspecified Qualified Code(s): I26.99 - Other pulmonary embolism without acute cor pulmonale (3) Atrial fibrillation Atrial fibrillation type: unspecified Qualified Code(s): I48.91 - Unspecified atrial fibrillation
[2018-10-16] MEDS: ERTAPENEM SODIUM 1,000 MG in SODIUM CHLORIDE 0.9% 50 ML IV SCH (18:09)
[2018-10-16] MEDS: ENOXAPARIN INJ 60 MG/0.6 ML SYR SQ SCH (19:07)
[2018-10-16] MEDS: ATORVASTATIN 10 MG TAB PO SCH (21:20)
[2018-10-16] MEDS: predniSONE 1 MG TAB PO SCH (21:21)
[2018-10-17] MEDS: MENTHOL-ZINC OXIDE 360 APPLN/120 GM TUBE EXT SCH (08:01)
[2018-10-17] MEDS: CARBIDOPA/LEVODOPA 25/100MG TAB PO SCH ×2 (08:02→12:43)
[2018-10-17] MEDS: LOSARTAN POTASSIUM 50 MG TAB PO SCH (08:02)
[2018-10-17] MEDS: FUROSEMIDE 40 MG TAB PO SCH (08:02)
[2018-10-17] MEDS: CHOLECALCIFEROL 1,000 UNITS TAB PO SCH (08:02)
[2018-10-17] MEDS: PRESERVISION - NON-FORMULARY PATIENT'S OWN MED PO SCH (08:02)
[2018-10-17] MEDS: CARVEDILOL 12.5 MG TAB PO SCH (08:03)
[2018-10-17] MEDS: predniSONE 1 MG TAB PO SCH ×2 (08:04→12:43)
[2018-10-17] MEDS: GABAPENTIN 600 MG TAB PO SCH ×2 (08:04→12:43)
[2018-10-17] MEDS: CHECK FENTANYL PATCH PLACEMENT SCH ×2 (08:05→16:39)
[2018-10-17] MEDS: ASPIRIN 81 MG ECTAB PO SCH (08:42)
--- NOTE | 2018-10-17 12:18 | Palliative Care Progress Note ---
Date of Service October 17, 2018 Assessment & Plan (1) Goals of care, counseling/discussion: -Patient did go for pacemaker on Wednesday and tolerated procedure well. She is now on regular medical floor, possibly will be discharged home this afternoon. -Spoke at length with patient, daughters Yaneil and Joana, regarding goals of care. -Patient wants to return home on home health with PT/OT in attempts to gain some of her physical function back. I, as well as Yaneli, expressed concern that patient is still extremely weak and requiring a two-person assist to get out of bed. Patient and family agreed, but patient is very anxious to get home and give therapy a try. -Talked to patient about what she would like to happen after she is done with therapy: either because she has plateaued, improved, or is not able to tolerate therapy. At that point, she is willing to transition to hospice care as her main goals is to be at home. She doesn't want to spend her days in the hospital and she is aware that there really are no further medical options to improve her condition at this time, only interventions to keep her comfortable. -Asked employment case manager to follow up with [facility] and request that a social work case manager see patient and her daughters in about a week to discuss goals and assess patient's progress/regress at that time. -We did not complete a POLST form at this time as patient would like to wait and see how she does at home with therapy before making final decisions. -Please contact me with any further palliative care needs. (2) Pneumonia: (3) Acute respiratory failure with hypoxia: (4) Chronic combined systolic and diastolic heart failure: (5) Pulmonary embolism: Subjective Met with patient, her daughter Yaneli, and daughter Joana by phone. Patient is feeling pretty well today, she is anxious to go home. Discussed plan and goals of care. See A&P. Review of Systems Constitutional: + weakness Respiratory: + dyspnea on exertion; no cough Cardiovascular: + dyspnea on exertion; no chest pain Gastrointestinal: no abdominal pain and no nausea Integumentary: no pain at surgical site Neurologic: no confusion Psychiatric: no anxiety Physical Exam Constitutional: + frail appearing; no acute distress Eyes: PERRL, conjunctivae normal, anicteric sclerae ENMT: external ear and nose normal, oropharynx normal Neck: normal visual inspection Respiratory: normal respiratory effort Auscultation: + diminished lung sounds (at the bases bilaterally) Cardiovascular: Rate/Rhythm: regular rate and regular rhythm Gastrointestinal (Abdomen): normal bowel sounds, soft, nontender, no hepatosplenomegaly Musculoskeletal: Extremities: no cyanosis Neurologic: moves all extremities and awake Psychiatric: A+Ox3, euthymic affect Results & Data Vital Signs (Past 12 Hours) Vital Signs Temp Pulse Pulse Resp BP Pulse Ox Pulse Ox 10/17/18 08:01 36.9 C 67 19 151/69 H 97 10/17/18 01:32 95 H 90 Time Spent Midlevel 65 minutes with >50% of time spent at bedside with patient and family discussing GOC and discharge plan. (1) Pulmonary embolism Acute cor pulmonale presence: without acute cor pulmonale Chronicity: unspecified Pulmonary embolism type: unspecified Qualified Code(s): I26.99 - Other pulmonary embolism without acute cor pulmonale
[2018-10-17] MEDS: ERTAPENEM SODIUM 1,000 MG in SODIUM CHLORIDE 0.9% 50 ML IV SCH (13:40)
--- NOTE | 2018-10-17 14:53 | Discharge Summary ---
Date of Service October 17, 2018 Admission HPI Per Admitting Provider This patient is an 87-year-old female with a history of CHF, CAD, ischemic cardiomyopathy, chronic opioid dependence, LBBB, recurrent UTIs, CKD stage III, osteoarthritis, and recent pulmonary embolism, who presents to the ER after having a dry cough for 2 to 3 days and development of shortness of breath x1 day. She had no fever sweats or chills at home but is severely fatigued and generally weak all over. 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 In the ER, she was noted to be lethargic but wakes up to questioning and answers questions appropriately. She was requiring 4 L to maintain her oxygen in the mid 90s when I saw her. She denied chest pain or abdominal pain. Denied diarrhea or constipation. Denied urinary symptoms but her UA was grossly positive for infection. Her chest CT angiogram showed bibasilar consolidation but resolving PEs. She was also noted to have pain in her groin and cellulitis of the upper thighs bilaterally right greater than left with edema. She will be admitted for acute hypoxic respiratory failure, healthcare associated pneumonia, lower extremity cellulitis, and possible UTI. She was not septic at the time of admission Principal Diagnosis Respiratory failure from pneumonia and possible volume overload. Discharge Exam Constitutional + frail appearing and cooperative; no acute distress and not lethargic Eyes PERRL, conjunctivae normal, anicteric sclerae ENMT external ear and nose normal, oropharynx normal Ears: no external ear abnormality Nose: no external nose abnormality and no nasal discharge Mouth: no lip abnormality Neck trachea midline, no thyromegaly Respiratory normal respiratory effort Auscultation: + diminished lung sounds (at the bases bilaterally) and + crackles (Mild at the bases); no wheezes Cardiovascular Rate/Rhythm: regular rate and regular rhythm Heart Sounds: + murmur (2/6 systolic at the RUSB) Gastrointestinal (Abdomen) normal bowel sounds, soft, nontender, no hepatosplenomegaly Musculoskeletal Extremities: no cyanosis and no clubbing Neurologic moves all extremities and awake; no focal motor deficits Psychiatric Orientation: oriented to person, oriented to place, oriented to time and cooperative Eye Contact: good eye contact Discharge Data Allergies Allergy/AdvReac Type Severity Reaction Status Date / Time clindamycin Allergy Severe COLITIS Verified 10/11/18 11:37 cephalexin Allergy Intermediate Diarrhea Verified 10/11/18 11:37 omeprazole Allergy Unknown Unknown Verified 10/11/18 11:37 adhesive AdvReac Intermediate RASH Verified 10/11/18 11:37 oxaprozin AdvReac Intermediate HEADACHE Verified 10/11/18 11:37 Quinolones AdvReac Mild diarrhea Verified 10/11/18 11:37 hydrochlorothiazide AdvReac Unknown PT HX Verified 10/11/18 11:37 KIDNEY DYSFUNCTION ibuprofen AdvReac Unknown PT HX Verified 10/11/18 11:37 KIDNEY DYSFUNCTION lisinopril AdvReac Unknown GI Verified 10/11/18 11:37 SYMPTOMS,RENAL DYSFUNCTION Consultations 10/11/18 14:45 ED Decision to Admit Stat 10/11/18 19:49 Consult Case Management - Discharge Planning Routine Consult Infectious Diseases Routine 10/12/18 19:40 Consult Palliative Care Routine 10/13/18 11:10 Consult Cardiology Routine 10/14/18 08:01 Consult Infectious Diseases Routine 10/14/18 14:26 Consult Infectious Diseases Routine Procedures Performed Operation Date: 10/14/18 12:00 Actual Procedures p Pacer with A/V Leads (Dual) - Lalo Dowling MD s Lead LV (No Priopr Implant) - Lalo Dowling MD s Venogram, Unilateral - Lalo Dowling MD Ordered Studies 10/11/18 12:48 CT angio chest PE protocol Stat 10/14/18 13:45 EP Lab Images for PACS ONCE Hospital Course (1) Pneumonia: Bibasilar consolidations on CTA chest on 10/11. MRSA swab negative. Blood cultures on 10/11 were negative. - Continued ertapenem x 7 days. Last day of antibiotics was on 10/17 with dose given prior to discharge. - Qualified for nocturnal O2 - Arranged prior to discharge. (2) Acute respiratory failure with hypoxia: Secondary to PNA. Was 74% on RA with EMS upon admission. - Weaned back to room air prior to discharge. (3) UTI (urinary tract infection): Unclear whether this was infection vs. asymptomatic bacteriuria. Due to lethargy on admission, was treated. Urine culture from 10/11 with Klebsiella pneumoniae ESBL - Finished ertapenem on 10/17 (4) Pulmonary embolism: With recent bilateral PEs on admission in 09/2018. Largely resolved on CTA Chest performed on admission. - Has been on full dose therapeutic Lovenox that is renally dosed at 50 mg SQ once daily - Discussed with patient and daughters because she has had to do a daily injections for many months and her abdomen is quite painful - Patient wants to switch to Coumadin after her pacemaker implantation with Lovenox bridging -She will need follow-up in the anticoagulation clinic - She would need 3 to 6 months of anticoagulation for pulmonary embolism; however, she also has a history of paroxysmal atrial fibrillation as below and should remain on it indefinitely. - On discharge, she was started on warfarin to help reduce her injection burden as she was getting very bruised. Will follow up with her PCP with an INR check on October 21. (5) Cellulitis: Bilateral R>L upper inner thigh cellulitis on admission. - By 10/16, leg cellulitis was resolved - Continued ertapenem as above for multiple infections (6) Chronic combined systolic and diastolic heart failure: With acute exacerbation of chronic combined systolic and diastolic heart failure with evidence of pulmonary edema, hypoxia. LVEF of 30-35% on echocardiogram 05/2018 which was a new decline in LV function for her. - Was given IV Lasix x1 in the ER and had diuresis - Bi-V pacemaker installed on 10/15/[address] Lalo Dowling - Continued Lasix 40mg PO daily while inpatient - Discharged on Lasix 20mg PO daily PRN for weight gain, leg swelling, or shortness of breath - Hopefully once her Bi-V pacer improves her ventricular function, she will not need regular Lasix, but will need to follow up closely with cardiology - Follow I's and O's, daily weights, low-sodium diet - Continued aspirin, statin, carvedilol, and losartan (7) LBBB (left bundle branch block): Plan outlined as above (8) Peripheral artery disease: History of left femoropopliteal bypass graft and right superficial femoral artery and popliteal artery occlusions with angioplasty - Continued aspirin, anticoagulation, and statin (9) Chronic kidney disease (CKD) stage G3a/A1, moderately decreased glomerular filtration rate (GFR) between 45-59 mL/min/1.73 square meter and albuminuria creatinine ratio less than 30 mg/g: Creatinine at baseline of 0.7. - Avoid nephrotoxins - Follow BMP (10) Hypertension: Blood pressure is normal at this time. - Continue carvedilol 18.75 mg p.o. twice daily, losartan 100 mg daily, and Lasix (11) Temporal arteritis: Stable for many years. - Normally is on prednisone 1 mg p.o. 3 times daily at home - Continue to home prednisone (12) Atrial fibrillation: Paroxysmal during her last admission. ECG here with LBBB and sinus rhythm with first-degree block. - Is anticoagulated with Lovenox currently and switching to Coumadin after discharge - Remains on carvedilol for rate control (13) Elevated troponin: Mildly elevated on admission at 0.053 and then trended downward to 0.048. - Likely myocardial demand ischemia in the setting of current infection and known presumed CAD. She had no chest pain at any time. (14) Osteoarthritis: - Continue chronic fentanyl and hydrocodone as needed for pain - Of note, her fentanyl patch was removed in the ER as she was lethargic, but now is more alert and fentanyl patches restarted (15) Diarrhea: Stool C. difficile showed C. difficile colonization. - Cont loperamide as needed (16) DVT prophylaxis: Lovenox full dose Total Time Total Time Spent Total Time Spent (In Minutes): 45 Discharge Plan Discharge Items Patient Disposition: Home - Home Health Services Reason For Visit: ACUTE HYPOXIC RESPIRATORY FAILURE,PNEUMONIA,CELLUL Discharge Diagnosis: Pneumonia, cellulitis, breathing issues. Discharge Goals: Decrease discomfort, Diagnostic testing and Improve function Activity: Resume your previous activity Non-emergency contact: Primary Care Provider Call non-emergency contact if: your symptoms worsen, your pain is not controlled and your temperature is above 100.5 Follow-up/Referrals: Lalo Dowling MD [Physician] - (Please see Dr. Dowling in 1-2 weeks for follow up of your pacemaker.) Zackary Avila MD [Primary Care Provider] - 10/25/18 9:30 am (Please, follow up with Dr. Avila on WednesdayOctober 25 at 9:30 am. *If you need to change this appointment, call the office at [phone].) Diet: Regular Addtl Provider Instructions: Ms. Chacon, You were admitted to the hospital with trouble breathing from a pneumonia. We treated you with antibiotics, and you were breathing better by discharge. We did a CT scan of your lungs which showed your blood clots are improving in the lungs. Because you were having so much pain and bruising in the abdomen from your injections, we started you on warfarin. You will take *both* the Lovenox shot and the warfarin for the first 5-7 days. Home health can do a blood draw on Wednesday to help check your warfarin level (INR) which will help your physician team determine whether or not to continue the shots or stop them. For the first few weeks, you will likely need a blood draw every week or so to be sure the INR is at the right level, then the injections can be stopped. We are working with Dr. Avila's office to be sure his office gets the results and can help you adjust your warfarin. ACTIVITY RECOMMENDATIONS: * Do not raise affected arm over head for 2 weeks. SPECIAL CARE INSTRUCTIONS: * If bleeding occurs, apply direct pressure to area for 5 minutes. * Call your doctor if you have severe pain, fever, drainage or bleeding at site. * Keep dressing on and dry for 48 hours then remove (remove on 10/17/2018). * Keep any scheduled doctor's appointment. * Implant Card - hand held device with website information given. SKIN IRRITATION: * You may experience some redness and/or swelling in the area where radiation was administered. If any skin irritation occurs, please contact your family physician. FOLLOW UP VISIT: Keep any scheduled doctor appointments. Prescriptions: New furosemide 20 mg tablet 20 mg PO DAILY PRN (Reason: Leg swelling, weight gain, or breathing problems) Qty: 30 RF: 0 warfarin 2 mg tablet 2 mg PO DAILY Qty: 30 RF: 0 Continued gabapentin 600 mg Tablet 600 mg PO TID RF: 0 albuterol sulfate 2.5 mg /3 mL (0.083 %) Solution For Nebulization 2.5 mg INHALATION Q6H PRN (Reason: Shortness Of Breath Or Wheezing) RF: 0 hydrocodone-acetaminophen [[place]] 10-325 mg Tablet 1 tab PO BID PRN (Reason: Pain) RF: 0 aspirin 81 mg Tablet,Delayed Release (Dr/Ec) 81 mg PO DAILY RF: 0 prednisone 1 mg Tablet 1 mg PO TID RF: 0 fentanyl 25 mcg/hr Patch 72 Hour 1 patch TRANSDERMAL [id number] RF: 0 carbidopa-levodopa 25-100 mg Tablet 1 tab PO QID RF: 0 Restasis 0.05 % Dropperette 1 drp OPB Q12H RF: 0 PreserVision Lutein 226 mg-200 unit -5 mg-0.8 mg Capsule 1 cap PO BID RF: 0 cholecalciferol (vitamin D3) [Vitamin D3] 5,000 unit Tablet 5,000 units PO QAM RF: 0 Lucentis 0.3 mg/0.05 mL Solution 1 dose Intravitreal DIRECTED RF: 0 Multi-Day Plus Minerals 18 mg iron-400 mcg-25 mcg Tablet 1 tab PO BID RF: 0 atorvastatin 20 mg tablet 10 mg PO QPM RF: 0 carvedilol 12.5 mg tablet 18.75 mg PO BID RF: 0 losartan [Cozaar] 100 mg tablet 100 mg PO DAILY RF: 0 enoxaparin 60 mg/0.6 mL Syringe 50 mg subcut Q24H 30 Days Qty: 15 RF: 0 Stand-Alone Forms: [facility] Discharge Orders: Discharge Order (Routine); Ordered 10/17/18 Ordered By: Tom Mike Admission Data Admit Date/Time: 10/11/18 17:50 Attending Provider: Tom Mike Admit Provider: Catia Aiken Primary Care Provider: Zackary Avila Other Providers: Home,Nursing Agency ; Adrien Grissom ; Tom Mike ; Celio Moreira ; Emily Coyne ; Alia Dooley ; Lalo Dowling Service: Medical
== END 2018-10-17 17:27 | disposition home health service (06) | DRG 242 ==
LOC: ED 11:12 → 2S 17:50 → SUATTDRO 17:50 → 2S 19:24 → 4W 10-16 16:03
DX: Z88.1 Allergy status to other antibiotic agents; N18.3 Chronic kidney disease, stage 3 (moderate); L03.114 Cellulitis of left upper limb; I50.43 Acute on chronic combined systolic (congestive) and diastolic (congestive) heart failure; I73.9 Peripheral vascular disease, unspecified; I48.91 Unspecified atrial fibrillation; I24.8 Other forms of acute ischemic heart disease; Z79.82 Long term (current) use of aspirin; I13.0 Hypertensive heart and chronic kidney disease with heart failure and stage 1 through stage 4 chronic kidney disease, or unspecified chronic kidney disease; J96.01 Acute respiratory failure with hypoxia; L03.113 Cellulitis of right upper limb; I44.7 Left bundle-branch block, unspecified; Z86.711 Personal history of pulmonary embolism; G93.41 Metabolic encephalopathy; J18.9 Pneumonia, unspecified organism; M31.6 Other giant cell arteritis; N39.0 Urinary tract infection, site not specified